=== PATIENT | male | born 1960 | race Two or more races ===

== ENCOUNTER 2023-03-13 09:06 | Outpatient (OUT) | payer BC, SELFPAY ==
[2023-03-13 13:30] VITALS: BMI 36.9
== END 2023-03-13 09:07 | disposition home or self-care (01) ==
LOC: MN 09:15
PROVIDERS: PCP Internal Medicine; Visit Provider Internal Medicine
DX: Z71.3 Dietary counseling and surveillance (principal); R73.03 Prediabetes; Z90.5 Acquired absence of kidney
CPT/HCPCS: 97802; S9470

== ENCOUNTER 2023-10-15 13:55 | Outpatient (OUT) | payer BC, SELFPAY ==
[2023-10-15] MEDS: COVID VAC 23-24(12UP)MODERNA/PF 50 MCG/0.5 ML VIAL IM (14:30)
== END 2023-10-15 16:23 | disposition home or self-care (01) ==
LOC: VACCLI 13:56
PROVIDERS: PCP Internal Medicine; Visit Provider Family Medicine
DX: Z23 Encounter for immunization (principal)
CPT/HCPCS: 90480; 91322

== ENCOUNTER 2024-02-08 10:13 | Outpatient (OUT) | payer BC, SELFPAY ==
--- OUTSIDE RECORDS SUMMARY | 2024-02-08 10:29 | XMS_ITS | CCD ---
Author Organization [facility] Care Team Providers Care Credentialing Coordinator Name Role Phone Unavailable Primary Care Provider Carline Cuadra Unavailable Unavailable Primary Care Provider Unavailnicole MORROW, DR HARRISON Consulting Unavailable BALL, DR HARRISON Attending Unavailable BALL, DR HARRISON Admitting Unavailable BALL, DR HARRISON Primary Care Unavailable MISC, DR JOHNSON Consulting Unavailable MISC, DR JOHNSON Attending Unavailable BALL, DR HARRISON Primary Care Unavailable MISC, DR JOHNSON Admitting Unavailable ZIEBVENU, DR ANGEL Garcia Consulting Unavailable BALL, DR HARRISON Consulting Unavailable BALL, DR HARRISON Admitting Unavailable BALL, DR HARRISON Attending Unavailable BALL, DR HARRISON Referring Unavailable BALL, DR HARRISON Primary Care Unavailable EMMETT, DR CANDICE Nazario Consulting Unavailable ZIEBER, DR ANGEL Garcia Consulting Unavailable BALL, DR HARRISON Consulting Unavailable BALL, DR HARRISON Attending Unavailable BALL, DR HARRISON Admitting Unavailable BALL, DR HARRISON Primary Care Unavailable ELIZA, HAWA Consulting Unavailable BALL, DR HARRISON Consulting Unavailable BALL, DR HARRISON Admitting Unavailable BALL, DR HARRISON Attending Unavailable BALL, DR HARRISON Primary Care Unavailable BALL, DR HARRISON Consulting Unavailable BALL, DR HARRISON Admitting Unavailable BALL, DR HARRISON Attending Unavailable BALL, DR HARRISON Primary Care Unavailable EMMETT, DR CANDICE Nazario Consulting Unavailable BALL, DR HARRISON Primary Care Unavailable BALL, DR HARRISON Consulting Unavailable BALL, DR HARRISON Admitting Unavailable BALL, DR HARRISON Attending Unavailable MISC, DR JOHNSON Consulting Unavailable MISC, DR JOHNSON Attending Unavailable MISC, DR JOHNSON Admitting Unavailable BALL, DR HARRISON Primary Care Unavailable ZIEBER, DR ANGEL Garcia Consulting Unavailable BALL, DR HARRISON Consulting Unavailable BALL, DR HARRISON Attending Unavailable BALL, DR HARRISON Admitting Unavailable BALL, DR HARRISON Primary Care Unavailable BALL, DR HARRISON Consulting Unavailable BALL, DR HARRISON Admitting Unavailable BALL, DR HARRISON Attending Unavailable BALL, DR HARRISON Primary Care Unavailable Kevin, Isreal Unavailable Halle, Jason Tran Attending Gilma Neri, Jason Tran Admitting Isreal Lockwood Primary Care Unavailable BANGURA, KENNEY Attending Unavailable BANGURA, KENNEY Referring Unavailable BANGURA, KENNEY Referring Unavailable BANGURA, KENNEY Referring Unavailable BANGURA, KENNEY Referring Unavailable JEFF DUNCAN Attending Unavailable BANGURA, KENNEY Referring Unavailable PETE GUPTA Attending Unavailable BANGURA, KENNEY Attending Unavailable BANGURA, KENNEY Referring Unavailable BANGURA, KENNEY Referring Unavailable LYDIA GODINEZ Attending Unavailab le BANGURA, KENNEY Referring Unavailable PETE GUPTA Attending Unavailable Allergies Allergy Classification Reported Allergen(s) Allergy Type Date of Onset Reaction(s) Facility (1 source) patient allergy list reviewed by nurse or physicia Propensity to adverse reactions Comment:Done [facility] Other (1 source) Allergies Reconciled Propensity to adverse reactions Unknown [facility] Other Medications Current Medications Medication Drug Class(es) Dates Sig (Normalized) Sig (Original) iv contrast (will be provided with radiology test) (8 sources) Start: 08-28-2023 End: 08-29-2023 iv contrast (will be provided with radiology test) Indications: Mass of pancreas CT PANCREAS W Inject, intravenously, once for 1 dose.No IV access, insert saline lock prior to the beginning of sedation, infusion, injection of imaging exam. Discontinue saline lock post exam. If Pt. has a central line or IVAD, may access for administration according to line specific nursing protocol. Once exam is complete flush line and de-access according to line specific nursing protocol in the CT contrast administration guidelines link. 1 Each 0 08/28/2023 08/29/2023 Active Start: 12-26-2022 End: 12-27-2022 iv contrast (will be provide d with radiology test) Indications: Malignant neoplasm of right kidney (HCC) , Mass of pancreas CT ABD/PEL -Inject, intravenously, once for 1 dose.No IV access, insert saline lock prior to the beginning of sedation, infusion, injection of imaging exam. Discontinue saline lock post exam. If Pt. has a central line or IVAD, may access for administration according to line specific nursing protocol. Once exam is complete flush line and de-access according to line specific nursing protocol in the CT contrast administration guidelines link. 1 Each 0 12/26/2022 12/27/2022 Start: 12-26-2022 End: 12-27-2022 iv contrast (will be provide d with radiology test) Indications: Malignant neoplasm of right kidney (HCC) , Mass of pancreas CT ABD/PEL -Inject, intravenously, once for 1 dose.No IV access, insert saline lock prior to the beginning of sedation, infusion, injection of imaging exam. Discontinue saline lock post exam. If Pt. has a central line or IVAD, may access for administration according to line specific nursing protocol. Once exam is complete flush line and de-access according to line specific nursing protocol in the CT contrast administration guidelines link. 1 Each 0 12/26/2022 12/27/2022 Active Start: 06-26-2022 End: 06-26-2022 iv contrast (will be provide d with radiology test) Indications: Malignant neoplasm of right kidney (HCC) , Mass of pancreas CT ABD/PEL -Inject, intravenously, once for 1 dose.No IV access, insert saline lock prior to the beginning of sedation, infusion, injection of imaging exam. Discontinue saline lock post exam. If Pt. has a central line or IVAD, may access for administration according to line specific nursing protocol. Once exam is complete flush line and de-access according to line specific nursing protocol in the CT contrast administration guidelines link. 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 Discontinue saline lock post exam. If Pt. has a central line or IVAD, may access for administration according to line specific nursing protocol. Once exam is complete flush line and de-access according to line specific nursing protocol in the CT contrast administration guidelines link. 1 Each 0 06/20/2022 06/21/2022 Start: 05-02-2022 End: 05-03-2022 iv contrast (will be provide d with radiology test) Indications: Malignant neoplasm of right kidney, except renal pelvis (HCC) CT Chest W -Inject, intravenously, once for 1 dose.No IV access, insert saline lock prior to the beginning of sedation, infusion, injection of imaging exam. Discontinue saline lock post exam. If Pt. has a central line or IVAD, may access for administration according to line specific nursing protocol. Once exam is complete flush line and de-access according to line specific nursing protocol in the CT contrast administration guidelines link. 1 Each 0 05/02/2022 05/03/2022 Active Comment on above: CT Chest W -Inject, intravenously, once for 1 dose.No IV access, insert saline lock prior to the beginning of sedation, infusion, injection of imaging exam. Discontinue saline lock post exam. If Pt. has a central line or IVAD, may access for administration according to line specific nursing protocol. Once exam is complete flush line and de-access according to line specific nursing protocol in the CT contrast administration guidelines link. CT ABD/PEL -Inject, intravenously, once for 1 dose.No IV access, insert saline lock prior to the beginning of sedation, infusion, injection of imaging exam. Discontinue saline lock post exam. If Pt. has a central line or IVAD, may access for administration according to line specific nursing protocol. Once exam is complete flush line and de-access according to line specific nursing protocol in the CT contrast administration guidelines link. CT PANCREAS W Inject , intravenously, once for 1 dose.No IV access, insert saline lock prior to the beginning of sedation, infusion, injection of imaging exam. Discontinue saline lock post exam. If Pt. has a central line or IVAD, may access for administration according to line specific nursing protocol. Once exam is complete flush line and de-access according to line specific nursing protocol in the CT contrast administration guidelines link. zolpidem tartrate 10 mg oral tablet (2 sources) gamma-Aminobutyric Acid-ergic Agonist take 1 tablet by mouth every twenty-four hours Zolpidem Tartrate 10 MG 1 tablet at bedtime as needed Orally Once a day Active Completed/Discontinued Medications Medication Drug Class(es) Dates Sig (Normalized) Sig (Original) acetaminophen 500 mg oral tablet (20 sources) Start: 06-06-2022 End: 06-21-2022 take 2 tablets by mouth every six hours as needed acetaminophen (TYLENOL EXTRA STRENGTH) 500 mg tablet Take 2 tablets by mouth every 6 hours as needed for pain for up to 15 days. 40 tablet 0 06/06/2022 06/21/2022 acetaminophen (T YLENOL ORAL) Take by mouth as needed. 0 Active Comment on above: Take by mouth as nee ded. Take 2 tablets by mo [facility] every 6 hours as needed for pain for up to 15 days. allopurinol 300 mg oral tablet (20 sources) Xanthine Oxidase Inhibitor Start: 03-06-20 take 1 tablet by mouth once daily allopurinol (ZYLOPRIM) 300 mg tablet Take 300 mg by mouth once daily. 0 03/06/2022 Active Comment on above: Take 300 mg by mouth once daily. amLODIPine 5 mg / benazepril hydrochloride 40 mg oral capsule (20 sources) Dihydropyridine Calcium Channel Lj, Angiotensin Converting Enzyme Inhibitor Start: 03-19-20 take 1 capsule by mouth once daily amLODIPine-Benazep ril 5-40 mg per capsule Take 1 capsule by mouth once daily. 0 03/19/2022 Active amLODIPine Besy- Benazepril HCl 5-40 MG as directed Orally Active Comment on above: Take 1 capsule by [facility] once daily. atenolol 50 mg oral tablet (20 sources) beta-Adrenergic Lj Start: 02-18-2022 take 1 tablet by mouth once daily atenolol (TENORMIN) 50 mg tablet Take 50 mg by mouth once daily. 0 02/18/2022 Active Comment on above: Take 50 mg by mouth once daily. colchicine 0.6 mg oral tablet (20 sources) Start: 04-05-2022 colchicine 0.6 mg tablet PRN 0 04/05/2022 Active Mitigare 0.6 MG 1 capsule Orally Active Comment on above: PRN Problems Active Problems Problem Classification Problem Date Documented Date Episodic/Chronic Acquired foot deformities (11 sources) Acquired left hallux rigidus; Translations: [Hallux rigidus, left foot] Chronic Cancer of kidney and renal pelvis (20 sources) Malignant tumor of kidney; Translations: [Malignant neoplasm of right kidney, except renal pelvis] Onset: 05-02-2022 Chronic Cancer of pancreas (1 source) Malignant tumor of body of pancreas; Translations: [Malignant neoplasm of body of pancreas] Chronic Cardiac dysrhythmias (20 sources) Ventricular premature beats; Translations: [Ventricular premature depolarization] Onset: 06-04-2022 06-04-2022 Chronic Cardiac dysrhythmias (6 sources) Intermittent palpitations; Translations: [Palpitations] Episodic Chronic kidney disease (13 sources) Chronic kidney disease stage 3A ; Translations: [Chronic kidney disease, stage 3a] Onset: 12-29-2018 Chronic Chronic kidney disease (5 sources) Chronic kidney disease; Translations: [CHRONIC KIDNEY DISEASE STAGE 3A] Onset: 04-03-2022 Diabetes mellitus without complication (12 sources) Impaired fasting glycemia; Translations: [Impaired fasting glucose] Episodic Diseases of white blood cells (20 sources) Leukocytosis; Translations: [Elevated white blood cell count, unspecified] Onset: 06-04-2022 06-04-2022 Chronic Essential hypertension (20 sources) Hypertensive disorder; Translations: [Essential (primary) hypertension] Onset: 12-16-2013 Chronic Gout and other crystal arthropathies (20 sources) Gout; Translations: [Gout, unspecified] Onset: 05-20-2022 Chronic Hyperplasia of prostate (2 sources) Benign prostatic hypertrophy without outflow obstruction; Translations: [Hypertrophy (benign) of prostate without urinary obstruction and other lower urinary tract symptoms [LUTS]] Onset: 11-25-2016 Chronic Hypertension with complications and secondary hypertension (11 sources) Hypertensive renal disease; Translations: [Hypertensive chronic kidney disease with stage 1 through stage 4 chronic kidney disease, or unspecified chronic kidney disease] Onset: 12-29-2018 Chronic Immunizations and screening for infectious disease (5 sources) Encounter for immunization; Translations: [Vaccination given] Onset: 01-15-2023 Episodic Miscellaneous mental health disorders (5 sources) Primary insomnia; Translations: [Primary insomnia] Chronic Mood disorders (1 source) Mild recurrent major depression; Translations: [Major depressive disorder, recurrent episode, mild] Onset: 05-02-2019 Chronic Osteoarthritis (1 source) Localized, primary osteoarthritis of the ankle and/or foot; Translations: [Primary osteoarthritis, unspecified ankle and foot] Chronic Other acquired deformities (5 sources) Deformity of lower limb; Translations: [Other specified acquired deformities of left lower leg] Episodic Other acquired deformities (1 source) Other specified acquired deformities of left lower leg; Translations: [Other specified acquired deformities of left lower leg] Episodic Other and unspecified benign neoplasm (5 sources) Neuroendocrine tumor of pancreas; Translations: [Other benign neuroendocrine tumors] Episodic Other and unspecified benign neoplasm (2 sources) Other benign neuroendocrine tumors Episodic Other bone disease and musculoskeletal deformities (5 sources) Bone cyst of left foot; Translations: [Other cyst of bone, left ankle and foot] Episodic Other bone disease and musculoskeletal deformities (6 sources) Other cyst of bone, unspecified site; Translations: [Bone cyst] Episodic Other connective tissue disease (5 sources) Achilles tendinitis; Translations: [Achilles tendinitis, left leg] Episodic Other connective tissue disease (5 sources) Subacromial impingement; Translations: [Impingement syndrome of left shoulder] Episodic Other connective tissue disease (5 sources) H/O: gout; Translations: [Personal history of other diseases of the musculoskeletal system and connective tissue] Episodic Other connective tissue disease (5 sources) Achilles bursitis; Translations: [Achilles tendinitis, left leg] Episodic Other connective tissue disease (3 sources) Personal history of other diseases of the musculoskeletal system and connective tissue Episodic Other connective tissue disease (1 source) H/O: musculoskeletal disease; Translations: [Personal history of other diseases of the musculoskeletal system and connective tissue] Episodic Other connective tissue disease (1 source) Impingement syndrome of left shoulder region; Translations: [Impingement syndrome of left shoulder] Episodic Other connective tissue disease (1 source) Pain in right foot; Translations: [Pain in right foot] Episodic Other connective tissue disease (1 source) Pain in left foot; Translations: [Pain in left foot] Episodic Other diseases of kidney and ureters (20 sources) Renal mass; Translations: [Other specified disorders of kidney and ureter] Onset: 05-28-2022 05-28-2022 Chronic Other diseases of kidney and ureters (4 sources) Other specified disorders of kidney and ureter; Translations: [OTHER SPEC DISORDERS KIDNEY URETER] Onset: 04-16-2022 Chronic Other diseases of kidney and ureters (1 source) Disorder of kidney and/or ureter; Translations: [Other specified disorders of kidney and ureter] Onset: 04-16-2022 Chronic Other injuries and conditions due to external causes (1 source) Foreign body in right ear, initial encounter Episodic Other nervous system disorders (11 sources) Meralgia paresthetica; Translations: [Meralgia paresthetica, right lower limb] Chronic Other non-traumatic joint disorders (5 sources) Sinus tarsi syndrome; Translations: [Pain in right ankle and joints of right foot] Episodic Other non-traumatic joint disorders (3 sources) Arthralgia of the ankle and/or foot; Translations: [Pain in right ankle and joints of right foot] Onset: 02-13-2017 Episodic Other nutritional; endocrine; and metabolic disorders (20 sources) Morbid obesity; Translations: [Morbid (severe) obesity due to excess calories] Onset: 05-20-2022 Chronic Other nutritional; endocrine; and metabolic disorders (20 sources) Body mass index 40+ - severely obese; Translations: [Morbid (severe) obesity due to excess calories] Onset: 11-23-2015 05-23-2022 Chronic Other nutritional; endocrine; and metabolic disorders (11 sources) Body mass index 30+ - obesity; Translations: [Obesity, unspecified] Chronic Other nutritional; endocrine; and metabolic disorders (6 sources) Obesity; Translations: [Obesity, unspecified] Chronic Other nutritional; endocrine; and metabolic disorders (3 sources) Hypercalcemia; Translations: [Hypercalcemia] Chronic Other nutritional; endocrine; and metabolic disorders (3 sources) Severe obesity; Translations: [Morbid (severe) obesity due to excess calories] Chronic Other nutritional; endocrine; and metabolic disorders (2 sources) Hypercalcemia Chronic Other nutritional; endocrine; and metabolic disorders (3 sources) Morbid (severe) obesity due to excess calories; Translations: [Obesity, Class III, BMI 40-49.9 (morbid obesity) (HCC)] Onset: 05-23-2022 Chronic Other nutritional; endocrine; and metabolic disorders (1 source) Body mass index (BMI) 39.0-39.9, adult Chronic Other nutritional; endocrine; and metabolic disorders (1 source) Body mass index (BMI) 40.0-44.9, adult Chronic Other screening for suspected conditions (not mental disorders or infectious disease) (6 sources) Patient encounter status; Translations: [Encounter for screening for other disorder] Onset: 02-20-2022 Episodic Residual codes; unclassified (1 source) Absent kidney; Translations: [Acquired absence of kidney] Episodic Residual codes; unclassified (1 source) Acquired absence of spleen; Translations: [Acquired absence of spleen] Onset: 08-20-2023 Episodic Spondylosis; intervertebral disc disorders; other back problems (6 sources) Lumbar spondylosis; Translations: [Spondylosis without myelopathy or radiculopathy, lumbar region] Chronic Spondylosis; intervertebral disc disorders; other back problems (2 sources) Pain in thoracic spine; Translations: [Pain in thoracic spine] Onset: 12-29-2018 Episodic Sprains and strains (8 sources) Strain of gastrocnemius tendon; Translations: [Strain of other muscle(s) and tendon(s) of posterior muscle group at lower leg level, left leg, initial encounter] Onset: 02-13-2017 Resolved: 06-11-2022 Episodic Substance-related disorders (1 source) Tobacco user; Translations: [Nicotine dependence, cigarettes, in remission] Chronic Past or Other Problems Problem Classification Problem Date Documented Date Episodic/Chronic Acute and unspecified renal failure (20 sources) Acute injury of kidney; Translations: [Acute kidney failure, unspecified] Onset: 06-04-2022 06-04-2022 Episodic Cancer of other GI organs; peritoneum (2 sources) History of malignant neoplasm of pancreas; Translations: [Personal history of malignant neoplasm of pancreas] Onset: 08-21-2023 08-21-2023 Episodic Cancer; other and unspecified primary (11 sources) History of primitive neuroectodermal tumor; Translations: [Personal history of malignant neoplasm of other organs and systems] Onset: 02-25-2023 Episodic Cancer; other and unspecified primary (1 source) Personal history of malignant neoplasm of other organs and systems; Translations: [H/O primitive neuroectodermal tumor (PNET)] Onset: 02-25-2023 Episodic Deficiency and other anemia (1 source) Anemia due to chronic blood loss; Translations: [Iron deficiency anemia secondary to blood loss (chronic)] Resolved: 04-28-2020 Chronic Deficiency and other anemia (1 source) Anemia; Translations: [Anemia, unspecified] Resolved: 04-28-2020 Episodic Joint disorders and dislocations; trauma-related (1 source) Current tear of medial cartilage AND/OR meniscus of knee; Translations: [Peripheral tear of medial meniscus, current injury, left knee, initial encounter] Onset: 05-02-2019 Episodic Neoplasms of unspecified nature or uncertain behavior (1 source) Neoplastic disease of uncertain behavior; Translations: [Neoplasm of unspecified behavior of bone, soft tissue, and skin] Resolved: 06-11-2022 Episodic Nonspecific chest pain (1 source) Chest pain; Translations: [Other chest pain] Onset: 12-29-2018 Episodic Other and unspecified benign neoplasm (1 source) Carcinoid tumor; Translations: [Other benign neuroendocrine tumors] Onset: 05-27-2022 Episodic Other circulatory disease (20 sources) Low blood pressure; Translations: [Hypotension, unspecified] Onset: 06-02-2022 06-02-2022 Episodic Other non-traumatic joint disorders (1 source) Shoulder joint pain; Translations: [Pain in left shoulder] Resolved: 08-25-2020 Episodic Other non-traumatic joint disorders (1 source) Arthralgia of the lower leg; Translations: [Pain in joint, lower leg] Onset: 02-13-2017 Episodic Pancreatic disorders (not diabetes) (20 sources) Mass of pancreas; Translations: [Other specified diseases of pancreas] Onset: 04-16-2022 05-20-2022 Episodic Pleurisy; pneumothorax; pulmonary collapse (20 sources) Hemothorax; Translations: [Hemothorax] Onset: 06-02-2022 06-02-2022 Episodic Residual codes; unclassified (11 sources) History of radical nephrectomy; Translations: [Acquired absence of kidney] Onset: 02-25-2023 Episodic Residual codes; unclassified (1 source) Tobacco user; Translations: [Tobacco use] Onset: 11-23-2015 Episodic Residual codes; unclassified (2 sources) Acquired absence of kidney; Translations: [Solitary kidney, acquired] Onset: 02-25-2023 Episodic Screening and history of mental health and substance abuse codes (1 source) History of tobacco use; Translations: [Personal history of tobacco use, presenting hazards to health] Onset: 11-23-2015 Episodic Viral infection (1 source) Disease caused by 2019-nCoV; Translations: [COVID-19] Resolved: 06-11-2022 Results Test Name Value Interpretation Reference Range Facility [facility] 11-18-2023 CNOV Office Visit ([facility] ) CANDICE MITCHELL ([id number]) 1960 M Date Time Provider Department 11/18/23 11:20 AM LYDIA GODINEZ During your visit today, we recorded the following information about you: Temperature Pulse Blood pressure Weight 97.9 degrees 59/minute 120/76 120.9 kg Height 1.727 m Lydia Godinez APRN.[facility] 11/20/2023 3:02 PM Signed [facility] NEPHR[facility] AND HYPERTENSION [facility] SERVICE DATE: 11/18/2023 SERVICE TIME: 11:07 AM A portion of this note has been copied from [facility] dated 02/25/23 CHIEF COMPLAINT: follow-up CKD HPI: Mr. 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 [facility] 02/25/[address] Duncan for initial consultation for evaluation of kidney dysfunction. Creatinine prior to surgery around 1.3. Peaked. At 2.3 and matty after at around 1.4. Most recent metabolic panel from February 11 with creatinine at 1.88 and an estimated GFR of around 39 mils per minute. Slight hypercalcemia appreciated Mild leukocytosis; hemoglobin 14 Most recent urinalysis from December completely bland. BP in the office elevated. Asked to monitor home BP and bring log to next visit. Encouraged Na+ restriction, DASH, or Mediterranean diet. Recommended lab work every 6 months with annual follow-up Need to recheck uric acid particularly if we are entertaining adding thiazide down the line Presents today in the office for a follow-up visit. He feels well. Retired. Per his they are working hard to follow a low salt diet Drinks water through the day for hydration. Estimates 3-4 32 oz of water. Some intermittent monitoring of home BP. SBP high 120s with occasional low 130s. PAST MEDICAL HISTORY: PAST MEDICAL HISTORY Diagnosis Date Gout 05/20/2022 HTN (hypertension) 05/20/2022 Morbid obesity (HCC) 05/20/2022 PAST SURGICAL HISTORY: PAST SURGICAL HISTORY Procedure Laterality Date CHOLECYSTECTOMY HX PAST SURGICAL HISTORY OF Bilateral Meniscus repair PAST SURGICAL HISTORY OF rotator cuff FAMILY HISTORY: FAMILY HISTORY Problem Relation Age of Onset Hypertension Mother Hypertension Father Hypertension Brother Chronic Kidney Disease Paternal Uncle ESRD Anesthesia Problems No Family History SOCIAL HISTORY: Social History Tobacco Use Smoking status: Former Types: Cigarettes Quit date: 2004 Years since quittin.1 Smokeless tobacco: Never Substance Use Topics Alcohol use: Yes Comment: ocassionally- 12-15 per month Drug use: Never MEDICATIONS: acetaminophen (TYLENOL ORAL) Take by mouth as needed. allopurinol (ZYLOPRIM) 300 mg tablet Take 300 mg by mouth once daily. amLODIPine-Benazepril 5-40 mg per capsule Take 1 capsule by mouth once daily. atenolol (TENORMIN) 50 mg tablet Take 50 mg by mouth once daily. colchicine 0.6 mg tablet PRN (Patient not taking: Reported on 08/21/2023) ALLERGIES: ALLERGIES No Known Allergies REVIEW OF SYSTEMS: Constitutional: No fever, No chills, and No weight loss Eyes: No complaints Ear, Nose, and Throat: No complaints Cardiovascular: No chest pain or pressure, No edema, No dizziness, and No lightheadedness Respiratory: No cough and No wheezing Gastrointestinal: No N/V. No diarrhea. Genitourinary: No dysuria. No urgency/hesitation. No blood in urine. Musculoskeletal: No joint pain and No joint swelling Skin: No pruritis, No rash, and No ulcers/wounds Neurological: No numbness and No tingling Psychiatric: No depression and No anxiety Endocrine: No hypoglycemic events Hematologic:No issues with bruising easily and No issues with bleeding easily PHYSICAL EXAM: BP 120/76 (BP Site: Left Arm, BP Position: Sitting, BP Cuff Size: Large Adult) Pulse (!) 59 Temp 36.6 ?C (97.9 ?F) (Oral) Ht 172.7 cm (5' 8 ) Wt 120.9 kg (266 lb 8.6 oz) BMI 40.53 kg/m? BP - standardized method Pulse 1 BP #1: 122/77 Pulse #1: 59 beats/min 2 BP #2 : 120/76 Pulse #2 : 60 beats/min 3 BP #3 : 118/75 Pulse #3 : 59 beats/min Average Average BP: 120/76 Average Pulse: 59 beats/min Orthostatic vitals Supine Sitting Standing Standing BP : 102/69 Standing pulse : 66 BP cuff location BP cuff location: Left upper arm BP cuff size BP cuff size: large adult Comments for BP values First BP (right) First BP (left) Constitutional: Alert. No acute distress HEENT: Atraumatic. No icterus. No drainage. Moist mucus membranes. Neck: Supple. Trachea midline. No JVD Cardiac: S1S2. Normal rate and rhythm. No murmurs. No edema. Respiratory: Thorax even and symmetrical. CTA b/l posterior upper and lower lobes. Abdomen: Soft and non-tender. No distention. Neurological: AANDO x 3 (more content not included)... Normal [facility] URINALYSIS, REFLEX MICROSCOP ICon 11-18-2023 Bilirubin Ql (U) Negative Normal Negative [facility] Comment on above: Order Comment: Speci men Type: URINE SPECIMENOrdering Facility: [facility] Address: [address] [place] [address] Performed By: #### L [id number] ####[facility] LABCLIA [id number] [place] [address] [place] Clarity (Unsp spec) Clear Normal Clear [facility] Comment on above: Order Comment: Speci men Type: URINE SPECIMENOrdering Facility: [facility] Address: [address] [place] [address] Performed By: #### L [id number] ####[facility] LABCLIA [id number] [place] [address] [place] Color (U) Yellow Normal Yellow [facility] Comment on above: Order Comment: Speci men Type: URINE SPECIMENOrdering Facility: [facility] Address: [address] [place] [address] Performed By: #### L [id number] ####[facility] LABCLIA [id number] [place] [address] [place] Glucose Test strip (U) [Mass/Vol] Negative Normal Trace, Negative [facility] Comment on above: Order Comment: Speci men Type: URINE SPECIMENOrdering Facility: [facility] Address: [address] [place] [address] Performed By: #### L [id number] ####[facility] LABCLIA [id number] [place] [address] [place] Hemoglobin Ql (U) Negative Normal Negative, Trace [facility] Comment on above: Order Comment: Speci men Type: URINE SPECIMENOrdering Facility: [facility] Address: [address] [place] [address] Performed By: #### L [id number] ####[facility] LABCLIA [id number] [place] [address] [place] Ketones Ql (U) Negative Normal Negative, Trace [facility] Comment on above: Order Comment: Speci men Type: URINE SPECIMENOrdering Facility: [facility] Address: [address] [place] [address] Performed By: #### L [id number] ####[facility] LABCLIA [id number] [place] [address] [place] Leukocyte esterase Test strip Ql (U) Negative Normal Negative, 25 Pia/uL [facility] Comment on above: Order Comment: Speci men Type: URINE SPECIMENOrdering Facility: [facility] Address: [address] [place] [address] Performed By: #### L [id number] ####[facility] LABCLIA [id number] [place] [address] [place] Nitrite Ql (U) Negative Normal Negative [facility] Comment on above: Order Comment: Speci men Type: URINE SPECIMENOrdering Facility: [facility] Address: [address] [place] [address] Performed By: #### L [id number] ####[facility] LABCLIA [id number] [place] [address] [place] pH (U) 5.5 [pH] Normal 5.0-8.0 [facility] Comment on above: Order Comment: Speci men Type: URINE SPECIMENOrdering Facility: [facility] Address: [address] [place] [address] Performed By: #### L [id number] ####[facility] LABCLIA [id number] [place] [address] [place] Protein (U) [Mass/Vol] Trace Normal Trace, Negative [facility] Comment on above: Order Comment: Speci men Type: URINE SPECIMENOrdering Facility: [facility] Address: [address] [place] [address] Performed By: #### L [id number] ####[facility] LABIA [id number] [place] [address] [place] Specific gravity (U) [Rel density] 1.026 Normal 1.005-1.030 [facility] Comment on above: Order Comment: Speci men Type: URINE SPECIMENOrdering Facility: [facility] Address: [address] [place] [address] Performed By: #### L [id number] ####[facility] LABIA [id number] [place] [address] [place] Urobilinogen Ql (U) Normal Normal Normal [facility] Comment on above: Order Comment: Speci men Type: URINE SPECIMENOrdering Facility: [facility] Address: [address] [place] [address] Performed By: #### L [id number] ####[facility] LABIA [id number] [place] [address] [place] Bilirubin Ql (U) Negative Negative [facility] Clarity (Unsp spec) Clear Clear [facility] Color (U) Yellow Yellow [facility] Glucose Test strip (U) [Mass/Vol] Negative Trace, Negative [facility] Hemoglobin Ql (U) Negative Negative, Trace [facility] Ketones Ql (U) Negative Negative, Trace [facility] Leukocyte esterase Test strip Ql (U) Negative Negative, 25 Pia/uL [facility] Nitrite Ql (U) Negative Negative [facility] pH (U) 5.5 [pH] 5.0 - 8.0 [facility] Protein (U) [Mass/Vol] Trace Trace, Negative [facility] Specific gravity (U) [Rel density] 1.026 1.005 - 1.030 [facility] Urobilinogen Ql (U) Normal Normal [facility] Comprehensive metabolic 2000 panelon 09-25-2023 Albumin [Mass/Vol] 4.3 g/dL Normal 3.9-4.[address] [facility] Comment on above: Order Comment: Speci men Type: BLOOD SPECIMENOrdering Facility: [facility] Address: [address] [place] [address] Performed By: #### 2 4323-8 ####[facility] LABCLIA [id number] [place] [address] ALP [Catalytic activity/Vol] 94 U/L Normal 38-113 [facility] Comment on above: Order Comment: Speci men Type: BLOOD SPECIMENOrdering Facility: [facility] Address: [address] [place] [address] Performed By: #### 2 4323-8 ####[facility] LABCLIA [id number] [place] [address] ALT [Catalytic activity/Vol] 20 U/L Normal 10-54 [facility] Comment on above: Order Comment: Speci men Type: BLOOD SPECIMENOrdering Facility: [facility] Address: [address] [place] [address] Performed By: #### 2 4323-8 ####[facility] LABCLIA [id number] [place] [address] Anion gap [Moles/Vol] 11 mmol/L Normal 9-18 [facility] Comment on above: Order Comment: Speci men Type: BLOOD SPECIMENOrdering Facility: [facility] Address: [address] [place] [address] Performed By: #### 2 4323-8 ####[facility] LABCLIA [id number] [place] [address] AST [Catalytic activity/Vol] 19 U/L Normal 14-40 [facility] Comment on above: Order Comment: Speci men Type: BLOOD SPECIMENOrdering Facility: [facility] Address: [address] [place] [address] Performed By: #### 2 4323-8 ####[facility] LABCLIA [id number] [place] [address] Bilirubin [Mass/Vol] 0.6 mg/dL Normal 0.2-1.3 [facility] Comment on above: Order Comment: Speci men Type: BLOOD SPECIMENOrdering Facility: [facility] Address: [address] [place] [address] Performed By: #### 2 4323-8 ####[facility] LABCLIA [id number] [place] [address] Calcium [Mass/Vol] 10.6 mg/dL High 8.5-10.[address] [facility] Comment on above: Order Comment: Speci men Type: BLOOD SPECIMENOrdering Facility: [facility] Address: [address] [place] [address] Performed By: #### 2 4323-8 ####[facility] LABCLIA [id number] [place] [address] Chloride [Moles/Vol] 108 mmol/L High 97-105 [facility] Comment on above: Order Comment: Speci men Type: BLOOD SPECIMENOrdering Facility: [facility] Address: [address] [place] [address] Performed By: #### 2 4323-8 ####[facility] LABCLIA [id number] [place] [address] CO2 [Moles/Vol] 24 mmol/L Normal 22-30 [facility] Comment on above: Order Comment: Speci men Type: BLOOD SPECIMENOrdering Facility: [facility] Address: [address] [place] [address] Performed By: #### 2 4323-8 ####[facility] LABCLIA [id number] [place] [address] Creatinine [Mass/Vol] 1.85 mg/dL High 0.73-1.22 [facility] Comment on above: Order Comment: Bianka montiel Type: BLOOD SPECIMENOrdering Facility: [facility] Address: [address] [place] [address] Performed By: #### 2 4323-8 ####[facility] LABCLIA [id number] [place] [address] Creatinine and Glomerular filtration rate.predicted panel (S/P/Bld) 40 mL/min/1.73m??? Low >=60 [facility] Comment on above: Order Comment: Bianka montiel Type: BLOOD SPECIMENOrdering Facility: [facility] Address: [address] [place] [address] Result Comment: Kasie mated Glomerular Filtration Rate (eGFR) is calculated using the 2020 CKD-EPI creatinine equation. This equation utilizes serum creatinine, sex, and age as parameters. The creatinine assay has traceable calibration to isotope dilution-mass spectrometry. Refer to KDIGO guidelines for clinical interpretation. In patients with unstable renal function, e.g. those with acute kidney injury, the eGFR may not accurately reflect actual GFR. Performed By: #### 2 4323-8 ####[facility] LABCLIA [id number] [place] [address] Glucose [Mass/Vol] 127 mg/dL High 74-[address] [facility] Comment on above: Order Comment: Bianak montiel Type: BLOOD SPECIMENOrdering Facility: [facility] Address: [address] [place] [address] Result Comment: The [place] [employer] (ADA) provides guidance for cutoff values for fasting glucose and random glucose. The ADA defines fasting as no caloric intake for at least 8 hours. Fasting plasma glucose results between 100 to 125 mg/dL indicate increased risk for diabetes (prediabetes). Fasting plasma glucose results greater than or equal to 126 mg/dL meet the criteria for diagnosis of diabetes. In the absence of unequivocal hyperglycemia, results should be confirmed by repeat testing. In a patient with classic symptoms of hyperglycemia or hyperglycemic crisis, random plasma glucose results greater than or equal to 200 mg/dL meet the criteria for diagnosis of diabetes. Reference: Standards of Medical Care in Diabetes 2016, [employer] [place] [employer]. Diabetes Care. 2016.39(Suppl 1). Performed By: #### 2 4323-8 ####[facility] LABCLIA [id number] [place] [address] Potassium [Moles/Vol] 4.9 mmol/L Normal 3.7-5.1 [facility] Comment on above: Order Comment: Speci men Type: BLOOD SPECIMENOrdering Facility: [facility] Address: [address] [place] [address] Performed By: #### 2 4323-8 ####[facility] LABCLIA [id number] [place] [address] Protein [Mass/Vol] 7.4 g/dL Normal 6.3-8.[address] [facility] Comment on above: Order Comment: Speci men Type: BLOOD SPECIMENOrdering Facility: [facility] Address: [address] [place] [address] Performed By: #### 2 4323-8 ####[facility] LABCLIA [id number] [place] [address] Sodium [Moles/Vol] 143 mmol/L Normal 136-[address] [facility] Comment on above: Order Comment: Speci men Type: BLOOD SPECIMENOrdering Facility: [facility] Address: [address] [place] [address] Performed By: #### 2 4323-8 ####[facility] LABCLIA [id number] [place] [address] Urea nitrogen [Mass/Vol] 32 mg/dL High 9-24 [facility] Comment on above: Order Comment: Speci men Type: BLOOD SPECIMENOrdering Facility: [facility] Address: [address] [place] [address] Performed By: #### 2 4323-8 ####[facility] LABCLIA [id number] [place] [address] PSA [facility] 09-25-2023 Prostate specific Ag [Mass/Vol] 1.44 ng/mL Normal <2.60 [facility] Comment on above: Order Comment: Speci men Type: BLOOD SPECIMENOrdering Facility: [facility] Address: [address] [place] [address] Result Comment: Clarence l PSA test methodology used is the Electrochemiluminescence Immunoassay by [employer]. Total PSA values by differing methodologies cannot be interchanged. Performed By: #### 2 857-1 ####[facility] LABCLIA [id number] [facility]ENTER[facility] AVEN[facility]K [id number] [facility] CNOVon 08-21-2023 CNOV Office Visit (UROLMN ) MITCHELL,DAVID ([id number]) 1960 Date Time Provider Department 08/21/23 2:00 PM KENNEY BANGURA URON During your visit today, we recorded the following information about you: Pulse Blood pressure Weight Height 66/minute 152/85 121.1 kg 1.727 m Kenney Bangura MD 08/28/2023 10:51 AM Signed PATIENT: Candice Mitchell [id number] 08/21/2023 Chief Complaint: Follow up This clinic note was copied and updated from previous note from 12/26/2022 History of Present Illness: Candice Mitchell is a very pleasant 63 year old male who presents with a history of gout, hypertension, morbid obesity (BMI 41) who was found to have an 8.5cm right upper pole mass and a 1.9cm pancreatic tail mass suspicious for metastatic RCC and is now s/p robotic right radical nephrectomy and adrenalectomy (05/27/22), robotic assisted distal pancreatectomy with splenectomy (05/27/22), incisional hernia repair (06/03/22), and right VATS with evacuation of retained hemothorax (06/03/22). 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 Denies Hematuria No difficulties with urination. Interval Hx: The patient is visiting today to review results of CT abd/pel and CXR Past Histories PAST MEDICAL HISTORY Diagnosis Date Gout 05/20/2022 HTN (hypertension) 05/20/2022 Morbid obesity (HCC) 05/20/2022 PAST SURGICAL HISTORY Procedure Laterality Date CHOLECYSTECTOMY HX PAST SURGICAL HISTORY OF Bilateral Meniscus repair PAST SURGICAL HISTORY OF rotator cuff Medications Current Outpatient Medications Medication Instructions acetaminophen (TYLENOL ORAL) ORAL, NEEDED allopurinol (ZYLOPRIM) 300 mg, ORAL, DAILY amLODIPine-Benazepril 5-40 mg per capsule 1 capsule, ORAL, DAILY atenolol (TENORMIN) 50 mg, ORAL, DAILY colchicine 0.6 mg tablet PRN Family History FAMILY HISTORY FAMILY HISTORY Problem Relation Age of Onset Anesthesia Problems No Family History Social History Social History Tobacco Use Smoking status: Former Types: Cigarettes Quit date: 2004 Years since quittin.9 Smokeless tobacco: Never Substance Use Topics Alcohol use: Yes Comment: ocassionally- 12-15 per month Drug use: Never Allergies Allergies: Not on File Physical Exam: BP 152/85 Pulse 66 Ht 172.7 cm (5' 8 ) Wt 121.1 kg (266 lb 15.6 oz) BMI 40.59 kg/m? General: Alert, no acute distress, oriented Lungs: No respiratory distress or pursed lip breathing Psych: Affect and mood normal Abdomen: Estimated body mass index is 40.59 kg/m? as calculated from the following: Height as of this encounter: 172.7 cm (5' 8 ). Weight as of this encounter: 121.1 kg (266 lb 15.6 oz). Labs and Pathology: PSA Screening (ng/mL) Date Value 02/11/2023 1.50 Creatinine Date Value Ref Range Status 02/11/2023 1.88 (H) 0.73 - 1.22 mg/dL Final 06/06/2022 1.46 (H) 0.73 - 1.22 mg/dL Final Creatinine (POCT) Date Value Ref Range Status 08/21/2023 1.80 (A) 0.7 - 1.4 mg/dL Final 12/26/2022 2.10 (A) 0.7 - 1.4 mg/dL Final Imaging: CXR 08/21/23: RESULT: Lines, tubes, and devices: N/A Lungs and pleura: Scattered linear opacities probably atelectasis. No focal consolidations or effusions. No pneumothorax. Cardiomediastinal silhouette: Cardiac silhouette within normal limits. Other: Degenerative changes of the thoracic spine. 12/26/22 CT Abd/pel W IV Con IMPRESSION: POST-SURGICAL CHANGES OF DISTAL PANCREATECTOMY/SPLENECTOMY AND RIGHT NEPHRECTOMY WITHOUT LOCAL RECURRENCE OR DEFINITE METASTATIC DISEASE. 3.7 CM LOCULATED FLUID ADJACENT TO THE DISTAL PANCREATECTOMY RESECTION MARGIN WITHOUT INTERNAL GAS, PROBABLY POST-SURGICAL. NO EVIDENCE FOR RECURRENT OR NEW LESION ON THIS SINGLE PHASE EXAM. 9.0 CM LEFT UPPER QUADRANT HETEROGENOUS LESION WITH FOCI OF BULK FAT IN THE REGION OF PRIOR FAT STRANDING/FLUID MAY REPRESENT CONTAINED AREA OF FAT NECROSIS. ATTENTION ON FOLLOW-UP. 1.1 CM HYPERENHANCING NODULE ADJACENT THE GREATER CURVATURE, PROBABLY AN ADDITIONAL HYPERTROPHIED ACCESSORY SPLEEN DESCRIBED IN DETAIL THE BODY OF THE REPORT. Diagnosis: (Z85.07) History of pancreatic cancer (C64.1) Malignant neoplasm of right kidney (HCC) (primary encounter diagnosis) Assessment: Candice Mitchell is a very pleasant 63 year old male who presents with a history of gout, hypertension, morbid obesity (BMI 41) who was found to have an 8.5cm right upper pole mass and a 1.9cm pancreatic tail mass suspicious for metastatic RCC and is now s/p robotic right radical nephrectomy and adrenalectomy (05/27/22), robotic assisted distal pancreatectomy with splenectomy (05/27/22), incisional hernia repair ( (more content not included)... Normal [facility] CREATININE, BLOOD (POC)on Creatinine [Mass/Vol] 1.80 mg/dL Abnormal 0.7 - 1.4 mg/dL [facility] eGFR (POCT) 42 mL/min/1.73 m2 [facility] CT ABD/PEL W IVCONon 023 CT ABD/PEL W IVCON * * *Final Report* * * * * * SEE BOTTOM OF REPORT FOR ADDENDED TEXT * * * DATE OF EXAM: Aug 21 2023 12:59PM [facility] [place]BD/PEL W IVCON / PROCEDURE REASON: multiple diagnoses * * * * Physician Interpretation * * * * * * * * * * * * ORIGINAL REPORT * * * * * * * * EXAMINATION: CT ABDOMEN AND PELVIS WITH IV CONTRAST CLINICAL HISTORY: Right renal mass and distal pancreatic mass status post robotic right radical nephrectomy and adrenalectomy, robotic assisted distal pancreatectomy with splenectomy 05/27/2022. 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 TECHNIQUE: CT of the abdomen and pelvis was performed using standard technique, scanning from just above the dome of the diaphragm to the symphysis pubis. MQ: CTAP_3 Contrast: IV: 100 ml of Omnipaque 350 CT Radiation dose: Integrated Dose-length product (DLP) for this visit = 756 mGy*cm. CT Dose Reduction Employed: Automated exposure control(AEC) and iterative recon COMPARISON: 12/26/2022 CT abdomen pelvis, 04/16/[address] abdomen. RESULT: Liver: No mass. Biliary: No bile duct dilation. Cholecystectomy. Spleen: Splenectomy. Residual small splenules are unchanged. Pancreas: Distal pancreatectomy, with interval resolution of loculated fluid along the distal margin. No mass or duct dilation. Adrenals: No left adrenal mass. Right adrenalectomy. Kidneys: Right nephrectomy no mass in the surgical bed. 2.0 cm left upper pole lesion is stable from at least 04/16/2022, favoring proteinaceous cyst. GI tract: No dilation or wall thickening. Normal appendix. Lymph nodes: No abdominal or pelvic lymphadenopathy. Mesentery/Peritoneum: Stable to slightly decreased size of presumed fat necrosis in the left upper quadrant/splenectomy bed, currently measuring up to 8.3 cm, previously up to 9 cm. No ascites. Retroperitoneum: No mass. Vasculature: - Abdominal aorta and iliac arteries: Atherosclerotic calcifications without aneurysm. - Celiac and SMA: Patent without stenosis. - Portal venous system (SMV, splenic vein, portal vein and branches): Patent with no portosystemic venous collaterals. - Hepatic veins: Patent. Pelvis: No mass, ascites or fluid collection. Bones/Soft Tissues: Degenerative changes. Right femoral head bone island (4:137). Left inguinal canal lipoma. Lower thorax: Stable areas of atelectasis/scarring in the lung bases. President Practicing Urologist (topogram) images: No additional findings. IMPRESSION: Stable to mildly decreased size of presumed area of fat necrosis in the left upper quadrant/splenectomy bed. Otherwise, no definitive evidence for metastatic disease in the abdomen and pelvis. Interval resolution of small fluid collection near the distal pancreatectomy bed. * * * * * * * * ADDENDUM #1 * * * * * * * * The case was reviewed with Dr. Pete Gupta on 08/28/2023 at 9:10 AM. Two enhancing nodules are again noted in the splenectomy bed. These were probably present on the CT 06/02/2022 and have enlarged interval, currently measuring 1.3 cm adjacent to the gastric fundus (4; 28), and 2.1 cm more inferiorly in the LEFT upper quadrant (4; 37). This nodules are favored to represent hypertrophied splenules, as mentioned on the CT 12/26/2022, rather than metastatic disease. Recommend continued attention follow-up imaging to ensure stability. Acuity: Actionable Findings: Other Routing Code: Misc_1 Recommendation: Unlisted Recommendation (see report) TimeFrame: at the discretion of the clinical team. --END OF FINDING-- Audience Development Manager: CARLEEN Transcribe Date/Time: Aug 28 2023 9:14A Dictated by : CODY ZENDEJAS MD This examination was interpreted and the report reviewed and electronically signed by: CODY ZENDEJAS MD on Aug 21 2023 2:54PM EST This document has been addended by: CODY ZENDEJAS MD on Aug 28 2023 9:19AM EST [id number] Normal [facility] URINALYSIS, REFLEX MICROSCOP ICon 08-21-2023 Bilirubin Ql (U) Negative Normal Negative [facility] Comment on above: Order Comment: Speci men Type: URINE SPECIMENOrdering Facility: [facility] Address: [address] [place] [address] Performed By: #### L [id number] ####[facility] LABCLIA [id number] [place] [address] [place] Clarity (Unsp spec) Clear Normal Clear [facility] Comment on above: Order Comment: Speci men Type: URINE SPECIMENOrdering Facility: [facility] Address: [address] [place] [address] Performed By: #### L [id number] ####[facility] LABCLIA [id number] [place] [address] [place] Color (U) Light Yellow Normal Yellow [facility] Comment on above: Order Comment: Speci men Type: URINE SPECIMENOrdering Facility: [facility] Address: [address] [place] [address] Performed By: #### L [id number] ####[facility] LABCLIA [id number] [place] [address] [place] Glucose Test strip (U) [Mass/Vol] Negative Normal Trace, Negative [facility] Comment on above: Order Comment: Speci men Type: URINE SPECIMENOrdering Facility: [facility] Address: [address] [place] [address] Performed By: #### L [id number] ####[facility] LABCLIA [id number] [place] [address] [place] Hemoglobin Ql (U) Negative Normal Negative, Trace [facility] Comment on above: Order Comment: Speci men Type: URINE SPECIMENOrdering Facility: [facility] Address: [address] [place] [address] Performed By: #### L [id number] ####[facility] LABCLIA [id number] [place] [address] [place] Ketones Ql (U) Negative Normal Negative, Trace [facility] Comment on above: Order Comment: Speci men Type: URINE SPECIMENOrdering Facility: [facility] Address: [address] [place] [address] Performed By: #### L [id number] ####[facility] LABCLIA [id number] [place] [address] [place] Leukocyte esterase Test strip Ql (U) Negative Normal Negative, 25 Pia/uL [facility] Comment on above: Order Comment: Speci men Type: URINE SPECIMENOrdering Facility: [facility] Address: [address] [place] [address] Performed By: #### L [id number] ####[facility] LABCLIA [id number] [place] [address] [place] Nitrite Ql (U) Negative Normal Negative [facility] Comment on above: Order Comment: Speci men Type: URINE SPECIMENOrdering Facility: [facility] Address: [address] [place] [address] Performed By: #### L [id number] ####[facility] LABIA [id number] [place] [address] [place] pH (U) 5.5 [pH] Normal 5.0-8.0 [facility] Comment on above: Order Comment: Speci men Type: URINE SPECIMENOrdering Facility: [facility] Address: [address] [place] [address] Performed By: #### L [id number] ####[facility] LABIA [id number] [place] [address] [place] Protein (U) [Mass/Vol] Negative Normal Trace, Negative [facility] Comment on above: Order Comment: Speci men Type: URINE SPECIMENOrdering Facility: [facility] Address: [address] [place] [address] Performed By: #### L [id number] ####[facility] LABIA [id number] [place] [address] [place] Specific gravity (U) [Rel density] 1.035 High 1.005-1.030 [facility] Comment on above: Order Comment: Speci men Type: URINE SPECIMENOrdering Facility: [facility] Address: [address] [place] [address] Performed By: #### L [id number] ####[facility] LABIA [id number] [place] [address] [place] Urobilinogen Ql (U) Negative Normal Negative [facility] Comment on above: Order Comment: Speci men Type: URINE SPECIMENOrdering Facility: [facility] Address: [address] [place] [address] Performed By: #### L [id number] ####[facility] LABCLIA [id number] [place]LBIE CAREYDESK [id number] [place] Bilirubin Ql (U) Negative Negative [facility] Clarity (Unsp spec) Clear Clear [facility] Color (U) Light Yellow Yellow [facility] Glucose Test strip (U) [Mass/Vol] Negative Trace, Negative [facility] Hemoglobin Ql (U) Negative Negative, Trace [facility] Ketones Ql (U) Negative Negative, Trace [facility] Leukocyte esterase Test strip Ql (U) Negative Negative, 25 Pia/uL [facility] Nitrite Ql (U) Negative Negative [facility] pH (U) 5.5 [pH] 5.0 - 8.0 [facility] Protein (U) [Mass/Vol] Negative Trace, Negative [facility] Specific gravity (U) [Rel density] 1.035 High 1.005 - 1.030 [facility] Urobilinogen Ql (U) Negative Negative [facility] XR CHEST 2V FRONTAL/LATon XR CHEST 2V FRONTAL/LAT * * *Final Report* * * DATE OF EXAM: Aug 21 2023 12:02PM [id number] - XR CHEST 2V FRONTAL/LAT / PROCEDURE REASON: multiple diagnoses * * * * Physician Interpretation * * * * EXAMINATION: CHEST RADIOGRAPH (2 VIEW FRONTAL and LATERAL) Clinical History: Malignant neoplasm of right kidney (HCC) Mass of pancreas M: [id number]_6 Comparison: prior chest radiograph dated 06/26/2022 RESULT: Lines, tubes, and devices: N/A Lungs and pleura: Scattered linear opacities probably atelectasis. No focal consolidations or effusions. No pneumothorax. Cardiomediastinal silhouette: Cardiac silhouette within normal limits. Other: Degenerative changes of the thoracic spine. IMPRESSION: See Result. Audience Development Manager: PSCFei Transcribe Date/Time: Aug 21 2023 12:48P Dictated by : CHRISTIANNE BRITO MD This examination was interpreted and the report reviewed and electronically signed by: CHRISTIANNE BRITO MD on Aug 21 2023 12:49PM EST [id number] Normal [facility] Complete Blood Count Auto Di ffon 08-20-2023 Basophils (Bld) [#/Vol] 0.1 10*3/uL Normal 0.0-0.2 [facility] Comment on above: Result Comment: PERF ORMED BY: [place] [address] PATHOLOGIST TOOL ADJUSTER YENI BARRAGAN M.D. Performed By: #### C BC #### [address] Basophils/100 WBC (Bld) 0.8 % Normal . [facility] Comment on above: Performed By: #### C BC #### [address] Eosinophils (Bld) [#/Vol] 0.3 10*3/uL Normal 0.0-0.45 [facility] Comment on above: Performed By: #### C BC #### [address] Eosinophils/100 WBC (Bld) 2.6 % Normal . [facility] Comment on above: Performed By: #### C BC #### [address] Erythrocyte distribution width (RBC) [Ratio] 15.2 % High 12.0-14.8 [facility] Comment on above: Performed By: #### C BC #### [address] Hematocrit (Bld) [Volume fraction] 44.0 % Normal 38.8-50.0 [facility] Comment on above: Performed By: #### C BC #### [address] Hemoglobin (Bld) [Mass/Vol] 14.4 g/dL Normal 13.0-17.0 [facility] Comment on above: Performed By: #### C BC #### [address] Lymphocytes (Bld) [#/Vol] 3.7 10*3/uL Normal 1.00-4.8 [facility] Comment on above: Performed By: #### C BC #### [address] Lymphocytes/100 WBC (Bld) 33.7 % Normal . [facility] Comment on above: Performed By: #### C BC #### [address] MCH (RBC) [Entitic mass] 30.8 pg Normal 27.5-35.2 [facility] Comment on above: Performed By: #### C BC #### [address] MCV (RBC) [Entitic vol] 94.0 fL Normal 83.5-101 [facility] Comment on above: Performed By: #### C BC #### [address] Mean Corpuscular HGB Conc 32.8 g/dL Normal 32.5-35.6 [facility] Comment on above: Performed By: #### C BC #### [address] Monocytes (Bld) [#/Vol] 0.8 10*3/uL Normal 0.0-0.8 [facility] Comment on above: Performed By: #### C BC #### [address] Monocytes/100 WBC (Bld) 7.3 % Normal . [facility] Comment on above: Performed By: #### C BC #### [address] Neutrophils (Bld) [#/Vol] 6.1 10*3/uL Normal 1.8-7.7 [facility] Comment on above: Performed By: #### C BC #### [address] Neutrophils/100 WBC (Bld) 55.6 % Normal . [facility] Comment on above: Performed By: #### C BC #### [facility] [address] NRBC% 0.2 /100{WBC} Normal 0-0.5 [facility] Comment on above: Performed By: #### C BC #### [facility] [address] Platelet mean volume (Bld) [Entitic vol] 8.1 fL Normal 6.6-10.1 [facility] Comment on above: Performed By: #### C BC #### [facility] [address] Platelets (Bld) [#/Vol] 338 10*3/uL Normal 150-450 [facility] Comment on above: Performed By: #### C BC #### [facility] [address] RBC (Bld) [#/Vol] 4.68 10*6/uL Normal 3.90-5.60 [facility] Comment on above: Performed By: #### C BC #### [address] WBC (Bld) [#/Vol] 11.0 10*3/uL High 4.1-10.5 [facility] Comment on above: Performed By: #### C BC #### [address] PROTEIN CREATININE RATIOon 0 02-26-2023 Protein/Creatinine (U) [Mass ratio] 0.11 mg/mg <0.15 mg/mg [facility] Protein/Creatinine (U) [Mass ratio]on 02-26-2023 Creatinine (U) [Mass/Vol] 211.1 mg/dL 20.0 - 300.0 mg/dL [facility] Protein (U) [Mass/Vol] 23 mg/dL High 0 - 20 mg/dL [facility] CNOVon 02-25-2023 CNOV Office Visit ([facility] ) CANDICE IMTCHELL ([id number]) 1960 M Date Time Provider Department 02/25/23 11:00 AM JEFF DUNCAN During your visit today, we recorded the following information about you: Pulse Blood pressure Weight Height 58/minute 141/82 115.7 kg 1.727 m Jeff Duncan MD 02/26/2023 8:47 AM Signed [facility] NEPHROLOGY AND HYPERTENSION [facility] SERVICE DATE: 02/25/2023 SERVICE TIME: 9:07 AM REASON FOR CONSULT: I am asked to see this patient in consultation for my opinion regarding kidney dysfunction. My recommendations will be communicated by way of shared medical record, fax, or mail. REQUESTING PHYSICIAN: No ref. provider found PRIMARY CARE PHYSICIAN: No primary care provider on file. CHIEF COMPLAINT: Kidney dysfunction HPI: Mr. 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 He is here to establish care. Creatinine prior to surgery around 1.3. Peaked. At 2.3 and matty after at around 1.4. Most recent metabolic panel from February 11 with creatinine at 1.88 and an estimated GFR of around 39 mils per minute. Slight hypercalcemia appreciated Mild leukocytosis; hemoglobin 14 Most recent urinalysis from December bland Doesn't check BP at home. BP elevated /, but was nervous regarding f/u CT scan for recurrence. Has prediabetes, but A1c only 5.7%. Medications include amlodipine 5 mg, benazepril 40 mg, atenolol 50 mg, allopurinol 300 mg, and as needed colchicine Gout without any recent flares. Is avoiding NSAIDs. No Hx of nephrolithiasis. 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 PAST MEDICAL HISTORY: PAST MEDICAL HISTORY Diagnosis Date Gout 05/20/2022 HTN (hypertension) 05/20/2022 Morbid obesity (HCC) 05/20/2022 PAST SURGICAL HISTORY: PAST SURGICAL HISTORY Procedure Laterality Date CHOLECYSTECTOMY HX PAST SURGICAL HISTORY OF Bilateral Meniscus repair PAST SURGICAL HISTORY OF rotator cuff FAMILY HISTORY: FAMILY HISTORY Problem Relation Age of Onset Anesthesia Problems No Family History SOCIAL HISTORY: Social History Tobacco Use Smoking status: Former Types: Cigarettes Quit date: 2004 Years since quittin.4 Smokeless tobacco: Never Substance Use Topics Alcohol use: Yes Comment: ocassionally- 5 per month Drug use: Never MEDICATIONS: acetaminophen (TYLENOL ORAL) Take by mouth as needed. allopurinol (ZYLOPRIM) 300 mg tablet Take 300 mg by mouth once daily. amLODIPine-Benazepril 5-40 mg per capsule Take 1 capsule by mouth once daily. atenolol (TENORMIN) 50 mg tablet Take 50 mg by mouth once daily. colchicine 0.6 mg tablet PRN ALLERGIES: ALLERGIES Not on File REVIEW OF SYSTEMS: Constitutional: No fevers, chills, weight loss Eyes: No loss in vision, photophobia Ear, Nose, and Throat: No epistaxis, nasal congestion Cardiovascular: No chest pain, SOTO, SOB, palpitations Respiratory: No cough, hemoptysis Gastrointestinal: No diarrhea, constipation Genitourinary: No dysuria, polyuria Musculoskeletal: No joint pain, morning stiffness Skin: No rash, no ulcers Neurological: No headaches, seizures, paresthesias Psychiatric: No depression, anxiety Endocrine: No hair loss, no heat intolerance Hematologic:No easy bruising, easy bleeding PHYSICAL EXAM: BP 141/82 Pulse (!) 58 Ht 172.7 cm (5' 8 ) Wt 115.7 kg (255 lb) BMI 38.77 kg/m? BP - standardized method Pulse 1 BP #1: 143/82 Pulse #1: 57 beats/min 2 BP #2 : 138/82 Pulse #2 : 53 beats/min 3 BP #3 : 143/83 Pulse #3 : 64 beats/min Average Average BP: 141/82 Average Pulse: 58 beats/min Orthostatic vitals Supine Sitting Standing Standing BP : 136/78 Standing pulse : 56 BP cuff location BP cuff location: Left upper arm BP cuff size BP cuff size: large adult Comments for BP values First BP (right) First BP (left) Constitutional: No acute distress, well nourished Eyes: Conjunctiva clear, nl EOM Ear, Nose, and Throat: Lips normal, dentition normal Neck: trachea midline, no palpable mass Cardiovascular: RRR, nl S1/S2, no rubs or gallops Respiratory: normal inspiratory effort, CTA b/l Abdomen: soft, non tender, non distended, normal bowel sounds Musculoskeletal: normocephalic, no muscle weakness, no joint effusions Extremities: no clubbing, no peripheral edema Neurologic: normal sensation, normal gait Psychiatric: AAO x 3, normal affect Vascular access: None DATA: Diagnostic tests reviewed for today's visit: Blood work, imaging studies, and office notes were reviewed in [facility] ASSESSMENT: 63 year old male who presents with hypertension, gout, obesity, pNET tumor status post di (more content not included)... Normal [facility] Prot/Creat Uron 02-25-2023 Protein/Creatinine (U) [Mass ratio] 0.11 mg/mg Normal <0.15 [facility] Comment on above: Order Comment: Speci men Type: URINE SPECIMENOrdering Facility: [facility] Address: [address] [place] [address] Result Comment: Adul t Proteinuria Categories: <0.15 mg/mg is considered normal to mildly increased 0.15 - 0.50 mg/mg is considered moderately increased >0.50 mg/mg is considered severely increased KDIGO. (2013). KDIGO 2012 Clinical Practice Guideline for the Evaluation and Management of Chronic Kidney Disease. Official Journal of the International Society of Nephrology, 3(1), 1-150. Performed By: #### 2 890-2, [id number] ####[facility] LABCLIA [id number] [facility] [id number] [address] [place] Protein/Creatinine (U) [Mass ratio]on 02-25-2023 Creatinine (U) [Mass/Vol] 211.1 mg/dL Normal 20.0-300.0 [facility] Comment on above: Order Comment: Kimanii tiana Type: URINE SPECIMENOrdering Facility: [facility] Address: [address] [place], [place] [address] Performed By: #### 2 890-2, [id number] ####[facility] LABCLIA [id number] [place] [address] [place] Protein (U) [Mass/Vol] 23 mg/dL High 0-20 [facility] Comment on above: Order Comment: Speci men Type: URINE SPECIMENOrdering Facility: [facility] Address: [address] [place] [address] Performed By: #### 2 890-2, [id number] ####[facility] LABCLIA [id number] [place] [address] [place] URINALYSIS, REFLEX MICROSCOP ICon 02-25-2023 Bilirubin Ql (U) Negative Normal Negative [facility] Comment on above: Order Comment: Speci men Type: URINE SPECIMENOrdering Facility: [facility] Address: [address] [place] [address] Performed By: #### 2 890-2, [id number] ####[facility] LABCLIA [id number] [place] [address] [place] Clarity (Unsp spec) Clear Normal Clear [facility] Comment on above: Order Comment: Speci men Type: URINE SPECIMENOrdering Facility: [facility] Address: [address] [place] [address] Performed By: #### 2 890-2, [id number] ####[facility] LABCLIA [id number] [place] [address] [place] Color (U) Yellow Normal Yellow [facility] Comment on above: Order Comment: Speci men Type: URINE SPECIMENOrdering Facility: [facility] Address: [address] [place] [address] Performed By: #### 2 890-2, [id number] ####[facility] LABCLIA [id number] [place] [address] [place] Glucose Test strip (U) [Mass/Vol] Negative Normal Trace, Negative [facility] Comment on above: Order Comment: Speci men Type: URINE SPECIMENOrdering Facility: [facility] Address: [address] Performed By: #### 2 890-2, [id number] ####[facility] LABCLIA [id number] [place] [address] [place] Hemoglobin Ql (U) Negative Normal Negative, Trace [facility] Comment on above: Order Comment: Speci men Type: URINE SPECIMENOrdering Facility: [facility] Address: [address] Performed By: #### 2 890-2, [id number] ####[facility] LABCLIA [id number] [place] [address] [place] Ketones Ql (U) Negative Normal Negative, Trace [facility] Comment on above: Order Comment: Speci men Type: URINE SPECIMENOrdering Facility: [facility] Address: [address] Performed By: #### 2 890-2, [id number] ####[facility] LABCLIA [id number] [place] [address] [place] Leukocyte esterase Test strip Ql (U) Negative Normal Negative, 25 Pia/uL [facility] Comment on above: Order Comment: Speci men Type: URINE SPECIMENOrdering Facility: [facility] Address: [address] Performed By: #### 2 890-2, [id number] ####[facility] LABCLIA [id number] [place] [address] [place] Nitrite Ql (U) Negative Normal Negative [facility] Comment on above: Order Comment: Speci men Type: URINE SPECIMENOrdering Facility: [facility] Address: [address] Performed By: #### 2 890-2, [id number] ####[facility] LABCLIA [id number] [place] [address] [place] pH (U) 5.5 [pH] Normal 5.0-8.0 [facility] Comment on above: Order Comment: Speci men Type: URINE SPECIMENOrdering Facility: [facility] Address: [address] [place] [address] Performed By: #### 2 890-2, [id number] ####[facility] LABIA [id number] [place] [address] [place] Protein (U) [Mass/Vol] Trace Normal Trace, Negative [facility] Comment on above: Order Comment: Speci men Type: URINE SPECIMENOrdering Facility: [facility] Address: [address] [place] [address] Performed By: #### 2 890-2, [id number] ####[facility] LABIA [id number] [address] Specific gravity (U) [Rel density] 1.027 Normal 1.005-1.030 [facility] Comment on above: Order Comment: Speci men Type: URINE SPECIMENOrdering Facility: [facility] Address: [address] [place] [address] Performed By: #### 2 890-2, [id number] ####[facility] LABIA [id number] [place] [address] [place] Urobilinogen Ql (U) Negative Normal Negative [facility] Comment on above: Order Comment: Speci men Type: URINE SPECIMENOrdering Facility: [facility] Address: [address] [place] [address] Performed By: #### 2 890-2, [id number] ####[facility] LABIA [id number] [place] [address] [place] CBC W Auto Differential pane l (Bld)on 02-11-2023 Basophils (Bld) [#/Vol] 0.07 10*3/uL Normal <0.11 [facility] Comment on above: Order Comment: Speci men Type: BLOOD SPECIMENOrdering Facility: [facility] Address: [address] [place] [place] [address] Performed By: #### 5 7021-8 ####[facility] LABCLIA [id number] [place] [address] Basophils/100 WBC (Bld) 0.6 % Normal [facility] Comment on above: Order Comment: Speci men Type: BLOOD SPECIMENOrdering Facility: [facility] Address: [address] [address] Performed By: #### 5 7021-8 ####[facility] LABCLIA [id number] [place] [address] Differential cell count method Nom (Bld) Auto Normal [facility] Comment on above: Order Comment: Speci men Type: BLOOD SPECIMENOrdering Facility: [facility] Address: [address] [place] [address] Performed By: #### 5 7021-8 ####[facility] LABCLIA [id number] [place] [address] Eosinophils (Bld) [#/Vol] 0.23 10*3/uL Normal <0.46 [facility] Comment on above: Order Comment: Speci men Type: BLOOD SPECIMENOrdering Facility: [facility] Address: [address] [address] Performed By: #### 5 7021-8 ####[facility] LABCLIA [id number] [place] [address] Eosinophils/100 WBC (Bld) 2.0 % Normal [facility] Comment on above: Order Comment: Speci men Type: BLOOD SPECIMENOrdering Facility: [facility] Address: [address] [address] Performed By: #### 5 7021-8 ####[facility] LABCLIA [id number] [place] [address] Erythrocyte distribution width (RBC) [Ratio] 15.1 % High 11.5-15.0 [facility] Comment on above: Order Comment: Speci men Type: BLOOD SPECIMENOrdering Facility: [facility] Address: [address] [place] [address] Performed By: #### 5 7021-8 ####[facility] LABIA [id number] [place] [address] Hematocrit (Bld) [Volume fraction] 42.8 % Normal 39.0-51.0 [facility] Comment on above: Order Comment: Speci men Type: BLOOD SPECIMENOrdering Facility: [facility] Address: [address] [place] [address] Performed By: #### 5 7021-8 ####[facility] LABIA [id number] [place] [address] Hemoglobin (Bld) [Mass/Vol] 14.0 g/dL Normal 13.0-17.0 [facility] Comment on above: Order Comment: Speci men Type: BLOOD SPECIMENOrdering Facility: [facility] Address: [address] [place] [address] Performed By: #### 5 7021-8 ####[facility] LABIA [id number] [place] [address] Immature granulocytes (Bld) [#/Vol] 0.04 10*3/uL Normal <0.10 [facility] Comment on above: Order Comment: Speci men Type: BLOOD SPECIMENOrdering Facility: [facility] Address: [address] [place] [address] Performed By: #### 5 7021-8 ####[facility]IA [id number] [place] [address] Immature granulocytes/100 WBC (Bld) 0.3 % Normal [facility] Comment on above: Order Comment: Speci men Type: BLOOD SPECIMENOrdering Facility: [facility] Address: [address] [place] [address] Performed By: #### 5 7021-8 ####[facility] [id number] [place] [address] Lymphocytes (Bld) [#/Vol] 4.39 10*3/uL High 1.00-4.00 [facility] Comment on above: Order Comment: Speci men Type: BLOOD SPECIMENOrdering Facility: [facility] Address: [address] [place] [address] Performed By: #### 5 7021-8 ####[facility] [id number] [place] [address] Lymphocytes/100 WBC (Bld) 38.2 % Normal [facility] Comment on above: Order Comment: Speci men Type: BLOOD SPECIMENOrdering Facility: [facility] Address: [address] [place] [address] Performed By: #### 5 7021-8 ####[facility] [id number] [place] [address] MCH (RBC) [Entitic mass] 30.1 pg Normal 26.0-34.0 [facility] Comment on above: Order Comment: Speci men Type: BLOOD SPECIMENOrdering Facility: [facility] Address: [address] [place] [address] Performed By: #### 5 7021-8 ####[facility] LABCLIA [id number] [place] [address] MCHC (RBC) [Mass/Vol] 32.7 g/dL Normal 30.5-36.0 [facility] Comment on above: Order Comment: Speci men Type: BLOOD SPECIMENOrdering Facility: [facility] Address: [address] [place] [address] Performed By: #### 5 7021-8 ####[facility] LABCLIA [id number] [place] [address] MCV (RBC) [Entitic vol] 92.0 fL Normal 80.0-100.0 [facility] Comment on above: Order Comment: Speci men Type: BLOOD SPECIMENOrdering Facility: [facility] Address: [address] [place] [address] Performed By: #### 5 7021-8 ####[facility] LABCLIA [id number] [place] [address] Monocytes (Bld) [#/Vol] 0.70 10*3/uL Normal <0.87 [facility] Comment on above: Order Comment: Speci men Type: BLOOD SPECIMENOrdering Facility: [facility] Address: [address] [place] [address] Performed By: #### 5 7021-8 ####[facility] LABCLIA [id number] [place] [address] Monocytes/100 WBC (Bld) 6.1 % Normal [facility] Comment on above: Order Comment: Speci men Type: BLOOD SPECIMENOrdering Facility: [facility] Address: [address] [place] [address] Performed By: #### 5 7021-8 ####[facility] LABCLIA [id number] [place] [address] Neutrophils (Bld) [#/Vol] 6.06 10*3/uL Normal 1.45-7.50 [facility] Comment on above: Order Comment: Speci men Type: BLOOD SPECIMENOrdering Facility: [facility] Address: [address] [place] [address] Performed By: #### 5 7021-8 ####[facility] LABCLIA [id number] [place] [address] Neutrophils/100 WBC (Bld) 52.8 % Normal [facility] Comment on above: Order Comment: Speci men Type: BLOOD SPECIMENOrdering Facility: [facility] Address: [address] [place] [address] Performed By: #### 5 7021-8 ####[facility] LABCLIA [id number] [place] [address] Nucleated RBC (Bld) [#/Vol] 10*3/uL Normal <0.01 [facility] Comment on above: Order Comment: Speci men Type: BLOOD SPECIMENOrdering Facility: [facility] Address: [address] [place] [address] Performed By: #### 5 7021-8 ####[facility] LABCLIA [id number] [place] [address] Nucleated RBC/100 WBC (Bld) [Ratio] 0.0 /100 WBC Normal [facility] Comment on above: Order Comment: Speci men Type: BLOOD SPECIMENOrdering Facility: [facility] Address: [address] [place] [address] Performed By: #### 5 7021-8 ####[facility]CLIA [id number] [place] [address] Platelet mean volume (Bld) [Entitic vol] 9.5 fL Normal 9.0-12.7 [facility] Comment on above: Order Comment: Speci men Type: BLOOD SPECIMENOrdering Facility: [facility] Address: [address] [place] [address] Performed By: #### 5 7021-8 ####[facility]CLIA [id number] [place] [address] Platelets (Bld) [#/Vol] 330 10*3/uL Normal 150-400 [facility] Comment on above: Order Comment: Speci men Type: BLOOD SPECIMENOrdering Facility: [facility] Address: [address] [place] [address] Performed By: #### 5 7021-8 ####[facility] LABCLIA [id number] [place] [address] RBC (Bld) [#/Vol] 4.65 10*6/uL Normal 4.20-6.00 [facility] Comment on above: Order Comment: Speci men Type: BLOOD SPECIMENOrdering Facility: [facility] Address: [address] [place] [address] Performed By: #### 5 7021-8 ####[facility]CLIA [id number] [place] [address] WBC (Bld) [#/Vol] 11.49 10*3/uL High 3.70-11.00 [facility] Comment on above: Order Comment: Speci men Type: BLOOD SPECIMENOrdering Facility: [facility] Address: [address] [place] [address] Performed By: #### 5 7021-8 ####[facility]CLIA [id number] [place] [address] Comprehensive metabolic 2000 panelon 02-11-2023 Albumin [Mass/Vol] 4.0 g/dL Normal 3.9-4.[address] [facility] Comment on above: Order Comment: Speci men Type: BLOOD SPECIMENOrdering Facility: [facility] Address: [address] [place] [address] Performed By: #### 2 4323-8 ####[facility]CLIA [id number] [place] [address] ALP [Catalytic activity/Vol] 123 U/L High 38-113 [facility] Comment on above: Order Comment: Speci men Type: BLOOD SPECIMENOrdering Facility: [facility] Address: [address] [place] [address] Performed By: #### 2 4323-8 ####[facility]CL[facility] [id number] [place] [address] ALT [Catalytic activity/Vol] 21 U/L Normal 10-54 [facility] Comment on above: Order Comment: Speci men Type: BLOOD SPECIMENOrdering Facility: [facility] Address: [address] [place], [place] [address] Performed By: #### 2 4323-8 ####[facility]CLIA [id number] [place] [address] Anion gap [Moles/Vol] 8 mmol/L Low 9-18 [facility] Comment on above: Order Comment: Speci men Type: BLOOD SPECIMENOrdering Facility: [facility] Address: [address] [place] [address] Performed By: #### 2 4323-8 ####[facility] LABCLIA [id number] [place] [address] AST [Catalytic activity/Vol] 21 U/L Normal 14-40 [facility] Comment on above: Order Comment: Speci men Type: BLOOD SPECIMENOrdering Facility: [facility] Address: [address] [place] [address] Performed By: #### 2 4323-8 ####[facility] LABCLIA [id number] [place] [address] Bilirubin [Mass/Vol] 0.5 mg/dL Normal 0.2-1.3 [facility] Comment on above: Order Comment: Speci men Type: BLOOD SPECIMENOrdering Facility: [facility] Address: [address] [place] [address] Performed By: #### 2 4323-8 ####[facility]CLIA [id number] [place] [address] Calcium [Mass/Vol] 10.4 mg/dL High 8.5-10.[address] [facility] Comment on above: Order Comment: Speci men Type: BLOOD SPECIMENOrdering Facility: [facility] Address: [address] [place] [address] Performed By: #### 2 4323-8 ####[facility]CLIA [id number] [place] [address] Chloride [Moles/Vol] 106 mmol/L High 97-105 [facility] Comment on above: Order Comment: Speci men Type: BLOOD SPECIMENOrdering Facility: [facility] Address: [address] [address] Performed By: #### 2 4323-8 ####[facility]CLIA [id number] [place] [address] CO2 [Moles/Vol] 24 mmol/L Normal 22-30 [facility] Comment on above: Order Comment: Speci men Type: BLOOD SPECIMENOrdering Facility: [facility] Address: [address] [place] [address] Performed By: #### 2 4323-8 ####[facility]CLIA [id number] [place] [address] Creatinine [Mass/Vol] 1.88 mg/dL High 0.73-1.22 [facility] Comment on above: Order Comment: Speci men Type: BLOOD SPECIMENOrdering Facility: [facility] Address: [address] [place] [address] Performed By: #### 2 4323-8 ####[facility]CLIA [id number] [place] [address] ESTIMATED GLOMERULAR FILTRATION RATE 39 mL/min/1.73m??? Low >=60 [facility] Comment on above: Order Comment: Speci men Type: BLOOD SPECIMENOrdering Facility: [facility] Address: [address] [place] [address] Result Comment: Kasie mated Glomerular Filtration Rate (eGFR) is calculated using the 2020 CKD-EPI creatinine equation. This equation utilizes serum creatinine, sex, and age as parameters. The creatinine assay has traceable calibration to isotope dilution-mass spectrometry. Refer to KDIGO guidelines for clinical interpretation. In patients with unstable renal function, e.g. those with acute kidney injury, the eGFR may not accurately reflect actual GFR. Performed By: #### 2 4323-8 ####[facility]CLIA [id number] [place] [address] Glucose [Mass/Vol] 120 mg/dL High 74-[address] [facility] Comment on above: Order Comment: Speci men Type: BLOOD SPECIMENOrdering Facility: [facility] Address: [address] [place] [address] Result Comment: The [place] Diabetes Association (ADA) provides guidance for cutoff values for fasting glucose and random glucose. The ADA defines fasting as no caloric intake for at least 8 hours. Fasting plasma glucose results between 100 to 125 mg/dL indicate increased risk for diabetes (prediabetes). Fasting plasma glucose results greater than or equal to 126 mg/dL meet the criteria for diagnosis of diabetes. In the absence of unequivocal hyperglycemia, results should be confirmed by repeat testing. In a patient with classic symptoms of hyperglycemia or hyperglycemic crisis, random plasma glucose results greater than or equal to 200 mg/dL meet the criteria for diagnosis of diabetes. Reference: Standards of Medical Care in Diabetes 2016, [place] Diabetes [employer]. Diabetes Care. 2016.39(Suppl 1). Performed By: #### 2 4323-8 ####[facility] LABCLIA [id number] [place] [address] Potassium [Moles/Vol] 4.5 mmol/L Normal 3.7-5.1 [facility] Comment on above: Order Comment: Kimanii men Type: BLOOD SPECIMENOrdering Facility: [facility] Address: [address] [place] [address] Performed By: #### 2 4323-8 ####[facility]CLIA [id number] [place] [address] Protein [Mass/Vol] 7.0 g/dL Normal 6.3-8.[address] [facility] Comment on above: Order Comment: Speci men Type: BLOOD SPECIMENOrdering Facility: [facility] Address: [address] [place] [address] Performed By: #### 2 4323-8 ####[facility]CLIA [id number] [place] [address] Sodium [Moles/Vol] 138 mmol/L Normal 136-[address] [facility] Comment on above: Order Comment: Speci men Type: BLOOD SPECIMENOrdering Facility: [facility] Address: [address] [address] Performed By: #### 2 4323-8 ####[facility]CLIA [id number] [place] [address] Urea nitrogen [Mass/Vol] 29 mg/dL High - [facility] Comment on above: Order Comment: Speci men Type: BLOOD SPECIMENOrdering Facility: [facility] Address: [address] [address] Performed By: #### 2 4323-8 ####[facility]CLIA [id number] [place] [address] HbA1c (Bld)on 02-11-2023 Average glucose Estimated from glycated hemoglobin (Bld) [Mass/Vol] 117 mg/dL Normal [facility] Comment on above: Order Comment: Speci men Type: BLOOD SPECIMENOrdering Facility: [facility] Address: [address] [place] [address] Result Comment: eAG: (Estimated average glucose) is a calculated value from HgbA1c and is field representatives director of the average blood glucose level in the last 2-3 month period. Performed By: #### 5 5454-3 ####[facility] LABCLIA [id number] [facility] [place] [address] [place] HbA1c (Bld) [Mass fraction] 5.7 % High 4.3-5.6 [facility] Comment on above: Order Comment: Bianka men Type: BLOOD SPECIMENOrdering Facility: [facility] Address: [address] [place] [address] Result Comment: Amer [place] Diabetes Association guidelines indicate that patients with HgbA1c in the range 5.7-6.4% are at increased risk for development of diabetes, and intervention by lifestyle modification may be beneficial. HgbA1c greater or equal to 6.5% is considered diagnostic of diabetes. Performed By: #### 5 5454-3 ####[facility] LABCLIA [id number] [address] OF [facility] LIPID PANEL, NONFASTINGon Cholesterol [Mass/Vol] 142 mg/dL Normal <200 [facility] Comment on above: Order Comment: Speci men Type: BLOOD SPECIMENOrdering Facility: [facility] Address: [address] [place] [address] Result Comment: <200 mg/dL, Desirable 200-239 mg/dL, Borderline high >239 mg/dL, High Performed By: #### L IPNF ####[facility] LABCLIA [id number] [address] STATES OF [facility] HDL CHOLESTEROL, NF 35 mg/dL Low >39 [facility] Comment on above: Order Comment: Speci men Type: BLOOD SPECIMENOrdering Facility: [facility] Address: [address] [place] [address] Result Comment: 40-5 9 mg/dL, Acceptable >59 mg/dL, High: Negative risk factor for coronary heart disease <40 mg/dL, Low: Positive risk factor for coronary heart disease Performed By: #### L IPNF ####[facility] LABCLIA [id number] [address] LDL CHOLESTEROL, NF 85 mg/dL Normal <100 [facility] Comment on above: Order Comment: Speci men Type: BLOOD SPECIMENOrdering Facility: [facility] Address: [address] [place] [address] Result Comment: <100 mg/dL, Optimal 100-129 mg/dL, Near optimal/above optimal 130-159 mg/dL, Borderline high 160-189 mg/dL, High >189 mg/dL, Very high Secondary prevention optimal LDL Cholesterol levels are recommended to be < 70 mg/dL Performed By: #### L IPNF ####[facility] LABCLIA [id number] [address] OF [facility] LDL/HDL RATIO, NF 2.43 mg/dL Normal <2.54 [facility] Comment on above: Order Comment: Speci men Type: BLOOD SPECIMENOrdering Facility: [facility] Address: [address] [address] Result Comment: Joanna welch: 1. National Cholesterol Education Program ATP III Guideline At-A-Glance Quick Desk Reference: National Heart, Lung, and Blood [place]. National Institutes of Health. 2001: NIH Publication No. 01-3305. 2. An International Atherosclerosis Society position paper: global recommendations for the management of dyslipidemia: executive summary, Atherosclerosis. 2014: 232(2):410-413. Performed By: #### L IPNF ####[facility] LABCLIA [id number] [address] OF [facility] NON HDL CHOL, NF 107 mg/dL Normal <130 [facility] Comment on above: Order Comment: Kimanii men Type: BLOOD SPECIMENOrdering Facility: [facility] Address: [address] [address] Result Comment: <130 mg/dL, Optimal 130-159 mg/dL, Near optimal/above optimal 160-189 mg/dL, Borderline high 190-219 mg/dL, High >219 mg/dL, Very high Secondary prevention optimal non HDL Cholesterol levels are recommended to be <100 mg/dL Performed By: #### L IPNF ####[facility] LABCLIA [id number] [address] T CHOL/HDL RATIO NF 4.06 mg/dL Normal <5.10 [facility] Comment on above: Order Comment: Speci men Type: BLOOD SPECIMENOrdering Facility: [facility] Address: [address] [address] Performed By: #### L IPNF ####[facility] LABCLIA [id number] [address] [place] TRIGLYCERIDES, NF 111 mg/dL Normal <150 [facility] Comment on above: Order Comment: Speci men Type: BLOOD SPECIMENOrdering Facility: [facility] Address: [address] [address] Result Comment: <150 mg/dL, Normal 150-199 mg/dL, Borderline high 200-499 mg/dL, High >499 mg/dL, Very high Performed By: #### L IPNF ####[facility] LABCLIA [id number] [address] [place] VLDL CHOLESTEROL, NF 22 mg/dL Normal <30 [facility] Comment on above: Order Comment: Speci men Type: BLOOD SPECIMENOrdering Facility: [facility] Address: [address] [place] [address] Performed By: #### L IPNF ####[facility] LABIA [id number] [place] [address] [place] PSA/PROSTSPECAG SCRNon 02-11 Prostate specific Ag [Mass/Vol] 1.50 ng/mL Normal <2.60 [facility] Comment on above: Order Comment: Speci men Type: BLOOD SPECIMENOrdering Facility: [facility] Address: [address] [place] [address] Result Comment: Tota l PSA test methodology used is the Electrochemiluminescence Immunoassay by [employer]. Total PSA values by differing methodologies cannot be interchanged. Performed By: #### P SAS1 ####[facility] LABIA [id number] [address] [place] CNOVon 12-26-2022 CNOV Office Visit (ADELINA ) CANDICE MITCHELL ([id number]) 1960 M Date Time Provider Department 12/26/22 3:15 PM PETE GPUTA During your visit today, we recorded the following information about you: Temperature Pulse Respiration Blood pressure 97.2 degrees 59/minute 18/minute 155/81 Weight 116.7 kg Milind Bustillo 12/26/2022 4:42 PM Signed [facility] Postoperative Follow-Up Subjective Candice Mitchell is a 62 year old man here for postoperative follow-up s/p robotic right radical nephrectomy and adrenalectomy for 8.5 cm right upper pole renal mass (05/27/22), robotic assisted distal pancreatectomy with splenectomy for 1.9 cm pancreatic tail mass (05/27/22), incisional hernia repair (06/03/22), and right VATS with evacuation of retained hemothorax (06/03/22). Eating and drinking well. Denies nausea, vomiting, diarrhea, or constipation. Urinating normally. Objective BP 155/81 (BP Site: Left Arm, BP Position: Sitting, BP Cuff Size: Large Adult) Pulse (!) 59 Temp 36.2 ?C (97.2 ?F) (Oral) Resp 18 Wt 116.7 kg (257 lb 4.8 oz) SpO2 99% BMI 39.12 kg/m? General appearance: Well appearing, alert, in no acute distress, well-hydrated, well nourished. Lungs: Lungs clear to auscultation. No wheezing, rhonchi, rales. Heart: RRR without murmur, gallop, or rubs. No ectopy Abdomen: Normal abdominal exam Imaging CT C/A/P - 3.7 CM LOCULATED FLUID ADJACENT TO THE DISTAL PANCREATECTOMY RESECTION MARGIN WITHOUT INTERNAL GAS, PROBABLY POST-SURGICAL. NO EVIDENCE FOR RECURRENT OR NEW LESION ON THIS SINGLE PHASE EXAM. - 9.0 CM LEFT UPPER QUADRANT HETEROGENOUS LESION WITH FOCI OF BULK FAT IN THE REGION OF PRIOR FAT STRANDING/FLUID MAY REPRESENT CONTAINED AREA OF FAT NECROSIS. ATTENTION ON FOLLOW-UP. - 1.1 CM HYPERENHANCING NODULE ADJACENT THE GREATER CURVATURE, PROBABLY AN ADDITIONAL HYPERTROPHIED ACCESSORY SPLEEN DESCRIBED IN DETAIL THE BODY OF THE REPORT. 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 Urology plans to follow-up with him in six months with scans. Plan - Follow-up in 6 months with scans in coordination with urology then annually after that Milind Bustillo MS4 December 26, 2022 Pete Gupta MD 12/26/2022 4:42 PM Signed [facility] PROGRESS NOTE: Patient Name: Candice Mitchell ASSESSMENT AND PLAN: 62 year old male with pNET s/p distal pancreatectomy - Follow up in 6 months with repeat imaging. As long as that scan looks good, will follow up annually after that. CC: pNET INTERVAL HPI: Candice Mitchell is a 62 year old man here for postoperative follow-up s/p robotic right radical nephrectomy and adrenalectomy for 8.5 cm right upper pole renal mass (05/27/22), robotic assisted distal pancreatectomy with splenectomy for 1.9 cm pancreatic tail mass (05/27/22), incisional hernia repair (06/03/22), and right VATS with evacuation of retained hemothorax (06/03/22). Eating and drinking well. Denies nausea, vomiting, diarrhea, or constipation. No steatorrhea. No abdominal pain. No DM. PHYSICAL EXAM: BP 155/81 (BP Site: Left Arm, BP Position: Sitting, BP Cuff Size: Large Adult) Pulse (!) 59 Temp 36.2 ?C (97.2 ?F) (Oral) Resp 18 Wt 116.7 kg (257 lb 4.8 oz) SpO2 99% BMI 39.12 kg/m? Gen: NAD Pulm: Non-labored breathing Abd: S, NT, ND, inc c/d/I, no signs of infection, no hernias Ext: MUÑIZ spont Neuro: Answering questions appropriately I spent a total of 20 minutes on the date of the service which included preparing to see the patient, [id number] patient care, completing clinical documentation, obtaining and/or reviewing separately obtained history, performing a medically appropriate examination, counseling and educating the patient/family/caregiver, ordering medications, tests, or procedures, and communicating results to the patient/family/caregiver. Nelson Gupta MD [facility] surgery Pager: [phone] Referring Provider: SELF [200] Allergies As of Date: 12/26/2022 (Not on File) Date Reviewed: 12/26/2022 Reviewed by: Pete Gupta MD - Fully Assessed Reason for Visit: Cancer [19] Established Patient [175] Primary Visit Diagnosis:Mass of pancreas [K86.89] Prescriptions as of 12/26/2022 - iv contrast (will be (more content not included)... Normal [facility] CNOV Office Visit (UROLMN ) MITCHELL,DAVID ([id number]) 1960 M Date Time Provider Department 12/26/22 2:15 PM KENNEY BANGURA URODIMITRYN During your visit today, we recorded the following information about you: Kenney Bangura MD 12/26/2022 6:13 PM Signed PATIENT: Candice Mitchell [id number] REFERRING MD: Fernando 12/26/2022 Chief Complaint Follow up RCC History of Present Illness Candice Mitchell is a very pleasant 62 year old male who presents with a history of gout, hypertension, morbid obesity (BMI 41) who was found to have an 8.5cm right upper pole mass and a 1.9cm pancreatic tail mass suspicious for metastatic RCC and is now s/p robotic right radical nephrectomy and adrenalectomy (05/27/22), robotic assisted distal pancreatectomy with splenectomy (05/27/22), incisional hernia repair (06/03/22), and right VATS with evacuation of retained hemothorax (06/03/22). 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 Denies Hematuria No difficulties with urination. Past Histories PAST MEDICAL HISTORY Diagnosis Date - Gout 05/20/2022 - HTN (hypertension) 05/20/2022 - Morbid obesity (HCC) 05/20/2022 PAST SURGICAL HISTORY Procedure Laterality Date - CHOLECYSTECTOMY HX - PAST SURGICAL HISTORY OF Bilateral Meniscus repair - PAST SURGICAL HISTORY OF rotator cuff Medications Current Outpatient Medications Medication Instructions - acetaminophen (TYLENOL ORAL) ORAL, NEEDED - allopurinol (ZYLOPRIM) 300 mg, ORAL, DAILY - amLODIPine-Benazepril 5-40 mg per capsule 1 capsule, ORAL, DAILY - atenolol (TENORMIN) 50 mg, ORAL, DAILY - colchicine 0.6 mg tablet PRN Family History FAMILY HISTORY Problem Relation Age of Onset - Anesthesia Problems No Family History Social History Social History Tobacco Use - Smoking status: Former Types: Cigarettes Quit date: 2004 Years since quittin.2 - Smokeless tobacco: Never Substance Use Topics - Alcohol use: Yes Comment: ocassionally- 5 per month - Drug use: Never Allergies Allergies: Not on File Review of Systems REVIEW OF SYSTEMS: GENERAL: NO FEVER, WEIGHT LOSS, DIZZINESS OR PAIN SKIN: NO VARICOSE VEINS, RASH, ABNORMAL LESIONS OR ITCHING HEAD AND NECK: NO BLURRED VISION, CATARACTS, TIAs OR HEARING LOSS CARDIOVASCULAR: NO CHEST PAIN, PALPITATIONS, ANKLE EDEMA RESPIRATORY: NO CHRONIC COUGH, WHEEZING, or SHORTNESS OF BREATH w/ EXERTION. ABDOMEN: NO NAUSEA, VOMITTING, OR DIARRHEA. NO CRAMPS OR RUQ PAIN AFTER MEALS GENITOURINARY: As above MUSCULOSKELETAL: NO CHRONIC BACK PAIN, ARTHRITIS, CHRONIC NECK PAIN. JOINTS FULL ROM BLOOD/LYMPHATIC: NO EASY BLEEDING, EASY BRUISING, TRANSFUSION HX OR [place]EN [place]S NEUROLOGICAL: NO HEADACHES, BLURRY VISION, NO NUMBNESS, SEIZURES, STROKE. NO CHANGE IN GAIT. Physical Exam There were no vitals taken for this visit. General: Alert, no acute distress, oriented Lungs: No respiratory distress or pursed lip breathing Psych: Affect and mood normal Abdomen: Estimated body mass index is 36.95 kg/m? as calculated from the following: Height as of 06/26/22: 172.7 cm (5' 8 ). Weight as of 06/26/22: 110.2 kg (243 lb). Labs and Pathology Creatinine Date Value Ref Range Status 06/06/2022 1.46 (H) 0.73 - 1.22 mg/dL Final 06/05/2022 1.78 (H) 0.73 - 1.22 mg/dL Final 06/04/2022 2.06 (H) 0.73 - 1.22 mg/dL Final Creatinine (POCT) Date Value Ref Range Status 12/26/2022 2.10 (A) 0.7 - 1.4 mg/dL Final Imagin12/26/22 CT Abd/pel W IV Con IMPRESSION: POST-SURGICAL CHANGES OF DISTAL PANCREATECTOMY/SPLENECTOMY AND RIGHT NEPHRECTOMY WITHOUT LOCAL RECURRENCE OR DEFINITE METASTATIC DISEASE. 3.7 CM LOCULATED FLUID ADJACENT TO THE DISTAL PANCREATECTOMY RESECTION MARGIN WITHOUT INTERNAL GAS, PROBABLY POST-SURGICAL. NO EVIDENCE FOR RECURRENT OR NEW LESION ON THIS SINGLE PHASE EXAM. 9.0 CM LEFT UPPER QUADRANT HETEROGENOUS LESION WITH FOCI OF BULK FAT IN THE REGION OF PRIOR FAT STRANDING/FLUID MAY REPRESENT CONTAINED AREA OF FAT NECROSIS. ATTENTION ON FOLLOW-UP. 1.1 CM HYPERENHANCING NODULE ADJACENT THE GREATER CURVATURE, PROBABLY AN ADDITIONAL HYPERTROPHIED ACCESSORY SPLEEN DESCRIBED IN DETAIL THE BODY OF THE REPORT. Diagnosis (C64.1) Malignant neoplasm of right kidney (HCC) (primary encounter diagnosis) (K86.89) Mass of pancreas Assessment: Overall feeling very well. Attending to the Gym 4 times per week. No hematuria, no complains. CT abd/pel W/WO IV con no evidence of recurrence. Crea: 2.1 Plan: I recommend a consultation with Nephrology. Control in August with CT abd/pel and CXR Kenney Bangura MD Urologic Staff [facility] Urological [facility] Kid[facility] Medical Decision Making: Problems: Low: Stabl (more content not included)... Normal [facility] CREATININE, BLOOD (POC)on Creatinine [Mass/Vol] 2.10 mg/dL Abnormal 0.7 - 1.4 mg/dL [facility] eGFR (POCT) 35 mL/min/1.73 m2 [facility] CT ABD/PEL W IVCONon 023 CT ABD/PEL W IVCON * * *Final Report* * * DATE OF EXAM: Dec 26 2022 12:41PM [facility] [place] ABD/PEL W IVCON / PROCEDURE REASON: multiple diagnoses * * * * Physician Interpretation * * * * EXAMINATION: CT ABDOMEN AND PELVIS WITH IV CONTRAST CLINICAL HISTORY: Had a right radical nephrectomy, right adrenalectomy, distal pancreatectomy, and splenectomy on 05/27/2022. 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 TECHNIQUE: CT of the abdomen and pelvis was performed using standard technique, scanning from just above the dome of the diaphragm to the symphysis pubis. MQ: CTAP_3 Contrast: IV: 100 ml of Omnipaque 350 Oral: None CT Radiation dose: Integrated Dose-length product (DLP) for this visit = 1181 mGy*cm. CT Dose Reduction Employed: mAs-kVp adjusted based on patient size-age COMPARISON: CT 06/02/2022 and 04/16/2022, MRI 06/02/2022. RESULT: Liver: No mass. Biliary: No bile duct dilation. Cholecystectomy Spleen: Splenomegaly. Hypertrophy of splenule in the surgical resection bed laterally (3:42). An additional hyperenhancing nodule is noted along the gastric greater curvature (3:32) may represent an additional hypertrophied accessory spleen. Of note-pathology specimen notes removal of 1 accessory spleen visualized on pre-operative scan at the splenic hilum. A tiny possible additional accessory spleen noted on series 3, image 27 of 04/16/22 scan and this may be represent the lesion that is adjacent the gastric fundus but now hypertrophied. Pancreas: Distal pancreectomy. 3.7 x 2.0 cm loculated fluid along the distal pancreatectomy resection margin (3:37). Adrenals: Right adrenalectomy. No left adrenal mass. Kidneys: Right nephrectomy. No mass in the surgical resection bed. Unchanged left upper pole cyst. No enhancing mass, calculus, or hydronephrosis. GI tract: No dilation or wall thickening. Normal appendix Lymph nodes: No abdominal or pelvic lymphadenopathy. Mesentery/Peritoneum: New 9.0 x 6.7 cm heterogeneous lesion in the left upper quadrant/splenectomy bed containing locules macroscopic fat (3:28) and is at the site of prior fat stranding and ill-defined fluid. Retroperitoneum: No mass. Vasculature: - Abdominal aorta and iliac arteries: Atherosclerotic calcifications without aneurysm. - Celiac and SMA: Patent without stenosis. - Portal venous system (SMV, splenic vein, portal vein and branches): Patent. - Hepatic veins: Patent. Pelvis: No mass, ascites or fluid collection. Bones/Soft Tissues: Degenerative changes. Unchanged mild T12 vertebral wedging with kyphosis. Lower thorax: Unremarkable. President Practicing Urologist (topogram) images: No additional findings. IMPRESSION: POST-SURGICAL CHANGES OF DISTAL PANCREATECTOMY/SPLENECTOMY AND RIGHT NEPHRECTOMY WITHOUT LOCAL RECURRENCE OR DEFINITE METASTATIC DISEASE. 3.7 CM LOCULATED FLUID ADJACENT TO THE DISTAL PANCREATECTOMY RESECTION MARGIN WITHOUT INTERNAL GAS, PROBABLY POST-SURGICAL. NO EVIDENCE FOR RECURRENT OR NEW LESION ON THIS SINGLE PHASE EXAM. 9.0 CM LEFT UPPER QUADRANT HETEROGENOUS LESION WITH FOCI OF BULK FAT IN THE REGION OF PRIOR FAT STRANDING/FLUID MAY REPRESENT CONTAINED AREA OF FAT NECROSIS. ATTENTION ON FOLLOW-UP. 1.1 CM HYPERENHANCING NODULE ADJACENT THE GREATER CURVATURE, PROBABLY AN ADDITIONAL HYPERTROPHIED ACCESSORY SPLEEN DESCRIBED IN DETAIL THE BODY OF THE REPORT. Audience Development Manager: [email or web address] Transcribe Date/Time: Dec 26 2022 1:16P Dictated by : CARMEL OJEDA MD This examination was interpreted and the report reviewed and electronically signed by: NICKY BOYKIN MD on Dec 26 2022 3:08PM EST [id number] Normal [facility] URINALYSIS, REFLEX MICROSCOP ICon 12-26-2022 Bilirubin Ql (U) Negative Normal Negative [facility] Comment on above: Order Comment: Speci men Type: URINE SPECIMENOrdering Facility: [facility] Address: [address] [place] [address] Performed By: #### L [id number] ####[facility] LABCLIA [id number] [place] [address] [place] Clarity (Unsp spec) Clear Normal Clear [facility] Comment on above: Order Comment: Speci men Type: URINE SPECIMENOrdering Facility: [facility] Address: [address] [place] [address] Performed By: #### L [id number] ####[facility] LABCLIA [id number] [place] [address] [place] Color (U) Light Yellow Normal Yellow [facility] Comment on above: Order Comment: Speci men Type: URINE SPECIMENOrdering Facility: [facility] Address: [address] [address] Performed By: #### L [id number] ####[facility] LABCLIA [id number] [place] [address] [place] Glucose Test strip (U) [Mass/Vol] Negative Normal Trace, Negative [facility] Comment on above: Order Comment: Speci men Type: URINE SPECIMENOrdering Facility: [facility] Address: [address] Performed By: #### L [id number] ####[facility] LABCLIA [id number] [place] [address] [place] Hemoglobin Ql (U) Negative Normal Negative, Trace [facility] Comment on above: Order Comment: Speci men Type: URINE SPECIMENOrdering Facility: [facility] Address: [address] Performed By: #### L [id number] ####[facility] LABCLIA [id number] [place] [address] [place] Ketones Ql (U) Negative Normal Negative, Trace [facility] Comment on above: Order Comment: Speci men Type: URINE SPECIMENOrdering Facility: [facility] Address: [address] Performed By: #### L [id number] ####[facility] LABCLIA [id number] [place] [address] [place] Leukocyte esterase Test strip Ql (U) Negative Normal Negative, 25 Pia/uL [facility] Comment on above: Order Comment: Speci men Type: URINE SPECIMENOrdering Facility: [facility] Address: [address] Performed By: #### L [id number] ####[facility] LABCLIA [id number] [place] [address] [place] Nitrite Ql (U) Negative Normal Negative [facility] Comment on above: Order Comment: Speci men Type: URINE SPECIMENOrdering Facility: [facility] Address: [address] [place] [address] Performed By: #### L [id number] ####[facility] LABCLIA [id number] [place] [address] [place] pH (U) 5.5 [pH] Normal 5.0-8.0 [facility] Comment on above: Order Comment: Speci men Type: URINE SPECIMENOrdering Facility: [facility] Address: [address] [place] [address] Performed By: #### L [id number] ####[facility] LABIA [id number] [address] STATES OF [facility] Protein (U) [Mass/Vol] Negative Normal Trace, Negative [facility] Comment on above: Order Comment: Speci men Type: URINE SPECIMENOrdering Facility: [facility] Address: [address] [place] [address] Performed By: #### L [id number] ####[facility] LABIA [id number] [place] [address] [place] Specific gravity (U) [Rel density] 1.010 Normal 1.005-1.030 [facility] Comment on above: Order Comment: Speci men Type: URINE SPECIMENOrdering Facility: [facility] Address: [address] [place] [address] Result Comment: Resu lt rechecked. Performed By: #### L [id number] ####[facility] LABCLIA [id number] [place] [address] [place] Urobilinogen Ql (U) Negative Normal Negative [facility] Comment on above: Order Comment: Speci men Type: URINE SPECIMENOrdering Facility: [facility] Address: [address] [place] [address] Performed By: #### L [id number] ####[facility] LABCLIA [id number] [facility]ENTERBennie M[place]IN [id number] [address] [place] Bilirubin Ql (U) Negative [facility] Clarity (Unsp spec) Clear Clear [facility] Color (U) Light Yellow Yellow [facility] Glucose Test strip (U) [Mass/Vol] Negative Trace, Negative [facility] Hemoglobin Ql (U) Negative Negative, Trace [facility] Ketones Ql (U) Negative Negative, Trace [facility] Leukocyte esterase Test strip Ql (U) Negative Negative, 25 Pia/uL [facility] Nitrite Ql (U) Negative Negative [facility] pH (U) 5.5 [pH] 5.0 - 8.0 [facility] Protein (U) [Mass/Vol] Negative Trace, Negative [facility] Specific gravity (U) [Rel density] 1.010 1.005 - 1.030 [facility] Urobilinogen Ql (U) Negative Negative [facility] XR CHEST 2 Von 08-01-2022 XR CHEST 2 V EXAMINATION: XR CHES T 2 V HISTORY: Hemothorax COMPARISON: XR chest 12/30/2018 FINDINGS: LUNGS: Blunting of right lateral costophrenic angle: Posterior costophrenic angle is maintained. Lungs are otherwise clear. VASCULATURE: No increased pulmonary vasculature. PLEURA: No pneumothorax, effusion, or pleural thickening. CARDIAC: No cardiomegaly or cardiac silhouette abnormality. MEDIASTINUM: No visible mass or adenopathy. BONES: No fracture or visible bone lesion. OTHER: Negative. IMPRESSION: 1. Blunting of right lateral costophrenic angle which is new since the 2019 study. Review of an 05/07/2022 CT chest shows similar blunting of the cardiac phrenic angle, but no infiltrates, effusion, or mass. This appears to represent an incidental change. Electronically authenticated by: ANGEL XIE Date: 2022-08-01 06:20 Normal [facility] URINALYSIS, REFLEX MICROSCOP ICon 06-26-2022 Bilirubin Ql (U) Negative Negative [facility] Calcium Oxalate Crystals Many Abnormal None Seen /HPF [facility] Clarity (Unsp spec) Cloudy Abnormal Clear [facility] Color (U) Yellow Yellow [facility] Glucose Test strip (U) [Mass/Vol] Negative Negative [facility] Hemoglobin Ql (U) Negative Negative [facility] Hyaline casts (Urine sed) [#/Area] 4-10 /LPF Abnormal 0 /LPF [facility] Ketones Ql (U) Negative Negative [facility] Leukocyte esterase Test strip Ql (U) Negative Negative [facility] Nitrite Ql (U) Negative Negative [facility] pH (U) 5.5 [pH] 5.0 - 8.0 [facility] Protein (U) [Mass/Vol] 1+ Abnormal Negative [facility] RBC LM.HPF (Urine sed) [#/Area] 0-3 /HPF 0-3 /HPF [facility] Specific gravity (U) [Rel density] 1.026 1.005 - 1.030 [facility] Urobilinogen Ql (U) Negative Negative [facility] WBC LM.HPF (Urine sed) [#/Area] 0-5 /HPF 0-5 /HPF [facility] No Panel Informationon 05-16 [facility] CREATININEon 05-07-2022 Creatinine [Mass/Vol] 1.25 mg/dL Normal 0.70-1.30 [facility] Comment on above: Performed By: #### C CLAUDE #### [facility] [address] [place] [address] Dr. Oksana Betancourt EGFR-AF BRUNEIAN >60 Normal >=60 [facility] Comment on above: Performed By: #### C CLAUDE #### [facility] [address] [address] [address] Oksana Betancourt EGFR-NON AF BRUNEIAN 58 mL/min/1.73m2 Critically low >=60 [facility] Comment on above: Performed By: #### C CLAUDE #### [facility] [address] [place] [address] CHEST W CONon 05-07-2022 CT CHEST W CON EXAMINATION: CT CHES T W CON HISTORY: Primary malignant neoplasm of right kidney COMPARISON: No relevant comparison available. TECHNIQUE: Multi-planar CT images were created with IV contrast. Axial, Coronal, and Sagittal images. Dose reduction techniques were achieved by using automated exposure control and/or adjustment of mA and/or kV according to patient size and/or use of iterative reconstruction technique. FINDINGS: LUNGS: No visible pulmonary disease. PLEURA: No mass, effusion, or pneumothorax. VASCULATURE: No abnormality. CIARAN: No mass or adenopathy. MEDIASTINUM: No mass or adenopathy. CARDIAC: No enlargement, pericardial thickening, or significant calcification. AORTA: No aneurysm or dissection. CHEST WALL: 1.9 cm heterogeneous nodule within the right thyroid lobe. BONES: No bone lesion or fracture. LIMITED ABDOMEN: Known mass extending into posterior superior pole of right kidney. Limited images of the upper abdomen. OTHER: Negative. IMPRESSION: 1. No evidence of metastatic disease into the chest. 2. Heterogeneous right thyroid nodule; consider ultrasound follow-up 3. Known right renal neoplasm. Electronically authenticated by: ANGEL XIE Date: 2022-05-07 17:27 Normal [facility] URINALYSIS, REFLEX MICROSCOP ICon 05-02-2022 Bilirubin Ql (U) Negative Negative [facility] Clarity (Unsp spec) Clear Clear [facility] Color (U) Light Yellow Yellow [facility] Glucose Test strip (U) [Mass/Vol] Negative Negative [facility] Hemoglobin Ql (U) Negative Negative [facility] Ketones Ql (U) Negative Negative [facility] Leukocyte esterase Test strip Ql (U) Negative Negative [facility] Nitrite Ql (U) Negative Negative [facility] pH (U) 5.0 [pH] 5.0 - 8.0 [facility] Protein (U) [Mass/Vol] Negative Negative [facility] Specific gravity (U) [Rel density] 1.019 1.005 - 1.030 [facility] Urobilinogen Ql (U) Negative Negative [facility] MRI ABDOMEN WO CONon 022 MRI ABDOMEN WO CON EXAMINATION: MRI ABD OMEN WO CON HISTORY: Disorder of pancreas COMPARISON: 04/16/2022 TECHNIQUE: MRCP was performed without contrast for evaluation of the common bile duct and pancreatic duct. FINDINGS: GALLBLADDER: The gallbladder is not visualized consistent with prior cholecystectomy. BILE DUCTS: No stricture, abnormal dilation, or filling defect. PANCREAS: No stricture, abnormal dilation, fluid collection or accessory duct. Identified along the pancreatic tail is a focal area of signal abnormality measuring 1.7 x 1.3 cm with decreased T1 increased T2 signal OTHER: 7.8 x 5.3 cm heterogeneous soft tissue signal mass posterior right kidney. Additional bilateral renal lesions having hypointense T1 and hyperintense T2 signal, cysts are favored. No hydronephrosis. IMPRESSION: 7.8 cm heterogeneous right renal mass. Malignancy is favored 1.7 cm indeterminate lesion of the pancreatic tail. Lack of contrast limits evaluation of enhancement characteristics. The differential diagnosis would include a complex or hemorrhagic cyst versus metastatic disease versus primary malignancy. Electronically authenticated by: CANDICE CHRISTINE Date: 2022-04-28 08:41 Normal [facility] XR FOREIGN BODY EYEon 2021 XR FOREIGN BODY EYE EXAMINATION: XR FOREIGN BODY EYE HISTORY: Foreign body in eye COMPARISON: No relevant comparison available. FINDINGS: ORBITS: Negative for a metallic foreign body. OTHER: Negative. IMPRESSION: 1. No metallic foreign body within orbits. Electronically authenticated by: ANGEL XIE Date: 2022-04-25 09:57 Normal [facility] CT ABDOMEN WO/W CONon 2021 CT ABDOMEN WO/W CON EXAMINATION: CT ABDOMEN WO/W CON HISTORY: Disorder of kidney and/or ureter COMPARISON: Renal ultrasound 04/02/2022 TECHNIQUE: Contiguous axial images were obtained through the abdomen and pelvis before and after the uneventful administration of intravenous contrast. Oral contrast was administered prior to the examination. Sagittal and coronal reformats were created and saved to PACS. Dose reduction techniques were achieved by using automated exposure control and/or adjustment of mA and/or kV according to patient size and/or use of iterative reconstruction technique. FINDINGS: Lung Bases: Normal. Liver: Normal. Biliary tree: Normal. Gallbladder: Cholecystectomy Spleen: Normal. Pancreas: There is a 1.9 x 1.6 cm heterogeneous attenuating lesion within the pancreatic tail (image 36 series 8). No abnormal pancreatic ductal dilatation. Adrenal glands: Normal. Kidneys and ureters: Large lobulated heterogeneous enhancing measuring approximately 8.0 x 8.4 x 8.5 cm mass involving the superior pole of the right kidney highly concerning for renal neoplasm such as clear cell renal cell carcinoma. There are additional bilateral renal cysts and subcentimeter low-density lesions which are technically too small to characterize but likely represent cysts. Negative for hydronephrosis or nephrolithiasis. Visualized gastrointestinal: Nondilated. The appendix is normal. Peritoneum/retroperitoneum: No free fluid or gas. Lymph nodes: No suspicious abdominal adenopathy. Vasculature: Atherosclerosis without aneurysm. The renal vasculature appears patent without definite renal vascular invasion. Abdominal wall: Normal. Musculoskeletal: Degenerative change of the spine. IMPRESSION: 1. Large heterogeneous right superior pole renal mass measuring up to 8.5 cm is highly concerning for neoplasm such as clear cell renal cell carcinoma. Negative for renal vascular invasion. 2. Heterogeneous attenuating lesion within the pancreatic tail raises concern for pancreatic metastasis; differential considerations would include a primary pancreatic neuroendocrine tumor. Electronically authenticated by: HAWA KAY Date: 2022-04-16 13:50 Normal [facility] US KIDNEYS BLADDERon 022 US KIDNEYS BLADDER Begin Addendum # 1 The original report stated under the right kidney: Area of anechoic echogenicity. This should read: Area of isoechoic echogenicity in the superior pole measuring 8.6 x 3.3 x 7.7 cm The impression should read: 8.6 cm isoechoic cyst/mass of the right kidney. Follow-up CT or MRI without and with contrast is recommended for further evaluation These findings were discussed with Dr. Morrow by telephone 04/03/2022 8:15 AM Original Report EXAMINATION: US KIDNEYS BLADDER HISTORY: Chronic kidney disease due to hypertension COMPARISON: No relevant comparison available. TECHNIQUE: Ultrasound examination was performed of the bladder. FINDINGS: Right Kidney: Normal in size, contour and echotexture. No solid mass or hydronephrosis. The cortex measures 1.7 cm. Area of anechoic echogenicity in the superior pole measuring 8.6 x 3.3 x 7.7 cm Height: 6.8 cm Length: 13.6 cm Width: 5.6 cm Left Kidney: Normal in size, contour and echotexture. No solid mass or hydronephrosis. The cortex measures 1.5 cm. Anechoic area superior pole measuring 2.0 x 1.9 x 1.6 cm Height: 6.8 cm Length: 10.5 cm Width: 6.3 cm Urinary bladder is normal in appearance. Prevoid volume: 309 mL Post void volume: 5 mL Ureteral jets: Visualized bilaterally IMPRESSION: Bilateral cortical cysts measuring 8.6 cm on the right and 2.0 cm on the left Normal [facility] PROF CHEM 8 (BAS METB)on Anion gap [Moles/Vol] 7.9 mmol/L Normal [facility] Comment on above: Performed By: #### B MP #### [facility] [address] [address] [address] Oksana Betancourt Calcium [Mass/Vol] 9.6 mg/dL Normal 8.5-10.1 [facility] Comment on above: Performed By: #### B MP #### [facility] [address] [address] [address] Oksana Betancourt Chloride [Moles/Vol] 106 mmol/L Normal 98-107 [facility] Comment on above: Performed By: #### B MP #### [facility] [address] [address] [address] Oksana Betancourt CO2 [Moles/Vol] 28.1 mmol/L Normal 21.0-32.[address] [facility] Comment on above: Performed By: #### B MP #### [facility] [address] [address] [address] Oksana Betancourt Creatinine [Mass/Vol] 1.37 mg/dL Critically high 0.70-1.30 [facility] Comment on above: Performed By: #### B MP #### [facility] [address] [address] [address] Oksana Betancourt EGFR-AF BRUNEIAN >60 Normal >=[address] [facility] Comment on above: Performed By: #### B MP #### [facility] [address] [address] [address] Oksana Betancourt EGFR-NON AF BRUNEIAN 52 mL/min/1.73m2 Critically low >=60 [facility] Comment on above: Performed By: #### B MP #### [facility] [address] [address] [address] Oksana Betancourt Glucose [Mass/Vol] 114 mg/dL Critically high 74-106 [facility] Comment on above: Performed By: #### B MP #### [facility] [address] [address] [address] Oksana Betancourt Potassium [Moles/Vol] 4.0 mmol/L Normal 3.5-5.1 [facility] Comment on above: Performed By: #### B MP #### [facility] [address] [address] [address] Oksana Betancourt Sodium [Moles/Vol] 138 mmol/L Normal 136-145 [facility] Comment on above: Performed By: #### B MP #### [facility] [address] [address] [address] Oksana Betancourt Urea nitrogen [Mass/Vol] 14.0 mg/dL Normal 7.0-18.0 [facility] Comment on above: Performed By: #### B MP #### [facility] [address] [address] [address] Oksana Betancourt Urea nitrogen/Creatinin e [Mass ratio] 10.2 mg/mg Normal [facility] Comment on above: Performed By: #### B MP #### [facility] [address] [address] [address] Oksana Betancourt UA RANDOM W/MICROSCOPICon BACTERIA NONE SEEN Normal NONE SEEN [facility] Comment on above: Performed By: #### U AMIC ####[facility] [address] [address]DrBridger Betancourt Bilirubin Ql (U) Negative Normal NEGATIVE [facility] Comment on above: Performed By: #### U AMIC ####[facility] [address] [address]DrBridger Betancourt CAST NONE SEEN Normal NONE SEEN [facility] Comment on above: Performed By: #### U AMIC ####[facility] [address] [address]DrBridger Betancourt Clarity (U) CLEAR Normal CLEAR [facility] Comment on above: Performed By: #### U AMIC ####[facility] [address] [address]DrBridger Betancourt Color (U) YELLOW Normal YELLOW [facility] Comment on above: Performed By: #### U AMIC ####[facility] [address] [address]Dr. Oksana Betancourt Crystals LM Nom (Urine sed) NONE SEEN Normal NONE SEEN [facility] Comment on above: Performed By: #### U AMIC ####[facility] [address] [place], [place] [address]Dr. Oksana Betancourt Epithelial cells LM Ql (Urine sed) RARE Normal NONE SEEN /RARE [facility] Comment on above: Performed By: #### U AMIC ####[facility] [address] [place], [place] [address]Dr. Oksana Betancourt Glucose Ql (U) Negative Normal NEGATIVE [facility] Comment on above: Performed By: #### U AMIC ####[facility] [address] [place], [place] [address]Dr. Oksana Betancourt Hemoglobin Ql (U) TRACE-INTACT Abnormal NEGATIVE [facility] Comment on above: Performed By: #### U AMIC ####[facility] [address] [place], [place] [address]Dr. Oksana Betancourt Ketones Ql (U) Negative Normal NEGATIVE [facility] Comment on above: Performed By: #### U AMIC ####[facility] [address] [place], [place] [address]Dr. Oksana Betancourt LEUKOCYTES Negative Normal NEGATIVE [facility] Comment on above: Performed By: #### U AMIC ####[facility] [address] [place], [place] [address]Dr. Oksana Betancourt MUCOUS MODERATE Abnormal NONE SEEN [facility] Comment on above: Performed By: #### U AMIC ####[facility] [address] [place], [place] [address]Dr. Oksana Betancourt Nitrite Ql (U) Negative Normal NEGATIVE [facility] Comment on above: Performed By: #### U AMIC ####[facility] [address] [place], [place] [address]Dr. Oksana Betancourt pH (U) 6.0 [pH] Normal 5-9 [facility] Comment on above: Performed By: #### U AMIC ####[facility] [address] [place], [place] [address]Dr. Oksana Betancourt RBC 0-2 Normal 0-2 [facility] Comment on above: Performed By: #### U AMIC ####[facility] [address] [address]Dr. Oksana Betancourt SPEC GRAVITY 1.020 Normal 1.005-<=1.02 5 [facility] Comment on above: Performed By: #### U AMIC ####[facility] [address] [address]Dr. Oksana Betancourt UA PROTEIN Negative Normal NEGATIVE/ TRACE [facility] Comment on above: Performed By: #### U AMIC ####[facility] [address] [address]Dr. Oksana Betancourt Urobilinogen Qn (U) 0.2 {Paul'U}/dL Normal 0.2 - 1.0 [facility] Comment on above: Performed By: #### U AMIC ####[facility] [address] [address]Dr. Oksana Betancourt WBC NONE SEEN Normal NONE SEEN [facility] Comment on above: Performed By: #### U AMIC ####[facility] [address] [address]DrBridger Betancourt CBC AUTO DIFFon 02-13-2022 BASO # 0.1 103/ul Normal 0.0-0.1 [facility] Comment on above: Performed By: #### C BC #### [facility] [address] [address] [address] Oksana Betancourt Basophils/100 WBC (Bld) 0.6 % Normal 0.2-2.0 [facility] Comment on above: Performed By: #### C BC #### [facility] [address] [address] [address] Oksana Betancourt EO # 0.2 103/ul Normal 0.0-0.7 [facility] Comment on above: Performed By: #### C BC #### [facility] [address] [address] [address] Oksana Betancourt Eosinophils/100 WBC (Bld) 2.7 % Normal 0.9-7.0 [facility] Comment on above: Performed By: #### C BC #### [facility] [address] [place] [address] Dr. Oksana Betancourt Erythrocyte distribution width (RBC) [Ratio] 13.8 % Normal 11.0-15.0 [facility] Comment on above: Performed By: #### C BC #### [facility] [address] [place] [address] Dr. Oksana Betancourt Hematocrit (Bld) [Volume fraction] 42.3 % Normal 42.0-54.0 [facility] Comment on above: Performed By: #### C BC #### [facility] [address] [place] [address] Dr. Oksana Betancourt Hemoglobin (Bld) [Mass/Vol] 14.3 g/dL Normal 14.0-18.0 [facility] Comment on above: Performed By: #### C BC #### [facility] [address] [place] [address] Dr. Oksana Betancourt IG # 0.06 10e3/ul Critically high 0.00-0.03 [facility] Comment on above: Performed By: #### C BC #### [facility] [address] [place] [address] Dr. Oksana Betancourt IG % 0.7 % Critically high 0.0-0.5 [facility] Comment on above: Performed By: #### C BC #### [facility] [address] [place] [address] Dr. Oksana Betancourt LYMPH # 2.9 103/ul Normal 1.2-3.8 [facility] Comment on above: Performed By: #### C BC #### [facility] [address] [place] [address] Dr. Oksana Betancourt Lymphocytes/100 WBC (Bld) 32.3 % Normal 20.5-60.0 [facility] Comment on above: Performed By: #### C BC #### [facility] [address] [place] [address] Dr. Oksana Betancourt MANUAL DIFF REQ NO Normal [facility] Comment on above: Performed By: #### C BC #### [facility] [address] [address] [address] Oksana Betancourt MCH (RBC) [Entitic mass] 29.3 pg Normal 25.9-34.0 [facility] Comment on above: Performed By: #### C BC #### [facility] [address] [place] [address] Dr. Oksana Betancourt MCHC (RBC) [Mass/Vol] 33.8 g/dL Normal 29.9-35.2 [facility] Comment on above: Performed By: #### C BC #### [facility] [address] [place] [address] Dr. Oksana Betancourt MCV (RBC) [Entitic vol] 86.7 fL Normal 80.0-94.0 [facility] Comment on above: Performed By: #### C BC #### [facility] [address] [place] [address] Dr. Oksana Betancourt MONO # 0.5 103/ul Normal 0.3-0.8 [facility] Comment on above: Performed By: #### C BC #### [facility] [address] [place] [address] Dr. Oksana Betancourt Monocytes/100 WBC (Bld) 6.1 % Normal 1.7-12.0 [facility] Comment on above: Performed By: #### C BC #### [facility] [address] [place] [address] Dr. Oksana Betancourt NEUT # 5.1 103/ul Normal 1.4-6.5 [facility] Comment on above: Performed By: #### C BC #### [facility] [address] [place] [address] Dr. Oksana Betancourt Neutrophils/100 WBC (Bld) 57.6 % Normal 43.0-75.0 [facility] Comment on above: Performed By: #### C BC #### [facility] [address] [place] [address] Dr. Oksana Betancourt Platelet mean volume (Bld) [Entitic vol] 9.1 fL Critically low 9.5-13.5 [facility] Comment on above: Performed By: #### C BC #### [facility] [address] [address] [address] Oksana Betancourt PLT 201 103/ul Normal 150-450 [facility] Comment on above: Performed By: #### C BC #### [facility] [address] [address] [address] Oksana Betancourt RBC 4.88 106/ul Normal 4.70-6.10 [facility] Comment on above: Performed By: #### C BC #### [facility] [address] [address] [address] Oksana Betancourt WBC 8.9 103/ul Normal 4.0-11.0 [facility] Comment on above: Performed By: #### C BC #### [facility] [address] [address] [address] Oksana Betancourt GLYCOHEMOGLOBIN A1Con 2021 ADA RECOMMENDATION SEE BELOW Normal [facility] Comment on above: Result Comment: ADA RECOMMENDED LIMIT 4.0 - 6.0 ADA THERAPEUTIC TARGET < 7.0 ACTION SUGGESTED > 7.0 Performed By: #### A 1C #### [facility] [address] [address] [address] Oksana Betancourt Glucose [Mass/Vol] 131 mg/dL Normal [facility] Comment on above: Performed By: #### A 1C #### [facility] [address] [address] [address] Oksana Betancourt HbA1c (Bld) [Mass fraction] 6.2 % Normal 4.5-6.2 [facility] Comment on above: Performed By: #### A 1C #### [facility] [address] [address] [address] Oksana Betancourt LIPID PROFILEon 02-13-2022 CHOL-HDL RATIO NORM SEE BELOW Normal [facility] Comment on above: Result Comment: 3.3 - 4.4 LOW RISK 4.4 - 7.1 AVERAGE RISK 7.1 - 11.0 MODERATE RISK >11.0 HIGH RISK Performed By: #### L IPID, CMP ####[facility] [address] [id number]. Oksana Betancourt Cholesterol [Mass/Vol] 131 mg/dL Normal <=200 [facility] Comment on above: Performed By: #### L IPID, CMP ####[facility] [address] [id number]. Oksana Betancourt Cholesterol in HDL [Mass/Vol] 40 mg/dL Normal 40-60 [facility] Comment on above: Performed By: #### L IPID, CMP ####[facility] [address] [id number]. Oksana Betancourt Cholesterol in LDL [Mass/Vol] 69.2 mg/dL Normal [facility] Comment on above: Performed By: #### L IPID, CMP ####[facility] [address] [address]Dr. Oksana Betancourt Cholesterol.total/ Cholesterol in HDL [Mass ratio] 3.3 {ratio} Normal [facility] Comment on above: Performed By: #### L IPID, CMP ####[facility] [address] [id number]. Oksana Betancourt HDL NORMAL > or = 60 mg/dl - LO W CARDIOVASCULAR RISK <40 mg/dl - HIGH CARDIOVASCULAR RISK Normal [facility] Comment on above: Performed By: #### L IPID, CMP ####[facility] [address] [id number]. Oksana Betancourt LDL CALC NORMAL SEE BELOW Normal [facility] Comment on above: Result Comment: <100 mg/dl OPTIMAL 100 - 129 mg/dl NEAR OR ABOVE OPTIMAL 130 - 159 mg/dl BORDERLINE HIGH 160 - 189 mg/dl HIGH >190 mg/dl VERY HIGH Performed By: #### L IPID, CMP ####[facility] [address] [address]Dr. Oksana Betancourt Triglyceride [Mass/Vol] 109 mg/dL Normal <=150 [facility] Comment on above: Performed By: #### L IPID, CMP ####[facility] [address] [id number]. Oksana Betancourt VLDL CALC 21.8 mg/dL Normal [facility] Comment on above: Performed By: #### L IPID, CMP ####[facility] [address] [address]Dr. Oksana Betancourt PROF 14(COMP METB)on 022 Albumin [Mass/Vol] 3.5 g/dL Normal 3.4-5.0 [facility] Comment on above: Performed By: #### L IPID, CMP ####[facility] [address] [address]Dr. Oksana Betancourt Albumin/Globulin [Mass ratio] 0.9 {ratio} Normal [facility] Comment on above: Performed By: #### L IPID, CMP ####[facility] [address] [place], [place] [address]Dr. Oksana Betancourt ALP [Catalytic activity/Vol] 74 U/L Normal 46-116 [facility] Comment on above: Performed By: #### L IPID, CMP ####[facility] [address] [place], [place] [address]Dr. Oksana Betancourt ALT [Catalytic activity/Vol] 27 U/L Normal 16-63 [facility] Comment on above: Performed By: #### L IPID, CMP ####[facility] [address] [place], [place] [address]Dr. Oksana Betancourt Anion gap [Moles/Vol] 10.0 mmol/L Normal [facility] Comment on above: Performed By: #### L IPID, CMP ####[facility] [address] [place], [place] [address]Dr. Oksana Betancourt AST [Catalytic activity/Vol] 16 U/L Normal 15-37 [facility] Comment on above: Performed By: #### L IPID, CMP ####[facility] [address] [place], [place] [address]Dr. Oksana Betancourt Bilirubin [Mass/Vol] 0.7 mg/dL Normal 0.2-1.0 [facility] Comment on above: Performed By: #### L IPID, CMP ####[facility] [address] [place], [place] [address]Dr. Oksana Betancourt Calcium [Mass/Vol] 9.9 mg/dL Normal 8.5-10.1 [facility] Comment on above: Performed By: #### L IPID, CMP ####[facility] [address] [address]Dr. Oksana Betancourt Chloride [Moles/Vol] 102 mmol/L Normal 98-107 [facility] Comment on above: Performed By: #### L IPID, CMP ####[facility] [address] [address]Dr. Oksana Betancourt CO2 [Moles/Vol] 29.5 mmol/L Normal 21.0-32.[address] [facility] Comment on above: Performed By: #### L IPID, CMP ####[facility] [address] [place], [place] [address]Dr. Oksana Betancourt Creatinine [Mass/Vol] 1.63 mg/dL Critically high 0.70-1.30 [facility] Comment on above: Performed By: #### L IPID, CMP ####[facility] [address] [place], [place] [address]Dr. Oksana Betancourt EGFR-AF BRUNEIAN 52 mL/min/1.73m2 Critically low >=60 [facility] Comment on above: Performed By: #### L IPID, CMP ####[facility] [address] [place], [place] [address]Dr. Oksana Betancourt EGFR-NON AF BRUNEIAN 43 mL/min/1.73m2 Critically low >=60 [facility] Comment on above: Performed By: #### L IPID, CMP ####[facility] [address] [address]Dr. Oksana Betancourt Globulin (S) [Mass/Vol] 4.0 g/dL Normal [facility] Comment on above: Performed By: #### L IPID, CMP ####[facility] [address] [place], [place] [address]Dr. Oksana Betancourt Glucose [Mass/Vol] 113 mg/dL Critically high 74-106 [facility] Comment on above: Performed By: #### L IPID, CMP ####[facility] [address] [address]Dr. Oksana Betancourt Potassium [Moles/Vol] 3.5 mmol/L Normal 3.5-5.1 [facility] Comment on above: Performed By: #### L IPID, CMP ####[facility] [address] [address]Dr. Oksana Betancourt Protein [Mass/Vol] 7.5 g/dL Normal 6.4-8.2 [facility] Comment on above: Performed By: #### L IPID, CMP ####[facility] [address] [address]Dr. Oksana Betancourt Sodium [Moles/Vol] 138 mmol/L Normal 136-145 [facility] Comment on above: Performed By: #### L IPID, CMP ####[facility] [address] [place], [place] [address]Dr. Oksana Betancourt Urea nitrogen [Mass/Vol] 25.0 mg/dL Critically high 7.0-18.0 [facility] Comment on above: Performed By: #### L IPID, CMP ####[facility] [address] [address]Dr. Oksana Betancourt Urea nitrogen/Creatinin e [Mass ratio] 15.3 mg/mg Normal [facility] Comment on above: Performed By: #### L IPID, CMP ####[facility] [address] [place], [place] [address]Dr. Oksana Serafin Vital Signs Date Time Vital Sign Value Performing Clinician Facility 11-18-2023 10:54-0500 Body height 172.7 cm Lydia Godinez ELEMENTARY READING SPECIALIST.[employer] Work Phone: [facility] 11-18-2023 10:54-0500 Body temperature 97.9 [degF] Lydia Godinez ELEMENTARY READING SPECIALIST.[employer] Work Phone: [facility] 11-18-2023 10:54-0500 Body weight 120.9 kg Lydia Godinez APRN.[employer] Work Phone: [facility] 11-18-2023 10:54-0500 Diastolic blood pressure 76 mm[Hg] Lydia Godinez ELEMENTARY READING SPECIALIST.[employer] Work Phone: [facility] 11-18-2023 10:54-0500 Heart rate 59 /min Lydia Godinez ELEMENTARY READING SPECIALIST.[employer] Work Phone: [facility] 11-18-2023 10:54-0500 Systolic blood pressure 120 mm[Hg] Lydia Godinez ELEMENTARY READING SPECIALIST.[employer] Work Phone: [facility] 10-28-2023 11:30-0500 Body height 170.18 cm Isreal Ball Other [facility] Other 10-28-2023 11:30-0500 Body mass index (BMI) [Ratio] 42.1 kg/m2 Isreal Ball Other [facility] Other 10-28-2023 11:30-0500 Body weight 121.93 kg Isreal Ball Other [facility] Other 10-28-2023 11:30-0500 Diastolic blood pressure 88 mm[Hg] Isreal Ball Other [facility] Other 10-28-2023 11:30-0500 Respiratory rate 12 /min Isreal Ball Other [facility] Other 10-28-2023 11:30-0500 Systolic blood pressure 139 mm[Hg] Isreal Ball Other [facility] Other 08-21-2023 13:16-0500 Body height 172.7 cm Kenney Bangura MD Work Phone: [facility] 08-21-2023 13:16-0500 Body weight 121.1 kg Kenney Bangura MD Work Phone: [facility] 08-21-2023 13:16-0500 Diastolic blood pressure 85 mm[Hg] Kenney Bangura MD Work Phone: [facility] 08-21-2023 13:16-0500 Heart rate 66 /min Kenney Bangura MD Work Phone: [facility] 08-21-2023 13:16-0500 Systolic blood pressure 152 mm[Hg] Kenney Bangura MD Work Phone: [facility] 06-26-2023 11:30-0400 Body height 170.18 cm Isreal Ball Other [facility] Other 06-26-2023 11:30-0400 Body mass index (BMI) [Ratio] 40 kg/m2 Isreal Ball Other [facility] Other 06-26-2023 11:30-0400 Body weight 115.85 kg Isreal Ball Other [facility] Other 06-26-2023 11:30-0400 Diastolic blood pressure 77 mm[Hg] Isreal Ball Other [facility] Other 06-26-2023 11:30-0400 Respiratory rate 12 /min Isreal Ball Other [facility] Other 06-26-2023 11:30-0400 Systolic blood pressure 117 mm[Hg] Isreal Ball Other [facility] Other 02-25-2023 10:44-0400 Body height 172.7 cm Jeff Duncan MD Work Phone: [facility] 02-25-2023 10:44-0400 Body weight 115.67 kg Jeff Duncan MD Work Phone: [facility] 02-25-2023 10:44-0400 Diastolic blood pressure 82 mm[Hg] Jeff Duncan MD Work Phone: [facility] 02-25-2023 10:44-0400 Heart rate 58 /min Jeff Duncan MD Work Phone: [facility] 02-25-2023 10:44-0400 Systolic blood pressure 141 mm[Hg] Jeff Duncan MD Work Phone: [facility] 12-26-2022 15:49-0400 Body temperature 97.2 [degF] Pete Gupta MD Work Phone: [facility] 12-26-2022 15:49-0400 Body weight 116.71 kg Pete Gupta MD Work Phone: [facility] 12-26-2022 15:49-0400 Diastolic blood pressure 81 mm[Hg] Pete Gupta MD Work Phone: [facility] 12-26-2022 15:49-0400 Heart rate 59 /min Pete Gupta MD Work Phone: [facility] 12-26-2022 15:49-0400 Respiratory rate 18 /min Pete Gupta MD Work Phone: [facility] 12-26-2022 15:49-0400 SaO2% (BldA) [Mass fraction] 99 % Pete Gupta MD Work Phone: [facility] 12-26-2022 15:49-0400 Systolic blood pressure 155 mm[Hg] Pete Gupta MD Work Phone: [facility] 10-24-2022 11:15-0500 Body height 170.18 cm Carline Chun Other [facility] Other 10-24-2022 11:15-0500 Body mass index (BMI) [Ratio] 39.78 kg/m2 Carline Chun Other [facility] Other 10-24-2022 11:15-0500 Body weight 115.21 kg Carline Chun Other [facility] Other 10-24-2022 11:15-0500 Diastolic blood pressure 82 mm[Hg] Carline Chun Other [facility] Other 10-24-2022 11:15-0500 SaO2% (BldA) [Mass fraction] 97 % Carlinemaria r Chun Other [facility] Other 10-24-2022 11:15-0500 Systolic blood pressure 110 mm[Hg] Carline Chun Other [facility] Other 06-26-2022 10:54-0400 Body height 172.7 cm Audrey Wegas ELEMENTARY READING SPECIALIST.[employer] Work Phone: [facility] 06-26-2022 10:54-0400 Body temperature 97.11 [degF] Audrey Wegas ELEMENTARY READING SPECIALIST.[employer] Work Phone: [facility] 06-26-2022 10:54-0400 Body weight 110.22 kg Audrey Wegas ELEMENTARY READING SPECIALIST.[employer] Work Phone: [facility] 06-26-2022 10:54-0400 Diastolic blood pressure 64 mm[Hg] Audrey Wegas ELEMENTARY READING SPECIALIST.[employer] Work Phone: [facility] 06-26-2022 10:54-0400 Heart rate 64 /min Audrey Wegas ELEMENTARY READING SPECIALIST.[employer] Work Phone: [facility] 06-26-2022 10:54-0400 Respiratory rate 18 /min Audrey Wegas ELEMENTARY READING SPECIALIST.[employer] Work Phone: [facility] 06-26-2022 10:54-0400 SaO2% (BldA) [Mass fraction] 98 % Audrey Wegas ELEMENTARY READING SPECIALIST.[employer] Work Phone: [facility] 06-26-2022 10:54-0400 Systolic blood pressure 108 mm[Hg] Audrey Wegas ELEMENTARY READING SPECIALIST.[employer] Work Phone: [facility] 06-20-2022 09:07-0400 Body height 172.7 cm Pete Gupta MD Work Phone: [facility] 06-20-2022 09:07-0400 Body temperature 96.6 [degF] Pete Gupta MD Work Phone: [facility] 06-20-2022 09:07-0400 Body weight 111.13 kg Pete Gupta MD Work Phone: [facility] 06-20-2022 09:07-0400 Diastolic blood pressure 72 mm[Hg] Pete Gupta MD Work Phone: [facility] 06-20-2022 09:07-0400 Heart rate 70 /min Pete Gupta MD Work Phone: [facility] 06-20-2022 09:07-0400 Respiratory rate 14 /min Pete Gupta MD Work Phone: [facility] 06-20-2022 09:07-0400 Systolic blood pressure 144 mm[Hg] Pete Gupta MD Work Phone: [facility] 05-23-2022 09:50-0400 Body height 172.7 cm Pete Gupta MD Work Phone: [facility] 05-23-2022 09:50-0400 Body temperature 97.7 [degF] Pete Gupta MD Work Phone: [facility] 05-23-2022 09:50-0400 Body weight 120.2 kg Pete Gupta MD Work Phone: [facility] 05-23-2022 09:50-0400 Diastolic blood pressure 74 mm[Hg] Pete Gupta MD Work Phone: [facility] 05-23-2022 09:50-0400 Heart rate 64 /min Pete Gupta MD Work Phone: [facility] 05-23-2022 09:50-0400 Respiratory rate 12 /min Pete Gupta MD Work Phone: [facility] 05-23-2022 09:50-0400 Systolic blood pressure 135 mm[Hg] Pete Gupta MD Work Phone: [facility] 05-20-2022 08:27-0400 Body height 172.7 cm [facility] 3 Work Phone: [facility] 05-20-2022 08:27-0400 Body temperature 97.11 [degF] Pacc 3 Work Phone: [facility] 05-20-2022 08:27-0400 Body weight 121.38 kg Pacc 3 Work Phone: [facility] 05-20-2022 08:27-0400 Diastolic blood pressure 82 mm[Hg] Pacc 3 Work Phone: [facility] 05-20-2022 08:27-0400 Heart rate 63 /min Pacc 3 Work Phone: [facility] 05-20-2022 08:27-0400 SaO2% (BldA) [Mass fraction] 98 % Pacc 3 Work Phone: [facility] 05-20-2022 08:27-0400 Systolic blood pressure 143 mm[Hg] Pacc 3 Work Phone: [facility] 05-02-2022 14:52-0400 Diastolic blood pressure 83 mm[Hg] Kenney Bangura MD Work Phone: [facility] 05-02-2022 14:52-0400 Heart rate 62 /min Kenney Bangura MD Work Phone: [facility] 05-02-2022 14:52-0400 Systolic blood pressure 148 mm[Hg] Kenney Bangura MD Work Phone: [facility] Encounters Encounter Date Encounter Type Care Provider Facility Start: 11-18-2023 End: 11-19-2023 ambulatory LYDIA GODINEZ Facility:[facility] Start: 11-18-2023 End: 11-18-2023 Patient encounter procedure Lydia Godinez ELEMENTARY READING SPECIALIST.[employer] Work Phone: [facility] Comment on above: 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) Start: 10-28-2023 End: 10-28-2023 ambulatory Isreal Morrow Other [employer] Other Start: 10-28-2023 Office outpatient vi sit 25 minutes Isreal Morrow [facility] Start: 09-25-2023 End: 09-25-2023 ambulatory KENNEY BANGURA Facility:[facility] Start: 08-28-2023 End: 08-28-2023 ambulatory PETE GUPTA Facility:[facility] Start: 08-28-2023 End: 08-28-2023 ambulatory Pete Gupta MD Work Phone: General Surgery Comment on above: Mass of pancreas (Pr imary Dx) Start: 08-28-2023 End: 08-28-2023 Telemedicine consultation with patient Pete Gupta MD Work Phone: [facility] Start: 08-25-2023 ambulatory Kenney Bangura MD Work Phone: Urology Comment on above: Your results fro CT abd/pel Start: 08-25-2023 E-mail encounter fro m caregiver Kenney Bangura MD Work Phone: [facility] Start: 08-21-2023 End: 08-22-2023 ambulatory Kenney Bangura MD Work Phone: Urology Start: 08-21-2023 End: 08-21-2023 Patient encounter procedure Kenney Bangura MD Work Phone: Urology Comment on above: Malignant neoplasm o f right kidney (HCC) (Primary Dx); History of pancreatic cancer Start: 08-21-2023 End: 08-21-2023 Subsequent hospital visit by physician Ct Prep Qb Radiology Comment on above: Malignant neoplasm o f right kidney (HCC) [C64.1] Start: 08-20-2023 End: 08-20-2023 ambulatory Jason Neri Facility:[facility] Start: 06-26-2023 End: 06-26-2023 ambulatory Isreal Kevin Other [employer] Other Start: 06-26-2023 Patient encounter procedure Isreal Kevin [facility] Start: 05-19-2023 End: 05-19-2023 ambulatory Isreal Morrow Other [employer] Other Start: 05-19-2023 Telephone encounter Isreal STEIN [facility] Start: 02-25-2023 End: 02-26-2023 ambulatory JEFF DUNCAN Facility:[facility] Start: 02-25-2023 End: 02-25-2023 Patient encounter procedure Jeff Duncan MD Work Phone: [facility] Comment on above: 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); Malignant neoplasm of right kidney (HCC); Primary hypertension; 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; Obesity, Class III, BMI >= 40; Solitary kidney, acquired; Renal cell carcinoma, unspecified laterality (HCC); H/O primitive neuroectodermal tumor (PNET); H/O radical nephrectomy Start: 02-11-2023 End: 02-11-2023 ambulatory KENNEY BANGURA Facility:[facility] Start: 01-20-2023 End: 01-20-2023 ambulatory Isreal Morrow Other [employer] Other Start: 01-20-2023 Telephone encounter Isreal Krause [facility] Start: 01-15-2023 End: 01-16-[address] ISREAL MORROW Facility:[facility] Start: 12-26-2022 End: 12-26-2022 Patient encounter procedure Pete Gupta MD Work Phone: General Surgery Comment on above: Mass of pancreas (Pr imary Dx) Malignant neoplasm o f right kidney (HCC) (Primary Dx); Mass of pancreas Start: 12-26-2022 End: 12-27-2022 ambulatory Kenney Bangura MD Work Phone: Urology Start: 12-26-2022 End: 12-26-2022 Subsequent hospital visit by physician Ct 2 Main Qb (I-Stat) Radiology Comment on above: Malignant neoplasm o f right kidney (HCC) [C64.1] Start: 12-11-2022 End: 12-12-[address] ISREAL MORROW Facility:[facility] Start: 11-13-2022 End: 11-13-[address] ISREAL MORROW Facility:[facility] Start: 10-24-2022 End: 10-24-2022 ambulatory Carline Chun Other [facility] [employer] Other Start: 10-24-2022 Office outpatient vi sit 10 minutes Carline Chun [facility] Start: 09-23-2022 Telephone encounter Kanu NEWSOME Work Phone: [facility] Comment on above: Results Start: 09-05-2022 Telephone encounter Kanu NEWSOME Work Phone: [facility] Comment on above: Patient Update Start: 09-03-2022 End: 09-03-2022 ambulatory Kanu NEWSOME Work Phone: [facility] Comment on above: Malignant neoplasm o f right kidney (HCC); Mass of pancreas Start: 09-03-2022 End: 09-03-2022 Patient encounter procedure Kanu NEWSOME Work Phone: [facility] Start: 08-08-2022 End: 08-08-2022 ambulatory Audrey Waller [employer] Work Phone: [facility] Comment on above: Hemothorax (Primary Dx) Start: 08-08-2022 End: 08-08-2022 Telemedicine consultation with patient Audrey Waller JOAQUIN.[employer] Work Phone: [facility] Start: 07-31-2022 End: 08-01-[address] DOCTOR HERRERA Facility: Start: 07-25-2022 End: 07-25-2022 Nursing evaluation of patient and report Lupe Aguilar RN Work Phone: General Surgery Comment on above: Mass of pancreas (Pr imary Dx) Start: 07-11-2022 Telephone encounter Pete rowe MD Work Phone: General Surgery Comment on above: Appointment Start: 06-26-2022 ambulatory Kenney Bangura MD Work Phone: Urology Start: 06-26-2022 End: 06-26-2022 Patient encounter procedure Kenney Bangura MD Work Phone: Urology Comment on above: Malignant neoplasm o f right kidney (HCC) (Primary Dx); Mass of pancreas; Hemothorax on right Hemothorax (Primary Dx) Start: 06-20-2022 End: 06-20-2022 Patient encounter procedure Pete Gupta MD Work Phone: General Surgery Comment on above: Mass of pancreas (Pr imary Dx); Malignant neoplasm of right kidney (HCC); Malignant neoplasm of right kidney, except renal pelvis (HCC); Malignant neoplasm of body of pancreas (HCC) Start: 05-23-2022 ambulatory Kenisha dent MD Work Phone: General Surgery Start: 05-23-2022 End: 05-23-2022 Patient encounter procedure Pete Gupta MD Work Phone: General Surgery Comment on above: Malignant neoplasm o f right kidney, except renal pelvis (HCC) (Primary Dx) Start: 05-22-2022 Telephone encounter Pete rowe MD Work Phone: General Surgery Comment on above: Appointment Start: 05-20-2022 End: 05-20-2022 Patient encounter procedure Rachel Peterson APRN.[employer] Work Phone: Urology Comment on above: Malignant neoplasm o f right kidney, except renal pelvis (HCC) (Primary Dx) Malignant neoplasm o f right kidney, except renal pelvis (HCC) (Primary Dx); Mass of pancreas Start: 05-20-2022 End: 05-20-2022 Admission to [facility] Pacc Main 3 Work Phone: [facility] Start: 05-20-2022 End: 05-20-2022 ambulatory Pacc Main 3 Work Phone: Pre Anesthesia Comment on above: Pre-op evaluation (P rimary Dx); Malignant neoplasm of right kidney, except renal pelvis (HCC); Morbid obesity (HCC); Hypertension, unspecified type; Gout, unspecified cause, unspecified chronicity, unspecified site Start: 05-20-2022 End: 05-20-2022 Preprocedural examination done Pacc Main 3 Work Phone: Pre Anesthesia Start: 05-16-2022 End: 05-16-2022 Subsequent hospital visit by physician [facility] Comment on above: Malignant neoplasm o f right kidney, except renal pelvis (HCC) [C64.1] Start: 05-16-2022 ambulatory Kenney Bangura MD Work Phone: Urology Start: 05-16-2022 End: 05-16-2022 Subsequent hospital visit by physician [facility] Comment on above: Malignant neoplasm o f right kidney, except renal pelvis (HCC) [C64.1] Start: 05-12-2022 Telephone encounter Lainey baker RN Work Phone: General Surgery Comment on above: 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 Start: 05-07-2022 End: 05-08-[address] DOCTOR HERRERA Facility:[facility] Start: 05-05-2022 ambulatory La Nena Hobbs RN [facility] Start: 05-02-2022 End: 05-02-2022 Patient encounter procedure Kenney Bangura MD Work Phone: Urology Comment on above: Malignant neoplasm o f right kidney, except renal pelvis (HCC) Start: 05-02-2022 ambulatory Kenney Bangura MD Work Phone: Urology Start: 04-25-2022 End: 04-26-[address] ISREAL MORROW Facility:[facility] Start: 04-17-2022 Adult health examination Wilfredo Morrow Other [employer] Other Start: 04-16-2022 End: 04-17-[address] ISREAL MORROW Facility:[facility] Start: 04-02-2022 End: 04-03-[address] ISREAL MORROW Facility:[facility] Start: 03-18-2022 End: 03-19-[address] ISREAL MORROW Facility:[facility] Start: 02-20-2022 Encounter for genera l adult medical examination without abnormal findings DR ISREAL MORROW [facility] Start: 02-13-2022 End: 02-14-[address] ISREAL MORROW Facility:[facility] Start: 02-13-2022 End: 02-14-2022 Encounter for general adult medical examination without abnormal findings DR ISREAL MORROW Facility:[facility] Procedures Date Procedure Procedure Detail Performing Clinician Start: 11-18-2023 Urnls dip stick/tabl et rgnt auto w/o microscopy Bulk Order Provider Start: 08-21-2023 Urnls dip stick/tabl et rgnt auto w/o microscopy Bulk Order Provider Start: 08-21-2023 Ct abdomen & pelvis w/contrast material Kenney Bangura MD Work Phone: Start: 08-21-2023 Creatinine [Mass/vol ume] in Serum or Plasma [facility] Provider Start: 08-21-2023 Radiologic exam ches t 2 views Kenney Bangura MD Work Phone: Start: 02-11-2023 Lipid 1996 panel - S vish or Plasma Ct (I-Stat) Start: 12-26-2022 Urnls dip stick/tabl et rgnt auto w/o microscopy Bulk Order Provider Start: 12-26-2022 Ct abdomen & pelvis w/contrast material Kenney Bangura MD Work Phone: Start: 12-26-2022 Creatinine [Mass/vol ume] in Serum or Plasma [facility] Provider Start: 07-25-2022 Menacwy-tt conj vacc serogroups acwy for im use Lupe Aguilar RN Work Phone: Start: 06-26-2022 Urnls dip stick/tabl et reagent auto microscopy Bulk Order Provider Start: 05-16-2022 Bone &/joint imaging whole body Kenney Bangura MD Work Phone: Start: 05-02-2022 Urnls dip stick/tabl et rgnt auto w/o microscopy Bulk Order Provider Start: 02-13-[address] JOSÉ MORROW Comment on above: Performed By: #### [facility] #### [facility] [address] [place] [address] Dr. Oksana Betancourt Start: 11-25-2016 Screening for malign ant neoplasm of colon Isreal Morrow Other Start: 11-23-2015 General examination of patient Isreal Morrow Other Depression screening Bita thompson Kevin Other Plan of Treatment Date Care Activity Detail Author Start: 09-25-2028 Prostate specific antigen measurement Prostate Cancer Screening Discussion [facility] Start: 02-12-2028 Lipid 1996 panel - S vish or Plasma Lipid Screening [facility] Start: 02-12-2028 Lipid panel Lipid Screening [facility] Start: 02-12-2028 LIPID SCREEN LIPID SCREEN [facility] Start: 02-12-2028 PROSTATE CANCER SCREENING DISCUSSION PROSTATE CANCER SCREENING DISCUSSION [facility] Start: 02-13-2027 PROSTATE CANCER SCREENING DISCUSSION PROSTATE CANCER SCREENING DISCUSSION [facility] Start: 09-25-2026 Diabetes Screening Diabetes Screenin g [facility] Start: 02-11-2026 DIABETES SCREEN DIABETES SCREEN [facility] Start: 02-11-2026 Diabetes Screening Diabetes Screenin g [facility] Start: 06-06-2025 DIABETES SCREEN DIABETES SCREEN [facility] Start: 06-05-2025 DIABETES SCREEN DIABETES SCREEN [facility] Start: 05-20-2025 DIABETES SCREEN DIABETES SCREEN [facility] Start: 11-18-2024 BP Controlled (<130/80) BP Controlle d (<130/80) [facility] Start: 09-25-2024 Creatinine measurement Serum Creatin ine [facility] Start: 02-12-2024 Complete blood count Hemoglobin/Yosvany tocrit [facility] Start: 01-25-2024 End: 04-25-2024 Renal function 2000 panel - Serum or Plasma RENAL FUNCTION PANEL Lab Routine Stage 3b chronic kidney disease (HCC) Expected: 01/25/2024 (Approximate), Expires: 04/25/2024 [facility] Work Phone: Comment on above: Expected: 01/25/2024 (Approximate), Expires: 04/25/2024 Start: 09-21-2023 Depression Assessment Depression Ass essment [facility] Start: 08-28-2023 End: 11-27-2023 CREATININE BLD CREATININE BLD Lab Routine Mass of pancreas Expected: 08/28/2023, Expires: 11/27/2023 [facility] Work Phone: Comment on above: Expected: 08/28/2023 , Expires: 11/27/2023 Start: 08-21-2023 End: 11-20-2023 Comprehensive metabolic 2000 panel - Serum or Plasma COMP METABOLIC PANEL Lab Routine Malignant neoplasm of right kidney (HCC) Expected: 08/21/2023, Expires: 11/20/2023 [facility] Work Phone: Comment on above: Expected: 08/21/2023 , Expires: 11/20/2023 Start: 08-21-2023 End: 11-20-2023 Prostate specific Ag [Mass/volume] in Serum or Plasma PSA/PROSTSPECAG DIAG Lab Routine Malignant neoplasm of right kidney (HCC) Expected: 08/21/2023, Expires: 11/20/2023 [facility] Work Phone: Comment on above: Expected: 08/21/2023 , Expires: 11/20/2023 Start: 07-27-2023 End: 01-25-2024 Ct abdomen & pelvis w/contrast material CT ABD/PEL W IVCON Radiology Routine Malignant neoplasm of right kidney (HCC) Mass of pancreas Expected: 07/27/2023, Expires: 01/25/2024 [facility] Work Phone: Comment on above: Expected: 07/27/2023 , Expires: 01/25/2024 Start: 07-27-2023 End: 01-25-2024 Radiologic exam chest 2 views XR CHEST 2V FRONTAL/LAT Radiology Routine Malignant neoplasm of right kidney (HCC) Mass of pancreas Expected: 07/27/2023, Expires: 01/25/2024 [facility] Work Phone: Comment on above: Expected: 07/27/2023 , Expires: 01/25/2024 Start: 06-26-2023 BP CONTROLLED (<130/80) BP CONTROLLE D (<130/80) [facility] Start: 05-22-2023 Covid-19 Vaccine ( season) Covid-19 Vaccine ( season) [facility] Start: 05-22-2023 Influenza vaccination INFLUENZ A (Season Ended) [facility] Start: 12-26-2022 End: 02-25-2023 CREATININE BLD CREATININE BLD Lab Routine Malignant neoplasm of right kidney (HCC) Mass of pancreas Expected: 12/26/2022, Expires: 02/25/2023 [facility] Work Phone: Comment on above: Expected: 12/26/2022 , Expires: 02/25/2023 Start: 12-25-2022 End: 07-26-2023 Ct abdomen & pelvis w/contrast material CT ABD/PEL W IVCON Radiology Routine Malignant neoplasm of right kidney (HCC) Mass of pancreas Expected: 12/25/2022, Expires: 07/26/2023 [facility] Work Phone: Comment on above: Expected: 12/25/2022 , Expires: 07/26/2023 Start: 09-21-2022 DEPRESSION ASSESSMENT DEPRESSION ASS ESSMENT [facility] Start: 09-05-2022 End: 11-05-2022 MISC SEND OUT TST 1 MISC SEND OUT TST 1 Lab Routine Malignant neoplasm of right kidney (HCC) Expected: 09/05/2022, Expires: 11/05/2022 [facility] Work Phone: Comment on above: Expected: 09/05/2022 , Expires: 11/05/2022 Start: 08-01-2022 MENINGOCOCCAL GROUP B VACCINE 2 DOSE MENINGOCOCCAL GROUP B VACCINE 2 DOSE Immunization/Injection Routine Mass of pancreas Expected: 08/01/2022 (Approximate) [facility] Work Phone: Comment on above: Expected: 08/01/2022 (Approximate) Start: 05-22-2022 Influenza vaccination INFLUENZA (#1) [facility] Start: 05-11-2022 COVID-19 VACCINE (4 - Booster for Yu series) COVID-19 VACCINE (4 - Booster for Yu series) [facility] Start: 05-06-2022 End: 07-06-2022 aPTT in Platelet poor plasma by Coagulation assay ACTIVATED PTT Lab Routine Malignant neoplasm of right kidney, except renal pelvis (HCC) Expected: 05/06/2022, Expires: 07/06/2022 [facility] Work Phone: Comment on above: Expected: 05/06/2022 , Expires: 07/06/2022 Start: 05-06-2022 End: 07-06-2022 CBC panel - Blood by Automated count CBC Lab Routine Malignant neoplasm of right kidney, except renal pelvis (HCC) Expected: 05/06/2022, Expires: 07/06/2022 [facility] Work Phone: Comment on above: Expected: 05/06/2022 , Expires: 07/06/2022 Start: 05-06-2022 End: 07-06-2022 Comprehensive metabolic 2000 panel - Serum or Plasma COMP METABOLIC PANEL Lab Routine Malignant neoplasm of right kidney, except renal pelvis (HCC) Expected: 05/06/2022, Expires: 07/06/2022 [facility] Work Phone: Comment on above: Expected: 05/06/2022 , Expires: 07/06/2022 Start: 05-06-2022 End: 07-06-2022 CONFIRM BLOOD TYPE CONFIRM BLOOD TYPE Blood Bank Routine Malignant neoplasm of right kidney, except renal pelvis (HCC) Expected: 05/06/2022, Expires: 07/06/2022 [facility] Work Phone: Comment on above: Expected: 05/06/2022 , Expires: 07/06/2022 Start: 05-06-2022 End: 07-06-2022 PT panel - Platelet poor plasma by Coagulation assay PROTHROMBIN TIME/PT Lab Routine Malignant neoplasm of right kidney, except renal pelvis (HCC) Expected: 05/06/2022, Expires: 07/06/2022 [facility] Work Phone: Comment on above: Expected: 05/06/2022 , Expires: 07/06/2022 Start: 05-06-2022 End: 05-05-2023 SARS-CoV-2 (COVID-19) RNA [Presence] in Respiratory specimen by SAMMI with probe detection PRE-PROCEDURE & PRE-OPERATIVE COVID Microbiology Routine Malignant neoplasm of right kidney, except renal pelvis (HCC) Expected: 05/06/2022, Expires: 05/05/2023 [facility] Work Phone: Comment on above: Expected: 05/06/2022 , Expires: 05/05/2023 Start: 05-06-2022 End: 07-06-2022 TYPE AND SCREEN,30 DAY TYPE AND SCREEN,30 DAY Blood Bank Routine Malignant neoplasm of right kidney, except renal pelvis (HCC) Expected: 05/06/2022, Expires: 07/06/2022 [facility] Work Phone: Comment on above: Expected: 05/06/2022 , Expires: 07/06/2022 Start: 05-02-2022 End: 07-02-2022 CREATININE BLD CREATININE BLD Lab Routine Malignant neoplasm of right kidney, except renal pelvis (HCC) Expected: 05/02/2022, Expires: 07/02/2022 [facility] Work Phone: Comment on above: Expected: 05/02/2022 , Expires: 07/02/2022 Start: 09-21-2021 DEPRESSION ASSESSMENT DEPRESSION ASS ESSMENT [facility] Start: 2019 RSV Vaccine (1 - 1-d ose 60+ series) RSV Vaccine (1 - 1-dose 60+ series) [facility] Start: 2014 PROSTATE CANCER SCREENING DISCUSSION PROSTATE CANCER SCREENING DISCUSSION [facility] Start: 2009 SHINGRIX VACCINE (1 of 2) SHINGRIX VACCINE (1 of 2) [facility] Start: 02-07-2004 COLOGUARD (FIT-DNA) COLOGUARD (FIT-D NA) [facility] Start: 02-07-2004 Colonoscopy COLONOSCOPY [facility] Start: 02-07-2004 COLORECTAL CANCER SCREENING COLORECTAL CANCER SCREENING [facility] Start: 02-07-[address] COLONOGRAPHY [facility] Start: 02-07-2004 DIABETES SCREEN DIABETES SCREEN [facility] Start: 02-07-2004 FECAL OCCULT BLOOD FECAL OCCULT BLOO D [facility] Start: 02-07-2004 Screening for malign ant neoplasm of colon [facility] Start: 02-07-2004 SIGMOIDOSCOPY SIGMOIDOSCOPY [facility] Start: 1994 LIPID SCREEN LIPID SCREEN [facility] Start: 1978 Urine microalbumin profile [facility] Start: 1977 ANNUAL PCP TEAM CHIEF ULTRASOUND TECHNOLOGIST NATALIE DISEASE VISIT ANNUAL PCP TEAM CHRONIC DISEASE VISIT [facility] Start: 1977 BP CONTROLLED (<130/80) BP CONTROLLE D (<130/80) [facility] Start: 1977 HEPATITIS C SCREENING HEPATITIS C [facility] Start: 1977 Hepatitis C screening Hepatitis C [facility] Start: 1977 HIV SCREENING HIV SCREENING [facility] Start: 1977 HIV screening HIV Screening [facility] Start: 1971 Adult depression screening assessment DEPRESSION SCREENING [facility] End: 06-01-2023 Bone &/joint imaging whole body NM BONE WHOLE BODY Radiology Routine Malignant neoplasm of right kidney, except renal pelvis (HCC) 1 Occurrences starting 05/02/2022 until 06/01/2023 [facility] Work Phone: Comment on above: 1 Occurrences starti ng 05/02/2022 until 06/01/2023 End: 07-20-2023 Ct abdomen w/contrast material CT PANCREAS W IVCON Radiology Routine Malignant neoplasm of right kidney (HCC) Malignant neoplasm of right kidney, except renal pelvis (HCC) Mass of pancreas Malignant neoplasm of body of pancreas (HCC) 1 Occurrences starting 06/20/2022 until 07/20/2023 [facility] Work Phone: Comment on above: 1 Occurrences starti ng 06/20/2022 until 07/20/2023 End: 09-26-2024 Ct abdomen w/contrast material CT PANCREAS W IVCON Radiology Routine Mass of pancreas 1 Occurrences starting 08/28/2023 until 09/26/2024 [facility] Work Phone: Comment on above: 1 Occurrences starti ng 08/28/2023 until 09/26/2024 End: 06-01-2023 CT CHEST W IVCON CT CHEST W IVCON Radiology Routine Malignant neoplasm of right kidney, except renal pelvis (HCC) 1 Occurrences starting 05/02/2022 until 06/01/2023 [facility] Work Phone: Comment on above: 1 Occurrences starti ng 05/02/2022 until 06/01/2023 End: 05-05-2023 ECG COMPLETE ECG COMPLETE ECG Routine Malignant neoplasm of right kidney, except renal pelvis (HCC) 1 Occurrences starting 05/06/2022 until 05/05/2023 [facility] Work Phone: Comment on above: 1 Occurrences starti ng 05/06/2022 until 05/05/2023 End: 07-26-2023 Radiologic exam chest 2 views XR CHEST 2V FRONTAL/LAT Radiology Routine Hemothorax 1 Occurrences starting 06/26/2022 until 07/26/2023 [facility] Work Phone: Comment on above: 1 Occurrences starti ng 06/26/2022 until 07/26/2023 End: 09-19-2024 Radiologic exam chest 2 views XR CHEST 2V FRONTAL/LAT Radiology Routine Malignant neoplasm of right kidney (HCC) 1 Occurrences starting 08/21/2023 until 09/19/2024 [facility] Work Phone: Comment on above: 1 Occurrences starti ng 08/21/2023 until 09/19/2024 End: 09-19-2024 US KIDNEY/BLADDER US KIDNEY/BLADDER Radiology Routine Malignant neoplasm of right kidney (HCC) 1 Occurrences starting 08/21/2023 until 09/19/2024 [facility] Work Phone: Comment on above: 1 Occurrences starti ng 08/21/2023 until 09/19/2024 [facility] Immunizations Immunization Date Immunization Notes Care Provider [facility] 06-26-2023 influenza, injectabl e, quadrivalent, preservative free Isreal Morrow Other [employer] [facility] [employer] Other 01-15-2023 varicella virus vaccine Isreal Morrow Other [employer] [facility] [employer] Other 10-17-2022 COVID-19 Moderna (BIvalent) Isreal Morrow Other [employer] [facility] [employer] Other 07-25-2022 meningococcal (MenACWY-TT) vaccine, quadrivalent (MENQUADFI) Lupe Aguilar RN Work Phone: [facility] Work Phone: 09-02-2022 haemophilus influenz ae type b vaccine, PRP-T conjugate Kenisha Hahn MD Work Phone: [facility] Work Phone: 05-23-2022 meningococcal (MenACWY-TT) vaccine, quadrivalent (MENQUADFI) Kenisha Hahn MD Work Phone: [facility] Work Phone: 05-23-2022 meningococcal B vaccine, recombinant, OMV, adjuvanted Kenisha Hahn MD Work Phone: [facility] Work Phone: 05-23-2022 pneumococcal (PCV20) vaccine, 20 valent (PREVNAR 20) Kenisha Hahn MD Work Phone: [facility] Work Phone: 03-16-2022 COVID-19 Pfizer Isreal medina Other [employer] [facility] [employer] Other 03-16-2022 COVID-19 Vaccine Pfizer - Documentation Purposes Only Isreal Morrow Other [employer] Other 07-17-2021 COVID-19 Vaccine Moderna - Documentation Purposes Only Isreal Morrow Other [employer] Other 11-26-2020 COVID-19 Vaccine Yu - Documentation Purposes Only Isreal Morrow Other [employer] Other 07-04-2020 influenza virus vaccine, split virus (incl. purified surface antigen) Isreal Morrow Other [employer] Other 07-13-2019 influenza virus vaccine, split virus (incl. purified surface antigen) Isreal Morrow Other [employer] Other Payers Date Payer Category Payer Self-pay 2023 Unknown [id number] [id number] 2021 Unknown [id number] 2019 Unknown [id number] 1959 Unknown [id number] 1959 Unknown [id number] 2.16.84 [id number] 1959 Unknown [id number] 2.16.84 [id number] 1959 Unknown [id number] 2.16.84 [id number] 1959 Unknown [id number] 2.16.84 [id number] 1959 Unknown [id number] 2.16.84 [id number] 1959 Unknown [id number] 2.16.84 [id number] 1959 Unknown [id number] 2.16.84 [id number] 1959 Unknown [id number] 2.16.84 [id number] 1959 Unknown [id number] 2.16.84 [id number] 1959 Unknown [id number] 2.16.84 [id number] Unknown [id number] 2.16.8 [id number] Social History Date Type Detail Facility Start: 05-02-2022 Tobacco smoking status KSIS Never smoked tobacco [facility] Start: 05-02-2022 End: 05-20-2022 Tobacco use and exposure Smokeless tobacco non-user [facility] Start: 1960 Sex Assigned At Not on file C [facility] Start: 04-22-2022 End: 07-25-2022 Exposure to SARS-CoV-2 (event) Not sure [facility] Start: 05-20-2022 Tobacco smoking status NHIS Ex-smoker [facility] Work Phone: End: 09-21-2004 History of tobacco use Current smoker [facility] Work Phone: End: 09-21-2004 History of tobacco use Cigarette Smoker [facility] Work Phone: Start: 05-20-2022 End: 11-18-2023 Alcohol intake Current drinker of alcohol (finding) [facility] Start: 05-20-2022 History SDOH Alcohol Comment ocassionally- 5 per month [facility] Start: 02-25-2023 End: 08-21-2023 Sex Assigned At [facility] [employer] Other Start: 02-25-2023 Alcohol Comment ocassionally- 12-15 per month [facility] Start: 02-25-2023 End: 08-21-2023 History of Social function [facility] National Score (1-100), lower number is lower risk 91 [facility] Clinical Notes 05-02-2022 to 11-18-2023 Patient InstructionsLydia Godinez APRN.[facility] - 11/18/2023 11:06 AM EST Note Date & Type Note Facility 11-18-2023 Note Patient Outreach (ISABEL DMMN) CANDICE MITCHELL ([id number]) 1960 M Date Time Provider Department 11/18/23 LYDIA GODINEZ During your visit today, we recorded the following information about you: Allergies As of Date: 11/18/2023 (No Known Allergies) Date Reviewed: 11/18/2023 Reviewed by: Lydia Godinez APRN.[employer] [employer] [facility] - Fully Assessed Visit Diagnosis:Screening for genitourinary condition [Z13.89] Order(s):URINALYSIS, REFLEX MICROSCOPIC [[id number]] Order #: [id number]. #:[id number] Prescriptions as of 11/23/2023 - acetaminophen (TYLENOL ORAL) Take by mouth as needed. - allopurinol (ZYLOPRIM) 300 mg tablet Take 300 mg by mouth once daily. - amLODIPine-Benazepril 5-40 mg per capsule Take 1 capsule by mouth once daily. - atenolol (TENORMIN) 50 mg tablet Take 50 mg by mouth once daily. - colchicine 0.6 mg tablet PRN Problem List As Of Date 11/18/2023 Noted Resolved Malignant neoplasm of right kidney, except santi*05/02/2022 Morbid obesity (HCC) [E66.01] 05/20/2022 HTN (hypertension) [I10] 05/20/2022 Gout [M10.9] 05/20/2022 Mass of pancreas [K86.89] 05/20/2022 Obesity, Class III, BMI >= 40 [E66.01] 05/23/2022 Renal cell carcinoma (HCC) [C64.9] 05/27/2022 Renal mass [N28.89] 05/28/2022 Hemothorax on right [J94.2] 06/02/2022 Hypotension [I95.9] 06/02/2022 SVEN (acute kidney injury) (HCC) [N17.9] 06/04/2022 Leukocytosis [D72.829] 06/04/2022 PVC (premature ventricular contraction) [I49.3] 06/04/2022 H/O radical nephrectomy [Z90.5] 02/25/2023 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 Author Type: Nurse Practitioner Type: Progress Notes Filed: 11/20/2023 15:02 Note Text: [facility] NEPHROLOGY [facility] HYPERTENSION [facility] SERVICE DATE: 11/18/2023 SERVICE TIME: 11:07 AM A portion of this note has been copied from [facility] dated 02/25/23 CHIEF COMPLAINT: follow-up CKD HPI: Mr. 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 [facility] 02/25/[address] Duncan for initial consultation for evaluation of kidney dysfunction. Creatinine prior to surgery around 1.3. Peaked. At 2.3 and matty after at around 1.4. Most recent metabolic panel from February 11 with creatinine at 1.88 and an estimated GFR of around 39 mils per minute. Slight hypercalcemia appreciated Mild leukocytosis; hemoglobin 14 Most recent urinalysis from December completely bland. BP in the office elevated. Asked to monitor home BP and bring log to next visit. Encouraged Na+ restriction, DASH, or Mediterranean diet. Recommended lab work every 6 months with annual follow-up Need to recheck uric acid particularly if we are entertaining adding thiazide down the line Presents today in the office for a follow-up visit. He feels well. Retired. Per his they are working hard to follow a low salt diet Drinks water through the day for hydration. Estimates 3-4 32 oz of water. Some intermittent monitoring of home BP. SBP high 120s with occasional low 130s. PAST MEDICAL HISTORY: PAST MEDICAL HISTORY Diagnosis Date Gout 05/20/2022 HTN (hypertension) 05/20/2022 Morbid obesity (HCC) 05/20/2022 PAST SURGICAL HISTORY: PAST SURGICAL HISTORY Procedure Laterality Date CHOLECYSTECTOMY HX PAST SURGICAL HISTORY OF Bilateral Meniscus repair PAST SURGICAL HISTORY OF rotator cuff FAMILY HISTORY: FAMILY HISTORY Problem Relation Age of Onset Hypertension Mother Hypertension Father Hypertension Brother Chronic Kidney Disease Paternal Uncle ESRD Anesthesia Problems No Family History SOCIAL HISTORY: Social History Tobacco Use Smoking status: Former Types: Cigarettes Quit date: 2004 Years since quittin.1 Smokeless tobacco: Never Substance Use Topics Alcohol use: Yes Comment: ocassionally- 12-15 per month Drug use: Never MEDICATIONS: acetaminophen (TYLENOL ORAL) Take by mouth as needed. allopurinol (ZYLOPRIM) 300 mg tablet Take 300 mg by mouth once daily. amLODIPine-Benazepril 5-40 mg per capsule Take 1 capsule by mouth once daily. atenolol (TENORMIN) 50 mg tablet Take 50 mg by mouth once daily. colchicine 0.6 mg tablet PRN (Patient not taking: Reported on 08/21/2023) ALLERGIES: ALLERGIES No Known Allergies REVIEW OF SYSTEMS: Constitutional: No fever, No chills, and No weight loss Eyes: No complaints Ear, Nose, and Throat: No complaints Cardiovascular: No chest pain or pressure, No edema, No dizziness, and No lightheadedness Respiratory: No cough and No wheezing Gastrointestinal: No N/V. No diarrhea. Genitourinary: No dysuria. No urgency/hesitation. No blood in urine. Musculoskeletal: No joint pain and No joint swelling Skin: No pruritis, No rash, and No ulcers/wounds Neurological: No numbness and No tingling Psychiatric: No depression and No anxiety Endocrine: No hypoglycemic events Hematologic:No issues with bruising easily and No issues with bleeding easily PHYSICAL EXAM: BP 120/76 (BP Site: Left Arm, BP Position: Sitting, BP Cuff Size: Large Adult) Pulse (!) 59 Temp 36.6 ?C (97.9 ?F) (Oral) Ht 172.7 cm (5' 8 ) Wt 120.9 kg (266 lb 8.6 oz) BMI 40.53 kg/m? BP - standardized method Pulse 1 BP #1: 122/77 Pulse #1: 59 beats/min 2 BP #2 : 120/76 Pulse #2 : 60 beats/min 3 BP #3 : 118/75 Pulse #3 : 59 beats/min Average Average BP: 120/76 Average Pulse: 59 beats/min Orthostatic vitals Supine Sitting Standing Standing BP : 102/69 Standing pulse : 66 BP cuff location BP cuff location: Left upper arm BP cuff size BP cuff size: large adult Comments for BP values First BP (right) First BP (left) Constitutional: Alert. No acute distress HEENT: Atraumatic. No icterus. No drainage. Moist mucus membranes. Neck: Supple. Trachea midline. No JVD Cardiac: S1S2. Normal rate and rhythm. No murmurs. No edema. Respiratory: Thorax even and symmetrical. CTA b/l posterior upper and lower lobes. Abdomen: Soft and non-tender. No distention. Neurological: AANDO x 3. Psychiatric: Mood appropriate. Normal affect. DATA: Diagnostic tests reviewed for today's visit: Component Latest Ref Rng AND Units 06/05/2022 06/06/2022 02/11/2023 09/25/2023 Protein, Total 6.3 - 8.0 g/dL 7.0 7.4 Albumin 3.9 - 4.9 g/dL 4.0 4.3 Calcium 8.5 - 10.2 mg/dL 8.9 8.9 10.4 (H) (more content not included)... [facility] 11-18-2023 Instructions Lydia Godinez APRN.RASHAAD - 11/18/2023 11:49 AM EST Lab work sometime in May Avoid all non-steroidal anti-inflammatory (NSAID) pain medications. - ibuprofen (motrin, advil), naproxen (alleve), indomethacin (indocin), meloxicam (mobic), celecoxib (celebrex), and diclofenac (volatren) are common ones. Acetaminophen (tylenol) is safe for kidneys if taken as directed. Ask your pharmacist if you have questions. Low salt diet Stay well hydrated Continue to monitor home blood pressures daily and record. Target < 130/80. Return to kidney medicine in `~ 6 months. documented in this encounter [facility] 11-18-2023 History of Presen t illness Narrative [facility] NEPHROLOGY & HYPERTENSION [facility] SERVICE DATE: 11/18/2023 SERVICE TIME: 11:07 AM A portion of this note has been copied from [facility] dated 02/25/23 CHIEF COMPLAINT: follow-up CKD HPI: Mr. 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 [facility] 02/25/[address] Duncan for initial consultation for evaluation of kidney dysfunction. Creatinine prior to surgery around 1.3. Peaked. At 2.3 and matty after at around 1.4. Most recent metabolic panel from February 11 with creatinine at 1.88 and an estimated GFR of around 39 mils per minute. Slight hypercalcemia appreciated Mild leukocytosis; hemoglobin 14 Most recent urinalysis from December completely bland. BP in the office elevated. Asked to monitor home BP and bring log to next visit. Encouraged Na+ restriction, DASH, or Mediterranean diet. Recommended lab work every 6 months with annual follow-up Need to recheck uric acid particularly if we are entertaining adding thiazide down the line Presents today in the office for a follow-up visit. He feels well. Retired. Per his they are working hard to follow a low salt diet Drinks water through the day for hydration. Estimates 3-4 32 oz of water. Some intermittent monitoring of home BP. SBP high 120s with occasional low 130s. PAST MEDICAL HISTORY: PAST MEDICAL HISTORY Diagnosis Date Gout 05/20/2022 HTN (hypertension) 05/20/2022 Morbid obesity (HCC) 05/20/2022 PAST SURGICAL HISTORY: PAST SURGICAL HISTORY Procedure Laterality Date CHOLECYSTECTOMY HX PAST SURGICAL HISTORY OF Bilateral Meniscus repair PAST SURGICAL HISTORY OF rotator cuff FAMILY HISTORY: FAMILY HISTORY Problem Relation Age of Onset Hypertension Mother Hypertension Father Hypertension Brother Chronic Kidney Disease Paternal Uncle ESRD Anesthesia Problems No Family History SOCIAL HISTORY: Social History Tobacco Use Smoking status: Former Types: Cigarettes Quit date: 2004 Years since quittin.1 Smokeless tobacco: Never Substance Use Topics Alcohol use: Yes Comment: ocassionally- 12-15 per month Drug use: Never MEDICATIONS: acetaminophen (TYLENOL ORAL) Take by mouth as needed. allopurinol (ZYLOPRIM) 300 mg tablet Take 300 mg by mouth once daily. amLODIPine-Benazepril 5-40 mg per capsule Take 1 capsule by mouth once daily. atenolol (TENORMIN) 50 mg tablet Take 50 mg by mouth once daily. colchicine 0.6 mg tablet PRN (Patient not taking: Reported on 08/21/2023) ALLERGIES: ALLERGIES No Known Allergies REVIEW OF SYSTEMS: Constitutional: No fever, No chills, and No weight loss Eyes: No complaints Ear, Nose, and Throat: No complaints Cardiovascular: No chest pain or pressure, No edema, No dizziness, and No lightheadedness Respiratory: No cough and No wheezing Gastrointestinal: No N/V. No diarrhea. Genitourinary: No dysuria. No urgency/hesitation. No blood in urine. Musculoskeletal: No joint pain and No joint swelling Skin: No pruritis, No rash, and No ulcers/wounds Neurological: No numbness and No tingling Psychiatric: No depression and No anxiety Endocrine: No hypoglycemic events Hematologic:No issues with bruising easily and No issues with bleeding easily PHYSICAL EXAM: BP 120/76 (BP Site: Left Arm, BP Position: Sitting, BP Cuff Size: Large Adult) Pulse (!) 59 Temp 36.6 C (97.9 F) (Oral) Ht 172.7 cm (5' 8 ) Wt 120.9 kg (266 lb 8.6 oz) BMI 40.53 kg/m BP - standardized method Pulse 1 BP #1: 122/77 Pulse #1: 59 beats/min 2 BP #2 : 120/76 Pulse #2 : 60 beats/min 3 BP #3 : 118/75 Pulse #3 : 59 beats/min Average Average BP: 120/76 Average Pulse: 59 beats/min Orthostatic vitals Supine Sitting Standing Standing BP : 102/69 Standing pulse : 66 BP cuff location BP cuff location: Left upper arm BP cuff size BP cuff size: large adult Comments for BP values First BP (right) First BP (left) Constitutional: Alert. No acute distress HEENT: Atraumatic. No icterus. No drainage. Moist mucus membranes. Neck: Supple. Trachea midline. No JVD Cardiac: S1S2. Normal rate and rhythm. No murmurs. No edema. Respiratory: Thorax even and symmetrical. CTA b/l posterior upper and lower lobes. Abdomen: Soft and non-tender. No distention. Neurological: A&O x 3. Psychiatric: Mood appropriate. Normal affect. DATA: Diagnostic tests reviewed for today's visit: Component Latest Ref Rng & Units 06/05/2022 06/06/2022 02/11/2023 09/25/2023 Protein, Total 6.3 - 8.0 g/dL 7.0 7.4 Albumin 3.9 - 4.9 g/dL 4.0 4.3 Calcium 8.5 - 10.2 mg/dL 8.9 8.9 10.4 (H) 10.6 (H) Bilirubin, Total 0.2 - 1.3 mg/dL 0.5 0.6 Alkaline Phosphatase 38 - 113 U/L 123 (H) 94 AST 14 - 40 U/L 21 19 ALT 10 - 54 U/L 21 20 Glucose 74 - 99 mg/dL 86 72 (L) 120 (H) 127 (H) BUN 9 - 24 mg/dL 26 (H) 19 29 (H) 32 (H) Creatinine 0.73 - 1.22 mg/dL 1.78 (H) 1.46 (H) 1.88 (H) 1.85 (H) Sodium 136 - 144 mmol/L 140 138 138 143 Potassium 3.7 - 5.1 mmol/L 4.2 4.7 4.5 4.9 Chloride 97 - 105 mmol/L 107 (H) 106 (H) 106 (H) 108 (H) CO2 22 - 30 mmol/L 21 (L) 19 (L) 24 24 Anion Gap 9 - 18 mmol/L 12 13 8 (L) 11 eGFR >=60 mL/min/1.73m 42 (L) 54 (L) 39 (L) 40 (L) ASSESSMENT: 63 year old male who presents with hypertension, gout, obesity, 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 Here for follow-up CKD IIIb, without proteinuria, in the setting of R nephrectomy 2/2 renal cell CA. Other risk factors include HTN and obesity. Last sCr 1.85, eGFR 40 Stable Taking Benazapril Electrolytes: Stable. Volume status-appears euvolemic on exam. Kidney sizes/Imaging: no imaging available. HTN of renal disease: controlled in the office. Taking Amlodipine/Benazapril 5-40 mg daily and Atenolol 50 mg tab daily. Anemia of CKD: None. Hg 14.0. History of anemia. Metabolic acidosis: bicarb at target. Metabolic bone: No Vitamin D level available. Taking supplements. Hypercalcemia: Calcium 10.6 No PTH level available. Phosphorous level 3.1 CV/Lipids: LDL 85 Pre-DM: Most recent A1c 5.7. 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 No recent gout flares. PLAN: Lab work sometime in January Avoid all non-steroidal anti-inflammatory (NSAID) pain medications. Low salt diet Stay well hydrated Continue to monitor home blood pressures daily and record. Target < 130/80. Return to kidney medicine in `~ 6 months. SIGNATURE: Lydia Godinez APRN.RASHAAD, Nephrology Staff PATIENT NAME: Candice Mitchell DATE: November 18, 2023 TIME: 11:07 AM OFFICE NUMBER: [phone] CC: REFERRING PROVIDER: No ref. provider found PRIMARY CARE PHYSICIAN: No primary care provider on file. documented in this encounter [facility] 10-28-2023 Evaluation note Encounter Date Diagnosis Assessment Notes Oct, Stage 3a chronic kidney disease (ICD-10 - N18.31) The patient is instructed on adequate control of hypertension and diabetes, if appropriate. They are also educated on the associated risks of NSAIDs and PPI use with kidney disease. They were instructed on adequate fluid balance and to avoid dehydration. Oct, Primary hypertension (ICD-10 - I10) This patient is instructed to consume a healthy, low-fat, low-salt diet. They are also encouraged to continue exercise to achieve/maintai n a normal BMI. Patient is instructed on home BP measurements: - rest for 5 minutes w/o talking.- positioned w/ feet on floor and arm supported.- average best 2/3 readings w/ goal < 135/85.- update office w/ home readings in 2 weeks. Oct, IFG (impaired fasting glucose) (ICD-10 - R73.01) Healthy diet and exercise Stressed importance of weight loss w/ insulin resistance. [facility] labs due, checking A1C Oct, Morbid (severe) obesity due to excess calories (ICD-10 - E66.01) This patient has been instructed on a low-fat, high-fiber diet. They are instructed to reduce calories, portion sizes and snacks. It is recommended that they exercise for 30 minutes, 3-5 times weekly. Oct, Neuroendocrine tumor of pancreas (ICD-10 - D3A.8) No s/s recurrence f/u Surgery at [facility] Oct, Renal cell carcinoma of right kidney (ICD-10 - C64.1) No s/s recurrence. Denies flank pain or hematuria f/u Surgery at [facility] Oct, History of gout (ICD-10 - Z87.39) No acute gout flares. Continue Allopurinol. Oct, Body mass index [BMI] 40.0-44.9, adult (ICD-10 - Z68.41) Oct, Hypercalcemia (ICD-10 - E83.52) [employer] Other [id number] NoteHNO ID: [id number] Author: Pete Gupta MD Service: ? Author Type: Physician Type: Progress Notes Filed: 08/28/2023 7:58 AM Note Text: [facility] PROGRESS NOTE: Patient Name: Candice Mitchell ASSESSMENT AND PLAN: 63 year old male s/p distal pancreatectomy and splenectomy for pNET (05/27/2022) and s/p incisional hernia repair (06/03/2022) - Repeat imaging in 6 months CC: pNET INTERVAL HPI: Patient is doing well. Has some occasional back pain that is chronic, but no abdominal pain. No nausea or vomiting. No steatorrhea. PHYSICAL EXAM: There were no vitals taken for this visit. Gen: NAD Pulm: Non-labored breathing Neuro: Answering questions appropriately This visit was conducted as a virtual visit. I have communicated my name and active licensure. The patient's identity and physical location were verified at the time of this visit. Either the patient or their legal field representatives director has been informed of the risks and benefits of -- and alternatives to -- treatment through a remote evaluation and consents to proceed with the evaluation remotely. Medical Decision Making: Problems: Low: Stable chronic illness Data: Unique source(s) for external note(s) reviewed: 3+ Unique test result(s) reviewed: 3+ Unique test(s) ordered: 1 Medical Decision Making Level: 3 - Low Nelson Gupta MD [facility] surgery Pager: [phone] [facility]12-08-2023 History of Present illness Narrative* Pete Gupta MD - 08/28/2023 7:52 AM EST B PROGRESS NOTE: Patient Name: Candice Mitchell ASSESSMENT AND PLAN: 63 year old male s/p distal pancreatectomy and splenectomy for pNET (05/27/2022)and s/p incisional hernia repair (06/03/2022) - Repeat imaging in 6 months CC: pNET INTERVAL HPI: Patient is doing well. Has some occasional back pain that is chronic, but no abdominal pain. No nausea or vomiting. No steatorrhea. PHYSICAL EXAM: There were no vitals taken for this visit. Gen: NAD Pulm: Non-labored breathing Neuro: Answering questions appropriately This visit was conducted as a virtual visit. I have communicated my name and active licensure. The patient's identity and physical location wereverified at the time of this visit. Either the patient or their legal field representatives director has been informed of the risks and benefits of -- and alternatives to -- treatment through a remote evaluation andconsents to proceed with the evaluation remotely. Medical Decision Making: Problems: Low: Stable chronic illness Data: Unique source(s) for external note(s) reviewed: 3+ Unique test result(s) reviewed: 3+ Unique test(s) ordered: 1 Medical Decision Making Level: 3 - Low Nelson Gupta MD [facility] surgery Pager: [phone] [facility] NoteHNO ID: [id number] Author: Kenney Bangura MD Service: ? Author Type: Physician Type: Progress Notes Filed: 08/28/2023 10:51 AM Note Text: PATIENT: Candice Mitchell [id number] 08/21/2023 Chief Complaint: Follow up This clinic note was copied and updated from previous note from 12/26/2022 History of Present Illness: Candice Mitchell is a very pleasant 63 year old male who presents with a history of gout, hypertension, morbid obesity (BMI 41) who was found to have an 8.5cm right upper pole mass and a 1.9cm pancreatic tail mass suspicious for metastatic RCC and is now s/p robotic right radical nephrectomy and adrenalectomy (05/27/22), robotic assisted distal pancreatectomy with splenectomy (05/27/22), incisional hernia repair (06/03/22), and right VATS with evacuation of retained hemothorax (06/03/22). 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 Denies Hematuria No difficulties with urination. Interval Hx: The patient is visiting today to review results of CT abd/pel and CXR Past Histories PAST MEDICAL HISTORY Diagnosis Date Gout 05/20/2022 HTN (hypertension) 05/20/2022 Morbid obesity (HCC) 05/20/2022 PAST SURGICAL HISTORY Procedure Laterality Date CHOLECYSTECTOMY HX PAST SURGICAL HISTORY OF Bilateral Meniscus repair PAST SURGICAL HISTORY OF rotator cuff Medications Current Outpatient Medications Medication Instructions acetaminophen (TYLENOL ORAL) ORAL, NEEDED allopurinol (ZYLOPRIM) 300 mg, ORAL, DAILY amLODIPine-Benazepril 5-40 mg per capsule 1 capsule, ORAL, DAILY atenolol (TENORMIN) 50 mg, ORAL, DAILY colchicine 0.6 mg tablet PRN Family History FAMILY HISTORY FAMILY HISTORY Problem Relation Age of Onset Anesthesia Problems No Family History Social History Social History Tobacco Use Smoking status: Former Types: Cigarettes Quit date: 2004 Years since quittin.9 Smokeless tobacco: Never Substance Use Topics Alcohol use: Yes Comment: ocassionally- 12-15 per month Drug use: Never Allergies Allergies: Not on File Physical Exam: BP 152/85 Pulse 66 Ht 172.7 cm (5' 8 ) Wt 121.1 kg (266 lb 15.6 oz) BMI 40.59 kg/m? General: Alert, no acute distress, oriented Lungs: No respiratory distress or pursed lip breathing Psych: Affect and mood normal Abdomen: Estimated body mass index is 40.59 kg/m? as calculated from the following: Height as of this encounter: 172.7 cm (5' 8 ). Weight as of this encounter: 121.1 kg (266 lb 15.6 oz). Labs and Pathology: PSA Screening (ng/mL) Date Value 02/11/2023 1.50 Creatinine Date Value Ref Range Status 02/11/2023 1.88 (H) 0.73 - 1.22 mg/dL Final 06/06/2022 1.46 (H) 0.73 - 1.22 mg/dL Final Creatinine (POCT) Date Value Ref Range Status 08/21/2023 1.80 (A) 0.7 - 1.4 mg/dL Final 12/26/2022 2.10 (A) 0.7 - 1.4 mg/dL Final Imaging: CXR 08/21/23: RESULT: Lines, tubes, and devices: N/A Lungs and pleura: Scattered linear opacities probably atelectasis. No focal consolidations or effusions. No pneumothorax. Cardiomediastinal silhouette: Cardiac silhouette within normal limits. Other: Degenerative changes of the thoracic spine. 12/26/22 CT Abd/pel W IV Con IMPRESSION: POST-SURGICAL CHANGES OF DISTAL PANCREATECTOMY/SPLENECTOMY AND RIGHT NEPHRECTOMY WITHOUT LOCAL RECURRENCE OR DEFINITE METASTATIC DISEASE. 3.7 CM LOCULATED FLUID ADJACENT TO THE DISTAL PANCREATECTOMY RESECTION MARGIN WITHOUT INTERNAL GAS, PROBABLY POST-SURGICAL. NO EVIDENCE FOR RECURRENT OR NEW LESION ON THIS SINGLE PHASE EXAM. 9.0 CM LEFT UPPER QUADRANT HETEROGENOUS LESION WITH FOCI OF BULK FAT IN THE REGION OF PRIOR FAT STRANDING/FLUID MAY REPRESENT CONTAINED AREA OF FAT NECROSIS. ATTENTION ON FOLLOW-UP. 1.1 CM HYPERENHANCING NODULE ADJACENT THE GREATER CURVATURE, PROBABLY AN ADDITIONAL HYPERTROPHIED ACCESSORY SPLEEN DESCRIBED IN DETAIL THE BODY OF THE REPORT. Diagnosis: (Z85.07) History of pancreatic cancer (C64.1) Malignant neoplasm of right kidney (HCC) (primary encounter diagnosis) Assessment: Candice Mitchell is a very pleasant 63 year old male who presents with a history of gout, hypertension, morbid obesity (BMI 41) who was found to have an 8.5cm right upper pole mass and a 1.9cm pancreatic tail mass suspicious for metastatic RCC and is now s/p robotic right radical nephrectomy and adrenalectomy (05/27/22), robotic assisted distal pancreatectomy with splenectomy (05/27/22), incisional hernia repair (06/03/22), and right VATS with evacuation of retained hemothorax (06/03/22). He presents today for follow up prior history of pancreatic cancer, kidney cancer s/p right nephrectomy. Overall he is feeling great. He denies significant issues today. Creati (more content not included)...[facility]12-01-2023 NoteHNO ID: [id number] Author: Tony Rojas RT(R) Service: Radiology Author Type: Technologist Type: Progress Notes Filed: 08/21/2023 1:00 PM Note Text: Radiology Service Progress Note PATIENT NAME: Candice Mitchell DATE OF SERVICE: August 21, 2023 TIME: 12:56 PM PATIENT IDENTITY VERIFICATION COMPLETED USING TWO (2) IDENTIFIERS: Name and Date of confirmed by patient verbally and Name and Date of confirmed by identification band. FALL SCREENING: Has the patient had 2 falls in the last year or 1 fall with injury or currently using an Ambulatory Assistive Device (Walker, Cane, Wheelchair, Crutches, etc.)? No PATIENT GENDER DATA: Male PATIENT RELEVANT IMPLANT DATA REVIEWED: Yes RADIOLOGY DEPARTMENT: CT; Exam(s) Completed: Abdomen/Pelvis PERIPHERAL IV DATA: Site assessment: Clean,Dry and Intact, Site disposition Discontinued SIGNED BY: RT Clare(R) August 21, 2023 12:56 [facility]12-01-2023 NoteHNO ID: [id number] Author: Imelda Soriano RN Service: Radiology Author Type: Registered Nurse Type: Progress Notes Filed: 08/21/2023 12:28 PM Note Text: Radiology Service Progress Note DATE OF SERVICE: August 21, 2023 TIME: 12:18 PM PATIENT WEIGHT: 260 LBS PATIENT IDENTITY VERIFICATION COMPLETED USING TWO (2) STANDARD IDENTIFIERS: Name and Date of confirmed by patient verbally and Name and Date of confirmed by identification band. FALL SCREENING: Has the patient had 2 falls in the last year or 1 fall with injury or currently using an Ambulatory Assistive Device (Walker, Cane, Wheelchair, Crutches, etc.)? No PATIENT GENDER DATA: Male ALLERGIES: Reviewed and unchanged CONTRAST ALLERGY: No EXAM: CT -CONTRAST INDUCED NEPHROPATHY RISK FACTORS: Patient age > 60 years CREATININE: Creatinine Date Value Ref Range Status 02/11/2023 1.88 (H) 0.73 - 1.22 mg/dL Final Creatinine (POCT) Date Value Ref Range Status 08/21/2023 1.80 (A) 0.7 - 1.4 mg/dL Final 12/26/2022 2.10 (A) 0.7 - 1.4 mg/dL Final eGFR (POCT) Date Value Ref Range Status 08/21/2023 42 mL/min/1.73 m2 Final P.O.C.T. RESULTS: POC done: Yes, See Lab Tab August 21, 2023 TREATMENT: No Hydration needed. IV SITE: Ambulatory: A peripheral IV was started in the Right antecubital site with a Angio cath: 22 gauge. and A Saline lock was inserted per protocol IV SITE APPEARANCE: Clean,Dry and Intact SIGNATURE: Imelda Soriano RN PATIENT NAME: Candice Mitchell DATE: August 21, 2023 TIME: 12:18 [facility]12-01-2023 History of Present illness Narrative* Kenney Bangura MD - 08/21/2023 2:00 PM EST PATIENT: Candice Mitchell [id number] 08/21/2023 Chief Complaint: Follow up This clinic note was copied and updated from previous note from 12/26/2022 History of Present Illness: Candice Mitchell is a very pleasant 63 year old male who presents with a history of gout, hypertension, morbid obesity (BMI 41) who was found to have an 8.5cm right upper pole mass and a 1.9cm pancreatic tail mass suspicious for metastatic RCC and is now s/p robotic right radical nephrectomy and adrenalectomy (05/27/22), robotic assisted distal pancreatectomy with splenectomy (05/27/22), incisional hernia repair (06/03/22), and right VATS with evacuation of retained hemothorax (06/03/22). 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 Denies Hematuria No difficulties with urination. Interval Hx: The patient is visiting today to review results of CT abd/pel and CXR Past Histories PAST MEDICAL HISTORY Diagnosis Date Gout 05/20/2022 HTN (hypertension) 05/20/2022 Morbid obesity (HCC) 05/20/2022 PAST SURGICAL HISTORY Procedure Laterality Date CHOLECYSTECTOMY HX PAST SURGICAL HISTORY OF Bilateral Meniscus repair PAST SURGICAL HISTORY OF rotator cuff Medications Current Outpatient Medications Medication Instructions acetaminophen (TYLENOL ORAL) ORAL, NEEDED allopurinol (ZYLOPRIM) 300 mg, ORAL, DAILY amLODIPine-Benazepril 5-40 mg per capsule 1 capsule, ORAL, DAILY atenolol (TENORMIN) 50 mg, ORAL, DAILY colchicine 0.6 mg tablet PRN Family History FAMILY HISTORY FAMILY HISTORY Problem Relation Age of Onset Anesthesia Problems No Family History Social History Social History Tobacco Use Smoking status: Former Types: Cigarettes Quit date: 2004 Years since quittin.9 Smokeless tobacco: Never Substance Use Topics Alcohol use: Yes Comment: ocassionally- 12-15 per month Drug use: Never Allergies Allergies: Not on File Physical Exam: BP 152/85 Pulse 66 Ht 172.7 cm (5' 8 ) Wt 121.1 kg (266 lb 15.6 oz) BMI 40.59 kg/m General: Alert, no acute distress, oriented Lungs: No respiratory distress or pursed lip breathing Psych: Affect and mood normal Abdomen: Estimated body mass index is 40.59 kg/m as calculated from the following: Height as of this encounter: 172.7 cm (5' 8 ). Weight as of this encounter: 121.1 kg (266 lb 15.6 oz). Labs and Pathology: PSA Screening (ng/mL) Date Value 02/11/2023 1.50 Creatinine Date Value Ref Range Status 02/11/2023 1.88 (H) 0.73 - 1.22 mg/dL Final 06/06/2022 1.46 (H) 0.73 - 1.22 mg/dL Final Creatinine (POCT) Date Value Ref Range Status 08/21/2023 1.80 (A) 0.7 - 1.4 mg/dL Final 12/26/2022 2.10 (A) 0.7 - 1.4 mg/dL Final Imaging: CXR 08/21/23: RESULT: Lines, tubes, and devices: N/A Lungs and pleura: Scattered linear opacities probably atelectasis. No focal consolidations or effusions. No pneumothorax. Cardiomediastinal silhouette: Cardiac silhouette within normal limits. Other: Degenerative changes of the thoracic spine. 12/26/22 CT Abd/pel W IV Con IMPRESSION: POST-SURGICAL CHANGES OF DISTAL PANCREATECTOMY/SPLENECTOMY AND RIGHT NEPHRECTOMY WITHOUT LOCAL RECURRENCE OR DEFINITE METASTATIC DISEASE. 3.7 CM LOCULATED FLUID ADJACENT TO THE DISTAL PANCREATECTOMY RESECTION MARGIN WITHOUT INTERNAL GAS, PROBABLY POST-SURGICAL. NO EVIDENCE FOR RECURRENT OR NEW LESION ON THIS SINGLE PHASE EXAM. 9.0 CM LEFT UPPER QUADRANT HETEROGENOUS LESION WITH FOCI OF BULK FAT IN THE REGION OF PRIOR FAT STRANDING/FLUID MAY REPRESENT CONTAINED AREA OF FAT NECROSIS. ATTENTION ON FOLLOW-UP. 1.1 CM HYPERENHANCING NODULE ADJACENT THE GREATER CURVATURE, PROBABLY AN ADDITIONAL HYPERTROPHIED ACCESSORY SPLEEN DESCRIBED IN DETAIL THE BODY OF THE REPORT. Diagnosis: (Z85.07) History of pancreatic cancer (C64.1) Malignant neoplasm of right kidney (HCC) (primary encounter diagnosis) Assessment: Candice Mitchell is a very pleasant 63 year old male who presents with a history of gout, hypertension, morbid obesity (BMI 41) who was found to have an 8.5cm right upper pole mass and a 1.9cm pancreatic tail mass suspicious for metastatic RCC and is now s/p robotic right radical nephrectomy and adrenalectomy (05/27/22), robotic assisted distal pancreatectomy with splenectomy (05/27/22), incisional hernia repair (06/03/22), and right VATS with evacuation of retained hemothorax (06/03/22). He presents today for follow up prior history of pancreatic cancer, kidney cancer s/p right nephrectomy. Overall he is feeling great. He denies significant issues today. Creatinine level is better than it was [address] abd/pel is pending we will call him with results. CXR ruled out metastatic disease. We discussed keeping a healthy lifestyle in order to protect his left kidney. In terms ofKidney cancer no signs of recurrence or metastatic spread. I recommend US Kidney/bladder and virtual visit in 6 months. In terms of pancreatic cancer he has a upcoming appointment with Dr. Gupta. Plan: US kidney/bladder Virtual visit follow up in 6 months 3. PSA Scribed for Kenney Bangura MD, by Patrick Lagos, medical physicist, August 21, 2023 I agree with the Chief Complaint, ROS, and Past Histories independently gathered by the clinical linux support engineer and the remaining scribed note accurately describes my personal service to the patient. Kenney Bangura MD [facility] Medical Decision Making: Problems: Moderate: 2+ stable chronic illnesses Data: Unique test(s) ordered: 3+ Risk: Low: Low risk from testing/treatment Medical Decision Making Level: 4 - Moderate documented in this encounterL[facility]12-[facility]23 NotePatient Outreach (UROLMN) CANDICE MITCHELL ([id number]) 1960 M Date Time Provider Department 08/21/23 KENNEY BANGURA During your visit today, we recorded the following information about you: Allergies As of Date: 08/21/2023 (No Known Allergies) Date Reviewed: 08/21/2023 Reviewed by: Zoila Greco MA - Fully Assessed Visit Diagnosis:Screening for genitourinary condition [Z13.89] Order(s):URINALYSIS, REFLEX MICROSCOPIC [[id number]] Order #: [id number]. #:[id number] Prescriptions as of 08/24/2023 - acetaminophen (TYLENOL ORAL) Take by mouth as needed. - allopurinol (ZYLOPRIM) 300 mg tablet Take 300 mg by mouth once daily. - amLODIPine-Benazepril 5-40 mg per capsule Take 1 capsule by mouth once daily. - atenolol (TENORMIN) 50 mg tablet Take 50 mg by mouth once daily. - colchicine 0.6 mg tablet PRN Problem List As Of Date 08/21/2023 Noted Resolved Malignant neoplasm of right kidney, except santi*05/02/2022 Morbid obesity (HCC) [E66.01] 05/20/2022 HTN (hypertension) [I10] 05/20/2022 Gout [M10.9] 05/20/2022 Mass of pancreas [K86.89] 05/20/2022 Obesity, Class III, BMI >= 40 [E66.01] 05/23/2022 Renal cell carcinoma (HCC) [C64.9] 05/27/2022 Renal mass [N28.89] 05/28/2022 Hemothorax on right [J94.2] 06/02/2022 Hypotension [I95.9] 06/02/2022 SVEN (acute kidney injury) (HCC) [N17.9] 06/04/2022 Leukocytosis [D72.829] 06/04/2022 PVC (premature ventricular contraction) [I49.3] 06/04/2022 H/O radical nephrectomy [Z90.5] 02/25/2023 H/O primitive neuroectodermal tumor (PNET) [Z85*02/25/2023 Encounter Status:Closed by NumberPicture, PRODUSER on 08/24/23[facility] 08-21-2023 NoteHNO ID: [id number] Author: Lainey De La Fuente, RT(R) Service: Radiology Author Type: Technologist Type: Progress Notes Filed: 08/21/2023 11:45 AM Note Text: Radiology Service Progress Note PATIENT NAME: Candice Mitchell DATE OF SERVICE: August 21, 2023 TIME: 11:45 AM PATIENT IDENTITY VERIFICATION COMPLETED USING TWO (2) IDENTIFIERS: Name and Date of confirmed by patient verbally. FALL SCREENING: Has the patient had 2 falls in the last year or 1 fall with injury or currently using an Ambulatory Assistive Device (Walker, Cane, Wheelchair, Crutches, etc.)? No PATIENT GENDER DATA: Male PATIENT RELEVANT IMPLANT DATA REVIEWED: Not Applicable RADIOLOGY DEPARTMENT: General X-ray: Exam(s) Completed: Chest X-Ray PERIPHERAL IV DATA: Not applicable SIGNED BY: RT Rhonda(R) August 21, 2023 11:45 [facility]12-01-2023 History of Present illness Narrative* Tony Rojas RT(R) - 08/21/2023 1:00 PM EST Radiology Service Progress Note PATIENT NAME: Candice Mitchell DATE OF SERVICE: August 21, 2023 TIME: 12:56 PM PATIENT IDENTITY VERIFICATION COMPLETED USING TWO (2) IDENTIFIERS: Name and Date of confirmedby patient verbally and Name and Date of confirmed by identification band. FALL SCREENING: Has the patient had 2 falls in the last year or 1 fall with injury or currently using an Ambulatory Assistive Device (Walker, Cane, Wheelchair, Crutches, etc.)? No PATIENT GENDER DATA: Male PATIENT RELEVANT IMPLANT DATA REVIEWED: Yes RADIOLOGY DEPARTMENT: CT; Exam(s) Completed: Abdomen/Pelvis PERIPHERAL IV DATA: Site assessment: Clean,Dry and Intact, Site disposition Discontinued SIGNED BY: RT Clare(R) August 21, 2023 12:56 PM * Imelda Soriano RN - 08/21/2023 12:18 PM EST Radiology Service Progress Note DATE OF SERVICE: August 21, 2023 TIME: 12:18 PM PATIENT WEIGHT: 260 LBS PATIENT IDENTITY VERIFICATION COMPLETED USING TWO (2) STANDARD IDENTIFIERS: Name and Date of confirmed by patient verbally and Name and Date of confirmed by identification band. FALL SCREENING: Has the patient had 2 falls in the last year or 1 fall with injury or currently using an Ambulatory Assistive Device (Walker, Cane, Wheelchair, Crutches, etc.)? No PATIENT GENDER DATA: Male ALLERGIES: Reviewed and unchanged CONTRAST ALLERGY: No EXAM: CT -CONTRAST INDUCED NEPHROPATHY RISK FACTORS: Patient age > 60 years CREATININE: Creatinine Date Value Ref Range Status 02/11/2023 1.88 (H) 0.73 - 1.22 mg/dL Final Creatinine (POCT) Date Value Ref Range Status 08/21/2023 1.80 (A) 0.7 - 1.4 mg/dL Final 12/26/2022 2.10 (A) 0.7 - 1.4 mg/dL Final eGFR (POCT) Date Value Ref Range Status 08/21/2023 42 mL/min/1.73 m2 Final P.O.C.T. RESULTS: POC done: Yes, See Lab Tab August 21, 2023 TREATMENT: No Hydration needed. IV SITE: Ambulatory: A peripheral IV was started in the Right antecubital site with a Angio cath: 22 gauge. and A Saline lock was inserted per protocol IV SITE APPEARANCE: Clean,Dry and Intact SIGNATURE: Imelda Soriano RN PATIENT NAME: Candice Mitchell DATE: August 21, 2023 TIME: 12:18 PM documented in this encounterLima [facility]12-01-2023 History of Present illness Narrative* Lainey De La Fuente RT(R) - 08/21/2023 11:55 AM EST Radiology Service Progress Note PATIENT NAME: Candice Mitchell DATE OF SERVICE: August 21, 2023 TIME: 11:45 AM PATIENT IDENTITY VERIFICATION COMPLETED USING TWO (2) IDENTIFIERS: Name and Date of confirmedby patient verbally. FALL SCREENING: Has the patient had 2 falls in the last year or 1 fall with injury or currently using an Ambulatory Assistive Device (Walker, Cane, Wheelchair, Crutches, etc.)? No PATIENT GENDER DATA: Male PATIENT RELEVANT IMPLANT DATA REVIEWED: Not Applicable RADIOLOGY DEPARTMENT: General X-ray: Exam(s) Completed: Chest X-Ray PERIPHERAL IV DATA: Not applicable SIGNED BY: RT Rhonda(R) August 21, 2023 11:45 AM documented in this encounterLima [facility] Hospital10-06-2023 Evaluation note* Encounter Date Diagnosis Assessment Notes Treatment Notes Treatment Clinical Notes Jun, Stage 3a chronic kidney disease (ICD-10 - N18.31) The patient is instructed on adequate control of hypertension and diabetes, if appropriate. They are also educated on the associated risks of NSAIDs and PPI use with kidney disease. They were instructed on adequate fluid balance and to avoid dehydration. Jun, Primary hypertension (ICD-10 - I10) This patient is instructed to consume a healthy, low-fat, low-salt diet. They are also encouraged to continue exercise to achieve/maintain a normal BMI. Jun, IFG (impaired fasting glucose) (ICD-10 - R73.01) This patient is following a comprehensive diabetic treatment plan. They are checking their feet daily for calluses and nonhealing ulcers. They are being seen for yearly dilated eye examinations. Goals: SBP less than 130, LDL less than 100, FBS less than 140, A1C less than 7%. They are checking their BS daily, will which are reviewed at the office visit. Continue regular routine monitoring of A1C,] Microalbumin, Dilated eye exam and Foot exam Last A1C < 6.5% Jun, Morbid (severe) obesity due to excess calories (ICD-10 - E66.01) This patient has been instructed on a low-fat, high-fiber diet. They are instructed to reduce calories, portion sizes and snacks. It is recommended that they exercise for 30 minutes, 3-5 times weekly. Jun, Body mass index [BMI] 39.0-39.9, adult (ICD-10 - Z68.39) Jun, Neuroendocrine tumor of pancreas (ICD-10 - D3A.8) No s/s recurrence f/u [facility] Surgery Jun, Renal cell carcinoma of right kidney (ICD-10 - C64.1) No s/s recurrence, f/u [facility] Nephrology Jun, History of gout (ICD-10 - Z87.39) No acute attacks Instructed on diet, continue Allopurinol [facility] Other 08-29-2023 Evaluation note* Encounter Date Diagnosis Assessment Notes Treatment Notes Treatment Clinical Notes Apr, Stage 3a chronic kidney disease (ICD-10 - N18.31) Apr, Hypercalcemia (ICD-1 0 - E83.52) [facility] Other 06-07-2023 NotePatient Outreach (PAULETTE) CANDICE MITCHELL ([id number]) 1960 M Date Time Provider Department 02/25/23 JEFF DUNCAN During your visit today, we recorded the following information about you: Allergies As of Date: 02/25/2023 (No Known Allergies) Date Reviewed: 02/25/2023 Reviewed by: Cyril Miguel MA - Fully Assessed Visit Diagnoses:Screening for genitourinary condition [Z13.89] Stage 3b chronic kidney disease (HCC) [N18.32] Order(s):URINALYSIS, REFLEX MICROSCOPIC [[id number]] Order #: [id number]. #:[id number] PROTEIN CREATININE RATIO [SQPRATIO] Order #: [id number]. #:[id number] Prescriptions as of 03/02/2023 - acetaminophen (TYLENOL ORAL) Take by mouth as needed. - allopurinol (ZYLOPRIM) 300 mg tablet Take 300 mg by mouth once daily. - amLODIPine-Benazepril 5-40 mg per capsule Take 1 capsule by mouth once daily. - atenolol (TENORMIN) 50 mg tablet Take 50 mg by mouth once daily. - colchicine 0.6 mg tablet PRN Problem List As Of Date 02/25/2023 Noted Resolved Malignant neoplasm of right kidney, except santi*05/02/2022 Morbid obesity (HCC) [E66.01] 05/20/2022 HTN (hypertension) [I10] 05/20/2022 Gout [M10.9] 05/20/2022 Mass of pancreas [K86.89] 05/20/2022 Obesity, Class III, BMI >= 40 [E66.01] 05/23/2022 Renal cell carcinoma (HCC) [C64.9] 05/27/2022 Renal mass [N28.89] 05/28/2022 Hemothorax on right [J94.2] 06/02/2022 Hypotension [I95.9] 06/02/2022 SVEN (acute kidney injury) (HCC) [N17.9] 06/04/2022 Leukocytosis [D72.829] 06/04/2022 PVC (premature ventricular contraction) [I49.3] 06/04/2022 H/O radical nephrectomy [Z90.5] 02/25/2023 H/O primitive neuroectodermal tumor (PNET) [Z85*02/25/2023 Encounter Status:Closed by NumberPicture, PRODUSER on 03/02/23[facility] 02-25-2023 NoteHNO ID: [id number] Author: Jeff Duncan MD Service: ? Author Type: Physician Type: Progress Notes Filed: 02/26/2023 8:47 AM Note Text: [facility] NEPHROLOGY AND HYPERTENSION [facility] SERVICE DATE: 02/25/2023 SERVICE TIME: 9:07 AM REASON FOR CONSULT: I am asked to see this patient in consultation for my opinion regarding kidney dysfunction. My recommendations will be communicated by way of shared medical record, fax, or mail. REQUESTING PHYSICIAN: No ref. provider found PRIMARY CARE PHYSICIAN: No primary care provider on file. CHIEF COMPLAINT: Kidney dysfunction HPI: Mr. 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 He is here to establish care. Creatinine prior to surgery around 1.3. Peaked. At 2.3 and matty after at around 1.4. Most recent metabolic panel from February 11 with creatinine at 1.88 and an estimated GFR of around 39 mils per minute. Slight hypercalcemia appreciated Mild leukocytosis; hemoglobin 14 Most recent urinalysis from December bland Doesn't check BP at home. BP elevated 12/26, but was nervous regarding f/u CT scan for recurrence. Has prediabetes, but A1c only 5.7%. Medications include amlodipine 5 mg, benazepril 40 mg, atenolol 50 mg, allopurinol 300 mg, and as needed colchicine Gout without any recent flares. Is avoiding NSAIDs. No Hx of nephrolithiasis. 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 PAST MEDICAL HISTORY: PAST MEDICAL HISTORY Diagnosis Date Gout 05/20/2022 HTN (hypertension) 05/20/2022 Morbid obesity (HCC) 05/20/2022 PAST SURGICAL HISTORY: PAST SURGICAL HISTORY Procedure Laterality Date CHOLECYSTECTOMY HX PAST SURGICAL HISTORY OF Bilateral Meniscus repair PAST SURGICAL HISTORY OF rotator cuff FAMILY HISTORY: FAMILY HISTORY Problem Relation Age of Onset Anesthesia Problems No Family History SOCIAL HISTORY: Social History Tobacco Use Smoking status: Former Types: Cigarettes Quit date: 2004 Years since quittin.4 Smokeless tobacco: Never Substance Use Topics Alcohol use: Yes Comment: ocassionally- 5 per month Drug use: Never MEDICATIONS: acetaminophen (TYLENOL ORAL) Take by mouth as needed. allopurinol (ZYLOPRIM) 300 mg tablet Take 300 mg by mouth once daily. amLODIPine-Benazepril 5-40 mg per capsule Take 1 capsule by mouth once daily. atenolol (TENORMIN) 50 mg tablet Take 50 mg by mouth once daily. colchicine 0.6 mg tablet PRN ALLERGIES: ALLERGIES Not on File REVIEW OF SYSTEMS: Constitutional: No fevers, chills, weight loss Eyes: No loss in vision, photophobia Ear, Nose, and Throat: No epistaxis, nasal congestion Cardiovascular: No chest pain, SOTO, SOB, palpitations Respiratory: No cough, hemoptysis Gastrointestinal: No diarrhea, constipation Genitourinary: No dysuria, polyuria Musculoskeletal: No joint pain, morning stiffness Skin: No rash, no ulcers Neurological: No headaches, seizures, paresthesias Psychiatric: No depression, anxiety Endocrine: No hair loss, no heat intolerance Hematologic:No easy bruising, easy bleeding PHYSICAL EXAM: BP 141/82 Pulse (!) 58 Ht 172.7 cm (5' 8 ) Wt 115.7 kg (255 lb) BMI 38.77 kg/m? BP - standardized method Pulse 1 BP #1: 143/82 Pulse #1: 57 beats/min 2 BP #2 : 138/82 Pulse #2 : 53 beats/min 3 BP #3 : 143/83 Pulse #3 : 64 beats/min Average Average BP: 141/82 Average Pulse: 58 beats/min Orthostatic vitals Supine Sitting Standing Standing BP : 136/78 Standing pulse : 56 BP cuff location BP cuff location: Left upper arm BP cuff size BP cuff size: large adult Comments for BP values First BP (right) First BP (left) Constitutional: No acute distress, well nourished Eyes: Conjunctiva clear, nl EOM Ear, Nose, and Throat: Lips normal, dentition normal Neck: trachea midline, no palpable mass Cardiovascular: RRR, nl S1/S2, no rubs or gallops Respiratory: normal inspiratory effort, CTA b/l Abdomen: soft, non tender, non distended, normal bowel sounds Musculoskeletal: normocephalic, no muscle weakness, no joint effusions Extremities: no clubbing, no peripheral edema Neurologic: normal sensation, normal gait Psychiatric: AAO x 3, normal affect Vascular access: None DATA: Diagnostic tests reviewed for today's visit: Blood work, imaging studies, and office notes were reviewed in 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 1. Stage 3b chronic kidney disease (HCC) - ICD9: 585.3, ICD10: N18.32 (primary diagnosis) Stable funct (more content not included)...[facility]06-07-2023 Instructions* Patient Instructions* Jeff Duncan MD - 02/25/2023 11:33 AM EDT General tips for management of chronic kidney disease: -Blood pressure control is very important with target less than 130/80 -Meeting your blood glucose goal if you have diabetes with HbA1c less than 7% Dietary and lifestyle counseling -Regular aerobic activity is very important. Aiming for a healthy weight is also important for yourkidney health. Your kidneys have to work harder with overweight which can potentially cause long-term damage and fasting the progression of renal disease -Get enough sleep aiming for 7 to 8 hours of sleep each night. This helps with your overall physical and mental health and can help you meet your blood pressure and blood glucose goals -Cigarette smoking can also make kidney damage worse including many other adverse issues. It is highly recommended that you consider stopping smoking (https://smokefree.gov) - Recommend < 2 g sodium (e.g., 5 g sodium chloride) restriction - Consider DASH diet if potassium is not high -Recommend protein restriction around 0.6 to 0.8 g/kg preferably from plant sources. (https://kidney hi.org/dietitian-blog/evj-hpue-tuodoib-ly-c-himp-cy-v-hbq-diet) https://www.kidney.org/atoz/content/sodiumckd https://www.kidney.org/atoz/content/plant-based Https://www.kidney.org/atoz/content/Dash_Diet Medications: Would recommend avoiding long-term NSAID use (ibuprofen (motrin, advil), naproxen (alleve), indomethacin (indocin), meloxicam (mobic), celecoxib (celebrex), and diclofenac (volatren) are common ones). Taking these medications once in a while is probably okay I would avoid long-term chronic use as these have been associated with worsening kidney function, worsening blood pressure, worsening fluid retention. Acetaminophen (tylenol) is generally safe for kidneys but prolonged daily exposure can also cause kidney damage. Avoid phosphate containing bowel preparations: example: sodium phosphate (fleet's enemas) Avoid prolonged proton-pump inhibitor use (unless needed) - omeprazole (prilosec), esomeprazole (nexium), pantoprazole (protonix), and lansoprazole (prevacid) are common ones Use caution with herbal medications For more information on CKD please visit the following page: https://www.[employer]/contents/jrusqgk-saawaq-ehcbfog-zolfgl-pwy-uuhqdd documented in this encounterLima [facility]06[facility] History of Present illness Narrative* Jeff Duncan MD - 02/25/2023 11:00 AM EDT [facility] SERVICE DATE: 02/25/2023 SERVICE TIME: 9:07 AM REASON FOR CONSULT: I am asked to see this patient in consultation for my opinion regarding kidney dysfunction. My recommendations will be communicated by way of shared medical record, fax, or mail. REQUESTING PHYSICIAN: No ref. provider found PRIMARY CARE PHYSICIAN: No primary care provider on file. CHIEF COMPLAINT: Kidney dysfunction HPI: Mr. 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 He is here to establish care. Creatinine prior to surgery around 1.3. Peaked. At 2.3 and matty after at around 1.4. Most recent metabolic panel from February 11 with creatinine at 1.88 and an estimated GFR of around 39 mils per minute. Slight hypercalcemia appreciated Mild leukocytosis; hemoglobin 14 Most recent urinalysis from December completely bland Doesn't check BP at home. BP elevated 12/26, but was nervous regarding f/u CT scan for recurrence. Has prediabetes, but A1c only 5.7%. Medications include amlodipine 5 mg, benazepril 40 mg, atenolol 50 mg, allopurinol 300 mg, and as needed colchicine Gout without any recent flares. Is avoiding NSAIDs. No Hx of nephrolithiasis. 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 PAST MEDICAL HISTORY: PAST MEDICAL HISTORY Diagnosis Date Gout 05/20/2022 HTN (hypertension) 05/20/2022 Morbid obesity (HCC) 05/20/2022 PAST SURGICAL HISTORY: PAST SURGICAL HISTORY Procedure Laterality Date CHOLECYSTECTOMY HX PAST SURGICAL HISTORY OF Bilateral Meniscus repair PAST SURGICAL HISTORY OF rotator cuff FAMILY HISTORY: FAMILY HISTORY Problem Relation Age of Onset Anesthesia Problems No Family History SOCIAL HISTORY: Social History Tobacco Use Smoking status: Former Types: Cigarettes Quit date: 2004 Years since quittin.4 Smokeless tobacco: Never Substance Use Topics Alcohol use: Yes Comment: ocassionally- 5 per month Drug use: Never MEDICATIONS: acetaminophen (TYLENOL ORAL) Take by mouth as needed. allopurinol (ZYLOPRIM) 300 mg tablet Take 300 mg by mouth once daily. amLODIPine-Benazepril 5-40 mg per capsule Take 1 capsule by mouth once daily. atenolol (TENORMIN) 50 mg tablet Take 50 mg by mouth once daily. colchicine 0.6 mg tablet PRN ALLERGIES: ALLERGIES Not on File REVIEW OF SYSTEMS: Constitutional: No fevers, chills, weight loss Eyes: No loss in vision, photophobia Ear, Nose, and Throat: No epistaxis, nasal congestion Cardiovascular: No chest pain, SOTO, SOB, palpitations Respiratory: No cough, hemoptysis Gastrointestinal: No diarrhea, constipation Genitourinary: No dysuria, polyuria Musculoskeletal: No joint pain, morning stiffness Skin: No rash, no ulcers Neurological: No headaches, seizures, paresthesias Psychiatric: No depression, anxiety Endocrine: No hair loss, no heat intolerance Hematologic:No easy bruising, easy bleeding PHYSICAL EXAM: BP 141/82 Pulse (!) 58 Ht 172.7 cm (5' 8 ) Wt 115.7 kg (255 lb) BMI 38.77 kg/m BP - standardized method Pulse 1 BP #1: 143/82 Pulse #1: 57 beats/min 2 BP #2 : 138/82 Pulse #2 : 53 beats/min 3 BP #3 : 143/83 Pulse #3 : 64 beats/min Average Average BP: 141/82 Average Pulse: 58 beats/min Orthostatic vitals Supine Sitting Standing Standing BP : 136/78 Standing pulse : 56 BP cuff location BP cuff location: Left upper arm BP cuff size BP cuff size: large adult Comments for BP values First BP (right) First BP (left) Constitutional: No acute distress, well nourished Eyes: Conjunctiva clear, nl EOM Ear, Nose, and Throat: Lips normal, dentition normal Neck: trachea midline, no palpable mass Cardiovascular: RRR, nl S1/S2, no rubs or gallops Respiratory: normal inspiratory effort, CTA b/l Abdomen: soft, non tender, non distended, normal bowel sounds Musculoskeletal: normocephalic, no muscle weakness, no joint effusions Extremities: no clubbing, no peripheral edema Neurologic: normal sensation, normal gait Psychiatric: AAO x 3, normal affect Vascular access: None DATA: Diagnostic tests reviewed for today's visit: Blood work, imaging studies, and office notes were reviewed in 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 1. Stage 3b chronic kidney disease (HCC) - ICD9: 585.3, ICD10: N18.32 (primary diagnosis) Stable function since surgery. CKD3b 2/2 loss of nephron mass 2/2 nephrectomy. Limited risk factorsfor progression/risk factors are well controlled. -Control BP; goal 120/80 -Weight loss and blood glucose/prediabetes control -Gout management w/ uric acid goal <6.0 -Avoid NSAIDs -Stay hydrated -Avoid salt 2. Malignant neoplasm of right kidney (HCC) - ICD9: 189.0, ICD10: C64.1 -S/p R nephrectomy -Had 2 primary cancers; had f/u w/ Genetics which was neg for VHL 3. Primary hypertension - ICD9: 401.9, ICD10: I10 BP elevated today. Does not check BP at home. Already on Amlodipine, Benazepril, and Atenolol from PCP. Will have him check BP at home and bring BP log to future appointments. - Continue current medications - Recommend home blood pressure monitoring, to bring results to next visit - Encouraged sodium restriction, DASH or Mediterranean diet - Recommend regular aerobic exercise 4. 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 Obesity, Class III, BMI >= 40 - ICD9: 278.01, ICD10: E66.01 Stable - Behavioral interventions; agree that Adoption Specialist would likely be helpful 6. Solitary kidney, acquired - ICD9: V45.73, ICD10: Z90.5 7. Renal cell carcinoma, unspecified laterality (HCC) - ICD9: 189.0, ICD10: C64.9 8. H/O primitive neuroectodermal tumor (PNET) - ICD9: V10.89, ICD10: Z85.89 9. H/O radical nephrectomy - ICD9: V45.73, ICD10: Z90.5 -Had 2 primary cancers; had f/u w/ Genetics which was neg for VHL PLAN: 1. Avoid salt Kelechi Hobbs MD Internal Medicine, PGY-3 02/25/2023, 11:54 AM Attending note: I have interviewed and examined this patient and agree with the resident's/fellow's/MEIR's findings,impressions, and plan. My edits in blue. Very pleasant 63-year-old gentleman accompanied by his ; coming from [facility]. History of RCC status post radical nephrectomy in May 2022. Other medical issues include obesity and hypertension along with gout. CKD stage IIIbA1 in all likelihood secondary to decreased nephron mass. Emphasized the importance of dietary modifications including sodium restriction along with animal protein restriction, Moving forward blood work every 6 months. Annual follow-up. Need to recheck uric acid particularly if we are entertaining adding thiazide down the line Encounter Diagnosis ICD-10-CM 1. Stage 3b chronic kidney disease (HCC) N18.32 PROTEIN CREATININE RATIO 2. Malignant neoplasm of right kidney (HCC) C64.1 3. Primary hypertension I10 4. 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 Obesity, Class III, BMI >= 40 E66.01 6. Solitary kidney, acquired Z90.5 7. Renal cell carcinoma, unspecified laterality (HCC) C64.9 8. H/O primitive neuroectodermal tumor (PNET) Z85.89 9. H/O radical nephrectomy Z90.5 Total time, including reviewing extensive medical records prior to patient visit, related to ongoing management of this patient, history, physical, counseling in detail with family as outlined above,and coordination of care = 65 min Voice recognition software was used in the creation of this document. There may be unintended errors in spelling, grammar, syntax or punctuation present. Jeff Duncan MD, MEd, FACP, FASN Staff; Department of Kidney Medicine Tel #: [phone] Fax #: [phone] February 25, 2023 12:33 PM documented in this encounterLima [facility]05-[facility] Evaluation note* Encounter Date Diagnosis Assessment Notes Treatment Notes Treatment Clinical Notes January, Primary hypertension (ICD-10 - I10) January, History of gout (ICD-10 - Z87.39) [employer] Other 04-07-2023 NoteHNO ID: [id number] Author: Pete Gupta MD Service: ? Author Type: Physician Type: Progress Notes Filed: 12/26/2022 4:42 PM Note Text: HPB PROGRESS NOTE: Patient Name: Candice Mitchell ASSESSMENT AND PLAN: 62 year old male with pNET s/p distal pancreatectomy - Follow up in 6 months with repeat imaging. As long as that scan looks good, will follow up annually after that. CC: pNET INTERVAL HPI: Candice Mitchell is a 62 year old man here for postoperative follow-up s/p robotic right radical nephrectomy and adrenalectomy for 8.5 cm right upper pole renal mass (05/27/22), robotic assisted distal pancreatectomy with splenectomy for 1.9 cm pancreatic tail mass (05/27/22), incisional hernia repair (06/03/22), and right VATS with evacuation of retained hemothorax (06/03/22). Eating and drinking well. Denies nausea, vomiting, diarrhea, or constipation. No steatorrhea. No abdominal pain. No DM. PHYSICAL EXAM: BP 155/81 (BP Site: Left Arm, BP Position: Sitting, BP Cuff Size: Large Adult) Pulse (!) 59 Temp 36.2 ?C (97.2 ?F) (Oral) Resp 18 Wt 116.7 kg (257 lb 4.8 oz) SpO2 99% BMI 39.12 kg/m? Gen: NAD Pulm: Non-labored breathing Abd: S, NT, ND, inc c/d/I, no signs of infection, no hernias Ext: MUÑIZ spont Neuro: Answering questions appropriately I spent a total of 20 minutes on the date of the service which included preparing to see the patient, [id number] patient care, completing clinical documentation, obtaining and/or reviewing separately obtained history, performing a medically appropriate examination, counseling and educating the patient/family/caregiver, ordering medications, tests, or procedures, and communicating results to the patient/family/caregiver. Nelson Gupta MD HPB surgery Pager: [phone] [facility]04-07-2023 NoteHNO ID: [id number] Author: Milind Bustillo Service: ? Author Type: ? Type: Progress Notes Filed: 12/26/2022 4:42 PM Note Text: HPB Postoperative Follow-Up Subjective Candice Mitchell is a 62 year old man here for postoperative follow-up s/p robotic right radical nephrectomy and adrenalectomy for 8.5 cm right upper pole renal mass (05/27/22), robotic assisted distal pancreatectomy with splenectomy for 1.9 cm pancreatic tail mass (05/27/22), incisional hernia repair (06/03/22), and right VATS with evacuation of retained hemothorax (06/03/22). Eating and drinking well. Denies nausea, vomiting, diarrhea, or constipation. Urinating normally. Objective BP 155/81 (BP Site: Left Arm, BP Position: Sitting, BP Cuff Size: Large Adult) Pulse (!) 59 Temp 36.2 ?C (97.2 ?F) (Oral) Resp 18 Wt 116.7 kg (257 lb 4.8 oz) SpO2 99% BMI 39.12 kg/m? General appearance: Well appearing, alert, in no acute distress, well-hydrated, well nourished. Lungs: Lungs clear to auscultation. No wheezing, rhonchi, rales. Heart: RRR without murmur, gallop, or rubs. No ectopy Abdomen: Normal abdominal exam Imaging CT C/A/P - 3.7 CM LOCULATED FLUID ADJACENT TO THE DISTAL PANCREATECTOMY RESECTION MARGIN WITHOUT INTERNAL GAS, PROBABLY POST-SURGICAL. NO EVIDENCE FOR RECURRENT OR NEW LESION ON THIS SINGLE PHASE EXAM. - 9.0 CM LEFT UPPER QUADRANT HETEROGENOUS LESION WITH FOCI OF BULK FAT IN THE REGION OF PRIOR FAT STRANDING/FLUID MAY REPRESENT CONTAINED AREA OF FAT NECROSIS. ATTENTION ON FOLLOW-UP. - 1.1 CM HYPERENHANCING NODULE ADJACENT THE GREATER CURVATURE, PROBABLY AN ADDITIONAL HYPERTROPHIED ACCESSORY SPLEEN DESCRIBED IN DETAIL THE BODY OF THE REPORT. 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 Urology plans to follow-up with him in six months with scans. Plan - Follow-up in 6 months with scans in coordination with urology then annually after that Milind Bustillo MS4 [facility] 26[facility] History of Present illness Narrative* Pete Gupta MD - 12/26/2022 4:40 PM EDT HPB PROGRESS NOTE: Patient Name: Candice Mitchell ASSESSMENT AND PLAN: 62 year old male with pNET s/p distal pancreatectomy - Follow up in 6 months with repeat imaging. As long as that scan looks good, will follow up annually after that. CC: pNET INTERVAL HPI: Candice Mitchell is a 62 year old man here for postoperative follow-up s/p robotic right radical nephrectomy and adrenalectomy for 8.5 cm right upper pole renal mass (05/27/22), robotic assisted distal pancreatectomy with splenectomy for 1.9 cm pancreatic tail mass (05/27/22), incisional hernia repair (06/03/22), and right VATS with evacuation of retained hemothorax (06/03/22). Eating and drinking well. Denies nausea, vomiting, diarrhea, or constipation. No steatorrhea. No abdominal pain. No DM. PHYSICAL EXAM: BP 155/81 (BP Site: Left Arm, BP Position: Sitting, BP Cuff Size: Large Adult) Pulse (!) 59 Temp 36.2 C (97.2 F) (Oral) Resp 18 Wt 116.7 kg (257 lb 4.8 oz) SpO2 99% BMI 39.12 kg/m Gen: NAD Pulm: Non-labored breathing Abd: S, NT, ND, inc c/d/I, no signs of infection, no hernias Ext: MUÑIZ spont Neuro: Answering questions appropriately I spent a total of 20 minutes on the date of the service which included preparing to see the patient, [id number] patient care, completing clinical documentation, obtaining and/or reviewing separately obtained history, performing a medically appropriate examination, counseling and educating the pat ient/family/caregiver, ordering medications, tests, or procedures, and communicating results to thepatient/family/caregiver. Nelson Gupta MD [facility] surgery Pager: [phone] * Milind Bustillo - 12/26/2022 3:15 PM EDT B Postoperative Follow-Up Subjective Candice Mitchell is a 62 year old man here for postoperative follow-up s/p robotic right radical nephrectomy and adrenalectomy for 8.5 cm right upper pole renal mass (05/27/22), robotic assisted distal pancreatectomy with splenectomy for 1.9 cm pancreatic tail mass (05/27/22), incisional hernia repair (06/03/22), and right VATS with evacuation of retained hemothorax (06/03/22). Eating and drinking well. Denies nausea, vomiting, diarrhea, or constipation. Urinating normally. Objective BP 155/81 (BP Site: Left Arm, BP Position: Sitting, BP Cuff Size: Large Adult) Pulse (!) 59 Temp 36.2 C (97.2 F) (Oral) Resp 18 Wt 116.7 kg (257 lb 4.8 oz) SpO2 99% BMI 39.12 kg/m General appearance: Well appearing, alert, in no acute distress, well-hydrated, well nourished. Lungs: Lungs clear to auscultation. No wheezing, rhonchi, rales. Heart: RRR without murmur, gallop, or rubs. No ectopy Abdomen: Normal abdominal exam Imaging CT C/A/P - 3.7 CM LOCULATED FLUID ADJACENT TO THE DISTAL PANCREATECTOMY RESECTION MARGIN WITHOUT INTERNAL GAS, PROBABLY POST-SURGICAL. NO EVIDENCE FOR RECURRENT OR NEW LESION ON THIS SINGLE PHASE EXAM. - 9.0 CM LEFT UPPER QUADRANT HETEROGENOUS LESION WITH FOCI OF BULK FAT IN THE REGION OF PRIOR FAT STRANDING/FLUID MAY REPRESENT CONTAINED AREA OF FAT NECROSIS. ATTENTION ON FOLLOW-UP. - 1.1 CM HYPERENHANCING NODULE ADJACENT THE GREATER CURVATURE, PROBABLY AN ADDITIONAL HYPERTROPHIEDACCESSORY SPLEEN DESCRIBED IN DETAIL THE BODY OF THE REPORT. 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 Urology plans to follow-up with him in six months with scans. Plan - Follow-up in 6 months with scans in coordination with urology then annually after that Milind Bustillo MS4 December 26, 2022 documented in this encounterL[facility]04-07-[facility]23 NoteHNO ID: [id number] Author: Kenney Bangura MD Service: ? Author Type: Physician Type: Progress Notes Filed: 12/26/2022 6:13 PM Note Text: PATIENT: Candice Mitchell [id number] REFERRING MD: Fernando 12/26/2022 Chief Complaint Follow up RCC History of Present Illness Candice Mitchell is a very pleasant 62 year old male who presents with a history of gout, hypertension, morbid obesity (BMI 41) who was found to have an 8.5cm right upper pole mass and a 1.9cm pancreatic tail mass suspicious for metastatic RCC and is now s/p robotic right radical nephrectomy and adrenalectomy (05/27/22), robotic assisted distal pancreatectomy with splenectomy (05/27/22), incisional hernia repair (06/03/22), and right VATS with evacuation of retained hemothorax (06/03/22). 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 Denies Hematuria No difficulties with urination. Past Histories PAST MEDICAL HISTORY Diagnosis Date - Gout 05/20/2022 - HTN (hypertension) 05/20/2022 - Morbid obesity (HCC) 05/20/2022 PAST SURGICAL HISTORY Procedure Laterality Date - CHOLECYSTECTOMY HX - PAST SURGICAL HISTORY OF Bilateral Meniscus repair - PAST SURGICAL HISTORY OF rotator cuff Medications Current Outpatient Medications Medication Instructions - acetaminophen (TYLENOL ORAL) ORAL, NEEDED - allopurinol (ZYLOPRIM) 300 mg, ORAL, DAILY - amLODIPine-Benazepril 5-40 mg per capsule 1 capsule, ORAL, DAILY - atenolol (TENORMIN) 50 mg, ORAL, DAILY - colchicine 0.6 mg tablet PRN Family History FAMILY HISTORY Problem Relation Age of Onset - Anesthesia Problems No Family History Social History Social History Tobacco Use - Smoking status: Former Types: Cigarettes Quit date: 2004 Years since quittin.2 - Smokeless tobacco: Never Substance Use Topics - Alcohol use: Yes Comment: ocassionally- 5 per month - Drug use: Never Allergies Allergies: Not on File Review of Systems REVIEW OF SYSTEMS: GENERAL: NO FEVER, WEIGHT LOSS, DIZZINESS OR PAIN SKIN: NO VARICOSE VEINS, RASH, ABNORMAL LESIONS OR ITCHING HEAD AND NECK: NO BLURRED VISION, CATARACTS, TIAs OR HEARING LOSS CARDIOVASCULAR: NO CHEST PAIN, PALPITATIONS, ANKLE EDEMA RESPIRATORY: NO CHRONIC COUGH, WHEEZING, or SHORTNESS OF BREATH w/ EXERTION. ABDOMEN: NO NAUSEA, VOMITTING, OR DIARRHEA. NO CRAMPS OR RUQ PAIN AFTER MEALS GENITOURINARY: As above MUSCULOSKELETAL: NO CHRONIC BACK PAIN, ARTHRITIS, CHRONIC NECK PAIN. JOINTS FULL ROM BLOOD/LYMPHATIC: NO EASY BLEEDING, EASY BRUISING, TRANSFUSION HX OR SWOLLEN GLANDS NEUROLOGICAL: NO HEADACHES, BLURRY VISION, NO NUMBNESS, SEIZURES, STROKE. NO CHANGE IN GAIT. Physical Exam There were no vitals taken for this visit. General: Alert, no acute distress, oriented Lungs: No respiratory distress or pursed lip breathing Psych: Affect and mood normal Abdomen: Estimated body mass index is 36.95 kg/m? as calculated from the following: Height as of 06/26/22: 172.7 cm (5' 8 ). Weight as of 06/26/22: 110.2 kg (243 lb). Labs and Pathology Creatinine Date Value Ref Range Status 06/06/2022 1.46 (H) 0.73 - 1.22 mg/dL Final 06/05/2022 1.78 (H) 0.73 - 1.22 mg/dL Final 06/04/2022 2.06 (H) 0.73 - 1.22 mg/dL Final Creatinine (POCT) Date Value Ref Range Status 12/26/2022 2.10 (A) 0.7 - 1.4 mg/dL Final Imagin12/26/22 CT Abd/pel W IV Con IMPRESSION: POST-SURGICAL CHANGES OF DISTAL PANCREATECTOMY/SPLENECTOMY AND RIGHT NEPHRECTOMY WITHOUT LOCAL RECURRENCE OR DEFINITE METASTATIC DISEASE. 3.7 CM LOCULATED FLUID ADJACENT TO THE DISTAL PANCREATECTOMY RESECTION MARGIN WITHOUT INTERNAL GAS, PROBABLY POST-SURGICAL. NO EVIDENCE FOR RECURRENT OR NEW LESION ON THIS SINGLE PHASE EXAM. 9.0 CM LEFT UPPER QUADRANT HETEROGENOUS LESION WITH FOCI OF BULK FAT IN THE REGION OF PRIOR FAT STRANDING/FLUID MAY REPRESENT CONTAINED AREA OF FAT NECROSIS. ATTENTION ON FOLLOW-UP. 1.1 CM HYPERENHANCING NODULE ADJACENT THE GREATER CURVATURE, PROBABLY AN ADDITIONAL HYPERTROPHIED ACCESSORY SPLEEN DESCRIBED IN DETAIL THE BODY OF THE REPORT. Diagnosis (C64.1) Malignant neoplasm of right kidney (HCC) (primary encounter diagnosis) (K86.89) Mass of pancreas Assessment: Overall feeling very well. Attending to the Gym 4 times per week. No hematuria, no complains. CT abd/pel W/WO IV con no evidence of recurrence. Crea: 2.1 Plan: I recommend a consultation with Nephrology. Control in August with CT abd/pel and CXR Kenney Bangura MD Urologic Staff [facility] [place] [facility] Medical Decision Making: Problems: Low: Stable chronic illness Data: Unique test result(s) reviewed: 1 Unique test(s) ordered: 1 Risk: Low: Low risk from testing/treatment Medical Decision Making Level: [facility] HNO ID: [id number] Author: Jeremy Batres RN Service: Nursing Author Type: Registered Nurse Type: Progress Notes Filed: 12/26/2022 12:11 PM Note Text: Radiology Service Progress Note DATE OF SERVICE: December 26, 2022 TIME: 12:03 PM PATIENT WEIGHT: 250 LBS PATIENT IDENTITY VERIFICATION COMPLETED USING TWO (2) STANDARD IDENTIFIERS: Name and Date of confirmed by patient verbally. FALL SCREENING: Has the patient had 2 falls in the last year or 1 fall with injury or currently using an Ambulatory Assistive Device (Walker, Cane, Wheelchair, Crutches, etc.)? No PATIENT GENDER DATA: Male ALLERGIES: Reviewed and unchanged CONTRAST ALLERGY: No EXAM: CT -CONTRAST INDUCED NEPHROPATHY RISK FACTORS: Patient age > 60 years and History of Kidney surgery, Kidney neoplasm, Liver disease, and/or any recent Nephrotoxic Chemotherapy or other Nephrotoxic medications CREATININE: Creatinine Date Value Ref Range Status 06/06/2022 1.46 (H) 0.73 - 1.22 mg/dL Final 06/05/2022 1.78 (H) 0.73 - 1.22 mg/dL Final Creatinine (POCT) Date Value Ref Range Status 12/26/2022 2.10 (A) 0.7 - 1.4 mg/dL Final eGFR (POCT) Date Value Ref Range Status 12/26/2022 35 mL/min/1.73 m2 Final P.O.C.T. RESULTS: POC done: Yes, See Lab Tab December 26, 2022 TREATMENT: No Hydration needed. IV SITE: Ambulatory: A peripheral IV was started in the Right antecubital site with a Angio cath: 22 gauge. IV SITE APPEARANCE: Clean,Dry and Intact SIGNATURE: Jeremy Batres RN PATIENT NAME: Candice Mitchell DATE: December 26, 2022 TIME: 12:03 [facility]04-07-2023 NoteHNO ID: [id number] Author: RT Anjali(R) Service: Radiology Author Type: Technologist Type: Progress Notes Filed: 12/26/2022 12:37 PM Note Text: Radiology Service Progress Note PATIENT NAME: Candice Mitchell DATE OF SERVICE: December 26, 2022 TIME: 12:33 PM PATIENT IDENTITY VERIFICATION COMPLETED USING TWO (2) IDENTIFIERS: Name and Date of confirmed by patient verbally and Name and Date of confirmed by identification band. FALL SCREENING: Has the patient had 2 falls in the last year or 1 fall with injury or currently using an Ambulatory Assistive Device (Walker, Cane, Wheelchair, Crutches, etc.)? No PATIENT GENDER DATA: Male PATIENT RELEVANT IMPLANT DATA REVIEWED: Yes RADIOLOGY DEPARTMENT: CT; Exam(s) Completed: Abdomen/Pelvis PERIPHERAL IV DATA: Site assessment: Clean,Dry and Intact, Site disposition Discontinued SIGNED BY: RT Anjali(R) December 26, 2022 12:33 [facility]04-07-2023 History of Present illness Narrative* Kenney Bangura MD - 12/26/2022 2:15 PM EDT PATIENT: Candice Mitchell [id number] REFERRING MD: Fernando 12/26/2022 Chief Complaint Follow up RCC History of Present Illness Candice Mitchell is a very pleasant 62 year old male who presents with a history of gout, hypertension, morbid obesity (BMI 41) who was found to have an 8.5cm right upper pole mass and a 1.9cm pancreatic tail mass suspicious for metastatic RCC and is now s/p robotic right radical nephrectomy and adrenalectomy (05/27/22), robotic assisted distal pancreatectomy with splenectomy (05/27/22), incisional hernia repair (06/03/22), and right VATS with evacuation of retained hemothorax (06/03/22). 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 Denies Hematuria No difficulties with urination. Past Histories PAST MEDICAL HISTORY Diagnosis Date Gout 05/20/2022 HTN (hypertension) 05/20/2022 Morbid obesity (HCC) 05/20/2022 PAST SURGICAL HISTORY Procedure Laterality Date CHOLECYSTECTOMY HX PAST SURGICAL HISTORY OF Bilateral Meniscus repair PAST SURGICAL HISTORY OF rotator cuff Medications Current Outpatient Medications Medication Instructions acetaminophen (TYLENOL ORAL) ORAL, NEEDED allopurinol (ZYLOPRIM) 300 mg, ORAL, DAILY amLODIPine-Benazepril 5-40 mg per capsule 1 capsule, ORAL, DAILY atenolol (TENORMIN) 50 mg, ORAL, DAILY colchicine 0.6 mg tablet PRN Family History FAMILY HISTORY Problem Relation Age of Onset Anesthesia Problems No Family History Social History Social History Tobacco Use Smoking status: Former Types: Cigarettes Quit date: 2004 Years since quittin.2 Smokeless tobacco: Never Substance Use Topics Alcohol use: Yes Comment: ocassionally- 5 per month Drug use: Never Allergies Allergies: Not on File Review of Systems REVIEW OF SYSTEMS: GENERAL: NO FEVER, WEIGHT LOSS, DIZZINESS OR PAIN SKIN: NO VARICOSE VEINS, RASH, ABNORMAL LESIONS OR ITCHING HEAD & NECK: NO BLURRED VISION, CATARACTS, TIAs OR HEARING LOSS CARDIOVASCULAR: NO CHEST PAIN, PALPITATIONS, ANKLE EDEMA RESPIRATORY: NO CHRONIC COUGH, WHEEZING, or SHORTNESS OF BREATH w/ EXERTION. ABDOMEN: NO NAUSEA, VOMITTING, OR DIARRHEA. NO CRAMPS OR RUQ PAIN AFTER MEALS GENITOURINARY: As above MUSCULOSKELETAL: NO CHRONIC BACK PAIN, ARTHRITIS, CHRONIC NECK PAIN. JOINTS FULL ROM BLOOD/LYMPHATIC: NO EASY BLEEDING, EASY BRUISING, TRANSFUSION HX OR SWOLLEN GLANDS NEUROLOGICAL: NO HEADACHES, BLURRY VISION, NO NUMBNESS, SEIZURES, STROKE. NO CHANGE IN GAIT. Physical Exam There were no vitals taken for this visit. General: Alert, no acute distress, oriented Lungs: No respiratory distress or pursed lip breathing Psych: Affect and mood normal Abdomen: Estimated body mass index is 36.95 kg/m as calculated from the following: Height as of 06/26/22: 172.7 cm (5' 8 ). Weight as of 06/26/22: 110.2 kg (243 lb). Labs and Pathology Creatinine Date Value Ref Range Status 06/06/2022 1.46 (H) 0.73 - 1.22 mg/dL Final 06/05/2022 1.78 (H) 0.73 - 1.22 mg/dL Final 06/04/2022 2.06 (H) 0.73 - 1.22 mg/dL Final Creatinine (POCT) Date Value Ref Range Status 12/26/2022 2.10 (A) 0.7 - 1.4 mg/dL Final Imagin12/26/22 CT Abd/pel W IV Con IMPRESSION: POST-SURGICAL CHANGES OF DISTAL PANCREATECTOMY/SPLENECTOMY AND RIGHT NEPHRECTOMY WITHOUT LOCAL RECURRENCE OR DEFINITE METASTATIC DISEASE. 3.7 CM LOCULATED FLUID ADJACENT TO THE DISTAL PANCREATECTOMY RESECTION MARGIN WITHOUT INTERNAL GAS, PROBABLY POST-SURGICAL. NO EVIDENCE FOR RECURRENT OR NEW LESION ON THIS SINGLE PHASE EXAM. 9.0 CM LEFT UPPER QUADRANT HETEROGENOUS LESION WITH FOCI OF BULK FAT IN THE REGION OF PRIOR FAT STRANDING/FLUID MAY REPRESENT CONTAINED AREA OF FAT NECROSIS. ATTENTION ON FOLLOW-UP. 1.1 CM HYPERENHANCING NODULE ADJACENT THE GREATER CURVATURE, PROBABLY AN ADDITIONAL HYPERTROPHIED ACCESSORY SPLEEN DESCRIBED IN DETAIL THE BODY OF THE REPORT. Diagnosis (C64.1) Malignant neoplasm of right kidney (HCC) (primary encounter diagnosis) (K86.89) Mass of pancreas Assessment: Overall feeling very well. Attending to the Gym 4 times per week. No hematuria, no complains. CT abd/pel W/WO IV con no evidence of recurrence. Crea: 2.1 Plan: I recommend a consultation with Nephrology. Control in August with CT abd/pel and CXR Kenney Bangura MD Urologic Staff [facility] [place] [facility] Medical Decision Making: Problems: Low: Stable chronic illness Data: Unique test result(s) reviewed: 1 Unique test(s) ordered: 1 Risk: Low: Low risk from testing/treatment Medical Decision Making Level: 3 - Low documented in this encounterLima [facility] Hospital04-07-2023 NotePatient Outreach (UROLMN) CANDICE MITCHELL ([id number]) 1960 M Date Time Provider Department 12/26/22 KENNEY BANGURA During your visit today, we recorded the following information about you: Allergies As of Date: 12/26/2022 (Not on File) Date Reviewed: 12/26/2022 Reviewed by: Pete Gupta MD - Fully Assessed Visit Diagnosis:Screening for genitourinary condition [Z13.89] Order(s):URINALYSIS, REFLEX MICROSCOPIC [[id number]] Order #: [id number]. #:[id number] Prescriptions as of 12/29/2022 - acetaminophen (TYLENOL ORAL) Take by mouth as needed. - allopurinol (ZYLOPRIM) 300 mg tablet Take 300 mg by mouth once daily. - amLODIPine-Benazepril 5-40 mg per capsule Take 1 capsule by mouth once daily. - atenolol (TENORMIN) 50 mg tablet Take 50 mg by mouth once daily. - colchicine 0.6 mg tablet PRN Problem List As Of Date 12/26/2022 Noted Resolved Malignant neoplasm of right kidney, except santi*05/02/2022 Morbid obesity (HCC) [E66.01] 05/20/2022 HTN (hypertension) [I10] 05/20/2022 Gout [M10.9] 05/20/2022 Mass of pancreas [K86.89] 05/20/2022 Obesity, Class III, BMI >= 40 [E66.01] 05/23/2022 Malignant neoplasm of right kidney (HCC) [C64.1]05/27/2022 Renal mass [N28.89] 05/28/2022 Hemothorax on right [J94.2] 06/02/2022 Hypotension [I95.9] 06/02/2022 SVEN (acute kidney injury) (HCC) [N17.9] 06/04/2022 Leukocytosis [D72.829] 06/04/2022 PVC (premature ventricular contraction) [I49.3] 06/04/2022 Encounter Status:Closed by NumberPicture, PRODUSER on 12/29/22[facility] History of Present illness Narrative* Jeremy Batres RN - 12/26/2022 1:30 PM EDT Radiology Service Progress Note DATE OF SERVICE: December 26, 2022 TIME: 12:03 PM PATIENT WEIGHT: 250 LBS PATIENT IDENTITY VERIFICATION COMPLETED USING TWO (2) STANDARD IDENTIFIERS: Name and Date of confirmed by patient verbally. FALL SCREENING: Has the patient had 2 falls in the last year or 1 fall with injury or currently using an Ambulatory Assistive Device (Walker, Cane, Wheelchair, Crutches, etc.)? No PATIENT GENDER DATA: Male ALLERGIES: Reviewed and unchanged CONTRAST ALLERGY: No EXAM: CT -CONTRAST INDUCED NEPHROPATHY RISK FACTORS: Patient age > 60 years and History of Kidney surgery, Kidney neoplasm, Liver disease, and/or any recent Nephrotoxic Chemotherapy or other Nephrotoxic medications CREATININE: Creatinine Date Value Ref Range Status 06/06/2022 1.46 (H) 0.73 - 1.22 mg/dL Final 06/05/2022 1.78 (H) 0.73 - 1.22 mg/dL Final Creatinine (POCT) Date Value Ref Range Status 12/26/2022 2.10 (A) 0.7 - 1.4 mg/dL Final eGFR (POCT) Date Value Ref Range Status 12/26/2022 35 mL/min/1.73 m2 Final P.O.C.T. RESULTS: POC done: Yes, See Lab Tab December 26, 2022 TREATMENT: No Hydration needed. IV SITE: Ambulatory: A peripheral IV was started in the Right antecubital site with a Angio cath: 22 gauge. IV SITE APPEARANCE: Clean,Dry and Intact SIGNATURE: Jeremy Batres RN PATIENT NAME: Candice Mitchell DATE: December 26, 2022 TIME: 12:03 PM * RT Anjali(R) - 12/26/2022 1:30 PM EDT Radiology Service Progress Note PATIENT NAME: Candice Mitchell DATE OF SERVICE: December 26, 2022 TIME: 12:33 PM PATIENT IDENTITY VERIFICATION COMPLETED USING TWO (2) IDENTIFIERS: Name and Date of confirmedby patient verbally and Name and Date of confirmed by identification band. FALL SCREENING: Has the patient had 2 falls in the last year or 1 fall with injury or currently using an Ambulatory Assistive Device (Walker, Cane, Wheelchair, Crutches, etc.)? No PATIENT GENDER DATA: Male PATIENT RELEVANT IMPLANT DATA REVIEWED: Yes RADIOLOGY DEPARTMENT: CT; Exam(s) Completed: Abdomen/Pelvis PERIPHERAL IV DATA: Site assessment: Clean,Dry and Intact, Site disposition Discontinued SIGNED BY: RT Anjali(R) December 26, 2022 12:33 PM documented in this encounterLima Memorial Hospital02-03-2023 Evaluation note* Encounter Date Diagnosis Assessment Notes Treatment Notes Treatment Clinical Notes Oct, Foreign body of right ear, initial encounter (ICD-10 - T16.1XXA) Manually removed a small black plastic piece from his right ear canal. Patient tolerated procedure well. No obvious infection. Patient states it had been in there for less than a day. [employer] Other 01-03-2023 Miscellaneous Notes* Telephone Encounter - MERCEDEZ Stein - 09/23/2022 2:12 PM EST Patient name and was confirmed at initiation of discussion. Candice Mitchell's Multi-Cancer panel through [email or web address] was negative for a pathogenic variant. 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 Please see [employer] message for further discussion. Kanu Noss, MS, CGC Licensed, Certified Genetic Counselor documented in this encounterLima Memorial Hospital12-16-2022 Miscellaneous Notes* Telephone Encounter - MERCEDEZ Stein - 09/05/2022 3:21 PM EST Spoke with family regarding insurance coverage for testing and testing facilities' billing policiesand potential out of pocket costs. Family was agreeable to testing and provided consent for [employer]'s Multi Cancer Panel. Results will be communicated back to the family. Kanu Busch MS, CGC Licensed, Certified Genetic Counselor documented in this encounterLima Memorial Hospital12-14-2022 History of Present illness Narrative* MERCEDEZ Stein - 09/03/2022 12:29 PM EST [facility] Consultation Note Genetic Counselor: Kanu Busch MS, CGC Patient: Candice Mitchell Patient Name and confirmed at initiation of visit. 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 Insurance coverage for genetic testing will be explored and I will contact patient with options. IDENTIFICATION AND CHIEF COMPLAINT: Dr. Pete Gupta requested a consultation for genetic counseling and risk assessment for Candice Mitchell, a 62 year old male, for discussion of his personal history of kidney cancer and pNET. He presents to clinic today to discuss the possibility of a genetic predisposition to cancer, and to further clarify his risks, as well as his family members' risks for cancer. HISTORY OF PRESENT ILLNESS: In May of 2022, at the age of 62, Candice Mitchell was diagnosed with concurrent right kidney cancer and a pancreatic neuroendocrine tumor. He underwent right nephrectomy and resection of the pancreatic tumor. He will be followed by close surveillance. PAST MEDICAL HISTORY Diagnosis Date Gout 05/20/2022 HTN (hypertension) 05/20/2022 Morbid obesity (HCC) 05/20/2022 PAST SURGICAL HISTORY Procedure Laterality Date CHOLECYSTECTOMY HX PAST SURGICAL HISTORY OF Bilateral Meniscus repair PAST SURGICAL HISTORY OF rotator cuff SOCIAL HISTORY: Social History Tobacco Use Smoking status: Former Types: Cigarettes Quit date: 2005 Years since quittin.9 Smokeless tobacco: Never Substance Use Topics Alcohol use: Yes Comment: ocassionally- 5 per month Drug use: Never FAMILY HISTORY: We obtained a detailed, 4-generation family history. Significant diagnoses are listed below: Father: prostate cancer Maternal uncle: prostate cancer Maternal aunt: breast cancer Maternal uncle: esophageal cancer Maternal grandfather: lung cancer A copy of the patient's pedigree will be available under the scanned documents tab following today's visit. GENETIC COUNSELING RISK ASSESSMENT, DISCUSSION, AND SUGGESTED FOLLOW UP: We reviewed the natural history and genetic etiology of sporadic, familial and hereditary cancer syndromes. 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 We discussed that identification of a hereditary cancer syndrome may help his care providers tailorhis medical management. If a mutation is detected, the patient will be referred back to the referring provider and to any additional appropriate care providers to discuss the relevant options. Inheritance of hereditary cancer syndromes was discussed with the patient. If a mutation is not found in the patient, this will decrease the likelihood of a hereditary cancersyndrome as the explanation for the patient's personal history of cancer. However, it cannot completely rule out this possibility. Cancer surveillance options would be discussed for the patient according to the appropriate standard National Comprehensive Cancer Network and [place] [employer] guidelines, with consideration of their personal and family history risk factors. In this case, the patient will be referred back to their care providers for discussions of management. Based on this assessment of the patient's family and personal history, genetic testing is recommended. The patient and his had questions regarding insurance coverage of testing. I will explore reimbursement options and will contact the patient with further information. A follow-up plan will be finalized at that time. Per the patient's request, I will contact him by telephone to discuss these results. A follow up genetic counseling visit will be scheduled if requested. The patient was seen for a total of 20 minutes, greater than 50% of which was spent [id number] counseling. This plan is being carried out under the oversight of Dr. Marley Fiore. This note will also be sent to the referring provider via the electronic medical record. Kanu Busch MS, [facility] [place], Licensed, Certified Genetic Counselor EPIC CC: Dr. Pete Fiore documented in this encounterLima Memorial Hospital11-18-2022 History of Present illness Narrative* Audrey Waller APRN.CNP - 08/08/2022 11:13 AM EST Images from the original note were not included. [facility] [place] Department of Thoracic Surgery TELEPHONE VISIT (audio only) PROGRESS NOTE This is a telephone encounter initiated for an established patient. The patient, parent or guardianis not originating from a related Evaluation & Management service provided within the previous 7 days nor leading to an Evaluation & Management service or procedure within the next 24 hours or soonest available appointment. Candice Mitchell has consented to this telephone encounter. Persons Present: patient Total Time Spent: 11-20 minutes Audrey Waller APRN.RASHAAD [facility] - OUTPATIENT THORACIC SURGERY CLINIC NOTE PT NAME: Candice Mitchell [facility] NO: [id number] THORACIC SURGEON: Dr Carlos Taylor DATE OF SERVICE: 08/08/2022 PRINCIPAL DX: Hemothorax SURGICAL HX: 06/03/2022: Diagnostic Right VATS with evacuation of retained hemothorax REASON FOR VISIT:Post-operative visit HPI: Candice Mitchell is a 62 year old male with h/o RCC s/p robotic right radical nephrectomy, distal pancreatectomy and splenectomy on 05/27. Incidental R pneumothorax found on 05/30 on acute abdominal series, R IR pigtail 05/31. On 06/02 the pigtail was removed and patient developed a hemothorax. On 06/03/22he underwent a Diagnostic Right VATS with evacuation of retained hemothorax by Dr Carlos Taylor. PHYSICAL EXAM: VITAL SIGNS: There were no vitals taken for this visit. Room air Incision location: Right Thoracoport sites and Right Old chest tube sites Incision Assessment: Per patient- Well approximated and no drainage, swelling, erythema or warmth Drain/Tubes: N/A REVIEW OF SYSTEMS PAIN ASSESSMENT: Negative for pain, history of chronic pain, or current treatment for a chronic pain condition. GENERAL: No weight loss, malaise or fevers RESPIRATORY: Negative for cough, hemoptysis, wheezing, COPD, dyspnea or shortness of breath CARDIOVASCULAR: Negative for chest pain, leg swelling, hypertension, CHF or palpitations GI: No nausea, vomiting, or diarrhea : No history of dysuria, frequency or incontinence MUSCULOSKELETAL: Negative for joint pain or swelling, back pain or muscle pain IMAGING/TESTS: CXR 07/31/22: ([facility]) 1.Blunting of tight lateral costophrenic angle which is new since 2019 study. Review of an 05/07/22 CT chest shows similar blunting of the cardiac phrenic angle, but no infiltrates, effusion or mass. This appears to represent an incidental change INTERVAL HISTORY: Candice Mitchell returns for post op phone visit. He has been doing well. He states that his incisions are healing well and he has had no pain at the sites. No cough, wheeze or SOB or hemoptysis. CXR shows well expanded lungs with no recurrent effusion noted. He may return as needed. IMPRESSION: 62 year old male s/p Diagnostic Right VATS with evacuation of retained hemothorax 06/03/[address] Carlos Taylor for hemothorax PLAN: - return as needed Audrey Waller APRN.[employer] documented in this encounterLima Memorial Hospital10-21-2022 Miscellaneous Notes* Telephone Encounter - Lupe Aguilar RN - 07/11/2022 2:25 PM EDT Patient going to come jul 25 at 10 am for post spleen vaccines * Telephone Encounter - Lupe Aguilar RN - 07/11/2022 2:19 PM EDT Left VM for patient that we would need patient to come in week of jul 20. We can help coordinate time that would work best for patient * Telephone Encounter - Jailene Berman Pss - 07/11/2022 2:04 PM EDT Patient called wants to know how long should it before gets injections also wants to be scheduled. documented in this encounterLima Memorial Hospital10-06-2022 History of Present illness Narrative* Audrey Waller, ELEMENTARY READING SPECIALIST.[employer] - 06/26/2022 10:51 AM EDT Images from the original note were not included. [facility] - OUTPATIENT THORACIC SURGERY CLINIC NOTE PT NAME: Candice Mitchell [facility] NO: [id number] THORACIC SURGEON: Dr Carlos Taylor DATE OF SERVICE: June 26, 2022 PRINCIPAL DX: Hemothorax SURGICAL HX: 06/03/2022: Diagnostic Right VATS with evacuation of retained hemothorax REASON FOR VISIT: First post-operative visit HPI: Candice Mitchell is a 62 year old male with h/o RCC s/p robotic right radical nephrectomy, distal pancreatectomy and splenectomy on 05/27. Incidental R pneumothorax found on 05/30 on acute abdominal series, R IR pigtail 05/31. On 06/02 the pigtail was removed and patient developed a hemothorax. On 06/03/22he underwent a Diagnostic Right VATS with evacuation of retained hemothorax by Dr Carlos Taylor. PHYSICAL EXAM: VITAL SIGNS: Pulse 64 Temp 36.2 C (97.1 F) Resp 18 Ht 172.7 cm (5' 8 ) Wt 110.2 kg (243 lb) SpO2 98% BMI 36.95 kg/m Room air Incision location: Right Thoracoport sites and Right Old chest tube sites Incision Assessment: Well approximated and no drainage, swelling, erythema or warmth Drain/Tubes: N/A GENERAL: well appearing, alert, no acute distress, well-hydrated, well nourished HEENT: normocephalic, midline, anicteric sclera. LUNGS: clear to auscultation, no wheezing or rhonchi HEART: RRR without murmur ABDOMEN: Soft, non-tender, non distended. No masses EXTREMITIES: No clubbing, cyanosis or edema. MUSCULOSKELETAL: Muscular strength intact. SKIN: turgor normal, no suspicious rashes or lesions NEURO: Gait normal. Sensation grossly intact. IMAGING/TESTS: CXR 06/26/22: PENDING INTERVAL HISTORY: Candice Mitchell returns for first post op visit. He has been doing well. He has had adequate pain management with the use of ES Tylenol. he denies any SOB, fevers, chills. No c/o nausea or vomiting. He has been tolerating diet and has been moving his bowels regularly. Incisions are healing well andsutures are removed. We have discussed increasing aerobic activity daily, as well as maintaining weight restriction of 5-10 lbs for the first month after surgery. We have also discussed no driving while on narcotics. CXR shows well expanded lungs. He will return in 6 weeks with a phone visit after getting CXR locally. IMPRESSION: 62 year old male s/p Diagnostic Right VATS with evacuation of retained hemothorax 06/03/[address] Carlos Taylor for hemothorax PLAN: - return in 6 weeks with a phone visit after getting CXR locally Audrey Waller APRN.RASHAAD documented in this encounterLima Memorial [facility] History of Present illness Narrative* Kenney Bangura MD - 06/26/2022 9:15 AM EDT PATIENT: Candice Mitchell [id number] 06/26/2022 Chief Complaint: Radial nephrectomy for RCC History of Present Illness: Candice Mitchell is a very pleasant 62 year old male who presents with a history of gout, hypertension, morbid obesity (BMI 41) who was found to have an 8.5cm right upper pole mass and a 1.9cm pancreatic tail mass suspicious for metastatic RCC and is now s/p robotic right radical nephrectomy and adrenalectomy (05/27), robotic assisted distal pancreatectomy with splenectomy (05/27), incisional hernia repair (06/03), and right VATS with evacuation of retained hemothorax (06/03). Path: Kidney (RCC T3a) Pancreas (well-differentiated pNET, T1N0 (0/19 lymph nodes) Physical Exam: There were no vitals taken for this visit. General: Alert, no acute distress, oriented Lungs: No respiratory distress or pursed lip breathing Psych: Affect and mood normal Abdomen: Estimated body mass index is 37.25 kg/m as calculated from the following: Height as of 06/20/22: 172.7 cm (5' 8 ). Weight as of 06/20/22: 111.1 kg (245 lb). Abdomen: non tenderness, no rebound, passing gases, bowel movements Ok Diagnosis (C64.1) Malignant neoplasm of right kidney (HCC) (primary encounter diagnosis) (K86.89) Mass of pancreas (J94.2) Hemothorax on right Assessment: Candice Mitchell is a very pleasant 62 year old male who presents with a history of gout, hypertension, morbid obesity (BMI 41) who was found to have an 8.5cm right upper pole mass and a 1.9cm pancreatic tail mass suspicious for metastatic RCC and is now s/p robotic right radical nephrectomy and adrenalectomy (05/27), robotic assisted distal pancreatectomy with splenectomy (05/27), incisional hernia repair (06/03), and right VATS with evacuation of retained hemothorax (06/03). Path: Kidney (RCC T3a) Pancreas (well-differentiated pNET, T1N0 (0/19 lymph nodes) He is feeling very well, no complains. He is doing his daily activities with no major restrictions. He is eating healthy and smaller portions. Plan: (C64.1) Malignant neoplasm of right kidney (HCC) (primary encounter diagnosis) Ct abdomen and pelvis in 6 months (K86.89) Mass of pancreas F/u with Dr Gupta, genetic testing ordered (J94.2) Hemothorax on right He has a follow up appointment with Thoracic surgeon today. Kenney Bangura MD Urologic Staff [facility] [place] [facility] documented in this encounterLima Memorial Hospital09-30-2022 History of Present illness Narrative* Pete Gupta MD - 06/20/2022 10:12 AM EDT Addendum: I have reviewed the history and physical examination obtained and documented by the resident/fellow/PA and I personally participated in the abbasi components. I have discussed the case and management ofthe patient's care. The following comments revise or confirm relevant abbasi components of the note. CC: Post op HPI: No nausea or vomiting. Ambulating well. No pain. Having bowel movements. No steatorrhea. Path: Kidney (RCC T3a) Pancreas (well-differentiated pNET, T1N0 (0/19 lymph nodes)) Plan: - ADAT - Repeat CT panc in 6 months for pNET monitoring. Will coordinate with Urology for RCC monitoring. - Genetic counseling due to concomitant RCC and pNET - Follow up after repeat imaging SIGNATURE: Nelson Gupta MD [facility] surgery Pager: [phone] * Angie Arias MD - 06/20/2022 9:32 AM EDT Images from the original note were not included. [facility] SURGERY PROGRESS NOTE NAME: Candice Mitchell 06/20/2022 9:52 AM SUBJECTIVE: Candice Mitchell is a 62 year old man with a history of gout, hypertension, morbid obesity (BMI 41) who was found to have an 8.5cm right upper pole mass and a 1.9cm pancreatic tail mass suspicious formetastatic RCC and is now s/p robotic right radical nephrectomy and adrenalectomy (05/27), robotic assisted distal pancreatectomy with splenectomy (05/27), incisional hernia repair (06/03), and right VATSwith evacuation of retained hemothorax (06/03). Patient has been recovering well since his surgeries. He is able to eat several small meals spread out throughout the day, but unable to eat too much in one setting. Still having bilateral upper chest pain with deep inhalation. Ambulating and urinating without issues. Denies nausea, vomiting, dysuria, oliguria, constipation, diarrhea, fevers, or chills. Surgical pathology: Pancreas and spleen: - pancreatic well-differentiated neuroendocrine tumor, WHO grade 2 - Ki-67 with proliferative index of 5.4% Right kidney: - renal cell carcinoma, clear-cell type (7.5 cm), ISUP grade 3 with tumor cell necrosis - tumor invasion into segmental branches of renal vein - negative margins - negative adrenal gland OBJECTIVE: Physical Exam BP 144/72 Pulse 70 Temp (Src) 96.6 (Temporal Artery) Resp 14 Ht 5' 8 (1.73m) Wt 245 lb (111.1kg) BMI 37.26 kg/(m^2). General: comfortable, no acute distress HEENT: EOM's intact Cardiac: regular rate & rhythm, no murmurs, gallops, or rubs Pulm: normal respiratory effort on room air, clear to auscultation bilaterally, sutures in place onright chest Abd: soft, non-tender, non-distended, incisions healing nicely Ext: no edema, rash, or new lesions Neuro/Psych: alert & oriented x3, no sensory or motor deficit ASSESSMENT & PLAN: Candice Mitchell is a 62 year old man with renal cell carcinoma and neuroendocrine tumor s/p resection 05/27 presents for routine postoperative check. Recovering well. 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 Recommend genetic testing. - Repeat CT pancreas in 6 months - Follow up with urology scheduled for 06/26 - Follow up with thoracic surgery scheduled for 06/[address] Gupta. Angie Arias MD 06/20/2022 9:34 AM documented in this encounterLima Memorial Hospital09-30-2022 Nurse Note* Mario Abdul - 06/20/2022 9:07 AM EDT What is the reason for your visit today? Post op Who is your referring physician? Dr. Gupta Are you having poor oral intake? NO Have you had unintentional weight loss of 15 lbs/7 Kg in the last 3-6 months? NO Bowels: regular Wound: clean & dry Temperature: No Drains: No documented in this encounterLima Memorial Hospital09-15-2022 History of Present illness Narrative* Pete Gupta MD - 06/05/2022 10:16 AM EDT Addendum: I have reviewed the history and physical examination obtained and documented by the resident/fellow/PA and I personally participated in the abbasi components. I have discussed the case and management ofthe patient's care. The following comments revise or confirm relevant abbasi components of the note. CC: Metastatic RCC Plan: - After discussion with Urology team, determined to perform concomitant right radical nephrectomy and distal pancreatectomy/splenectomy. The risks of the operation were discussed in detail with the patient, including, but not limited to, infection, bleeding, and damage to surrounding structures. The risk of delayed gastric emptying was discussed with the patient. All of his questions were answered and informed consent was obtained. SIGNATURE: Nelson Gupta MD [facility] surgery Pager: [phone] * Andre Aleida Rios MD - 05/23/2022 10:36 AM EDT Images from the original note were not included. HEPATOBILIARY SURGERY CONSULT NOTE DATE: May 23, 2022 TIME: 10:37 AM NAME: Candice Mitchell AGE: [id number] year old SEX: male : 1960 CHIEF COMPLAINT / REASON FOR CONSULT: Preop visit combo case urology and [facility] surgery for right radical nephrectomy and distal pancreatectomy, splenectomy HISTORY OF PRESENT ILLNESS: Mr. Mitchell is a 62 year old male with PMHx Gout, HTN, and obesity who had an incidental finding of right renal mass and distal pancreatic mass on CT scan during work upof elevated creatinine found to be renal cell carcinoma. Urology will perform right radical nephrectomy. Here for discussion surgical management of pancreatic lesion. PMH: PAST MEDICAL HISTORY Diagnosis Date Gout 05/20/2022 HTN (hypertension) 05/20/2022 Morbid obesity (HCC) 05/20/2022 PSH: PAST SURGICAL HISTORY Procedure Laterality Date CHOLECYSTECTOMY HX PAST SURGICAL HISTORY OF Bilateral Meniscus repair PAST SURGICAL HISTORY OF rotator cuff FHx: FAMILY HISTORY Problem Relation Age of Onset Anesthesia Problems No Family History SocHx: Social History Tobacco Use Smoking status: Former Types: Cigarettes Quit date: 2004 Years since quittin.6 Smokeless tobacco: Never Substance Use Topics Alcohol use: Yes Comment: ocassionally- 5 per month Drug use: Never Home Meds: (Not in a hospital admission) Allopurinol Amlodipine Atenolol Inpatient Meds: No current facility-administered medications for this visit. Allergy: ALLERGIES No Known Allergies REVIEW OF SYSTEMS: Constitutional: Negative for chills and fever. HENT: Negative for congestion, rhinorrhea and sore throat. Respiratory: Negative for cough and shortness of breath. Cardiovascular: Negative for chest pain. Gastrointestinal: Negative for abdominal pain constipation, diarrhea, nausea and vomiting. Genitourinary: Negative for decreased urine volume, difficulty urinating, dysuria and urgency. Musculoskeletal: Negative for arthralgias and myalgias. Skin: Negative for rash and wound. Neurological: Negative for dizziness and weakness. Psychiatric/Behavioral: Negative for behavioral problems. All other reviewed and negative other than HPI. OBJECTIVE: BP 135/74 Pulse 64 Temp (Src) 97.7 (Temporal Artery) Resp 12 Ht 5' 8 (1.73m) Wt 265 lb (120.2kg) BMI 40.30 kg/(m^2). PHYSICAL EXAM: Constitutional: Normal appearance, resting comfortably and not in acute distress. HEENT: Head: Normocephalic and atraumatic. Eyes: Conjunctivae normal, extraocular muscles intact, and no scleral icterus. Nose: Nose normal. Mouth/Throat: Moist mucous membranes. Pharynx: Oropharynx is clear. Cardiovascular: Rate and Rhythm: Normal rate and regular rhythm. Pulmonary: Effort: Pulmonary effort is normal. Breath sounds: No wheezing. Abdominal: Palpations: Abdomen is soft. Tenderness: There is no abdominal tenderness. There is no guarding. Musculoskeletal: Cervical back: Normal range of motion and neck supple. Skin: General: Skin is warm. No rashes or lesions. Capillary Refill: Capillary refill takes less than 2 seconds. Neurological: General: No focal deficit present. Mental Status: She is alert. Mental status is at baseline. Psychiatric: Mood and Affect: Cooperative, appropriate mood and affect. LABS: Recent Labs 05/20/22 1120 WBC 7.12 HB 14.4 HCT 43.9 PLT 205 INR 1.1 APTT 29.7 NA 138 K 4.8 CHLOR 105 CO2 25 BUN 20 CREAT 1.37* GLUC 95 CA 10.6* Recent Labs 05/20/22 1120 TPROT 7.0 ALB 3.9 ALT 14 AST 19 ALKPHOS 93 TBILI 0.8 IMAGING: DATA: Diagnostic tests reviewed for today's visit: Most recent labs and imaging results. Results for orders placed or performed in visit on 05/20/22 CBC Result Value Ref Range WBC 7.12 3.70 - 11.00 k/uL RBC 4.97 4.20 - 6.00 m/uL Hemoglobin 14.4 13.0 - 17.0 g/dL Hematocrit 43.9 39.0 - 51.0 % MCV 88.3 80.0 - 100.0 fL MCH 29.0 26.0 - 34.0 pg MCHC 32.8 30.5 - 36.0 g/dL RDW-CV 13.5 11.5 - 15.0 % Platelet Count 205 150 - 400 k/uL MPV 9.7 9.0 - 12.7 fL Absolute nRBC <0.01 <0.01 k/uL COMP METABOLIC PANEL Result Value Ref Range Protein, Total 7.0 6.3 - 8.0 g/dL Albumin 3.9 3.9 - 4.9 g/dL Calcium, Total 10.6 (H) 8.5 - 10.2 mg/dL Bilirubin, Total 0.8 0.2 - 1.3 mg/dL Alkaline Phosphatase 93 38 - 113 U/L AST 19 14 - 40 U/L ALT 14 10 - 54 U/L Glucose 95 74 - 99 mg/dL BUN 20 9 - 24 mg/dL Creatinine 1.37 (H) 0.73 - 1.22 mg/dL Sodium 138 136 - 144 mmol/L Potassium 4.8 3.7 - 5.1 mmol/L Chloride 105 97 - 105 mmol/L CO2 25 22 - 30 mmol/L Anion Gap 8 (L) 9 - 18 mmol/L Estimated Glomerular Filtration Rate 58 (L) >=60 mL/min/1.73m ACTIVATED PTT Result Value Ref Range APTT 29.7 23.0 - 32.4 sec PROTHROMBIN TIME/PT Result Value Ref Range PT Sec 11.4 9.7 - 13.0 sec INR 1.1 0.9 - 1.3 TYPE AND SCREEN,30 DAY Result Value Ref Range Antibody Screen Negative HIstorical Ab Scr Status NEGATIVE CONFIRM BLOOD TYPE Result Value Ref Range ABO A Rh(D) Positive Assessment/Plan ASSESSMENT AND PLAN Mr. Mitchell is a 62 year old male with PMHx Gout, HTN, and obesity who had an incidental finding of right renal mass and distal pancreatic mass on CT scan during work up of elevated creatinine found to be renal cell carcinoma. Urology will perform right radical nephrectomy. - Plan for distal pancreatectomy and splenectomy on Thursday05/27/22 Patient seen and discussed with Dr. Alec Peterson MD General Surgery, PGY-1 Personal Pager: [phone] For after hours issues, please call the on-call pager documented in this encounterLima Memorial Hospital09-02-2022 History of Present illness Narrative* Kenisha Hahn MD - 05/23/2022 2:15 PM EDT Images from the original note were not included. [facility] Multidisciplinary [facility] & Upper GI Case Conference -- Consensus Note -- Conference Date: 05/20/2022 Case reviewed with physicians from GI, Surgery, & Radiology services: -- Surgeons - Alec Chawla Joyce, Naffouje, Augustin -- Gastroenterologists - None -- Radiologist - Nirav Issue(s) Question(s): 62 year old male with R RCC requiring radical nephrectomy (scheduled for 05/27) also found to have a lesion in the pancreatic tial. Imaging Review: - Distal pancreatic lesion most consistent with metastatic RCC Final Consensus Recommendation(s): - Resection, but not at the same time as planned nephrectomy Lindsey Hahn MD [facility] Surgery Fellow [phone] documented in this encounterLima Memorial Hospital09-02-2022 Nurse Note* Mario Abdul - 05/23/2022 9:45 AM EDT What is the reason for your visit today? Follow up Who is your referring physician? Dr. Gupta Are you having poor oral intake? NO Have you had unintentional weight loss of 15 lbs/7 Kg in the last 3-6 months? NO Bowels: regular Wound: clean & dry Temperature: No Drains: No documented in this encounterLima Memorial Hospital09-01-2022 Miscellaneous Notes* Telephone Encounter - Pete Gupta MD - 05/22/2022 8:26 AM EDT [facility] PROGRESS NOTE: Patient Name: Candice Mitchell After further discussions with the Urology team, we believe it is best to avoid multiple separate surgeries/anesthetics and to perform a distal pancreatectomy/splenectomy at the time of his radical right nephrectomy. Therefore, will bring the patient in tomorrow to discuss the pancreatic surgery inmore detail and obtain informed consent as well as administer splenic vaccinations. I called the patient and informed him of the plan. He is on board. Nelson Gupta MD B surgery Pager: [phone] documented in this encounterLima Memorial Hospital08-30-2022 History and physical note * Pete Gupta MD - 05/20/2022 12:42 PM EDT Addendum: I have reviewed the history and physical examination obtained and documented by the resident/fellow/PA and I personally participated in the abbasi components. I have discussed the case and management ofthe patient's care. The following comments revise or confirm relevant abbasi components of the note. CC: Renal and pancreatic mass HPI: The patient was incidentally found to have a right renal mass. Upon staging workup he was alsofound to have a pancreatic tail mass. It has a similar radiographic appearance to the renal mass, therefore is likely a met. The patient is asymptomatic. He is not diabetic. He has never had pancreatitis before. He is a non-smoker (quit ~17 years ago). He has HTN, but no other medical issues. Plan: - Recommend proceeding with right radical nephrectomy to remove the primary tumor. Will then see the patient about 2 months afterwards to discuss interval distal pancreatectomy/splenectomy. Will planto do it robotically. Will obtain informed consent at that time. I spent a total of 45 minutes on the date of the service which included preparing to see the patient, [id number] patient care, completing clinical documentation, obtaining and/or reviewing separately obtained history, performing a medically appropriate examination, counseling and educating the pat ient/family/caregiver, ordering medications, tests, or procedures, and communicating results to thepatient/family/caregiver. SIGNATURE: Nelson Gupta MD B surgery Pager: [phone] * Kenisha Hahn MD - 05/20/2022 11:46 AM EDT [facility] SURGERY H&P SERVICE DATE: 05/20/2022 SERVICE TIME: 11:46 AM PRIMARY CARE PHYSICIAN: No primary care provider on file. Subjective CHIEF COMPLAINT: distal pancreatic mass HISTORY OF PRESENT ILLNESS: Mr. Mitchell is a 62 year old male who presents for evaluation of distal pancreatic mass incidentally found on work-up for renal cell carcinoma. Asymptomatic. No abdominal pain, nausea, vomiting, change in bowel function, or unintentional weight loss. FUNCTIONAL STATUS: Participate in moderate recreational activities, such as golf, bowling, dancing,doubles tennis, or throwing a baseball or football (6.00 METs) PAST MEDICAL HISTORY Diagnosis Date Gout 05/20/2022 HTN (hypertension) 05/20/2022 Morbid obesity (HCC) 05/20/2022 PAST SURGICAL HISTORY Procedure Laterality Date CHOLECYSTECTOMY HX PAST SURGICAL HISTORY OF Bilateral Meniscus repair PAST SURGICAL HISTORY OF rotator cuff FAMILY HISTORY Problem Relation Age of Onset Anesthesia Problems No Family History Social History Tobacco Use Smoking status: Former Types: Cigarettes Quit date: 2004 Years since quittin.6 Smokeless tobacco: Never Substance Use Topics Alcohol use: Yes Comment: ocassionally- 5 per month Drug use: Never (Not in a hospital admission) No current facility-administered medications for this visit. ALLERGIES No Known Allergies COMPLETE REVIEW OF SYSTEMS: PAIN ASSESSMENT: Negative for pain, history of chronic pain, or current treatment for a chronic pain condition. GENERAL: No weight loss, malaise or fevers HEENT: Negative for frequent or significant headaches, No changes in hearing or vision, no nose bleeds or other nasal problems NECK: Negative for lumps, goiter, pain and significant neck swelling RESPIRATORY: Negative for cough, hemoptysis, wheezing, COPD, dyspnea or shortness of breath CARDIOVASCULAR: Negative for chest pain, leg swelling, hypertension, CHF or palpitations GI: No nausea, vomiting, or diarrhea : No history of dysuria, frequency or incontinence MUSCULOSKELETAL: Negative for joint pain or swelling, back pain or muscle pain SKIN: Negative for lesions, rash, and itching PSYCH: Negative for sleep disturbance, mood disorder and recent psychosocial stressors HEMATOLOGY/LYMPHOLOGY: Negative for prolonged bleeding, bruising easily or swollen nodes ENDOCRINE: Negative for cold or heat intolerance, polyuria, polydipsia and goiter NEURO: No history of headaches, syncope, paralysis, seizures or tremors Objective PHYSICAL EXAM: There were no vitals taken for this visit. Physical Exam Performed GENERAL: Alert, no distress, cooperative LUNGS: Lungs clear to auscultation, Good diaphragmatic excursion CARDIAC: Normal S1 and S2; no rubs, murmurs, or gallops ABDOMEN: Abdomen soft, non-tender, BS normal, No masses or organomegaly The remainder of the physical exam is noncontributory. DATA: Diagnostic tests reviewed for today's visit: Most recent labs and imaging results. Assessment/Plan 62 year old otherwise healthy male with history of open cholecystectomy and right renal cell carcinoma with likely metastatic disease to the distal pancreas. --Plan for lap distal pancreatectomy 3 months after recovering from planned nephrectomy on 05/27. Lindsey Hahn MD [facility] Surgery Fellow [phone] documented in this encounterLima Memorial Hospital08-30-2022 History of Present illness Narrative* Rachel Peterson APRN.[facility] - 05/20/2022 10:09 AM EDT [facility] PRE-OP NOTE Candice Mitchell is a 62 year old male. Pre-op Date: May 20, 2022 Date of Procedure: 05/27/2022 Procedure/Surgery: robotic lap R radial nephrectomy Diagnosis: malignant neoplasm of R kidney Primary Surgeon: Dr. Kenney Bangura Healthquest Score: n/a There were no vitals taken for this visit. Pain Assessment: Are you currently having pain? No 0 on a scale of 0 to 10 Surgical Guide Book Status: Patient given book today. Dialysis Guide Book Status: N/A Allergies Reviewed: Yes Medications Reviewed: Yes Is patient currently on oral steroids?: No Has the patient had a UTI in the past month?: No. Does the patient have any artificial joints (last 2 years), metal parts, pacemakers or cardiac/ureteral stents in place?: No Does the patient have diabetes?: No Is the patient routinely taking anticoagulants?: No. Can the patient have an IV put in either arm?: Yes Urine Dip Complete?: Yes URINE CULTURE COMPLETE?: Not Applicable Ostomy/Stoma Nurse appointment made/completed: N/A IMPACT/Medical Clearance: Cleared per IMPACT - Yes [facility] Clinic: Cleared per PACE - Yes All testing on cureform has been scheduled: Yes Consent Signed: Consent not in Epic. Surgeon notified via epic. DOS Orders Placed and Signed: Yes. Pre-op H&P Done by Impact: Yes. PATIENT INSTRUCTIONS FOR SURGERY 1.) DO NOT HAVE ANYTHING TO EAT OR DRINK AFTER MIDNIGHT THE DAY BEFORE SURGERY except for certain morning medications as instructed by the doctor. Candy, mints, gum, and smoking are NOT permitted. Ifthe surgery is scheduled for the afternoon, you may have water during the morning of surgery if permitted by your surgeon. 2.) Medications to be taken on the morning of surgery with a few sips of water: per IMPACT 3.) Please bring all your prescribed inhalers (if you have any you normally take) to the hospital. 4.) Arrival time: Call for arrival. 5.) Prep given: No 6.) Lovenox instructions given: N/A 7.) Patient reminded that surgery time provided day before surgery is tentative based on potential changes with transplants. Recommendations: This patient is optimally prepared for surgery pending LABS and CONSULTATION WITH MELISSA Powell. Rachel Peterson APRN.[facility] documented in this encounterLima Memorial Hospital08-30-2022 Instructions* Patient Instructions* Divina Lopez PA-C - 05/20/2022 9:26 AM EDT PATIENT PREOPERATIVE INSTRUCTIONS Kenney Bangura MD has scheduled you for your procedure at this surgery center: [facility] Scheduling Office: [phone] --[address] [place] [address]. Please read below carefully for your personalized instructions. Dietary Restrictions: - No solid food after midnight. - You may have 12 ounces of clear liquids (water, clear juices such as apple juice or gatorade, carbonated beverages, clear tea, black coffee, jello) until 2 hours before scheduled arrival at facility. Medications: Unless instructed differently below, stay on all of your medications until your surgery. Approved medications to take the morning of surgery with a sip of water: Atenolol. DO NOT TAKE YOUR Amlodipine-benazepril THE NIGHT BEFORE OR MORNING OF SURGERY If you start any new medications after today's visit, please contact the surgeon's office. Blood Thinning Medications: - Stop NSAIDS (Ibuprofen, Advil, Aleve, Motrin, Celebrex, Mobic, etc.) 7 days before surgery, as directed by your surgeon. - Stop Aspirin 7 days before surgery, as directed by your surgeon. - Stop Vitamin E, ALL multi-vitamins, herbals and dietary supplements 7 days before surgery. - You may take Tylenol (Acetaminophen) or any of your pain medications that do not contain aspirin or NSAIDS as needed. Important Reminders: - Candy, mints, and tobacco products are NOT permitted the morning of surgery. - Hearing aids, dentures and glasses may be worn the morning of surgery. - NO jewelry, body piercings, makeup, hairpins or contacts are to be worn the day of surgery. If you develop symptoms such as a fever, cold, or flu, or have other changes to your health within TWO DAYS of scheduled surgery or the morning of surgery, please contact the surgery center above. Personal Belongings: -Please have photo ID and insurance cards. -If you do not have a copy of advance directives on file with us, please bring a copy with you on the day of surgery. - Leave ALL valuables and money at home or with family members. For Outpatient Procedures: - YOU MUST HAVE A RESPONSIBLE PLUMBING WAREHOUSE HELPER TAKE YOU HOME. A HAZARDOUS WASTE MANAGEMENT SPECIALIST OR FINISHING WIRE SAWYER CANNOT BE MADE A RESPONSIBLE PLUMBING WAREHOUSE HELPER. - We recommend that a responsible person stays with you overnight to take care of you. - You cannot stay in a hotel alone after outpatient surgery. You will not be permitted to have yoursurgery, if you do not have someone to take care of you. Arrival Time for Surgery: - To obtain your arrival time for surgery, call your physician's office the day before your surgery. - If your surgery is scheduled for Thursday, call the Thursday before. Your surgeon s plasterer stucco will tell you what time to call the office. - If you have not reached the departmental plasterer stucco by 5 P.M., call [phone] after 5 P.M. the day before your surgery. Please be aware that emergency situations arise, which may delay or change your surgical time. If this happens, we will notify you as soon as possible and regret any inconvenience. If you already have an Advance Directive, please fax a copy to [phone] or email to for it to be added to your chart. If you do not have an Advance Directive, you can find the appropriate form and more information at [email or web address]. We recommend that youcomplete the Advance Directive form found on the website and bring it with you the day of your surgery. It can be witnessed and scanned into your chart that day. Divina Lopez PA-C [facility] History and physical note * Divina Lopez PA-C - 05/20/2022 8:50 AM EDT HISTORY AND PHYSICAL EXAMINATION SERVICE DATE: 05/20/2022 SERVICE TIME: 9:17 AM PRIMARY CARE PHYSICIAN: No primary care provider on file. REASON FOR VISIT: Candice Mitchell is a 62 year old male who is scheduled for ROBOTIC LAPAROSCOPIC NEPHRECTOMY RADICALat the request of Dr. Kenney Bangura for consultation. My final recommendation will be communicatedback to the requesting physician by way of shared medical record or letter. The patient has the following: ACTIVE PROBLEM LIST Malignant Neoplasm of Right Kidney, Except Renal Pelvis (Hcc) Morbid Obesity (Hcc) Htn (Hypertension) Gout Subjective CHIEF COMPLAINT: Malignant neoplasm of kidney HPI: Patient is a 62 year old year old male who is scheduled for ROBOTIC LAPAROSCOPIC NEPHRECTOMY RADICAL on 05/27/2022. Patient has a renal mass found on CT scan in October. Denies hematuria, dysuriaor flank pain. Denies any fevers, chills, nausea, vomiting, SOB or chest pain. PAST MEDICAL HISTORY Diagnosis Date Gout 05/20/2022 HTN (hypertension) 05/20/2022 Morbid obesity (HCC) 05/20/2022 PAST SURGICAL HISTORY Procedure Laterality Date CHOLECYSTECTOMY HX PAST SURGICAL HISTORY OF Bilateral Meniscus repair PAST SURGICAL HISTORY OF rotator cuff FAMILY HISTORY Problem Relation Age of Onset Anesthesia Problems No Family History SOCIAL HISTORY: Social History Tobacco Use Smoking status: Former Types: Cigarettes Quit date: 2004 Years since quittin.6 Smokeless tobacco: Never Substance Use Topics Alcohol use: Yes Comment: ocassionally- 5 per month Drug use: Never MEDICATIONS: Prior to Admission medications as of 05/20/22 0921 Medication Sig Last Dose Taking allopurinol (ZYLOPRIM) 300 mg tablet Take 300 mg by mouth once daily. Taking Yes amLODIPine-Benazepril 5-40 mg per capsule Take 1 capsule by mouth once daily. Taking Yes atenolol (TENORMIN) 50 mg tablet Take 50 mg by mouth once daily. Taking Yes colchicine 0.6 mg tablet PRN Taking Yes No medication comments found. CURRENT ALLERGIES: ALLERGIES No Known Allergies COVID VACCINATION STATUS: Fully vaccinated REVIEW OF SYSTEMS: PAIN ASSESSMENT: General: No weight loss, malaise or fevers. Neuro: Negative for TIA's Seizures Stroke-residual deficit Stroke-No residual deficit Delirium Dementia Respiratory: Negative for Asthma, COPD, Current cough, Dyspnea, Pneumonia within 6 weeks (date) Cardiovascular: Negative for Recent RI, Angina, Arrhythmia, CAD, Chest Pain, CHF, PVD, Valvular Heart Disease, DVT/PE +HTN +Morbid obesity GI: Negative for GERD, Heartburn, Nausea, Vomiting, Abdominal pain, Hepatitis, Liver disease : No current dysuria or hematuria. +See HPI Endocrine: No history of diabetes. Has not taken steroids within the past 30 days. No history of endocrinological symptoms or problems. Hematology: No history of bleeding or clotting disorder. Pt is not taking anti- coagulation or platelet medications. No history of hematological symptoms or problems. Oncology: No history of CA metastasis, chemo within 30 days, or radiotherapy within 90 days. Has not lost 10% of body wt in 6 months. No history of oncological symptoms or problems. Psych: No history of psychiatric symptoms or problems. Musculoskeletal: Negative for joint pain or swelling, back pain or muscle pain. +Gout Skin: Negative for lesions, rash and itching. Objective PHYSICAL EXAM: VITALS: BP 143/82 Pulse 63 Temp (Src) 97.1 (Temporal) Ht 5' 8 (1.73m) Wt 267 lb 9.6 oz (121.4kg) SpO2 98% BMI 40.70 kg/(m^2). General: Alert and oriented, No acute distress, Morbidly obese Skin: Normal color, no rash, no lesions. HEENT: EOM, pupils equal, round and reactive., No carotid bruits Cardiovascular: Normal S1 & S2, no rubs, murmurs or gallops. No JVD. Pulse regular. Lungs: Normal breath sounds, no wheezes or crackles. Extremities: No deformity, no edema or tenderness, no joint swelling or clubbing. Neurological: Normal cognition and motor skills. Pulses: Radial pulses normal +2. Diagnostic tests reviewed for today's visit: Lab Value Units Date High Low HB No results within date range. HCT No results within date range. WBC No results within date range. PLT No results within date range. NA No results within date range. K No results within date range. GLUC No results within date range. BUN No results within date range. CREAT No results within date range. PTSEC No results within date range. INR No results within date range. APTT No results within date range. ALT No results within date range. AST No results within date range. TBILI No results within date range. TSH No results within date range. Lab Value Units Date High Low HCGQT No results within date range. UHCG No results within date range. HCG, BODY* No results within date range. Lab Value Units Date High Low ABORHD No results within date range. ABSCREEN No results within date range. No results found for: HBA1C PENDING labs, EKG Assessment/Plan Morbid obesity (HCC) Body mass index is 40.69 kg/m . HTN (hypertension) Stable, on rx. BP 143/82 in office today. Gout On allopurinol, colchicine PRN. METS: Climb a flight of stairs or walk up a hill (5.50 METs) Patient denies any chest pain or undue shortness of breath with the above physical activity. ASA Class: 3 ANESTHESIA FINDINGS: Intubation History: No history of difficult intubation Significant Anesthesia Considerations: None Airway Exam: General: Morbid obesity Mallampati Score is CLASS III ULBT: Class I - Lower incisors can bite the upper lip above the antonina line Neck: Normal appearance and function, Distance from hyoid to mentum during neck extension is at least 3 finger breaths Mouth: Normal tongue size Dentition: Intact Airway History: No abnormal airway history Sleep Apnea Probability Snores loudly: Yes Tired, fatigued or sleepy in daytime: No Stops breathing or choking/gasping during sleep: No High blood pressure: Yes Sleep Apnea Probability Score 05/18/2022 Sleep Apnea Screen V2 20 (Sleep study not recommended) PLAN This patient is optimally prepared for surgery pending LABS and EKG. CONSULTS: Patient does not require consults for optimization at this time. The Following Tests/Procedures Have Been Initiated: Labs and EKG per surgical service. Planned Anesthetic: General Instructions Given to Patient: Instructions located in the after visit summary. Patient given verbal and written preop instructions and voices comprehension and compliance. SIGNATURE: Divina Lopez PA-C PATIENT NAME: Candice Mitchell DATE: May 20, 2022 TIME: 9:22 AM documented in this encounterL[facility]08[facility]26-[facility] History of Present illness Narrative* Kenney Bangura MD - 05/16/2022 6:03 PM EDT I called the patient regarding his Bone scan: 05/16/22 Bone scan IMPRESSION: NO SCINTIGRAPHIC EVIDENCE FOR OSSEOUS METASTATIC DISEASE. DEGENERATIVE CHANGES, NOTED. 07/05/22 CT chest No evidence of metastasis to chest. Still pending the evaluation of the pancreatic finding. Right radical nephrectomy scheduled for 05/27/22 Kenney Bangura MD Urologic Staff [facility] [place] [facility] documented in this encounterL[facility]08-26-[facility]22 History of Present illness Narrative* RT Lino(R) - 05/16/2022 1:00 PM EDT RADIOLOGY SERVICE PROGRESS NOTE SERVICE DATE: 05/16/2022 SERVICE TIME: 12:28 PM PATIENT IDENTITY VERIFICATION COMPLETED USING TWO (2) STANDARD IDENTIFIERS: Name and Date of confirmed by patient verbally FALL SCREENING: Has the patient had 2 falls in the last year or 1 fall with injury or currently using an Ambulatory Assistive Device (Walker, Cane, Wheelchair, Crutches, etc.)? No PATIENT GENDER DATA: .male ALLERGIES: Reviewed and unchanged MEDICATIONS REVIEWED: No IV SITE: Ambulatory: NM only - direct IV injection in the Right hand POST EXAM PIV STATUS: Not applicable PROCEDURE TYPE: NM INJECT: Whole Body Bone Scan. 22.0 mCi Tc99m MDP. No other medications given.. ADMINISTRATION TIME: 1225 PATIENT DISCHARGED TO: Ambulatory patient, left NM department area. A Diagnostic radioactive procedure has taken place, with no further precautions necessary other than routine body substance precautions. More information regarding radiation safety can be found usingthis link: [email or web address] SIGNATURE: RT Lino(R) PATIENT NAME: Candice Mitchell DATE: May 16, 2022 TIME: 12:28 PM PAGER/CONTACT #: documented in this encounterL[facility]08-22-2022 Miscellaneous Notes* Telephone Encounter - Lainey Gilliam RN - 05/12/2022 12:48 PM EDT Patient ID by Name and date: via Suki Called to inform Suki that Lissette in Dr. Corrales's [place] office was given the correct surgery teams information HPB . Someone from that department will be reaching out to patient. Suki verbalized an understanding and agrees with plan Lainey Gilliam RN MSN documented in this encounterL[facility]08-12-2022 History of Present illness Narrative* Kenney Bangura MD - 05/02/2022 7:30 PM EDT Images from the original note were not included. PATIENT: Candice Mitchell [id number] REFERRING MD: Isreal Morrow 05/02/2022 Chief Complaint Right renal mass Referral Consultation requested by Dr. Morrow for an opinion regarding right renal mass. My final recommendations will be communicated back to the requesting physician by way of shared Medical record or letter to requesting physician via US mail. History of Present Illness Candice Mitchell is a very pleasant 62 year old male who presents with a history of HTN and right renal mass 16/04/22 CT abdomen and pelvis W con 04/25/22 MRI WO con 04/02/22 Kidney US Social History Social History Tobacco Use Smoking status: Never Smokeless tobacco: Never Allergies Allergies: Not on File Review of Systems As in HPI Physical Exam BP 148/83 (BP Site: Left Arm, BP Position: Sitting) Pulse 62 General: Alert, no acute distress, oriented Lungs: No respiratory distress or pursed lip breathing Psych: Affect and mood normal Abdomen: There is no height or weight on file to calculate BMI. Scar from open cholecystectomy, no hernias Diagnosis (C64.1) Malignant neoplasm of right kidney, except renal pelvis (HCC) (primary encounter diagnosis) Assessment: Patient with obesity, HTN and newly diagnosed right renal mass. PMHx relevant for open cholecystectomy. Also a finding of non specific pancreatic lesion. Candice Mitchell is a very pleasant 62 year old male who presents with a history of a renal lesion/mass. The lesion was initially detected on CT Scan performed on 11/17/21 The films were not reviewed in clinic. The lesion is solid and enhancing. The mass is on the upper pole The mass is in the right kidney, measuring 8x8.4x8.5cm in g There is no evidence of regional adenopathy, vascular invasion ormetastatic disease. Concerning his renal function, his last SCr is 1.37 (03/18/22) he has the following risk factors fordevelopment of chronic kidney disease Hypertension. he has a history of previous abdominal or retroperitoneal surgery. There is not a family history ofrenal cell cancer. The patient does not have a history of smoking and currently is not smoking. ECOG Performance Score: 0- Fully active, able to carry on all pre-disease performance w/o restriction. Plan: Right radical nephrectomy Evaluation for pancreatic team for his pancreatic lesion. Bone scan Chest CT Kenney Bangura MD Urologic Staff [facility] [place] [facility] Medical Decision Making: Problems: Moderate: 1+ chronic illnesses with change Data: Unique source(s) for external note(s) reviewed: 1 Unique test result(s) reviewed: 3+ Unique test(s) ordered: 3+ Assessment requiring an independent historian(s) Risk: Moderate: Moderate risk from testing/treatment Medical Decision Making Level: 4 - Moderate documented in this encounterL[facility] HospitalEvaluation note* Diagnosis Malignant neoplasm of right kidney, except renal pelvis (HCC) Malignant neoplasm of kidney, except pelvis [facility] Diagnosis Screening for genitourinary condition Screening for other and unspecified genitourinary condition [facility] Diagnosis Malignant neoplasm of right kidney, except renal pelvis (HCC)- Primary Malignant neoplasm of kidney, except pelvis Malignant neoplasm of right kidney, except renal pelvis (HCC) Malignant neoplasm of kidney, except pelvis [facility] Diagnosis Malignant neoplasm of right kidney, except renal pelvis (HCC) Malignant neoplasm of kidney, except pelvis Malignant neoplasm of right kidney, except renal pelvis (HCC) Malignant neoplasm of kidney, except pelvis [facility] Diagnosis Pre-op evaluation- Primary Preoperative examination, unspecified Malignant neoplasm of right kidney, except renal pelvis (HCC) Malignant neoplasm of kidney, except pelvis Morbid obesity (HCC) Morbid obesity Hypertension, unspecified type Gout, unspecified cause, unspecified chronicity, unspecified site Malignant neoplasm of right kidney, except renal pelvis (HCC) Malignant neoplasm of kidney, except pelvis [facility] Diagnosis Malignant neoplasm of right kidney, except renal pelvis (HCC)- Primary Malignant neoplasm of kidney, except pelvis Malignant neoplasm of right kidney, except renal pelvis (HCC) Malignant neoplasm of kidney, except pelvis [facility] Diagnosis Malignant neoplasm of right kidney, except renal pelvis (HCC)- Primary Malignant neoplasm of kidney, except pelvis Mass of pancreas Unspecified disease of pancreas Malignant neoplasm of right kidney, except renal pelvis (HCC) Malignant neoplasm of kidney, except pelvis [facility] Diagnosis Malignant neoplasm of right kidney, except renal pelvis (HCC)- Primary Malignant neoplasm of kidney, except pelvis [facility] Diagnosis Malignant neoplasm of right kidney (HCC)- Primary Mass of pancreas Unspecified disease of pancreas Hemothorax on right Other specified forms of effusion, except tuberculous [facility] Diagnosis Hemothorax- Primary Other specified forms of effusion, except tuberculous [facility]* Diagnosis Screening for genitourinary condition Screening for other and unspecified genitourinary condition [facility] Diagnosis Mass of pancreas- Primary Unspecified disease of pancreas Malignant neoplasm of right kidney (HCC) Malignant neoplasm of right kidney, except renal pelvis (HCC) Malignant neoplasm of kidney, except pelvis Malignant neoplasm of body of pancreas (HCC) Malignant neoplasm of body of pancreas [facility] Diagnosis Mass of pancreas- Primary Unspecified disease of pancreas [facility] Diagnosis Hemothorax- Primary Other specified forms of effusion, except tuberculous [facility]* Diagnosis Malignant neoplasm of right kidney (HCC) Mass of pancreas Unspecified disease of pancreas [facility] Diagnosis Malignant neoplasm of right kidney (HCC)- Primary [facility] Diagnosis Mass of pancreas- Primary Unspecified disease of pancreas [facility] Diagnosis Malignant neoplasm of right kidney (HCC)- Primary Mass of pancreas Unspecified disease of pancreas [facility] Diagnosis Malignant neoplasm of right kidney (HCC) Mass of pancreas Unspecified disease of pancreas [facility]* Diagnosis Stage 3b chronic kidney disease (HCC)- Primary Malignant neoplasm of right kidney (HCC) Primary hypertension Unspecified essential hypertension 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 Obesity, Class III, BMI >= 40 Morbid obesity Solitary kidney, acquired Acquired absence of kidney Renal cell carcinoma, unspecified laterality (HCC) H/O primitive neuroectodermal tumor (PNET) Personal history of malignant neoplasm of other site H/O radical nephrectomy [facility]* Diagnosis Malignant neoplasm of right kidney (HCC) Mass of pancreas Unspecified disease of pancreas [facility] Diagnosis Malignant neoplasm of right kidney (HCC) Mass of pancreas Unspecified disease of pancreas [facility]* Diagnosis Screening for genitourinary condition Screening for other and unspecified genitourinary condition [facility]* Diagnosis Malignant neoplasm of right kidney (HCC)- Primary [facility] Diagnosis Mass of pancreas- Primary Unspecified disease of pancreas [facility]* Diagnosis Malignant neoplasm of right kidney (HCC)- Primary History of pancreatic cancer Personal history of malignant neoplasm of other site in gastrointestinal tract [facility]* Diagnosis Stage 3b chronic kidney disease (HCC)- Primary documented in this encounter [facility] note* Diagnosis Screening for genitourinary condition Screening for other and unspecified genitourinary condition documented in this encounter [facility] general Narrative - Reported* Type Description Date Medical History Obesity Medical History Neuroendocrine tumor of pancreas Medical History Renal cell carcinoma of right ki dney Medical History Impaired fasting glucose Medical History Hypertensive chronic kidney disease with stage 1 through stage 4 chronic kidney disease, or unspecified chronic kidney disease Medical History Renal mass, right Medical History Pancreatic mass Medical History Primary insomnia Medical History Lumbar spondylosis Medical History Intermittent palpitations Medical History 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, right Medical History Subacromial impingement of left shoulder Medical History Gout Medical History Gastrocnemius strain, left Medical History Achilles tendinitis, left leg Medical History Bone cyst Medical History Hallux rigidus of left foot Medical History Acute gouty arthritis Surgical History pneumothorax Surgical History diagnostic laparoscopy Surgical History pancreatectomy, distal, laparas copic, with splenectomy Surgical History robot-assisted right radical ne phrectomy Surgical History knee arthroscopy Surgical History shoulder arthroscopy Surgical History cholecystectomy Hospitalization History see surgical history [facility] Other History general Narrative - Reported* Type Description Date Medical History Obesity Medical History Neuroendocrine tumor of pancreas Medical History Renal cell carcinoma of right ki dney Medical History Impaired fasting glucose Medical History Hypertensive chronic kidney disease with stage 1 through stage 4 chronic kidney disease, or unspecified chronic kidney disease Medical History Renal mass, right Medical History Pancreatic mass Medical History Primary insomnia Medical History Lumbar spondylosis Medical History Intermittent palpitations Medical History 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, right Medical History Subacromial impingement of left shoulder Medical History Gout Medical History Gastrocnemius strain, left Medical History Achilles tendinitis, left leg Medical History Bone cyst Medical History Hallux rigidus of left foot Medical History Acute gouty arthritis Surgical History pneumothorax Surgical History diagnostic laparoscopy Surgical History pancreatectomy, distal, laparas copic, with splenectomy Surgical History robot-assisted right radical ne phrectomy Surgical History knee arthroscopy Surgical History shoulder arthroscopy Surgical History cholecystectomy Surgical History Colonoscopy 2017 Hospitalization History see surgical history [employer] Other Reason for referral (narrative)* Diagnostic Procedure Only (Routine) - Closed Specialty Diagnoses / Procedures Referred By Serafin naqvi Referred To Contact MOLECULAR & FUNCTIONAL IMAGING Diagnoses Malignant neoplasm of right kidney, except renal pelvis (HCC) Procedures NM BONE WHOLE BODY BONE &/JOINT IMAGING WHOLE BODY Kenney Bangura MD [address], [place] [phone] Molecular & Functional Imaging [address] [place] [address] Referral ID Status Reason Start Date Expiration Date V isits Requested Visits Authorized [id number] Closed Auto-Generate d Referral 05/07/2022 06/21/2022 2 2 [facility] for referral (narrative)* Diagnostic Procedure Only (Routine) - Authorized Specialty Diagnoses / Procedures Referred By Contac t Referred To Contact US IMAGING Diagnoses Malignant neoplasm of right kidney (HCC) Procedures US KIDNEY/BLADDER US RETROPERITONEAL REAL TIME W/IMAGE COMPLETE Kenney Bangura MD [address] [place] [address] [facility] [place] [address] Referral ID Status Reason Start Date Expiration Date Visits Requested Visits Authorized [id number] Authorized Auto-Generat ed Referral 08/21/2023 09/19/2024 1 1 [facility] for visit Narrative* Diagnostic Procedure Only (Routine) - Closed Specialty Diagnoses / Procedures Referred By Contac t Referred To Contact MOLECULAR & FUNCTIONAL IMAGING Diagnoses Malignant neoplasm of right kidney, except renal pelvis (HCC) Procedures NM BONE WHOLE BODY BONE &/JOINT IMAGING WHOLE BODY Kenney Bangura MD [address], [place] [phone] Molecular & Functional Imaging [address] [place] [address] Referral ID Status Reason Start Date Expiration Date V isits Requested Visits Authorized [id number] Closed Auto-Generate d Referral 05/07/2022 06/21/2022 2 2 [facility] Reason for Referral Specialty Diagnoses / Procedures Referred By Contac t Referred To Contact CT IMAGING Diagnoses Malignant neoplasm of right kidney, except renal pelvis (HCC) Procedures CT CHEST W IVCON DIAGNOSTIC COMPUTED TOMOGRAPHY THORAX W/CONTRAST Kenney Bangura MD [address], [address] [address] [address] Imaging Referral ID Status Reason Start Date Expiration Date Visits Requested Visits Authorized [id number] Pending Review Auto-Generat ed Referral 05/02/2022 06/01/2023 1 1 Specialty Diagnoses / Procedures Referred By Contac t Referred To Contact MOLECULAR & FUNCTIONAL IMAGING Diagnoses Malignant neoplasm of right kidney, except renal pelvis (HCC) Procedures NM BONE WHOLE BODY BONE &/JOINT IMAGING WHOLE BODY Kenney Bangura MD [address], [address] [address] Molecular & Functional Imaging [address] [place] [address] Referral ID Status Reason Start Date Expiration Date Visits Requested Visits Authorized [id number] Pending Review Auto-Generat ed Referral 05/02/2022 06/01/2023 1 1 Specialty Diagnoses / Procedures Referred By Contac t Referred To Contact Diagnoses Malignant neoplasm of right kidney, except renal pelvis (HCC) Procedures REFER TO PACC - PRE ANESTHESIA CONSULTATION CLINIC OFFICE/OUTPATIENT [facility] HIGH MDM 60-74 MINUTES Kenney Bangura MD [address], [address] [address] Referral ID Status Reason Start Date Expiration Date Visits Requested Visits Authorized [id number] Authorized PCP Requested Referral 05/06/2022 05/05/2023 1 1 Specialty Diagnoses / Procedures Referred By Contac t Referred To Contact [facility] Diagnoses Malignant neoplasm of right kidney, except renal pelvis (HCC) Procedures ECG COMPLETE ECG ROUTINE ECG W/LEAST 12 LDS W/I&R Kenney Bangura MD [address], [address] [address] [facility] [place] [facility] [place] [address] Referral ID Status Reason Start Date Expiration Date Visits Requested Visits Authorized [id number] Pending Review Auto-Generat ed Referral 05/06/2022 05/05/2023 1 1 Specialty Diagnoses / Procedures Referred By Contac t Referred To Contact CT IMAGING Diagnoses Malignant neoplasm of right kidney (HCC) Mass of pancreas Procedures CT ABD/PEL W IVCON CT ABD & PELVIS W/CONTRAST Kenney Bangura MD [address], [address] [address] [address] Imaging Referral ID Status Reason Start Date Expiration Date Visits Requested Visits Authorized [id number] Pending Review Auto-Generat ed Referral 12/25/2022 07/26/2023 1 1 Specialty Diagnoses / Procedures Referred By Contac t Referred To Contact CT IMAGING Diagnoses Malignant neoplasm of right kidney (HCC) Malignant neoplasm of right kidney, except renal pelvis (HCC) Mass of pancreas Malignant neoplasm of body of pancreas (HCC) Procedures CT PANCREAS W IVCON CT ABDOMEN W/CONTRAST Pete Gupta MD [address] [place] [address] Ct Imaging Referral ID Status Reason Start Date Expiration Date Visits Requested Visits Authorized [id number] Pending Review Auto-Generat ed Referral 06/20/2022 07/20/2023 1 1 Specialty Diagnoses / Procedures Referred By Contac t Referred To Contact Diagnoses Malignant neoplasm of right kidney (HCC) Malignant neoplasm of right kidney, except renal pelvis (HCC) Mass of pancreas Malignant neoplasm of body of pancreas (HCC) Procedures CONSULT TO MEDICAL GENETICS - CANCER MEDICAL GENETICS COUNSELING EACH 30 MINUTES Pete Gupta MD [address] [place] [address] [place] [address] [place] [address] Referral ID Status Reason Start Date Expiration Date Visits Requested Visits Authorized [id number] Authorized PCP Requested Referral Auto-Generate d Referral 06/20/2022 06/20/2023 1 1 Specialty Diagnoses / Procedures Referred By Contac t Referred To Contact Nephrology Diagnoses Malignant neoplasm of right kidney (HCC) Procedures CONSULT TO NEPHROLOGY OFFICE/OUTPATIENT [facility] 60-74 MINUTES Kenney Bangura MD [address] [address] Referral ID Status Reason Start Date Expiration Date Visits Requested Visits Authorized [id number] Authorized PCP Requested Referral 12/26/2022 12/26/2023 1 1 Specialty Diagnoses / [facility] Ref[facility] To Contact CT IMAGING Diagnoses Malignant neoplasm of right kidney (HCC) Mass of pancreas Procedures CT ABD/PEL W IVCON CT ABD & PELVIS W/CONTRAST Kenney Bangura MD [address] [email or web address] [address] [place] [address] [address] [address] Referral ID Status Reason Start Date Expiration Date Visits Requested Visits Authorized [id number] Pending Review Auto-Generat ed Referral 07/27/2023 01/25/2024 1 1 Referral ID Status Reason Start Date Expiration Date V isits Requested Visits Authorized [id number] Closed Auto-Generate d Referral 12/15/2022 09/20/2023 1 1 Specialty Diagnoses / Procedures [facility] Referred To Contact CT IMAGING Diagnoses Malignant neoplasm of right kidney (HCC) Mass of pancreas Procedures CT ABD/PEL W IVCON CT ABD & PELVIS W/CONTRAST Kenney Bangura MD [address] [email or web address] [address] [place], [place] [id number] [place] [address] Referral ID Status Reason Start Date Expiration Date V isits Requested Visits Authorized [id number] Closed Auto-Generate d Referral 07/27/2023 01/25/2024 1 1 Specialty Diagnoses / Procedures [facility] Referred To Contact CT IMAGING Diagnoses Mass of pancreas Procedures CT PANCREAS W IVCON CT ABDOMEN W/CONTRAST Pete Gupta MD [address] [email or web address] [place] [phone] [place] [address] Referral ID Status Reason Start Date Expiration Date Visits Requested Visits Authorized [id number] Pending Review Auto-Generat ed Referral 08/28/2023 09/26/2024 1 1 Summary Purpose Family History No Family History Records FoundNo Family History Records FoundNo Family History Records Found Advance Directives No Advanced Directives Records FoundNo Advanced Directives Records FoundNo Advanced Directives Records Found Additional Source Comments Source Comments (unrecognize d section and content) In the event this informatio n is protected by the Federal Confidentiality of Alcohol and Drug Abuse Patient Records regulations: The Federal rules restrict any use of the information to criminally investigate or prosecute any alcohol or drug abuse patient.[facility] the event this information is protected by the Federal Confidentiality of Alcohol and Drug Abuse Patient Records regulations: The Federal rules restrict any use of the information to criminally investigate or prosecute any alcohol or drug abuse patient.[facility] HospitalIn the event this information is protected by the Federal Confidentiality of Alcohol and Drug Abuse Patient Records regulations: The Federal rules restrict any use of the information to criminally investigate or prosecute any alcohol or drug abuse patient.[facility] HospitalIn the event this information is protected by the Federal Confidentiality of Alcohol and Drug Abuse Patient Records regulations: The Federal rules restrict any use of the information to criminally investigate or prosecute any alcohol or drug abuse patient.[facility] HospitalIn the event this information is protected by the Federal Confidentiality of Alcohol and Drug Abuse Patient Records regulations: The Federal rules restrict any use of the information to criminally investigate or prosecute any alcohol or drug abuse patient.[facility] HospitalIn the event this information is protected by the Federal Confidentiality of Alcohol and Drug Abuse Patient Records regulations: The Federal rules restrict any use of the information to criminally investigate or prosecute any alcohol or drug abuse patient.[facility] HospitalIn the event this information is protected by the Federal Confidentiality of Alcohol and Drug Abuse Patient Records regulations: The Federal rules restrict any use of the information to criminally investigate or prosecute any alcohol or drug abuse patient.[facility] HospitalIn the event this information is protected by the Federal Confidentiality of Alcohol and Drug Abuse Patient Records regulations: The Federal rules restrict any use of the information to criminally investigate or prosecute any alcohol or drug abuse patient.[facility] HospitalIn the event this information is protected by the Federal Confidentiality of Alcohol and Drug Abuse Patient Records regulations: The Federal rules restrict any use of the information to criminally investigate or prosecute any alcohol or drug abuse patient.[facility] HospitalIn the event this information is protected by the Federal Confidentiality of Alcohol and Drug Abuse Patient Records regulations: The Federal rules restrict any use of the information to criminally investigate or prosecute any alcohol or drug abuse patient.[facility] HospitalIn the event this information is protected by the Federal Confidentiality of Alcohol and Drug Abuse Patient Records regulations: The Federal rules restrict any use of the information to criminally investigate or prosecute any alcohol or drug abuse patient.[facility] HospitalIn the event this information is protected by the Federal Confidentiality of Alcohol and Drug Abuse Patient Records regulations: The Federal rules restrict any use of the information to criminally investigate or prosecute any alcohol or drug abuse patient.[facility] HospitalIn the event this information is protected by the Federal Confidentiality of Alcohol and Drug Abuse Patient Records regulations: The Federal rules restrict any use of the information to criminally investigate or prosecute any alcohol or drug abuse patient.[facility] HospitalIn the event this information is protected by the Federal Confidentiality of Alcohol and Drug Abuse Patient Records regulations: The Federal rules restrict any use of the information to criminally investigate or prosecute any alcohol or drug abuse patient.[facility] HospitalIn the event this information is protected by the Federal Confidentiality of Alcohol and Drug Abuse Patient Records regulations: The Federal rules restrict any use of the information to criminally investigate or prosecute any alcohol or drug abuse patient.[facility] HospitalIn the event this information is protected by the Federal Confidentiality of Alcohol and Drug Abuse Patient Records regulations: The Federal rules restrict any use of the information to criminally investigate or prosecute any alcohol or drug abuse patient.[facility] HospitalIn the event this information is protected by the Federal Confidentiality of Alcohol and Drug Abuse Patient Records regulations: The Federal rules restrict any use of the information to criminally investigate or prosecute any alcohol or drug abuse patient.[facility] HospitalIn the event this information is protected by the Federal Confidentiality of Alcohol and Drug Abuse Patient Records regulations: The Federal rules restrict any use of the information to criminally investigate or prosecute any alcohol or drug abuse patient.[facility] HospitalIn the event this information is protected by the Federal Confidentiality of Alcohol and Drug Abuse Patient Records regulations: The Federal rules restrict any use of the information to criminally investigate or prosecute any alcohol or drug abuse patient.[facility] HospitalIn the event this information is protected by the Federal Confidentiality of Alcohol and Drug Abuse Patient Records regulations: The Federal rules restrict any use of the information to criminally investigate or prosecute any alcohol or drug abuse patient.[facility] HospitalIn the event this information is protected by the Federal Confidentiality of Alcohol and Drug Abuse Patient Records regulations: The Federal rules restrict any use of the information to criminally investigate or prosecute any alcohol or drug abuse patient.[facility] HospitalIn the event this information is protected by the Federal Confidentiality of Alcohol and Drug Abuse Patient Records regulations: The Federal rules restrict any use of the information to criminally investigate or prosecute any alcohol or drug abuse patient.[facility] HospitalIn the event this information is protected by the Federal Confidentiality of Alcohol and Drug Abuse Patient Records regulations: The Federal rules restrict any use of the information to criminally investigate or prosecute any alcohol or drug abuse patient.[facility] HospitalIn the event this information is protected by the Federal Confidentiality of Alcohol and Drug Abuse Patient Records regulations: The Federal rules restrict any use of the information to criminally investigate or prosecute any alcohol or drug abuse patient.[facility] HospitalIn the event this information is protected by the Federal Confidentiality of Alcohol and Drug Abuse Patient Records regulations: The Federal rules restrict any use of the information to criminally investigate or prosecute any alcohol or drug abuse patient.[facility] HospitalIn the event this information is protected by the Federal Confidentiality of Alcohol and Drug Abuse Patient Records regulations: The Federal rules restrict any use of the information to criminally investigate or prosecute any alcohol or drug abuse patient.[facility] HospitalIn the event this information is protected by the Federal Confidentiality of Alcohol and Drug Abuse Patient Records regulations: The Federal rules restrict any use of the information to criminally investigate or prosecute any alcohol or drug abuse patient.[facility] HospitalIn the event this information is protected by the Federal Confidentiality of Alcohol and Drug Abuse Patient Records regulations: The Federal rules restrict any use of the information to criminally investigate or prosecute any alcohol or drug abuse patient.[facility] HospitalIn the event this information is protected by the Federal Confidentiality of Alcohol and Drug Abuse Patient Records regulations: The Federal rules restrict any use of the information to criminally investigate or prosecute any alcohol or drug abuse patient.[facility] HospitalIn the event this information is protected by the Federal Confidentiality of Alcohol and Drug Abuse Patient Records regulations: The Federal rules restrict any use of the information to criminally investigate or prosecute any alcohol or drug abuse patient.[facility] HospitalIn the event this information is protected by the Federal Confidentiality of Alcohol and Drug Abuse Patient Records regulations: The Federal rules restrict any use of the information to criminally investigate or prosecute any alcohol or drug abuse patient.[facility] HospitalIn the event this information is protected by the Federal Confidentiality of Alcohol and Drug Abuse Patient Records regulations: The Federal rules restrict any use of the information to criminally investigate or prosecute any alcohol or drug abuse patient.[facility] HospitalIn the event this information is protected by the Federal Confidentiality of Alcohol and Drug Abuse Patient Records regulations: The Federal rules restrict any use of the information to criminally investigate or prosecute any alcohol or drug abuse patient.[facility] HospitalIn the event this information is protected by the Federal Confidentiality of Alcohol and Drug Abuse Patient Records regulations: The Federal rules restrict any use of the information to criminally investigate or prosecute any alcohol or drug abuse patient.[facility] HospitalIn the event this information is protected by the Federal Confidentiality of Alcohol and Drug Abuse Patient Records regulations: The Federal rules restrict any use of the information to criminally investigate or prosecute any alcohol or drug abuse patient.[facility] HospitalIn the event this information is protected by the Federal Confidentiality of Alcohol and Drug Abuse Patient Records regulations: The Federal rules restrict any use of the information to criminally investigate or prosecute any alcohol or drug abuse patient.[facility] HospitalIn the event this information is protected by the Federal Confidentiality of Alcohol and Drug Abuse Patient Records regulations: The Federal rules restrict any use of the information to criminally investigate or prosecute any alcohol or drug abuse patient.[facility] HospitalIn the event this information is protected by the Federal Confidentiality of Alcohol and Drug Abuse Patient Records regulations: The Federal rules restrict any use of the information to criminally investigate or prosecute any alcohol or drug abuse patient.[facility] Reason for Visit (unrecogniz ed section and content) Reason Comments [employer] - Other Reason Comments Radiology NM Specialty Diagnoses / Procedures Referred By Contac t Referred To Contact MOLECULAR & FUNCTIONAL IMAGING Diagnoses Malignant neoplasm of right kidney, except renal pelvis (HCC) Procedures NM BONE WHOLE BODY BONE &/JOINT IMAGING WHOLE BODY Kenney Bangura MD [address] [id number] Molecular & Functional Imaging [address] [place] [address] Referral ID Status Reason Start Date Expiration Date V isits Requested Visits Authorized [id number] Closed Auto-Generate d Referral 05/07/2022 06/21/2022 2 2 Reason Comments Pre-Op Visit Reason Comments Pre-Op Exam Reason Comments New Patient Reason Comments Appointment Reason Comments Established Patient Reason Comments Follow Up Reason Comments Post Op Reason Comments Post Op Reason Comments Post-Op Visit Specialty Diagnoses / Procedures [facility] Referred To Contact Diagnoses Malignant neoplasm of right kidney (HCC) Malignant neoplasm of right kidney, except renal pelvis (HCC) Mass of pancreas Malignant neoplasm of body of pancreas (HCC) Procedures CONSULT TO MEDICAL GENETICS - CANCER MEDICAL GENETICS COUNSELING EACH 30 MINUTES Pete Gupta MD [facility] [place] [address] [place] [address] Referral ID Status Reason Start Date Expiration Date V isits Requested Visits Authorized [id number] Closed PCP Requested Referral Auto-Generated Referral 06/20/2022 06/20/2023 1 1 Reason Comments Patient Update Reason Comments Results Reason Comments Cancer Established Patient Reason Comments Radiology CT Specialty Diagnoses / Procedures [facility] Referred To Contact CT IMAGING Diagnoses Malignant neoplasm of right kidney (HCC) Mass of pancreas Procedures CT ABD/PEL W IVCON CT ABD & PELVIS W/CONTRAST Kenney Bangura MD [phone] Imaging Referral ID Status Reason Start Date Expiration Date V isits Requested Visits Authorized [id number] Closed Auto-Generate d Referral 12/15/2022 09/20/2023 1 1 Reason Comments Consult Specialty Diagnoses / Procedures [facility] Referred To Contact CT IMAGING Diagnoses Malignant neoplasm of right kidney (HCC) Mass of pancreas Procedures CT ABD/PEL W IVCON CT ABD & PELVIS W/CONTRAST Kenney Bangura MD [address] [place] [address] [place] [address] Referral ID Status Reason Start Date Expiration Date V isits Requested Visits Authorized [id number] Closed Auto-Generate d Referral 07/27/2023 01/25/2024 1 1 Reason Comments Radio Gen HB6 Reason Comments Pancreatic Mass Reason Comments Follow Up (unrecognized sect ion and content) No Status Records FoundNo Status Records FoundNo Status Records Found INFORMATION SOURCE (unrecogn ized section and content) DATE CREATED AUTHOR 01/19/2023 [facility] DATE CREATED AUTHOR AUTHOR'S ORGANIZ ATION 08/29/2023 [facility] DATE CREATED AUTHOR AUTHOR'S ORGANIZ ATION 11/23/2023 [facility] FOR RECORDS PERTAINING TO PATIENTS WHO ARE OR HAVE BEEN ENROLLED IN A CHEMICAL DEPENDENCY/SUBSTANCEABUSE PROGRAM, SOME INFORMATION MAY BE OMITTED. This clinical summary was aggregated from multiple sources. Caution should be exercised in using it in the provision of clinical care. This summary normalizes information from multiple sources, and as a consequence, information in this document may materially change the coding, format and clinical context of patient data. In addition, data may be omitted in some cases. CLINICAL DECISIONS SHOULD BE BASED ON THE PRIMARY CLINICAL RECORDS. [email or web address] provides no warranty or guarantee of the accuracy or completeness of information in this document.
[2024-02-08 10:39] LABS: Basophils Absolute Auto 0.1 10^3/uL (0.0-0.1); Basophils Percent Auto 0.7 % (0.2-2.0); Eosinophils Absolute Auto 0.3 10^3/uL (0.0-0.7); Eosinophils Percent Auto 2.4 % (0.9-7.0); Hematocrit 42.9 % (42.0-54.0); Hemoglobin 14.4 g/dL (14.0-18.0); Immature Granulocytes Abs Auto 0.06 10^3/uL (0.00-0.03); Immature Granulocytes Pct Auto 0.6 % (0.0-0.5); Lymphocytes Absolute Auto 3.7 10^3/uL (1.2-3.8); Lymphocytes Percent Auto 34.9 % (20.5-60.0); Mean Corpuscular HGB Conc 33.6 g/dL (29.9-35.2); Mean Corpuscular Hemoglobin 30.8 pg (25.9-34.0); Mean Corpuscular Volume 91.9 fL (80.0-94.0); Mean Platelet Volume 9.4 fL (9.5-13.5); Monocytes Absolute Auto 0.7 10^3/uL (0.3-0.8); Monocytes Percent Auto 6.6 % (1.7-12.0); Neutrophils Absolute Auto 5.9 10^3/uL (1.4-6.5); Neutrophils Percent Auto 54.8 % (43.0-75.0); Platelet Count 335 10^3/uL (150-450); Red Blood Count 4.67 10^6/uL (4.70-6.10); Red Cell Distribution Width 15.3 % (11.0-15.0); White Blood Count 10.7 10^3/uL (4.0-11.0)
[2024-02-08 11:00] LABS: Microalbumin Urine Random <1.3 mg/dL (<=30.0)
[2024-02-08 11:09] LABS: Alanine Aminotransferase 34 U/L (16-63); Albumin Globulin Ratio 0.9; Albumin Level 3.6 g/dL (3.4-5.0); Alkaline Phosphatase 98 U/L (46-116); Anion Gap 12.8; Aspartate Amino Transferase 20 U/L (15-37); BUN Creatinine Ratio 16.2; Bilirubin Total 0.6 mg/dL (0.2-1.0); Calcium 10.1 mg/dL (8.5-10.1); Carbon Dioxide 22.7 mmol/L (21.0-32.0); Chloride 105 mmol/L (98-107); Chol HDL Ratio 3.3; Cholesterol 140 mg/dL (<=200); Estimated GFR (African America 46 (>=60); Estimated GFR (Non-African Ame 38 (>=60); Glucose 116 mg/dL (74-106); HDL Cholesterol 42 mg/dL (40-60); LDL Cholesterol Calculated 73.8 mg/dL; Potassium 4.5 mmol/L (3.5-5.1); Sodium 136 mmol/L (136-145); Total Protein 7.6 g/dL (6.4-8.2); Triglycerides 121 mg/dL (<=150); VLDL CHOLESTEROL 24.2 mg/dL
[2024-02-08 11:39] LABS: Estimated Average Glucose 131 mg/dL; Glycohemoglobin A1C 6.2 % (4.5-6.2)
== END 2024-02-08 10:14 | disposition home or self-care (01) ==
LOC: LAB 10:14
PROVIDERS: PCP Internal Medicine; Visit Provider Internal Medicine
DX: Z00.00 Encounter for general adult medical examination without abnormal findings (principal)
CPT/HCPCS: 36415; 80053; 80061; 82043; 83036; 85025

== ENCOUNTER 2024-03-07 07:59 | Outpatient (OUT) | payer BC, SELFPAY ==
--- OUTSIDE RECORDS SUMMARY | 2024-03-04 09:46 | XMS_ITS | CCD ---
Author Organization [facility] Care Team Providers Care Administrative Office Manager Name Role Phone Unavailable Primary Care Provider [...] Unavailable BALL, DR HARRISON Primary Care Unavailable WEST, DR CANDICE Nazario Consulting Unavailable ZIEBER, DR [...] Unavailable BALL, DR HARRISON Primary Care Unavailable Odalys, Isreal Unavailable Jason Neri Attending Jason Arenas Admitting Isreal Lockwood Primary Care Unavailable KENNEY BANGURA Attending Unavailable BANGURA, KENNEY Referring Unavailable BANGURA, KENNEY Referring Unavailable BANGURA, KENNEY Referring Unavailable BANGURA, KENNEY Referring Unavailable JEFF DUNCAN Attending Unavailable BANGURA, KENNEY Referring Unavailable PETE GUPTA Attending Unavailable BANGURAKENNEY COATES Attending Unavailable BANGURA, KENNEY Referring Unavailable BANGURA, KENNEY Referring Unavailable LYDIA GODINEZ Attending Unavailab le BANGURA, KENNEY Referring Unavailable PETE GUPTA Attending Unavailable Allergies Allergy Classification Reported Allergen(s) Allergy Type Date of Onset Reaction(s) Facility (1 source) patient allergy list reviewed by nurse or physicia Propensity to adverse reactions Comment:Done Archetypes Other (1 source) Allergies Reconciled Propensity to adverse reactions Unknown Archetypes Other Medications Current Medications Medication Drug Class(es) Dates Sig (Normalized) Sig (Original) allopurinol 300 mg oral tablet (20 sources) Xanthine Oxidase Inhibitor Start: 01-12-2024 take 300 mg by mouth once daily Allopurinol Active 300 MG PO Daily January 12, 2024 12:00am Start: 03-06-2022 take 1 tablet by moshe th once daily allopurinol (ZYLOPRIM) 300 mg tablet Take 300 mg by mouth once daily. 0 03/06/2022 Active Comment on above: Take 300 mg by mouth once daily. amLODIPine 5 mg / benazepril hydrochloride 40 mg oral capsule (20 sources) Dihydropyridine Calcium Channel Lj, Angiotensin Converting Enzyme Inhibitor Start: 4 End: 4 take 1 capsule by mouth once daily Amlodipine-Eduardo azepril Active 1 CAP PO Daily 90 90 January 12, 2024 12:29pm Start: 03-19-2022 take 1 capsule by mo uth once daily amLODIPine-Benazepril 5-40 mg per capsule Take 1 capsule by mouth once daily. 0 03/19/2022 Active amLODIPine Besy- Benazepril HCl 5-40 MG as directed Orally Active Comment on above: Take 1 capsule by mo uth once daily. atenolol 50 mg oral tablet (20 sources) beta-Adrenergic Lj Start: 01-12-2024 take 50 mg by mouth once daily Atenolol Active 50 MG PO Daily January 12, 2024 12:00am Start: 02-18-2022 take 1 tablet by moshe th once daily atenolol (TENORMIN) 50 mg tablet Take 50 mg by mouth once daily. 0 02/18/2022 Active Comment on above: Take 50 mg by mouth once daily. iv contrast (will be provided with radiology [...] nee ded. Take 2 tablets by mo uth every 6 hours as needed for pain for up to 15 days. colchicine 0.6 mg oral tablet (20 sources) [...] palpitations; Translations: [Palpitations] Episodic Chronic kidney disease (15 sources) Chronic kidney disease stage 3A ; Translations: [Chronic kidney disease, stage 3a] Onset: 12-29-2018 Chronic Chronic kidney disease (5 sources) Chronic kidney disease; Translations: [CHRONIC KIDNEY DISEASE STAGE 3A] Onset: 04-03-2022 Diabetes mellitus without complication (14 sources) Impaired fasting glycemia; Translations: [Impaired fasting [...] leg] Episodic Other and unspecified benign neoplasm (6 sources) Neuroendocrine tumor of pancreas; Translations: [Other benign neuroendocrine tumors] 2024 Episodic Other and unspecified benign neoplasm (3 sources) Other benign neuroendocrine tumors; Translations: [Benign carcinoid tumor of other sites] Episodic Other bone disease and musculoskeletal deformities [...] Spondylosis; intervertebral disc disorders; other back problems (8 sources) Lumbar spondylosis; Translations: [Spondylosis without myelopathy or radiculopathy, lumbar region] 2024 Chronic Spondylosis; intervertebral disc disorders; other back [...] Test Name Value Interpretation Reference Range Facility [facility] 11-18-2023 CNOV Office Visit (PAULETTE ) CANDICE MITCHELL ([id number]) 1960 M Date Time Provider Department 11/18/23 11:20 AM LYDIA GODINEZ During your visit today, we recorded the following information about you: Temperature Pulse Blood pressure Weight 97.9 degrees 59/minute 120/76 120.9 kg Height 1.727 m Lydia Godinez, JOAQUIN.FIELD MERCHANDISER 11/20/2023 3:02 PM Signed [facility] NEPHROLOGY AND HYPERTENSION [facility] SERVICE DATE: 11/18/2023 SERVICE TIME: 11:07 AM A portion of this note has been copied from [facility] dated 02/25/23 CHIEF COMPLAINT: follow-up CKD HPI: Mr. 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 [facility] 02/25/[address] Duncan for initial consultation [...] x 3 (more content not included)... Normal [facility] URINALYSIS, REFLEX MICROSCOP ICon 11-18-2023 Bilirubin Ql (U) Negative Normal Negative [facility] Comment on above: Order Comment: Speci men Type: URINE SPECIMENOrdering Facility: [facility] Address: [address] [place] [address] Performed By: #### L [id number] ####[facility] LABIA [id number] [place] [address] [place] Clarity (Unsp spec) Clear Normal Clear [facility] Comment on above: Order Comment: Speci men Type: URINE SPECIMENOrdering Facility: [facility] Address: [address] [place] [address] Performed By: #### L [id number] ####[facility] LABCLIA [id number] [place] [address] [place] Color (U) Yellow Normal Yellow [facility] Comment on above: Order Comment: Speci men Type: URINE SPECIMENOrdering Facility: [facility] Address: [address] [place] [address] Performed By: #### L [id number] ####[facility] LABCLIA [id number] [place] [address] [place] Glucose Test strip (U) [Mass/Vol] Negative Normal Trace, Negative [facility] Comment on above: Order Comment: Speci men Type: URINE SPECIMENOrdering Facility: [facility] Address: [address] [place] [address] Performed By: #### L [id number] ####[facility] LABCLIA [id number] [place] [address] [place] Hemoglobin Ql (U) Negative Normal Negative, Trace [facility] Comment on above: Order Comment: Speci men Type: URINE SPECIMENOrdering Facility: [facility] Address: [address] [place] [address] Performed By: #### L [id number] ####[facility] LABCLIA [id number] [place] [address] [place] Ketones Ql (U) Negative Normal Negative, Trace [facility] Comment on above: Order Comment: Speci men Type: URINE SPECIMENOrdering Facility: [facility] Address: [address] [place] [address] Performed By: #### L [id number] ####[facility] LABCLIA [id number] [place] [address] [place] Leukocyte esterase Test strip Ql (U) Negative Normal Negative, 25 Pia/uL [facility] Comment on above: Order Comment: Speci men Type: URINE SPECIMENOrdering Facility: [facility] Address: [address] [place] [address] Performed By: #### L [id number] ####[facility] LABCLIA [id number] [place] [address] [place] Nitrite Ql (U) Negative Normal Negative [facility] Comment on above: Order Comment: Speci men Type: URINE SPECIMENOrdering Facility: [facility] Address: [address] [place] [address] Performed By: #### L [id number] ####[facility] LABCLIA [id number] [place] [address] [place] pH (U) 5.5 [pH] Normal 5.0-8.0 [facility] Comment on above: Order Comment: Speci men Type: URINE SPECIMENOrdering Facility: [facility] Address: [address] [place] [address] Performed By: #### L [id number] ####[facility] LABIA [id number] [place] [address] [place] Protein (U) [Mass/Vol] Trace Normal Trace, Negative [facility] Comment on above: Order Comment: Speci men Type: URINE SPECIMENOrdering Facility: [facility] Address: [address] [place] [address] Performed By: #### L [id number] ####[facility] LABIA [id number] [place] [address] [place] Specific gravity (U) [Rel density] 1.026 Normal 1.005-1.030 [facility] Comment on above: Order Comment: Speci men Type: URINE SPECIMENOrdering Facility: [facility] Address: [address] [place] [address] Performed By: #### L [id number] ####[facility] LABIA [id number] [place] [address] [place] Urobilinogen Ql (U) Normal Normal Normal [facility] Comment on above: Order Comment: Speci men Type: URINE SPECIMENOrdering Facility: [facility] Address: [address] [place] [address] Performed By: #### L [id number] ####[facility] LABIA [id number] [facility] [id number] [id number] [place] Bilirubin Ql (U) Negative Negative [facility] Clarity (Unsp spec) Clear Clear [facility] Color (U) Yellow Yellow [facility] Glucose Test strip (U) [Mass/Vol] Negative Trace, Negative [facility] Hemoglobin Ql (U) Negative Negative, Trace [facility] Ketones Ql (U) Negative Negative, Trace [facility] Leukocyte esterase Test strip Ql (U) Negative Negative, 25 Pia/uL [facility] Nitrite Ql (U) Negative Negative [facility] pH (U) 5.5 [pH] 5.0 - 8.0 [facility] Protein (U) [Mass/Vol] Trace Trace, Negative [facility] Specific gravity (U) [Rel density] 1.026 1.005 - 1.030 [facility] Urobilinogen Ql (U) Normal Normal [facility] Comprehensive metabolic 2000 panelon 09-25-2023 Albumin [Mass/Vol] 4.3 g/dL Normal 3.9-4.9 [facility] Comment on above: Order Comment: Speci men Type: BLOOD SPECIMENOrdering Facility: [facility] Address: [address] [place] [address] Performed By: #### 2 4323-8 ####[facility] LABIA [id number] [place] [address] ALP [Catalytic activity/Vol] 94 U/L Normal 38-113 [facility] Comment on above: Order Comment: Speci men Type: BLOOD SPECIMENOrdering Facility: [facility] Address: [address] [place] [address] Performed By: #### 2 4323-8 ####[facility] LABCLIA [id number] [place] [address] ALT [Catalytic activity/Vol] 20 U/L Normal 10-54 [facility] Comment on above: Order Comment: Speci men Type: BLOOD SPECIMENOrdering Facility: [facility] Address: [address] [place] [address] Performed By: #### 2 4323-8 ####[facility] LABCLIA [id number] [place] [address] Anion gap [Moles/Vol] 11 mmol/L Normal 9-18 [facility] Comment on above: Order Comment: Speci men Type: BLOOD SPECIMENOrdering Facility: [facility] Address: [address] [place] [address] Performed By: #### 2 4323-8 ####[facility] LABCLIA [id number] [place] [address] AST [Catalytic activity/Vol] 19 U/L Normal 14-40 [facility] Comment on above: Order Comment: Speci men Type: BLOOD SPECIMENOrdering Facility: [facility] Address: [address] [place] [address] Performed By: #### 2 4323-8 ####[facility] LABCLIA [id number] [place] [address] Bilirubin [Mass/Vol] 0.6 mg/dL Normal 0.2-1.3 [facility] Comment on above: Order Comment: Speci men Type: BLOOD SPECIMENOrdering Facility: [facility] Address: [address] [place] [address] Performed By: #### 2 4323-8 ####[facility] LABCLIA [id number] [place] [address] Calcium [Mass/Vol] 10.6 mg/dL High 8.5-10.2 [facility] Comment on above: Order Comment: Speci men Type: BLOOD SPECIMENOrdering Facility: [facility] Address: [address] [place] [address] Performed By: #### 2 4323-8 ####[facility] LABCLIA [id number] [place] [address] Chloride [Moles/Vol] 108 mmol/L High 97-105 [facility] Comment on above: Order Comment: Speci men Type: BLOOD SPECIMENOrdering Facility: [facility] Address: [address] [place] [address] Performed By: #### 2 4323-8 ####[facility] LABCLIA [id number] [place] [address] CO2 [Moles/Vol] 24 mmol/L Normal 22-30 [facility] Comment on above: Order Comment: Speci men Type: BLOOD SPECIMENOrdering Facility: [facility] Address: [address] [place] [address] Performed By: #### 2 4323-8 ####[facility] LABCLIA [id number] [place] [address] Creatinine [Mass/Vol] 1.85 mg/dL High 0.73-1.22 [facility] Comment on above: Order Comment: Speci men Type: BLOOD SPECIMENOrdering Facility: [facility] Address: [address] [place] [address] Performed By: #### 2 4323-8 ####[facility] LABCLIA [id number] [place] [address] Creatinine and Glomerular filtration rate.predicted panel (S/P/Bld) 40 mL/min/1.73m??? Low >=60 [facility] Comment on above: Order Comment: Speci men Type: BLOOD SPECIMENOrdering Facility: [facility] Address: [address] [place] [address] Result Comment: Kasie mated Glomerular Filtration Rate [...] actual GFR. Performed By: #### 2 4323-8 ####[facility] LABCLIA [id number] [place] [address] Glucose [Mass/Vol] 127 mg/dL High 74-99 [facility] Comment on above: Order Comment: Speci men Type: BLOOD SPECIMENOrdering Facility: [facility] Address: [address] [place] [id number] Result Comment: The [place] Diabetes Association (ADA) provides guidance for cutoff [...] Standards of Medical Care in Diabetes 2016, [place] [employer]. Diabetes Care. 2016.39(Suppl 1). Performed By: #### 2 4323-8 ####[facility] LABCLIA [id number] [place] [address] Potassium [Moles/Vol] 4.9 mmol/L Normal 3.7-5.1 [facility] Comment on above: Order Comment: Speci men Type: BLOOD SPECIMENOrdering Facility: [facility] Address: [address] [place] [address] Performed By: #### 2 4323-8 ####[facility] LABCLIA [id number] [place] [address] Protein [Mass/Vol] 7.4 g/dL Normal 6.3-8.0 [facility] Comment on above: Order Comment: Speci men Type: BLOOD SPECIMENOrdering Facility: [facility] Address: [address] [place] [address] Performed By: #### 2 4323-8 ####[facility] LABCLIA [id number] [place] [address] Sodium [Moles/Vol] 143 mmol/L Normal 136-144 [facility] Comment on above: Order Comment: Speci men Type: BLOOD SPECIMENOrdering Facility: [facility] Address: [address] [place] [address] Performed By: #### 2 4323-8 ####[facility] LABCLIA [id number] [place] [address] Urea nitrogen [Mass/Vol] 32 mg/dL High 9-24 [facility] Comment on above: Order Comment: Speci men Type: BLOOD SPECIMENOrdering Facility: [facility] Address: [address] [place] [address] Performed By: #### 2 4323-8 ####[facility] LABCLIA [id number] [place] [address] PSA SerPl-ncon 09-25-2023 Prostate specific Ag [Mass/Vol] 1.44 ng/mL Normal <2.60 [facility] Comment on above: Order Comment: Speci men Type: BLOOD SPECIMENOrdering Facility: [facility] Address: [address] [place] [address] Result Comment: Tota l PSA test methodology used is the Electrochemiluminescence Immunoassay by [employer]. Total PSA values by differing methodologies cannot be interchanged. Performed By: #### 2 857-1 ####[facility] LABCLIA [id number] [address] OF [facility] CNOVon 08-21-2023 CNOV Office Visit (UROLMN ) CANDICE MITCHELL ([id number]) 1960 M Date Time Provider Department 08/21/23 2:00 PM KENNEY BANGURA During your visit today, we recorded the following information about you: Pulse Blood pressure Weight Height 66/minute 152/85 121.1 kg 1.727 m Kenney Bangura MD 08/28/2023 10:51 AM Signed PATIENT: Candice Stephen [id number] 08/21/2023 Chief Complaint: Follow up This clinic [...] repair ( (more content not included)... Normal [facility] CREATININE, BLOOD (POC)on Creatinine [Mass/Vol] 1.80 mg/dL Abnormal 0.7 - 1.4 mg/dL [facility] eGFR (POCT) 42 mL/min/1.[address] [facility] [address] ABD/PEL W IVCONon 023 CT ABD/PEL W IVCON * * *Final Report* * * * * * SEE BOTTOM OF REPORT FOR ADDENDED TEXT * * * DATE OF EXAM: Aug 21 2023 12:59PM [facility] 0530 - CT ABD/PEL W IVCON / [...] areas of atelectasis/scarring in the lung bases. Blanket Washer (topogram) images: No additional findings. IMPRESSION: Stable [...] of the clinical team. --END OF FINDING-- Plant Control Aide: CARLEEN Transcribe Date/Time: Aug 28 2023 9:14A Dictated by : CODY ZENDEJAS MD This examination was interpreted and the report reviewed and electronically signed by: CODY ZENDEJAS MD on Aug 21 2023 2:54PM EST This document has been addended by: CODY ZENDEJAS MD on Aug 28 2023 9:19AM EST [id number] Normal [facility] URINALYSIS, REFLEX MICROSCOP ICon 08-21-2023 Bilirubin Ql (U) Negative Normal Negative [facility] Comment on above: Order Comment: Speci men Type: URINE SPECIMENOrdering Facility: [facility] Address: [address] [place] [address] Performed By: #### L [id number] ####[facility] LABCLIA [id number] [place] [address] [place] Clarity (Unsp spec) Clear Normal Clear [facility] Comment on above: Order Comment: Speci men Type: URINE SPECIMENOrdering Facility: [facility] Address: [address] [place] [address] Performed By: #### L [id number] ####[facility] LABCLIA [id number] [place] [address] [place] Color (U) Light Yellow Normal Yellow [facility] Comment on above: Order Comment: Speci men Type: URINE SPECIMENOrdering Facility: [facility] Address: [address] [place] [address] Performed By: #### L [id number] ####[facility] LABCLIA [id number] [place] [address] [place] Glucose Test strip (U) [Mass/Vol] Negative Normal Trace, Negative [facility] Comment on above: Order Comment: Speci men Type: URINE SPECIMENOrdering Facility: [facility] Address: [address] [place] [address] Performed By: #### L [id number] ####[facility] LABCLIA [id number] [place] [address] [place] Hemoglobin Ql (U) Negative Normal Negative, Trace [facility] Comment on above: Order Comment: Speci men Type: URINE SPECIMENOrdering Facility: [facility] Address: [address] [place] [address] Performed By: #### L [id number] ####[facility] LABCLIA [id number] [place] [address] [place] Ketones Ql (U) Negative Normal Negative, Trace [facility] Comment on above: Order Comment: Speci men Type: URINE SPECIMENOrdering Facility: [facility] Address: [address] [place] [address] Performed By: #### L [id number] ####[facility] LABCLIA [id number] [place] [address] [place] Leukocyte esterase Test strip Ql (U) Negative Normal Negative, 25 Pia/uL [facility] Comment on above: Order Comment: Speci men Type: URINE SPECIMENOrdering Facility: [facility] Address: [address] [place] [address] Performed By: #### L [id number] ####[facility] LABCLIA [id number] [place] [address] [place] Nitrite Ql (U) Negative Normal Negative [facility] Comment on above: Order Comment: Speci men Type: URINE SPECIMENOrdering Facility: [facility] Address: [address] [place] [address] Performed By: #### L [id number] ####[facility] LABCLIA [id number] [place] [address] [place] pH (U) 5.5 [pH] Normal 5.0-8.0 [facility] Comment on above: Order Comment: Speci men Type: URINE SPECIMENOrdering Facility: [facility] Address: [address] [place] [address] Performed By: #### L [id number] ####[facility] LABIA [id number] [place] [address] [place] Protein (U) [Mass/Vol] Negative Normal Trace, Negative [facility] Comment on above: Order Comment: Speci men Type: URINE SPECIMENOrdering Facility: [facility] Address: [address] [place] [address] Performed By: #### L [id number] ####[facility] LABCLIA [id number] [place] [address] [place] Specific gravity (U) [Rel density] 1.035 High 1.005-1.030 [facility] Comment on above: Order Comment: Speci men Type: URINE SPECIMENOrdering Facility: [facility] Address: [address] [place] [address] Performed By: #### L [id number] ####[facility] LABCLIA [id number] [place] [address] [place] Urobilinogen Ql (U) Negative Normal Negative [facility] Comment on above: Order Comment: Speci men Type: URINE SPECIMENOrdering Facility: [facility] Address: [address] [place] [address] Performed By: #### L [id number] ####[facility] LABCLIA [id number] [place] [address] [place] Bilirubin Ql (U) Negative Negative [facility] Clarity (Unsp spec) Clear Clear [facility] Color (U) Light Yellow Yellow [facility] Glucose Test strip (U) [Mass/Vol] Negative Trace, Negative [facility] Hemoglobin Ql (U) Negative Negative, Trace [facility] Ketones Ql (U) Negative Negative, Trace [facility] Leukocyte esterase Test strip Ql (U) Negative Negative, 25 Pia/uL [facility] Nitrite Ql (U) Negative Negative [facility] pH (U) 5.5 [pH] 5.0 - 8.0 [facility] Protein (U) [Mass/Vol] Negative Trace, Negative [facility] Specific gravity (U) [Rel density] 1.035 High 1.005 - 1.030 [facility] Urobilinogen Ql (U) Negative Negative [facility] XR CHEST 2V FRONTAL/LATon XR CHEST 2V [...] of the thoracic spine. IMPRESSION: See Result. Plant Control Aide: PSCFei Transcribe Date/Time: Aug 21 2023 12:48P Dictated by : CHRISTIANNE BRITO MD This examination was interpreted and the report reviewed and electronically signed by: CHRISTIANNE BRITO MD on Aug 21 2023 12:49PM EST [id number] Normal [facility] Complete Blood Count Auto Di ffon 08-20-2023 Basophils (Bld) [#/Vol] 0.1 10*3/uL Normal 0.0-0.2 [facility] Comment on above: Result Comment: PERF ORMED BY: [place] [address] PATHOLOGIST ASSEMBLER TESTER YNEI BARRAGAN M.D. Performed By: #### C BC #### [address] Basophils/100 WBC (Bld) 0.8 % Normal . [facility] Comment on above: Performed By: #### C BC #### [place] [address] [place] Eosinophils (Bld) [#/Vol] 0.3 10*3/uL Normal 0.0-0.45 [facility] Comment on above: Performed By: #### C BC #### [address] Eosinophils/100 WBC (Bld) 2.6 % Normal . [facility] Comment on above: Performed By: #### C BC #### [address] Erythrocyte distribution width (RBC) [Ratio] 15.2 % High 12.0-14.8 [facility] Comment on above: Performed By: #### C BC #### [address] Hematocrit (Bld) [Volume fraction] 44.0 % Normal 38.8-50.0 [facility] Comment on above: Performed By: #### C BC #### [address] Hemoglobin (Bld) [Mass/Vol] 14.4 g/dL Normal 13.0-17.0 [facility] Comment on above: Performed By: #### C BC #### [address] Lymphocytes (Bld) [#/Vol] 3.7 10*3/uL Normal 1.00-4.8 [facility] Comment on above: Performed By: #### C BC #### [address] Lymphocytes/100 WBC (Bld) 33.7 % Normal . [facility] Comment on above: Performed By: #### C BC #### [address] MCH (RBC) [Entitic mass] 30.8 pg Normal 27.5-35.2 [facility] Comment on above: Performed By: #### C BC #### [address] MCV (RBC) [Entitic vol] 94.0 fL Normal 83.5-101 [facility] Comment on above: Performed By: #### C BC #### [address] Mean Corpuscular HGB Conc 32.8 g/dL Normal 32.5-35.6 [facility] Comment on above: Performed By: #### C BC #### [address] Monocytes (Bld) [#/Vol] 0.8 10*3/uL Normal 0.0-0.8 [facility] Comment on above: Performed By: #### C BC #### [facility] [address] Monocytes/100 WBC (Bld) 7.3 % Normal . [facility] Comment on above: Performed By: #### C BC #### [facility] [address] Neutrophils (Bld) [#/Vol] 6.1 10*3/uL Normal 1.8-7.7 [facility] Comment on above: Performed By: #### C BC #### [facility] [address] Neutrophils/100 WBC (Bld) 55.6 % Normal . [facility] Comment on above: Performed By: #### C BC #### [address] NRBC% 0.2 /100{WBC} Normal 0-0.5 [facility] Comment on above: Performed By: #### C BC #### [facility] [address] Platelet mean volume (Bld) [Entitic vol] 8.1 fL Normal 6.6-10.1 [facility] Comment on above: Performed By: #### C BC #### [facility] [address] [place] [address] [place] Platelets (Bld) [#/Vol] 338 10*3/uL Normal 150-450 [facility] Comment on above: Performed By: #### C BC #### [place] [address] [place] RBC (Bld) [#/Vol] 4.68 10*6/uL Normal 3.90-5.60 [facility] Comment on above: Performed By: #### C BC #### [address] WBC (Bld) [#/Vol] 11.0 10*3/uL High 4.1-10.5 [facility] Comment on above: Performed By: #### C #### [facility] [address] PROTEIN CREATININE RATIOon 0 02-26-2023 Protein/Creatinine (U) [Mass ratio] 0.11 mg/mg <0.15 mg/mg [facility] Protein/Creatinine (U) [Mass ratio]on 02-26-2023 Creatinine (U) [Mass/Vol] 211.1 mg/dL 20.0 - 300.0 mg/dL [facility] Protein (U) [Mass/Vol] 23 mg/dL High 0 - 20 mg/dL [facility] CNOVon 02-25-2023 CNOV Office Visit (PAULETTE ) MITCHELLCANDICE CALVERT ([id number]) 1960 M Date Time Provider Department 02/25/23 11:00 AM JEFF DUNCAN During your visit today, we recorded the following information about you: Pulse Blood pressure Weight Height 58/minute 141/82 115.7 kg 1.727 m Jeff Duncan MD 02/26/2023 8:47 AM Signed [facility] NEPHROLOGY AND HYPERTENSION [facility] SERVICE DATE: 02/25/2023 [...] Hx of nephrolithiasis. 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 PAST MEDICAL HISTORY: PAST MEDICAL HISTORY Diagnosis [...] studies, and office notes were reviewed in [facility] ASSESSMENT: 63 year old male who presents with hypertension, gout, obesity, pNET tumor status post di (more content not included)... Normal [facility] Prot/Creat Uron 02-25-2023 Protein/Creatinine (U) [Mass ratio] 0.11 mg/mg Normal <0.15 [facility] Comment on above: Order Comment: Speci men Type: URINE SPECIMENOrdering Facility: [facility] Address: [address] [place] [phone] Result Comment: Adul t Proteinuria Categories: <0.15 mg/mg is considered normal to mildly increased 0.15 - 0.50 mg/mg is considered moderately increased >0.50 mg/mg is considered severely increased KDIGO. (2013). KDIGO 2012 Clinical Practice Guideline for the Evaluation and Management of Chronic Kidney Disease. Official Journal of the International Society of Nephrology, 3(1), 1-150. Performed By: #### 2 890-2, [id number] ####[facility] LABCLIA [id number] [address] [place] Protein/Creatinine (U) [Mass ratio]on 02-25-2023 Creatinine (U) [Mass/Vol] 211.1 mg/dL Normal 20.0-300.0 [facility] Comment on above: Order Comment: Speci men Type: URINE SPECIMENOrdering Facility: [facility] Address: [address] [address] Performed By: #### 2 890-2, [id number] ####[facility] LABIA [id number] [address] Protein (U) [Mass/Vol] 23 mg/dL High 0-20 [facility] Comment on above: Order Comment: Speci men Type: URINE SPECIMENOrdering Facility: [facility] Address: [address] [address] Performed By: #### 2 890-2, [id number] ####[facility] LABIA [id number] [place] [address] [place] URINALYSIS, REFLEX MICROSCOP ICon 02-25-2023 Bilirubin Ql (U) Negative Normal Negative [facility] Comment on above: Order Comment: Speci men Type: URINE SPECIMENOrdering Facility: [facility] Address: [address] Performed By: #### 2 890-2, [id number] ####[facility] LABIA [id number] [address] [place] Clarity (Unsp spec) Clear Normal Clear [facility] Comment on above: Order Comment: Speci men Type: URINE SPECIMENOrdering Facility: [facility] Address: [address] [address] Performed By: #### 2 890-2, [id number] ####[facility] LABCLIA [id number] [place] [address] [place] Color (U) Yellow Normal Yellow [facility] Comment on above: Order Comment: Speci men Type: URINE SPECIMENOrdering Facility: [facility] Address: [address] [place] [address] Performed By: #### 2 890-2, [id number] ####[facility] LABCLIA [id number] [place] [address] [place] Glucose Test strip (U) [Mass/Vol] Negative Normal Trace, Negative [facility] Comment on above: Order Comment: Speci men Type: URINE SPECIMENOrdering Facility: [facility] Address: [address] [place] [address] Performed By: #### 2 890-2, [id number] ####[facility] LABCLIA [id number] [place] [address] [place] Hemoglobin Ql (U) Negative Normal Negative, Trace [facility] Comment on above: Order Comment: Speci men Type: URINE SPECIMENOrdering Facility: [facility] Address: [address] [place] [address] Performed By: #### 2 890-2, [id number] ####[facility] LABCLIA [id number] [place] [address] [place] Ketones Ql (U) Negative Normal Negative, Trace [facility] Comment on above: Order Comment: Speci men Type: URINE SPECIMENOrdering Facility: [facility] Address: [address] [place], [place] [address] Performed By: #### 2 890-2, [id number] ####[facility] LABCLIA [id number] [place] [address] [place] Leukocyte esterase Test strip Ql (U) Negative Normal Negative, 25 Pia/uL [facility] Comment on above: Order Comment: Speci men Type: URINE SPECIMENOrdering Facility: [facility] Address: [address] Performed By: #### 2 890-2, [id number] ####[facility] LABCLIA [id number] [place] [address] [place] Nitrite Ql (U) Negative Normal Negative [facility] Comment on above: Order Comment: Speci men Type: URINE SPECIMENOrdering Facility: [facility] Address: [address] [place], [place] [address] Performed By: #### 2 890-2, [id number] ####[facility] LABCLIA [id number] [place] [address] [place] pH (U) 5.5 [pH] Normal 5.0-8.0 [facility] Comment on above: Order Comment: Speci men Type: URINE SPECIMENOrdering Facility: [facility] Address: [address] [place], [place] [address] Performed By: #### 2 890-2, [id number] ####[facility] LABCLIA [id number] [place] [address] [place] Protein (U) [Mass/Vol] Trace Normal Trace, Negative [facility] Comment on above: Order Comment: Speci men Type: URINE SPECIMENOrdering Facility: [facility] Address: [address] [place] [address] Performed By: #### 2 890-2, [id number] ####[facility] LABCLIA [id number] [place] [address] [place] Specific gravity (U) [Rel density] 1.027 Normal 1.005-1.030 [facility] Comment on above: Order Comment: Speci men Type: URINE SPECIMENOrdering Facility: [facility] Address: [address] [place], [place] [address] Performed By: #### 2 890-2, [id number] ####[facility] LABCLIA [id number] [place] [address] [place] Urobilinogen Ql (U) Negative Normal Negative [facility] Comment on above: Order Comment: Speci men Type: URINE SPECIMENOrdering Facility: [facility] Address: [address] [place] [address] Performed By: #### 2 890-2, [id number] ####[facility] LABCLIA [id number] [place] [address] [place] CBC W Auto Differential pane l (Bld)on 02-11-2023 Basophils (Bld) [#/Vol] 0.07 10*3/uL Normal <0.11 [facility] Comment on above: Order Comment: Speci men Type: BLOOD SPECIMENOrdering Facility: [facility] Address: [address] [place] [address] Performed By: #### 5 7021-8 ####[facility] LABCLIA [id number] [place] [address] Basophils/100 WBC (Bld) 0.6 % Normal [facility] Comment on above: Order Comment: Speci men Type: BLOOD SPECIMENOrdering Facility: [facility] Address: [address] [place] [address] Performed By: #### 5 7021-8 ####[facility] LABCLIA [id number] [place] [address] Differential cell count method Nom (Bld) Auto Normal [facility] Comment on above: Order Comment: Speci men Type: BLOOD SPECIMENOrdering Facility: [facility] Address: [address] [place] [address] Performed By: #### 5 7021-8 ####[facility] LABCLIA [id number] [place] [address] Eosinophils (Bld) [#/Vol] 0.23 10*3/uL Normal <0.46 [facility] Comment on above: Order Comment: Speci men Type: BLOOD SPECIMENOrdering Facility: [facility] Address: [address] [place] [address] Performed By: #### 5 7021-8 ####[facility] LABCLIA [id number] [place] [address] Eosinophils/100 WBC (Bld) 2.0 % Normal [facility] Comment on above: Order Comment: Speci men Type: BLOOD SPECIMENOrdering Facility: [facility] Address: [address] [place] [address] Performed By: #### 5 7021-8 ####[facility] LABCLIA [id number] [place] [address] Erythrocyte distribution width (RBC) [Ratio] 15.1 % High 11.5-15.0 [facility] Comment on above: Order Comment: Speci men Type: BLOOD SPECIMENOrdering Facility: [facility] Address: [address] [place] [address] Performed By: #### 5 7021-8 ####[facility] LABCLIA [id number] [place] [address] Hematocrit (Bld) [Volume fraction] 42.8 % Normal 39.0-51.0 [facility] Comment on above: Order Comment: Speci men Type: BLOOD SPECIMENOrdering Facility: [facility] Address: [address] [place] [address] Performed By: #### 5 7021-8 ####[facility] LABCLIA [id number] [place] [address] Hemoglobin (Bld) [Mass/Vol] 14.0 g/dL Normal 13.0-17.0 [facility] Comment on above: Order Comment: Speci men Type: BLOOD SPECIMENOrdering Facility: [facility] Address: [address] [place] [address] Performed By: #### 5 7021-8 ####[facility] LABCLIA [id number] [place] [address] Immature granulocytes (Bld) [#/Vol] 0.04 10*3/uL Normal <0.10 [facility] Comment on above: Order Comment: Speci men Type: BLOOD SPECIMENOrdering Facility: [facility] Address: [address] [place] [address] Performed By: #### 5 7021-8 ####[facility] LABCLIA [id number] [place] [address] Immature granulocytes/100 WBC (Bld) 0.3 % Normal [facility] Comment on above: Order Comment: Speci men Type: BLOOD SPECIMENOrdering Facility: [facility] Address: [address] [place] [address] Performed By: #### 5 7021-8 ####[facility] LABCLIA [id number] [place] [address] Lymphocytes (Bld) [#/Vol] 4.39 10*3/uL High 1.00-4.00 [facility] Comment on above: Order Comment: Speci men Type: BLOOD SPECIMENOrdering Facility: [facility] Address: [address] [place] [address] Performed By: #### 5 7021-8 ####[facility] LABCLIA [id number] [place] [address] Lymphocytes/100 WBC (Bld) 38.2 % Normal [facility] Comment on above: Order Comment: Speci men Type: BLOOD SPECIMENOrdering Facility: [facility] Address: [address] [place] [address] Performed By: #### 5 7021-8 ####[facility] LABIA [id number] [place] [address] MCH (RBC) [Entitic mass] 30.1 pg Normal 26.0-34.0 [facility] Comment on above: Order Comment: Speci men Type: BLOOD SPECIMENOrdering Facility: [facility] Address: [address] [address] Performed By: #### 5 7021-8 ####[facility] LABCLIA [id number] [place] [address] MCHC (RBC) [Mass/Vol] 32.7 g/dL Normal 30.5-36.0 [facility] Comment on above: Order Comment: Speci men Type: BLOOD SPECIMENOrdering Facility: [facility] Address: [address] [place] [address] Performed By: #### 5 7021-8 ####[facility] LABIA [id number] [place] [address] MCV (RBC) [Entitic vol] 92.0 fL Normal 80.0-100.0 [facility] Comment on above: Order Comment: Speci men Type: BLOOD SPECIMENOrdering Facility: [facility] Address: [address] [place] [address] Performed By: #### 5 7021-8 ####[facility] LABIA [id number] [place] [address] Monocytes (Bld) [#/Vol] 0.70 10*3/uL Normal <0.87 [facility] Comment on above: Order Comment: Speci men Type: BLOOD SPECIMENOrdering Facility: [facility] Address: [address] [place] [address] Performed By: #### 5 7021-8 ####[facility] LABIA [id number] [place] [address] Monocytes/100 WBC (Bld) 6.1 % Normal [facility] Comment on above: Order Comment: Speci men Type: BLOOD SPECIMENOrdering Facility: [facility] Address: [address] [place] [address] Performed By: #### 5 7021-8 ####[facility] LABIA [id number] [place] [address] Neutrophils (Bld) [#/Vol] 6.06 10*3/uL Normal 1.45-7.50 [facility] Comment on above: Order Comment: Speci men Type: BLOOD SPECIMENOrdering Facility: [facility] Address: [address] [place] [address] Performed By: #### 5 7021-8 ####[facility] LABCLIA [id number] [place] [address] Neutrophils/100 WBC (Bld) 52.8 % Normal [facility] Comment on above: Order Comment: Speci men Type: BLOOD SPECIMENOrdering Facility: [facility] Address: [address] [place] [address] Performed By: #### 5 7021-8 ####[facility] LABCLIA [id number] [place] [address] Nucleated RBC (Bld) [#/Vol] 10*3/uL Normal <0.01 [facility] Comment on above: Order Comment: Speci men Type: BLOOD SPECIMENOrdering Facility: [facility] Address: [address] [place] [address] Performed By: #### 5 7021-8 ####[facility] LABCLIA [id number] [place] [address] Nucleated RBC/100 WBC (Bld) [Ratio] 0.0 /100 WBC Normal [facility] Comment on above: Order Comment: Speci men Type: BLOOD SPECIMENOrdering Facility: [facility] Address: [address] [address] Performed By: #### 5 7021-8 ####[facility] LABCLIA [id number] [place] [address] Platelet mean volume (Bld) [Entitic vol] 9.5 fL Normal 9.0-12.7 [facility] Comment on above: Order Comment: Speci men Type: BLOOD SPECIMENOrdering Facility: [facility] Address: [address] [place] [address] Performed By: #### 5 7021-8 ####[facility] LABCLIA [id number] [place] [address] Platelets (Bld) [#/Vol] 330 10*3/uL Normal 150-400 [facility] Comment on above: Order Comment: Speci men Type: BLOOD SPECIMENOrdering Facility: [facility] Address: [address] [place] [address] Performed By: #### 5 7021-8 ####[facility] LABCLIA [id number] [place] [address] RBC (Bld) [#/Vol] 4.65 10*6/uL Normal 4.20-6.00 [facility] Comment on above: Order Comment: Speci men Type: BLOOD SPECIMENOrdering Facility: [facility] Address: [address] [place] [address] Performed By: #### 5 7021-8 ####[facility] LABIA [id number] [place] [address] WBC (Bld) [#/Vol] 11.49 10*3/uL High 3.70-11.00 [facility] Comment on above: Order Comment: Speci men Type: BLOOD SPECIMENOrdering Facility: [facility] Address: [address] [place] [address] Performed By: #### 5 7021-8 ####[facility] LABCLIA [id number] [place] [address] Comprehensive metabolic 2000 panelon 02-11-2023 Albumin [Mass/Vol] 4.0 g/dL Normal 3.9-4.9 [facility] Comment on above: Order Comment: Speci men Type: BLOOD SPECIMENOrdering Facility: [facility] Address: [address] [place] [address] Performed By: #### 2 4323-8 ####[facility] LABCLIA [id number] [place] [address] ALP [Catalytic activity/Vol] 123 U/L High 38-113 [facility] Comment on above: Order Comment: Speci men Type: BLOOD SPECIMENOrdering Facility: [facility] Address: [address] [address] Performed By: #### 2 4323-8 ####[facility] LABCLIA [id number] [place] [address] ALT [Catalytic activity/Vol] 21 U/L Normal 10-54 [facility] Comment on above: Order Comment: Speci men Type: BLOOD SPECIMENOrdering Facility: [facility] Address: [address] [place] [address] Performed By: #### 2 4323-8 ####[facility] LABCLIA [id number] [place] [address] Anion gap [Moles/Vol] 8 mmol/L Low 9-18 [facility] Comment on above: Order Comment: Speci men Type: BLOOD SPECIMENOrdering Facility: [facility] Address: [address] [address] Performed By: #### 2 4323-8 ####[place] [facility] LABCLIA [id number] [place] [address] AST [Catalytic activity/Vol] 21 U/L Normal 14-40 [facility] Comment on above: Order Comment: Speci men Type: BLOOD SPECIMENOrdering Facility: [facility] Address: [address] [place] [address] Performed By: #### 2 4323-8 ####[facility] LABCLIA [id number] [place] [address] Bilirubin [Mass/Vol] 0.5 mg/dL Normal 0.2-1.3 [facility] Comment on above: Order Comment: Speci men Type: BLOOD SPECIMENOrdering Facility: [facility] Address: [address] [place] [address] Performed By: #### 2 4323-8 ####[place] [facility] LABCLIA [id number] [place] [address] Calcium [Mass/Vol] 10.4 mg/dL High 8.5-10.2 [facility] Comment on above: Order Comment: Speci men Type: BLOOD SPECIMENOrdering Facility: [facility] Address: [address] [place] [address] Performed By: #### 2 4323-8 ####[facility] LABCLIA [id number] [place] [address] Chloride [Moles/Vol] 106 mmol/L High 97-105 [facility] Comment on above: Order Comment: Speci men Type: BLOOD SPECIMENOrdering Facility: [facility] Address: [address] [place] [address] Performed By: #### 2 4323-8 ####[facility] LABCLIA [id number] [place] [address] CO2 [Moles/Vol] 24 mmol/L Normal 22-30 [facility] Comment on above: Order Comment: Speci men Type: BLOOD SPECIMENOrdering Facility: [facility] Address: [address] [place] [address] Performed By: #### 2 4323-8 ####[facility] LABCLIA [id number] [place] [address] Creatinine [Mass/Vol] 1.88 mg/dL High 0.73-1.22 [facility] Comment on above: Order Comment: Speci men Type: BLOOD SPECIMENOrdering Facility: [facility] Address: [address] [place] [address] Performed By: #### 2 4323-8 ####[facility] LABCLIA [id number] [place] [address] ESTIMATED GLOMERULAR FILTRATION RATE 39 mL/min/1.73m??? Low >=60 [facility] Comment on above: Order Comment: Speci men Type: BLOOD SPECIMENOrdering Facility: [facility] Address: [address] [id number] Result Comment: Kasie mated Glomerular Filtration Rate [...] actual GFR. Performed By: #### 2 4323-8 ####[facility] LABCLIA [id number] [place] [address] Glucose [Mass/Vol] 120 mg/dL High 74-99 [facility] Comment on above: Order Comment: Bianka montiel Type: BLOOD SPECIMENOrdering Facility: [facility] Address: [address] [place] [address] Result Comment: The [place] Diabetes [employer] (ADA) provides guidance for cutoff [...] Standards of Medical Care in Diabetes 2016, [place] [employer]. Diabetes Care. 2016.39(Suppl 1). Performed By: #### 2 4323-8 ####[facility] LABCLIA [id number] [place] [address] Potassium [Moles/Vol] 4.5 mmol/L Normal 3.7-5.1 [facility] Comment on above: Order Comment: Bianka montiel Type: BLOOD SPECIMENOrdering Facility: [facility] Address: [address] [phone] Performed By: #### 2 4323-8 ####[facility] LABCLIA [id number] [place] [address] Protein [Mass/Vol] 7.0 g/dL Normal 6.3-8.0 [facility] Comment on above: Order Comment: Speci men Type: BLOOD SPECIMENOrdering Facility: [facility] Address: [address] [address] Performed By: #### 2 4323-8 ####[facility] LABCLIA [id number] [place] [address] Sodium [Moles/Vol] 138 mmol/L Normal 136-144 [facility] Comment on above: Order Comment: Speci men Type: BLOOD SPECIMENOrdering Facility: [facility] Address: [address] [place] [address] Performed By: #### 2 4323-8 ####[facility] LABCLIA [id number] [place] [address] Urea nitrogen [Mass/Vol] 29 mg/dL High - [facility] Comment on above: Order Comment: Speci men Type: BLOOD SPECIMENOrdering Facility: [facility] Address: [address] [place] [address] Performed By: #### 2 4323-8 ####[facility] LABCLIA [id number] [place] [address] HbA1c (Bld)on 02-11-2023 Average glucose Estimated from glycated hemoglobin (Bld) [Mass/Vol] 117 mg/dL Normal [facility] Comment on above: Order Comment: Speci men Type: BLOOD SPECIMENOrdering Facility: [facility] Address: [address] [place] [address] Result Comment: eAG: (Estimated average glucose) is a calculated value from HgbA1c and is inside outside sales representative of the average blood glucose level in the last 2-3 month period. Performed By: #### 5 5454-3 ####[facility] LABCLIA [id number] [facility] [id number] [place] HbA1c (Bld) [Mass fraction] 5.7 % High 4.3-5.6 [facility] Comment on above: Order Comment: Bianka montiel Type: BLOOD SPECIMENOrdering Facility: [facility] Address: [address] [place] [address] Result Comment: [place] ican Diabetes Association guidelines indicate that patients with HgbA1c in the range 5.7-6.4% are at increased risk for development of diabetes, and intervention by lifestyle modification may be beneficial. HgbA1c greater or equal to 6.5% is considered diagnostic of diabetes. Performed By: #### 5 5454-3 ####[facility] LABCLIA [id number] [address] OF [facility] LIPID PANEL, NONFASTINGon Cholesterol [Mass/Vol] 142 mg/dL Normal <200 [facility] Comment on above: Order Comment: Bianka montiel Type: BLOOD SPECIMENOrdering Facility: [facility] Address: [address] [place] [address] Result Comment: <200 mg/dL, Desirable 200-239 mg/dL, Borderline high >239 mg/dL, High Performed By: #### L IPNF ####[facility] LABCLIA [id number] [address] [place] HDL CHOLESTEROL, NF 35 mg/dL Low >39 [facility] Comment on above: Order Comment: Bianka montiel Type: BLOOD SPECIMENOrdering Facility: [facility] Address: [address] [place] [address] Result Comment: 40-5 9 mg/dL, Acceptable >59 mg/dL, High: Negative risk factor for coronary heart disease <40 mg/dL, Low: Positive risk factor for coronary heart disease Performed By: #### L IPNF ####[facility] LABCLIA [id number] [address] [place] LDL CHOLESTEROL, NF 85 mg/dL Normal <100 [facility] Comment on above: Order Comment: Bianka montiel Type: BLOOD SPECIMENOrdering Facility: [facility] Address: [facility] [place] [address] Result Comment: <100 mg/dL, Optimal 100-129 mg/dL, Near optimal/above optimal 130-159 mg/dL, Borderline high 160-189 mg/dL, High >189 mg/dL, Very high Secondary prevention optimal LDL Cholesterol levels are recommended to be < 70 mg/dL Performed By: #### L IPNF ####[facility] LABCLIA [id number] [address] LDL/HDL RATIO, NF 2.43 mg/dL Normal <2.[address] [facility] Comment on above: Order Comment: Bianka montiel Type: BLOOD SPECIMENOrdering Facility: [facility] Address: [address] [place] [address] Result Comment: Refe rence: 1. National Cholesterol Education Program ATP III Guideline At-A-Glance Quick Desk Reference: National Heart, Lung, and Blood [place]. National Institutes of Health. 2001: NIH Publication No. 01-3305. 2. An International Atherosclerosis Society position paper: global recommendations for the management of dyslipidemia: executive summary, Atherosclerosis. 2014: 232(2):410-413. Performed By: #### L IPNF ####[facility] LABIA [id number] [address] NON HDL CHOL, NF 107 mg/dL Normal <130 [facility] Comment on above: Order Comment: Bianka montiel Type: BLOOD SPECIMENOrdering Facility: [facility] Address: [address] [place] [address] Result Comment: <130 mg/dL, Optimal 130-159 mg/dL, Near optimal/above optimal 160-189 mg/dL, Borderline high 190-219 mg/dL, High >219 mg/dL, Very high Secondary prevention optimal non HDL Cholesterol levels are recommended to be <100 mg/dL Performed By: #### L IPNF ####[facility] LABCLIA [id number] [address] T CHOL/HDL RATIO NF 4.06 mg/dL Normal <5.10 [facility] Comment on above: Order Comment: Speci men Type: BLOOD SPECIMENOrdering Facility: [facility] Address: [address] [place] [address] Performed By: #### L IPNF ####[facility] LABCLIA [id number] [place] [address] [place] TRIGLYCERIDES, NF 111 mg/dL Normal <[address] [facility] Comment on above: Order Comment: Speci men Type: BLOOD SPECIMENOrdering Facility: [facility] Address: [address] [place] [address] Result Comment: <150 mg/dL, Normal 150-199 mg/dL, Borderline high 200-499 mg/dL, High >499 mg/dL, Very high Performed By: #### L IPNF ####[facility] LABCLIA [id number] [place] [address] [place] VLDL CHOLESTEROL, NF 22 mg/dL Normal <30 [facility] Comment on above: Order Comment: Speci men Type: BLOOD SPECIMENOrdering Facility: [facility] Address: [address] [place] [address] Performed By: #### L IPNF ####[facility] LABCLIA [id number] [place] [address] [place] PSA/PROSTSPECAG SCRNon 02-11 Prostate specific Ag [Mass/Vol] 1.50 ng/mL Normal <2.60 [facility] Comment on above: Order Comment: Speci men Type: BLOOD SPECIMENOrdering Facility: [facility] Address: [address] [place] [address] Result Comment: Tota l PSA test methodology used is the Electrochemiluminescence Immunoassay by Mann Clout. Total PSA values by differing methodologies cannot be interchanged. 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 Normal [facility] CNOV Office Visit (UROLMN ) CANDICE MITCHELL ([id number]) 1960 M Date Time Provider Department 12/26/22 2:15 PM KENNEY BANGURA During your visit today, we recorded the following information about you: Kenney Bangura MD 12/26/2022 6:13 PM Signed PATIENT: Candice Mitchell [id number] REFERRING MD: Fernando 12/26/2022 Chief Complaint Follow [...] and CXR Kenney Bangura MD Urologic Staff [facility] Medical Decision Making: Problems: Low: Stabl (more content not included)... Normal [facility] CREATININE, BLOOD (POC)on Creatinine [Mass/Vol] 2.10 mg/dL Abnormal 0.7 - 1.4 mg/dL [facility] eGFR (POCT) 35 mL/min/1.[address] [facility] [address] ABD/PEL W IVCONon 023 CT ABD/PEL W IVCON * * *Final Report* * * DATE OF EXAM: Dec 26 2022 12:41PM [facility] 0530 - CT ABD/PEL W IVCON / [...] vertebral wedging with kyphosis. Lower thorax: Unremarkable. Blanket Washer (topogram) images: No additional findings. IMPRESSION: POST-SURGICAL [...] IN DETAIL THE BODY OF THE REPORT. Plant Control Aide: PSCB Transcribe Date/Time: Dec 26 2022 1:16P Dictated by : CARMEL OJEDA MD This examination was interpreted and the report reviewed and electronically signed by: NICKY BOYKIN MD on Dec 26 2022 3:08PM EST [id number] Normal [facility] URINALYSIS, REFLEX MICROSCOP ICon 12-26-2022 Bilirubin Ql (U) Negative Normal Negative [facility] Comment on above: Order Comment: Speci men Type: URINE SPECIMENOrdering Facility: [facility] Address: [address] Performed By: #### L [id number] ####[facility] LABCLIA [id number] [place] [address] [place] Clarity (Unsp spec) Clear Normal Clear [facility] Comment on above: Order Comment: Speci men Type: URINE SPECIMENOrdering Facility: [facility] Address: [address] Performed By: #### L [id number] ####[facility] LABCLIA [id number] [place] [address] [place] Color (U) Light Yellow Normal Yellow [facility] Comment on above: Order Comment: Speci men Type: URINE SPECIMENOrdering Facility: [facility] Address: [address] [place], [place] [address] Performed By: #### L [id number] ####[facility] LABCLIA [id number] [place] [address] [place] Glucose Test strip (U) [Mass/Vol] Negative Normal Trace, Negative [facility] Comment on above: Order Comment: Speci men Type: URINE SPECIMENOrdering Facility: [facility] Address: [address] Performed By: #### L [id number] ####[facility] LABCLIA [id number] [place] [address] [place] Hemoglobin Ql (U) Negative Normal Negative, Trace [facility] Comment on above: Order Comment: Speci men Type: URINE SPECIMENOrdering Facility: [facility] Address: [address] Performed By: #### L [id number] ####[facility] LABCLIA [id number] [place] [address] [place] Ketones Ql (U) Negative Normal Negative, Trace [facility] Comment on above: Order Comment: Speci men Type: URINE SPECIMENOrdering Facility: [facility] Address: [address] [place], [place] [address] Performed By: #### L [id number] ####[facility] LABCLIA [id number] [place] [address] [place] [facility] Leukocyte esterase Test strip Ql (U) Negative Normal Negative, 25 Pia/uL [facility] Comment on above: Order Comment: Speci men Type: URINE SPECIMENOrdering Facility: [facility] Address: [address] [place], [place] [address] Performed By: #### L [id number] ####[facility] LABCLIA [id number] [place] [address] [place] Nitrite Ql (U) Negative Normal Negative [facility] Comment on above: Order Comment: Speci men Type: URINE SPECIMENOrdering Facility: [facility] Address: [address] [place], [place] [address] Performed By: #### L [id number] ####[facility] LABCLIA [id number] [place] [address] [place] pH (U) 5.5 [pH] Normal 5.0-8.0 [facility] Comment on above: Order Comment: Speci men Type: URINE SPECIMENOrdering Facility: [facility] Address: [address] [place], [place] [address] Performed By: #### L [id number] ####[facility] LABCLIA [id number] [place] [address] [place] Protein (U) [Mass/Vol] Negative Normal Trace, Negative [facility] Comment on above: Order Comment: Speci men Type: URINE SPECIMENOrdering Facility: [facility] Address: [address] [place], [place] [address] Performed By: #### L [id number] ####[facility] LABCLIA [id number] [place] [address] [place] Specific gravity (U) [Rel density] 1.010 Normal 1.005-1.030 [facility] Comment on above: Order Comment: Speci men Type: URINE SPECIMENOrdering Facility: [facility] Address: [address] [place] [address] Result Comment: Resu lt rechecked. Performed By: #### L [id number] ####[facility] LABCLIA [id number] [address] [place] Urobilinogen Ql (U) Negative Normal Negative [facility] Comment on above: Order Comment: Speci men Type: URINE SPECIMENOrdering Facility: [facility] Address: [address] [place] [address] Performed By: #### L [id number] ####[facility] LABCLIA [id number] [place] [address] [place] Bilirubin Ql (U) Negative Negative [facility] Clarity (Unsp spec) Clear Clear [facility] Color (U) Light Yellow Yellow [facility] Glucose Test strip (U) [Mass/Vol] Negative Trace, Negative [facility] Hemoglobin Ql (U) Negative Negative, Trace [facility] Ketones Ql (U) Negative Negative, Trace [facility] Leukocyte esterase Test strip Ql (U) Negative Negative, 25 Pia/uL [facility] Nitrite Ql (U) Negative Negative [facility] pH (U) 5.5 [pH] 5.0 - 8.0 [facility] Protein (U) [Mass/Vol] Negative Trace, Negative [facility] Specific gravity (U) [Rel density] 1.010 1.005 - 1.030 [facility] Urobilinogen Ql (U) Negative Negative [facility] XR CHEST 2 Von 08-01-2022 XR CHEST [...] ANGEL XIE Date: 2022-08-01 06:[address] [facility] URINALYSIS, REFLEX MICROSCOP ICon 06-26-2022 Bilirubin Ql (U) Negative Negative [facility] Calcium Oxalate Crystals Many Abnormal None Seen /HPF [facility] Clarity (Unsp spec) Cloudy Abnormal Clear [facility] Color (U) Yellow Yellow [facility] Glucose Test strip (U) [Mass/Vol] Negative Negative [facility] Hemoglobin Ql (U) Negative Negative [facility] Hyaline casts (Urine sed) [#/Area] 4-10 /LPF Abnormal 0 /LPF [facility] Ketones Ql (U) Negative Negative [facility] Leukocyte esterase Test strip Ql (U) Negative Negative [facility] Nitrite Ql (U) Negative Negative [facility] pH (U) 5.5 [pH] 5.0 - 8.0 [facility] Protein (U) [Mass/Vol] 1+ Abnormal Negative [facility] RBC LM.HPF (Urine sed) [#/Area] 0-3 /HPF 0-3 /HPF [facility] Specific gravity (U) [Rel density] 1.026 1.005 - 1.030 [facility] Urobilinogen Ql (U) Negative Negative [facility] WBC LM.HPF (Urine sed) [#/Area] 0-5 /HPF 0-5 /HPF [facility] No Panel Informationon 05-16 [facility] CREATININEon 05-07-2022 Creatinine [Mass/Vol] 1.25 mg/dL Normal 0.70-1.30 [facility] Comment on above: Performed By: #### C CLAUDE #### [facility] [address] [place] [address] [address] Oksana Betancourt EGFR-AF BRUNEIAN >60 Normal >=60 [facility] Comment on above: Performed By: #### C CLAUDE #### [facility] [address] [place], [place] [address] Dr. Oksana Betancourt EGFR-NON AF BRUNEIAN 58 mL/min/1.73m2 Critically low >=60 [facility] Comment on above: Performed By: #### C CLAUDE #### [facility] [address] [place], [place] [address] CHEST W CONon [...] by: ANGEL XIE Date: 2022-05-07 17:[address] [facility] URINALYSIS, REFLEX MICROSCOP ICon 05-02-2022 Bilirubin Ql (U) Negative Negative [facility] Clarity (Unsp spec) Clear Clear [facility] Color (U) Light Yellow Yellow [facility] Glucose Test strip (U) [Mass/Vol] Negative Negative [facility] Hemoglobin Ql (U) Negative Negative [facility] Ketones Ql (U) Negative Negative [facility] Leukocyte esterase Test strip Ql (U) Negative Negative [facility] Nitrite Ql (U) Negative Negative [facility] pH (U) 5.0 [pH] 5.0 - 8.0 [facility] Protein (U) [Mass/Vol] Negative Negative [facility] Specific gravity (U) [Rel density] 1.019 1.005 - 1.030 [facility] Urobilinogen Ql (U) Negative Negative [facility] MRI ABDOMEN WO CONon 022 MRI ABDOMEN [...] by: CANDICE CHRISTINE Date: 2022-04-28 08:41 Normal [facility] XR FOREIGN BODY EYEon 2021 XR FOREIGN BODY EYE EXAMINATION: XR FOREIGN BODY EYE HISTORY: Foreign body in eye COMPARISON: No relevant comparison available. FINDINGS: ORBITS: Negative for a metallic foreign body. OTHER: Negative. IMPRESSION: 1. No metallic foreign body within orbits. Electronically authenticated by: ANGEL XIE Date: 2022-04-25 09:[address] [facility] CT ABDOMEN WO/W CONon 2021 CT ABDOMEN [...] by: HAWA KAY Date: 2022-04-16 13:50 Normal [facility] US KIDNEYS BLADDERon 022 US KIDNEYS BLADDER [...] 2.0 cm on the left Normal [facility] PROF CHEM 8 (BAS METB)on Anion gap [Moles/Vol] 7.9 mmol/L Normal [facility] Comment on above: Performed By: #### B MP #### [facility] [address] [place] [address] [address] Oksana Betancourt Calcium [Mass/Vol] 9.6 mg/dL Normal 8.5-10.1 [facility] Comment on above: Performed By: #### B MP #### [facility] [address] [place] [address] [address] Oksana Betancourt Chloride [Moles/Vol] 106 mmol/L Normal 98-107 [facility] Comment on above: Performed By: #### B MP #### [facility] [address] [place] [address] [address] Oksana Betancourt CO2 [Moles/Vol] 28.1 mmol/L Normal 21.0-32.[address] [facility] Comment on above: Performed By: #### B MP #### [facility] [address] [place] [address] [address] Oksana Betancourt Creatinine [Mass/Vol] 1.37 mg/dL Critically high 0.70-1.30 [facility] Comment on above: Performed By: #### B MP #### [facility] [address] [place] [address] [address] Oksana Betancourt EGFR-AF BRUNEIAN >60 Normal >=[address] [facility] Comment on above: Performed By: #### B MP #### [facility] [address] [place] [address] [address] Oksana Betancourt EGFR-NON AF BRUNEIAN 52 mL/min/1.73m2 Critically low >=60 [facility] Comment on above: Performed By: #### B MP #### [facility] [address] [place] [address] [address] Oksana Betancourt Glucose [Mass/Vol] 114 mg/dL Critically high 74-106 [facility] Comment on above: Performed By: #### B MP #### [facility] [address] [place] [address] [address] Oksana Betancourt Potassium [Moles/Vol] 4.0 mmol/L Normal 3.5-5.1 [facility] Comment on above: Performed By: #### B MP #### [facility] [address] [place] [address] [address] Oksana Betancourt Sodium [Moles/Vol] 138 mmol/L Normal 136-145 [facility] Comment on above: Performed By: #### B MP #### [facility] [address] [place] [address] [address] Oksana Betancourt Urea nitrogen [Mass/Vol] 14.0 mg/dL Normal 7.0-18.0 [facility] Comment on above: Performed By: #### B MP #### [facility] [address] [place] [address] [address] Oksana Betancourt Urea nitrogen/Creatinin e [Mass ratio] 10.2 mg/mg Normal [facility] Comment on above: Performed By: #### B MP #### [facility] [address] [place] [address] [address] Oksana Betancourt UA RANDOM W/MICROSCOPICon BACTERIA NONE SEEN Normal NONE SEEN [facility] Comment on above: Performed By: #### U AMIC ####[facility] [address] [place] [address]Dr. Oksana Betancourt Bilirubin Ql (U) Negative Normal NEGATIVE [facility] Comment on above: Performed By: #### U AMIC ####[facility] [address] [place] [address]Dr. Oksana Betancourt CAST NONE SEEN Normal NONE SEEN [facility] Comment on above: Performed By: #### U AMIC ####[facility] [address] [place], [place] [address]Dr. Oksana Betancourt Clarity (U) CLEAR Normal CLEAR [facility] Comment on above: Performed By: #### U AMIC ####[facility] [address] [place], [place] [address]Dr. Oksana Betancourt Color (U) YELLOW Normal YELLOW [facility] Comment on above: Performed By: #### U AMIC ####[facility] [address] [place], [place] [address]Dr. Oksana Betancourt Crystals LM Nom (Urine sed) NONE SEEN Normal NONE SEEN [facility] Comment on above: Performed By: #### U AMIC ####[facility] [address] [place], [place] [address]Dr. Oksana Betancourt Epithelial cells LM Ql (Urine sed) RARE Normal NONE SEEN /RARE [facility] Comment on above: Performed By: #### U AMIC ####[facility] [address] [place], [place] [address]Dr. Oksana Betancourt Glucose Ql (U) Negative Normal NEGATIVE [facility] [place] Comment on above: Performed By: #### U AMIC ####[facility] [address] [place], [place] [address]Dr. Oksana Betancourt Hemoglobin Ql (U) TRACE-INTACT Abnormal NEGATIVE [facility] Comment on above: Performed By: #### U AMIC ####[facility] [address] [place], [place] [address]Dr. Oksana Betancourt Ketones Ql (U) Negative Normal NEGATIVE [facility] [place] Comment on above: Performed By: #### U AMIC ####[facility] [address] [place], [place] [address]Dr. Oksana Betancourt LEUKOCYTES Negative Normal NEGATIVE [facility] Comment on above: Performed By: #### U AMIC ####[facility] [address] [place], [place] [address]Dr. Oksana Betancourt MUCOUS MODERATE Abnormal NONE SEEN [facility] Comment on above: Performed By: #### U AMIC ####[facility] [address] [place] [address]Dr. Oksana Betancourt Nitrite Ql (U) Negative Normal NEGATIVE [facility] [place] Comment on above: Performed By: #### U AMIC ####[facility] [address] [place] [address]Dr. Oksana Betancourt pH (U) 6.0 [pH] Normal 5-[address] [facility] Comment on above: Performed By: #### U AMIC ####[facility] [address] [place] [address]Dr. Oksana Betancourt RBC 0-2 Normal 0-[address] [facility] Comment on above: Performed By: #### U AMIC ####[facility] [address] [place], [place] [address]Dr. Oksana Betancourt SPEC GRAVITY 1.020 Normal 1.005-<=1.02 5 [facility] Comment on above: Performed By: #### U AMIC ####[facility] [address] [place], [place] [address]Dr. Oksana Betancourt UA PROTEIN Negative Normal NEGATIVE/ TRACE [facility] Comment on above: Performed By: #### U AMIC ####[facility] [address] [place], [place] [address]Dr. Oksana Betancourt Urobilinogen Qn (U) 0.2 {Paul'U}/dL Normal 0.2 - 1.[address] [facility] Comment on above: Performed By: #### U AMIC ####[facility] [address] [place], [place] [address]Dr. Oksana Betancourt WBC NONE SEEN Normal NONE SEEN [facility] Comment on above: Performed By: #### U AMIC ####[facility] [address] [place], [place] [address]Dr. Oksana Betancourt CBC AUTO DIFFon 02-13-2022 BASO # 0.1 103/ul Normal 0.0-0.[address] [facility] Comment on above: Performed By: #### C BC #### [facility] [address] [place] [address] [address] Oksana Betancourt Basophils/100 WBC (Bld) 0.6 % Normal 0.2-2.0 [facility] Comment on above: Performed By: #### C BC #### [facility] [address] [place] [address] [address] Oksana Betancourt EO # 0.2 103/ul Normal 0.0-0.[address] [facility] Comment on above: Performed By: #### C BC #### [facility] [address] [address] [address] Oksana Betancourt Eosinophils/100 WBC (Bld) 2.7 % Normal 0.9-7.0 [facility] Comment on above: Performed By: #### C BC #### [facility] [address] [place] [address] Dr. Oksana Betancourt Erythrocyte distribution width (RBC) [Ratio] 13.8 % Normal 11.0-15.0 [facility] Comment on above: Performed By: #### C BC #### [facility] [address] [place] [address] Dr. Oksana Betancourt Hematocrit (Bld) [Volume fraction] 42.3 % Normal 42.0-54.0 [facility] Comment on above: Performed By: #### C BC #### [facility] [address] [place] [address] Dr. Oksana Betancourt Hemoglobin (Bld) [Mass/Vol] 14.3 g/dL Normal 14.0-18.0 [facility] Comment on above: Performed By: #### C BC #### [facility] [address] [address] [address] Oksana Betancourt IG # 0.06 10e3/ul Critically high 0.00-0.03 [facility] Comment on above: Performed By: #### C BC #### [facility] [address] [address] [address] Oksana Betancourt IG % 0.7 % Critically high 0.0-0.5 [facility] Comment on above: Performed By: #### C BC #### [facility] [address] [address] [address] Oksana Betancourt LYMPH # 2.9 103/ul Normal 1.2-3.[address] [facility] Comment on above: Performed By: #### C BC #### [facility] [address] [place] [address] Dr. Oksana Betancourt Lymphocytes/100 WBC (Bld) 32.3 % Normal 20.5-60.0 [facility] Comment on above: Performed By: #### C BC #### [facility] [address] [place] [address] Dr. Oksana Betancourt MANUAL DIFF REQ NO Normal [facility] Comment on above: Performed By: #### C BC #### [facility] [address] [place] [address] Dr. Oksana Betancourt MCH (RBC) [Entitic mass] 29.3 pg Normal 25.9-34.0 [facility] Comment on above: Performed By: #### C BC #### [facility] [address] [place] [address] Dr. Oksana Betancourt MCHC (RBC) [Mass/Vol] 33.8 g/dL Normal 29.9-35.[address] [facility] Comment on above: Performed By: #### C BC #### [facility] [address] [place] [address] Dr. Oksana Betancourt MCV (RBC) [Entitic vol] 86.7 fL Normal 80.0-94.0 [facility] Comment on above: Performed By: #### C BC #### [facility] [address] [place] [address] Dr. Oksana Betancourt MONO # 0.5 103/ul Normal 0.3-0.[address] [facility] Comment on above: Performed By: #### C BC #### [facility] [address] [place] [address] Dr. Oksana Betancourt Monocytes/100 WBC (Bld) 6.1 % Normal 1.7-12.0 [facility] Comment on above: Performed By: #### C BC #### [facility] [address] [place], [place] [id number] Dr. Oksana Betancourt NEUT # 5.1 103/ul Normal 1.4-6.5 [facility] Comment on above: Performed By: #### C BC #### [facility] [address] [place] [address] Dr. Oksana Betancourt Neutrophils/100 WBC (Bld) 57.6 % Normal 43.0-75.0 [facility] Comment on above: Performed By: #### C BC #### [facility] [address] [place] [address] Dr. Oksana Betancourt Platelet mean volume (Bld) [Entitic vol] 9.1 fL Critically low 9.5-13.[address] [facility] Comment on above: Performed By: #### C BC #### [facility] [address] [place] [address] Dr. Oksana Betancourt PLT 201 103/ul Normal 150-[address] [facility] Comment on above: Performed By: #### C BC #### [facility] [address] [place] [address] Dr. Oksana Betancourt RBC 4.88 106/ul Normal 4.70-6.[address] [facility] Comment on above: Performed By: #### C BC #### [facility] [address] [place] [address] Dr. Oksana Betancourt WBC 8.9 103/ul Normal 4.0-11.0 [facility] Comment on above: Performed By: #### C BC #### [facility] [address] [place] [address] Dr. Oksana Betancourt GLYCOHEMOGLOBIN A1Con 2021 ADA RECOMMENDATION SEE BELOW Normal [facility] Comment on above: Result Comment: ADA RECOMMENDED LIMIT 4.0 - 6.0 ADA THERAPEUTIC TARGET < 7.0 ACTION SUGGESTED > 7.0 Performed By: #### A 1C #### [facility] [address] [place] [address] Dr. Oksana Betancourt Glucose [Mass/Vol] 131 mg/dL Normal [facility] Comment on above: Performed By: #### A 1C #### [facility] [address] [place], [place] [id number] Dr. Oksana Betancourt HbA1c (Bld) [Mass fraction] 6.2 % Normal 4.5-6.2 [facility] Comment on above: Performed By: #### A 1C #### [facility] [address] [place], [place] [address] Dr. Oksana Betancourt LIPID PROFILEon 02-13-2022 CHOL-HDL RATIO NORM SEE BELOW Normal [facility] Comment on above: Result Comment: 3.3 - 4.4 LOW RISK 4.4 - 7.1 AVERAGE RISK 7.1 - 11.0 MODERATE RISK >11.0 HIGH RISK Performed By: #### L IPID, CMP ####[facility] [address] [address]DrBridger Betancourt Cholesterol [Mass/Vol] 131 mg/dL Normal <=200 [facility] Comment on above: Performed By: #### L IPID, CMP ####[facility] [address] [address]DrBridger Betancourt Cholesterol in HDL [Mass/Vol] 40 mg/dL Normal 40-60 [facility] Comment on above: Performed By: #### L IPID, CMP ####[facility] [address] [address]Dr. Oksana Betancourt Cholesterol in LDL [Mass/Vol] 69.2 mg/dL Normal [facility] Comment on above: Performed By: #### L IPID, CMP ####[facility] [address] [id number]. Oksana Betancourt Cholesterol.total/ Cholesterol in HDL [Mass ratio] 3.3 {ratio} Normal [facility] Comment on above: Performed By: #### L IPID, CMP ####[facility] [address] [id number]. Oksana Betancourt HDL NORMAL > or = 60 mg/dl - LO W CARDIOVASCULAR RISK <40 mg/dl - HIGH CARDIOVASCULAR RISK Normal [facility] Comment on above: Performed By: #### L IPID, CMP ####[facility] [address] [address]Dr. Oksana Betancourt LDL CALC NORMAL SEE BELOW Normal [facility] Comment on above: Result Comment: <100 mg/dl OPTIMAL 100 - 129 mg/dl NEAR OR ABOVE OPTIMAL 130 - 159 mg/dl BORDERLINE HIGH 160 - 189 mg/dl HIGH >190 mg/dl VERY HIGH Performed By: #### L IPID, CMP ####[facility] [address] [address]Dr. Oksana Betancourt Triglyceride [Mass/Vol] 109 mg/dL Normal <=150 [facility] Comment on above: Performed By: #### L IPID, CMP ####[facility] [address] [address]Dr. Oksana Betancourt VLDL CALC 21.8 mg/dL Normal [facility] Comment on above: Performed By: #### L IPID, CMP ####[facility] [address] [place], [place] [address]Dr. Oksana Betancourt PROF 14(COMP METB)on 022 Albumin [Mass/Vol] 3.5 g/dL Normal 3.4-5.0 [facility] Comment on above: Performed By: #### L IPID, CMP ####[facility] [address] [place], [place] [address]Dr. Oksana Betancourt Albumin/Globulin [Mass ratio] 0.9 {ratio} Normal [facility] Comment on above: Performed By: #### L IPID, CMP ####[facility] [address] [place], [place] [address]Dr. Oksana Betancourt ALP [Catalytic activity/Vol] 74 U/L Normal 46-[address] [facility] Comment on above: Performed By: #### L IPID, CMP ####[facility] [address] [address]Dr. Oksana Betancourt ALT [Catalytic activity/Vol] 27 U/L Normal 16-63 [facility] Comment on above: Performed By: #### L IPID, CMP ####[facility] [address] [place], [place] [address]Dr. Oksana Betancourt Anion gap [Moles/Vol] 10.0 mmol/L Normal [facility] Comment on above: Performed By: #### L IPID, CMP ####[facility] [address] [place], [place] [address]Dr. Oksana Betancourt AST [Catalytic activity/Vol] 16 U/L Normal 15-37 [facility] Comment on above: Performed By: #### L IPID, CMP ####[facility] [address] [place], [place] [address]Dr. Oksana Betancourt Bilirubin [Mass/Vol] 0.7 mg/dL Normal 0.2-1.0 [facility] Comment on above: Performed By: #### L IPID, CMP ####[facility] [address] [place], [place] [address]Dr. Oksana Betancourt Calcium [Mass/Vol] 9.9 mg/dL Normal 8.5-10.1 [facility] Comment on above: Performed By: #### L IPID, CMP ####[facility] [address] [place], [place] [address]Dr. Oksana Betancourt Chloride [Moles/Vol] 102 mmol/L Normal 98-[address] [facility] Comment on above: Performed By: #### L IPID, CMP ####[facility] [address] [place], [place] [address]Dr. Oksana Betancourt CO2 [Moles/Vol] 29.5 mmol/L Normal 21.0-32.0 [facility] Comment on above: Performed By: #### L IPID, CMP ####[facility] [address] [place], [place] [address]Dr. Oksana Betancourt Creatinine [Mass/Vol] 1.63 mg/dL Critically high 0.70-1.30 [facility] Comment on above: Performed By: #### L IPID, CMP ####[facility] [address] [place], [place] [address]Dr. Oksana Betancourt EGFR-AF BRUNEIAN 52 mL/min/1.73m2 Critically low >=60 [facility] Comment on above: Performed By: #### L IPID, CMP ####[facility] [address] [place], [place] [address]Dr. Oksana Betancourt EGFR-NON AF BRUNEIAN 43 mL/min/1.73m2 Critically low >=[address] [facility] Comment on above: Performed By: #### L IPID, CMP ####[facility] [address] [address]Dr. Oksana Betancourt Globulin (S) [Mass/Vol] 4.0 g/dL Normal [facility] Comment on above: Performed By: #### L IPID, CMP ####[facility] [address] [address]Dr. Oksana Betancourt Glucose [Mass/Vol] 113 mg/dL Critically high 74-106 [facility] Comment on above: Performed By: #### L IPID, CMP ####[facility] [address] [place], [place] [address]Dr. Oksana Betancourt Potassium [Moles/Vol] 3.5 mmol/L Normal 3.5-5.[address] [facility] Comment on above: Performed By: #### L IPID, CMP ####[facility] [address] [place], [place] [address]Dr. Oksana Betancourt Protein [Mass/Vol] 7.5 g/dL Normal 6.4-8.2 [facility] Comment on above: Performed By: #### L IPID, CMP ####[facility] [address] [place], [place] [address]Dr. Oksana Betancourt Sodium [Moles/Vol] 138 mmol/L Normal 136-145 [facility] Comment on above: Performed By: #### L IPID, CMP ####[facility] [address] [place], [place] [address]Dr. Oksana Betancourt Urea nitrogen [Mass/Vol] 25.0 mg/dL Critically high 7.0-18.[address] [facility] Comment on above: Performed By: #### L IPID, CMP ####[facility] [address] [place], [place] [address]Dr. Oksana Betancourt Urea nitrogen/Creatinin e [Mass ratio] 15.3 mg/mg Normal [facility] Comment on above: Performed By: #### L IPID, CMP ####[facility] [address] [place], [place] [address]Va. Oksana Betancourt Vital Signs Date Time Vital Sign Value Performing Clinician Facility 02-08-2024 09:31-0400 Body height 170.18 cm [facility] 02-08-2024 09:31-0400 Body mass index (BMI) [Ratio] 41.4 kg/m2 [facility] 02-08-2024 09:31-0400 Body weight 119.97 kg [facility] 02-08-2024 09:31-0400 Diastolic blood pressure 84 mm[Hg] [facility] 02-08-2024 09:31-0400 Heart rate 69 /min [facility] 02-08-2024 09:31-0400 Respiratory rate 12 /min [facility] 02-08-2024 09:31-0400 Systolic blood pressure 124 mm[Hg] [facility] 11-18-2023 10:54-0500 Body height 172.7 cm Lydia Godinez 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.[employer] Work Phone: [facility] 11-18-2023 10:54-0500 Body temperature 97.9 [degF] Lydia Godinez 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.[employer] Work Phone: [facility] 11-18-2023 10:54-0500 Body weight 120.9 kg Lydia Godinez 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.[employer] Work Phone: [facility] 11-18-2023 10:54-0500 Diastolic blood pressure 76 mm[Hg] Lydia Godinez 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.[employer] Work Phone: [facility] 11-18-2023 10:54-0500 Heart rate 59 /min Lydia Godinez 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.[employer] Work Phone: [facility] 11-18-2023 10:54-0500 Systolic blood pressure 120 mm[Hg] Lydia Godinez 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.[employer] Work Phone: [facility] 10-28-2023 11:30-0500 Body height 170.18 cm Isreal Ball Other [facility] 10-28-2023 11:30-0500 Body mass index (BMI) [Ratio] 42.1 kg/m2 Isreal Ball [facility] 10-28-2023 11:30-0500 Body weight 121.93 kg Isreal Ball Other [facility] 10-28-2023 11:30-0500 Diastolic blood pressure 88 mm[Hg] Isreal Ball Other [facility] 10-28-2023 11:30-0500 Respiratory rate 12 /min Isreal Ball Other [facility] 10-28-2023 11:30-0500 Systolic blood pressure 139 mm[Hg] Isreal Ball Other [facility] 08-21-2023 13:16-0500 Body height 172.7 cm Kenney Bangura MD Work Phone: [facility] 08-21-2023 13:16-0500 Body weight 121.1 kg Kenney Bangura MD Work Phone: [facility] 08-21-2023 13:16-0500 Diastolic blood pressure 85 mm[Hg] Kenney Bangura MD Work Phone: [facility] 08-21-2023 13:16-0500 Heart rate 66 /min Kenney Bangura MD Work Phone: [facility] 08-21-2023 13:16-0500 Systolic blood pressure 152 mm[Hg] Kenney Bangura MD Work Phone: [facility] 06-26-2023 11:30-0400 Body height 170.18 cm Isreal Ball Other [facility] 06-26-2023 11:30-0400 Body mass index (BMI) [Ratio] 40 kg/m2 Isreal Ball Other [facility] 06-26-2023 11:30-0400 Body weight 115.85 kg Isreal Ball Other [facility] 06-26-2023 11:30-0400 Diastolic blood pressure 77 mm[Hg] Isreal Ball Other [facility] 06-26-2023 11:30-0400 Respiratory rate 12 /min Isreal Ball Other [facility] 06-26-2023 11:30-0400 Systolic blood pressure 117 mm[Hg] Isreal Ball Other [facility] 02-25-2023 10:44-0400 Body height 172.7 cm Jeff Duncan MD Work Phone: [facility] 02-25-2023 10:44-0400 Body weight 115.67 kg Jeff Duncan MD Work Phone: [facility] 02-25-2023 10:44-0400 Diastolic blood pressure 82 mm[Hg] Jeff Duncan MD Work Phone: [facility] 02-25-2023 10:44-0400 Heart rate 58 /min Jeff Duncan MD Work Phone: [facility] 02-25-2023 10:44-0400 Systolic blood pressure 141 mm[Hg] Jeff Duncan MD Work Phone: [facility] 12-26-2022 15:49-0400 Body temperature 97.2 [degF] Pete Gupta MD Work Phone: [facility] 12-26-2022 15:49-0400 Body weight 116.71 kg Pete Gupta MD Work Phone: [facility] 12-26-2022 15:49-0400 Diastolic blood pressure 81 mm[Hg] Pete Gupta MD Work Phone: [facility] 12-26-2022 15:49-0400 Heart rate 59 /min Pete Gupta MD Work Phone: [facility] 12-26-2022 15:49-0400 Respiratory rate 18 /min Pete Gupta MD Work Phone: [facility] 12-26-2022 15:49-0400 SaO2% (BldA) [Mass fraction] 99 % Pete Gupta MD Work Phone: [facility] 12-26-2022 15:49-0400 Systolic blood pressure 155 mm[Hg] Pete Gupta MD Work Phone: [facility] 10-24-2022 11:15-0500 Body height 170.18 cm Carline Chun Other [facility] 10-24-2022 11:15-0500 Body mass index (BMI) [Ratio] 39.78 kg/m2 Carline Chun Other [facility] 10-24-2022 11:15-0500 Body weight 115.21 kg Carline Chun Other [facility] 10-24-2022 11:15-0500 Diastolic blood pressure 82 mm[Hg] Carline Chun Other [facility] 10-24-2022 11:15-0500 SaO2% (BldA) [Mass fraction] 97 % Carline Chun [facility] 10-24-2022 11:15-0500 Systolic blood pressure 110 mm[Hg] Carline Chnu [facility] 06-26-2022 10:54-0400 Body height 172.7 cm Audrey Waller APRN.CNP Work Phone: [facility] 06-26-2022 10:54-0400 Body temperature 97.11 [degF] Audrey Wegas 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.[employer] Work Phone: [facility] 06-26-2022 10:54-0400 Body weight 110.22 kg Audrey Wegas 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.[employer] Work Phone: [facility] 06-26-2022 10:54-0400 Diastolic blood pressure 64 mm[Hg] Audrey Wegas 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.[employer] Work Phone: [facility] 06-26-2022 10:54-0400 Heart rate 64 /min Audrey Wegas 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.[employer] Work Phone: [facility] 06-26-2022 10:54-0400 Respiratory rate 18 /min Audrey Wegas 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.[employer] Work Phone: [facility] 06-26-2022 10:54-0400 SaO2% (BldA) [Mass fraction] 98 % Audrey Wegas 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.[employer] Work Phone: [facility] 06-26-2022 10:54-0400 Systolic blood pressure 108 mm[Hg] Audrey Wegas 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.[employer] Work Phone: [facility] 06-20-2022 09:07-0400 Body height 172.7 cm Pete Gupta MD Work Phone: [facility] 06-20-2022 09:07-0400 Body temperature 96.6 [degF] Pete Gupta MD Work Phone: [facility] 06-20-2022 09:07-0400 Body weight 111.13 kg Pete Gupta MD Work Phone: [facility] 06-20-2022 09:07-0400 Diastolic blood pressure 72 mm[Hg] Pete Gupta MD Work Phone: [facility] 06-20-2022 09:07-0400 Heart rate 70 /min Pete Gupta MD Work Phone: [facility] 06-20-2022 09:07-0400 Respiratory rate 14 /min Pete Gupta MD Work Phone: [facility] 06-20-2022 09:07-0400 Systolic blood pressure 144 mm[Hg] Pete Gupta MD Work Phone: [facility] 05-23-2022 09:50-0400 Body height 172.7 cm Pete Gupta MD Work Phone: [facility] 05-23-2022 09:50-0400 Body temperature 97.7 [degF] Pete Gupta MD Work Phone: [facility] 05-23-2022 09:50-0400 Body weight 120.2 kg Pete Gupta MD Work Phone: [facility] 05-23-2022 09:50-0400 Diastolic blood pressure 74 mm[Hg] Pete Gupta MD Work Phone: [facility] 05-23-2022 09:50-0400 Heart rate 64 /min Pete Gupta MD Work Phone: [facility] 05-23-2022 09:50-0400 Respiratory rate 12 /min Pete Gupta MD Work Phone: [facility] 05-23-2022 09:50-0400 Systolic blood pressure 135 mm[Hg] Pete Gupta MD Work Phone: [facility] 05-20-2022 08:27-0400 Body height 172.7 cm Pacc 3 Work Phone: [facility] 05-20-2022 08:27-0400 Body temperature 97.11 [degF] Pacc 3 Work Phone: [facility] 05-20-2022 08:27-0400 Body weight 121.38 kg Pacc 3 Work Phone: [facility] 05-20-2022 08:27-0400 Diastolic blood pressure 82 mm[Hg] Pacc 3 Work Phone: [facility] 05-20-2022 08:27-0400 Heart rate 63 /min Pacc 3 Work Phone: [facility] 05-20-2022 08:27-0400 SaO2% (BldA) [Mass fraction] 98 % Pacc 3 Work Phone: [facility] 05-20-2022 08:27-0400 Systolic blood pressure 143 mm[Hg] Pacc 3 Work Phone: [facility] 05-02-2022 14:52-0400 Diastolic blood pressure 83 mm[Hg] Kenney Bangura MD Work Phone: [facility] 05-02-2022 14:52-0400 Heart rate 62 /min Kenney Bangura MD Work Phone: [facility] 05-02-2022 14:52-0400 Systolic blood pressure 148 mm[Hg] Kenney Bangura MD Work Phone: [facility] Encounters Encounter Date Encounter Type Care Provider Facility Start: 02-08-2024 End: 02-08-2024 ambulatory [facility] Work Phone: Start: 02-08-2024 End: 02-08-2024 Encounter for general adult medical examination without abnormal findings [facility] Start: 02-08-2024 End: 02-08-2024 Patient encounter procedure [facility] Work Phone: Start: 01-12-2024 Non-patient / Non-visit [facility] [employer] Work Phone: Start: 11-18-2023 End: 11-19-2023 ambulatory LYDIA GODINEZ Facility:[facility] Start: 11-18-2023 End: 11-18-2023 Patient encounter procedure Lydia Godinez 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.[employer] Work Phone: [facility] Comment on above: 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) Start: 10-28-2023 End: 10-28-2023 ambulatory Isreal Morrow [facility] Other Start: 10-28-2023 Office outpatient vi sit 25 minutes Isreal Morrow [facility] Start: 09-25-2023 End: 09-25-2023 ambulatory KENNEY BANGURA Facility:[facility] Start: 08-28-2023 End: 08-28-2023 ambulatory PETE GUPTA Facility:[facility] Start: 08-28-2023 End: 08-28-2023 ambulatory Pete Gupta MD Work Phone: General Surgery Comment on above: Mass of pancreas (Pr imary Dx) Start: 08-28-2023 End: 08-28-2023 Telemedicine consultation with patient Pete Gupta MD Work Phone: [facility] Start: 08-25-2023 ambulatory Kenney Bangura MD Work Phone: Urology Comment on above: Your results fro CT abd/pel Start: 08-25-2023 E-mail encounter fro m caregiver Kenney Bangura MD Work Phone: [facility] Start: 08-21-2023 End: 08-22-2023 ambulatory Kenney [...] Start: 08-20-2023 End: 08-20-2023 ambulatory Jason Neri Facility:[facility] Start: 06-26-2023 End: 06-26-2023 ambulatory Isreal Morrow [facility] Other Start: 06-26-2023 Patient encounter procedure Isreal Morrow [facility] Start: 05-19-2023 End: 05-19-2023 ambulatory Isreal Morrow [facility] Other Start: 05-19-2023 Telephone encounter Isreal STEIN [facility] Start: 02-25-2023 End: 02-26-2023 ambulatory JEFF DUNCAN Facility:[facility] Start: 02-25-2023 End: 02-25-2023 Patient encounter procedure Jeff Duncan MD Work Phone: [facility] Comment on above: 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); Malignant neoplasm of right kidney (HCC); Primary hypertension; 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; Obesity, Class III, BMI >= 40; Solitary kidney, acquired; Renal cell carcinoma, unspecified laterality (HCC); H/O primitive neuroectodermal tumor (PNET); H/O radical nephrectomy Start: 02-11-2023 End: 02-11-2023 ambulatory KENNEY BANGURA Facility:[facility] Start: 01-20-2023 End: 01-20-2023 ambulatory Isreal Morrow [facility] Other Start: 01-20-2023 Telephone encounter Isreal Krause [facility] Start: 01-15-2023 End: 01-16-2023 [...] 10-24-2022 End: 10-24-2022 ambulatory Carline Chun [facility] Other Start: 10-24-2022 Office outpatient vi sit 10 minutes Carline Lay [facility] Start: 09-23-2022 Telephone encounter Kanu NEWSOME Work [...] Patient encounter procedure Kanu NEWSOME Work Phone: [facility] Start: 08-08-2022 End: 08-08-2022 ambulatory Audrey Sravaneunicekerry [employer] Work Phone: [facility] Comment on above: Hemothorax (Primary Dx) Start: 08-08-2022 End: 08-08-2022 Telemedicine consultation with patient Audrey Waller [employer] Work Phone: [facility] Start: 07-31-2022 End: 08-01-[address] [...] Start: 05-20-2022 End: 05-20-2022 Patient encounter procedure Rahcel Peterson APRN.[employer] Work Phone: Urology Comment on above: Malignant neoplasm o f right kidney, except renal pelvis (HCC) (Primary Dx) Malignant neoplasm o f right kidney, except renal pelvis (HCC) (Primary Dx); Mass of pancreas Start: 05-20-2022 End: 05-20-2022 Admission to establishment Pacc Main 3 Work Phone: [facility] Start: 05-20-2022 End: 05-20-2022 ambulatory Pacc [...] 05-16-2022 Subsequent hospital visit by physician [facility] Comment on above: Malignant neoplasm o f right kidney, except renal pelvis (HCC) [C64.1] Start: 05-12-2022 Telephone encounter Lainey baker RN Work Phone: General Surgery Comment on above: Cobol Developer - O ther Start: 05-07-2022 End: 05-08-[address] DOCTOR HERRERA Facility:[facility]1 Start: 05-05-2022 ambulatory La Nena Hobbs RN [facility] & Start: 05-02-2022 End: 05-02-2022 Patient encounter procedure Kenney Bangura MD Work Phone: Urology Comment on above: Malignant neoplasm o f right kidney, except renal pelvis (HCC) Start: 05-02-2022 ambulatory Kenney Bangura MD Work Phone: Urology Start: 04-25-2022 End: 04-26-[address] ISREAL MORROW Facility:[facility] Start: 04-17-2022 Adult health examination Wilfredo Morrow Other [employer] Other Start: 04-16-2022 End: 04-17-[address] ISREAL MORROW Facility:[facility] Start: 04-02-2022 End: 04-03-[address] ISREAL MORROW Facility:[facility] Start: 03-18-2022 End: 03-19-[address] ISREAL MORROW Facility:[facility] Start: 02-20-2022 Encounter for genera l adult medical examination without abnormal findings DR ISREAL MORROW [facility] Start: 02-13-2022 End: 02-14-[address] ISREAL [...] Order Provider Start: 02-13-[address] KUMAR IN [place] Comment on above: Performed By: #### P [facility] #### [facility] [address] [place] [address] Dr. Oksana Betancourt Start: 11-25-2016 Screening for malign ant neoplasm of colon Isreal Morrow Other Start: 11-23-2015 General examination of patient Isreal Morrow Other Depression screening Derikernie thompson Odalys Other Plan of Treatment Date Care Activity Detail Author Start: 09-25-2028 Prostate specific antigen measurement Prostate Cancer Screening Discussion [facility] Start: 02-12-2028 Lipid 1996 panel - S vish or Plasma Lipid Screening [facility] Start: 02-12-2028 Lipid panel Lipid Screening [facility] Start: 02-12-2028 LIPID SCREEN LIPID SCREEN [facility] Start: 02-12-2028 PROSTATE CANCER SCREENING DISCUSSION PROSTATE CANCER SCREENING DISCUSSION [facility] Start: 02-13-2027 PROSTATE CANCER SCREENING DISCUSSION PROSTATE CANCER SCREENING DISCUSSION [facility] Start: 09-25-2026 Diabetes Screening Diabetes Screenin g [facility] Start: 02-11-2026 DIABETES SCREEN DIABETES SCREEN [facility] Start: 02-11-2026 Diabetes Screening Diabetes Screenin g [facility] Start: 06-06-2025 DIABETES SCREEN DIABETES SCREEN [facility] Start: 06-05-2025 DIABETES SCREEN DIABETES SCREEN [facility] Start: 05-20-2025 DIABETES SCREEN DIABETES SCREEN [facility] Start: 11-18-2024 BP Controlled (<130/80) BP Controlle d (<130/80) [facility] Start: 09-25-2024 Creatinine measurement Serum Creatin ine [facility] Start: 02-12-2024 Complete blood count Hemoglobin/Yosvany tocrit [facility] Start: 01-25-2024 End: 04-25-2024 Renal function 2000 panel - Serum or Plasma RENAL FUNCTION PANEL Lab Routine Stage 3b chronic kidney disease (HCC) Expected: 01/25/2024 (Approximate), Expires: 04/25/2024 [facility] Work Phone: Comment on above: Expected: 01/25/2024 (Approximate), Expires: 04/25/2024 Start: 09-21-2023 Depression Assessment Depression Ass essment [facility] Start: 08-28-2023 End: 11-27-2023 CREATININE BLD CREATININE BLD Lab Routine Mass of pancreas Expected: 08/28/2023, Expires: 11/27/2023 [facility] Work Phone: Comment on above: Expected: 08/28/2023 , Expires: 11/27/2023 Start: 08-21-2023 End: 11-20-2023 Comprehensive metabolic 2000 panel - Serum or Plasma COMP METABOLIC PANEL Lab Routine Malignant neoplasm of right kidney (HCC) Expected: 08/21/2023, Expires: 11/20/2023 [facility] Work Phone: Comment on above: Expected: 08/21/2023 , Expires: 11/20/2023 Start: 08-21-2023 End: 11-20-2023 Prostate specific Ag [Mass/volume] in Serum or Plasma PSA/PROSTSPECAG DIAG Lab Routine Malignant neoplasm of right kidney (HCC) Expected: 08/21/2023, Expires: 11/20/2023 [facility] Work Phone: Comment on above: Expected: 08/21/2023 , Expires: 11/20/2023 Start: 07-27-2023 End: 01-25-2024 Ct abdomen & pelvis w/contrast material CT ABD/PEL W IVCON Radiology Routine Malignant neoplasm of right kidney (HCC) Mass of pancreas Expected: 07/27/2023, Expires: 01/25/2024 [facility] Work Phone: Comment on above: Expected: 07/27/2023 , Expires: 01/25/2024 Start: 07-27-2023 End: 01-25-2024 Radiologic exam chest 2 views XR CHEST 2V FRONTAL/LAT Radiology Routine Malignant neoplasm of right kidney (HCC) Mass of pancreas Expected: 07/27/2023, Expires: 01/25/2024 [facility] Work Phone: Comment on above: Expected: 07/27/2023 , Expires: 01/25/2024 Start: 06-26-2023 BP CONTROLLED (<130/80) BP CONTROLLE D (<130/80) [facility] Start: 05-22-2023 Covid-19 Vaccine ( season) Covid-19 Vaccine ( season) [facility] Start: 05-22-2023 Influenza vaccination INFLUENZ A (Season Ended) [facility] Start: 12-26-2022 End: 02-25-2023 CREATININE BLD CREATININE BLD Lab Routine Malignant neoplasm of right kidney (HCC) Mass of pancreas Expected: 12/26/2022, Expires: 02/25/2023 [facility] Work Phone: Comment on above: Expected: 12/26/2022 , Expires: 02/25/2023 Start: 12-25-2022 End: 07-26-2023 Ct abdomen & pelvis w/contrast material CT ABD/PEL W IVCON Radiology Routine Malignant neoplasm of right kidney (HCC) Mass of pancreas Expected: 12/25/2022, Expires: 07/26/2023 [facility] Work Phone: Comment on above: Expected: 12/25/2022 , Expires: 07/26/2023 Start: 09-21-2022 DEPRESSION ASSESSMENT DEPRESSION ASS ESSMENT [facility] Start: 09-05-2022 End: 11-05-2022 MISC SEND OUT TST 1 MISC SEND OUT TST 1 Lab Routine Malignant neoplasm of right kidney (HCC) Expected: 09/05/2022, Expires: 11/05/2022 [facility] Work Phone: Comment on above: Expected: 09/05/2022 , Expires: 11/05/2022 Start: 08-01-2022 MENINGOCOCCAL GROUP B VACCINE 2 DOSE MENINGOCOCCAL GROUP B VACCINE 2 DOSE Immunization/Injection Routine Mass of pancreas Expected: 08/01/2022 (Approximate) [facility] Work Phone: Comment on above: Expected: 08/01/2022 (Approximate) Start: 05-22-2022 Influenza vaccination INFLUENZA (#1) [facility] Start: 05-11-2022 COVID-19 VACCINE (4 - Booster for Yu series) COVID-19 VACCINE (4 - Booster for Yu series) [facility] Start: 05-06-2022 End: 07-06-2022 aPTT in Platelet poor plasma by Coagulation assay ACTIVATED PTT Lab Routine Malignant neoplasm of right kidney, except renal pelvis (HCC) Expected: 05/06/2022, Expires: 07/06/2022 [facility] Work Phone: Comment on above: Expected: 05/06/2022 , Expires: 07/06/2022 Start: 05-06-2022 End: 07-06-2022 CBC panel - Blood by Automated count CBC Lab Routine Malignant neoplasm of right kidney, except renal pelvis (HCC) Expected: 05/06/2022, Expires: 07/06/2022 [facility] Work Phone: Comment on above: Expected: 05/06/2022 , Expires: 07/06/2022 Start: 05-06-2022 End: 07-06-2022 Comprehensive metabolic 2000 panel - Serum or Plasma COMP METABOLIC PANEL Lab Routine Malignant neoplasm of right kidney, except renal pelvis (HCC) Expected: 05/06/2022, Expires: 07/06/2022 [facility] Work Phone: Comment on above: Expected: 05/06/2022 , Expires: 07/06/2022 Start: 05-06-2022 End: 07-06-2022 CONFIRM BLOOD TYPE CONFIRM BLOOD TYPE Blood Bank Routine Malignant neoplasm of right kidney, except renal pelvis (HCC) Expected: 05/06/2022, Expires: 07/06/2022 [facility] Work Phone: Comment on above: Expected: 05/06/2022 , Expires: 07/06/2022 Start: 05-06-2022 End: 07-06-2022 PT panel - Platelet poor plasma by Coagulation assay PROTHROMBIN TIME/PT Lab Routine Malignant neoplasm of right kidney, except renal pelvis (HCC) Expected: 05/06/2022, Expires: 07/06/2022 [facility] Work Phone: Comment on above: Expected: 05/06/2022 , Expires: 07/06/2022 Start: 05-06-2022 End: 05-05-2023 SARS-CoV-2 (COVID-19) RNA [Presence] in Respiratory specimen by SAMMI with probe detection PRE-PROCEDURE & PRE-OPERATIVE COVID Microbiology Routine Malignant neoplasm of right kidney, except renal pelvis (HCC) Expected: 05/06/2022, Expires: 05/05/2023 [facility] Work Phone: Comment on above: Expected: 05/06/2022 , Expires: 05/05/2023 Start: 05-06-2022 End: 07-06-2022 TYPE AND SCREEN,30 DAY TYPE AND SCREEN,30 DAY Blood Bank Routine Malignant neoplasm of right kidney, except renal pelvis (HCC) Expected: 05/06/2022, Expires: 07/06/2022 [facility] Work Phone: Comment on above: Expected: 05/06/2022 , Expires: 07/06/2022 Start: 05-02-2022 End: 07-02-2022 CREATININE BLD CREATININE BLD Lab Routine Malignant neoplasm of right kidney, except renal pelvis (HCC) Expected: 05/02/2022, Expires: 07/02/2022 [facility] Work Phone: Comment on above: Expected: 05/02/2022 , Expires: 07/02/2022 Start: 09-21-2021 DEPRESSION ASSESSMENT DEPRESSION ASS ESSMENT [facility] Start: 2019 RSV Vaccine (1 - 1-d ose 60+ series) RSV Vaccine (1 - 1-dose 60+ series) [facility] Start: 2014 PROSTATE CANCER SCREENING DISCUSSION PROSTATE CANCER SCREENING DISCUSSION [facility] Start: 2009 SHINGRIX VACCINE (1 of 2) SHINGRIX VACCINE (1 of 2) [facility] Start: 02-07-2004 COLOGUARD (FIT-DNA) COLOGUARD (FIT-D NA) [facility] Start: 02-07-2004 Colonoscopy COLONOSCOPY [facility] Start: 02-07-2004 COLORECTAL CANCER SCREENING COLORECTAL CANCER SCREENING [facility] Start: 02-07-[address] COLONOGRAPHY [facility] Start: 02-07-2004 DIABETES SCREEN DIABETES SCREEN [facility] Start: 02-07-2004 FECAL OCCULT BLOOD FECAL OCCULT BLOO D [facility] Start: 02-07-2004 Screening for malign ant neoplasm of colon [facility] Start: 02-07-[address] [facility] Start: 1994 LIPID SCREEN LIPID SCREEN [facility] Start: 1978 Urine microalbumin profile [facility] Start: 1977 ANNUAL PCP TEAM DATA SUPPORT ANALYST NATALIE DISEASE VISIT ANNUAL PCP TEAM CHRONIC DISEASE VISIT [facility] Start: 1977 BP CONTROLLED (<130/80) BP CONTROLLE D (<130/80) [facility] Start: 1977 HEPATITIS C SCREENING HEPATITIS C [facility] Start: 1977 Hepatitis C screening Hepatitis C [facility] Start: 1977 HIV SCREENING HIV SCREENING [facility] Start: 1977 HIV screening HIV Screening [facility] Start: 1971 Adult depression screening assessment DEPRESSION SCREENING [facility] End: 06-01-2023 Bone &/joint imaging whole body NM BONE WHOLE BODY Radiology Routine Malignant neoplasm of right kidney, except renal pelvis (HCC) 1 Occurrences starting 05/02/2022 until 06/01/2023 [facility] Work Phone: Comment on above: 1 Occurrences starti ng 05/02/2022 until 06/01/2023 Comprehensive metabo lic 2000 panel - Serum or Plasma [facility] End: 07-20-2023 Ct abdomen w/contrast material CT PANCREAS W IVCON Radiology Routine Malignant neoplasm of right kidney (HCC) Malignant neoplasm of right kidney, except renal pelvis (HCC) Mass of pancreas Malignant neoplasm of body of pancreas (HCC) 1 Occurrences starting 06/20/2022 until 07/20/2023 [facility] Work Phone: Comment on above: 1 Occurrences starti ng 06/20/2022 until 07/20/2023 End: 09-26-2024 Ct abdomen w/contrast material CT PANCREAS W IVCON Radiology Routine Mass of pancreas 1 Occurrences starting 08/28/2023 until 09/26/2024 [facility] Work Phone: Comment on above: 1 Occurrences starti ng 08/28/2023 until 09/26/2024 End: 06-01-2023 CT CHEST W IVCON CT CHEST W IVCON Radiology Routine Malignant neoplasm of right kidney, except renal pelvis (HCC) 1 Occurrences starting 05/02/2022 until 06/01/2023 [facility] Work Phone: Comment on above: 1 Occurrences starti ng 05/02/2022 until 06/01/2023 End: 05-05-2023 ECG COMPLETE ECG COMPLETE ECG Routine Malignant neoplasm of right kidney, except renal pelvis (HCC) 1 Occurrences starting 05/06/2022 until 05/05/2023 [facility] Work Phone: Comment on above: 1 Occurrences starti ng 05/06/2022 until 05/05/2023 Microalbumin [Mass/volume] in Urine [facility] End: 07-26-2023 Radiologic exam chest 2 views XR CHEST 2V FRONTAL/LAT Radiology Routine Hemothorax 1 Occurrences starting 06/26/2022 until 07/26/2023 [facility] Work Phone: Comment on above: 1 Occurrences starti ng 06/26/2022 until 07/26/2023 End: 09-19-2024 Radiologic exam chest 2 views XR CHEST 2V FRONTAL/LAT Radiology Routine Malignant neoplasm of right kidney (HCC) 1 Occurrences starting 08/21/2023 until 09/19/2024 [facility] Work Phone: Comment on above: 1 Occurrences starti ng 08/21/2023 until 09/19/2024 End: 09-19-2024 US KIDNEY/BLADDER US KIDNEY/BLADDER Radiology Routine Malignant neoplasm of right kidney (HCC) 1 Occurrences starting 08/21/2023 until 09/19/2024 [facility] Work Phone: Comment on above: 1 Occurrences starti ng 08/21/2023 until 09/19/2024 [facility] Immunizations Immunization Date Immunization Notes Care Provider [facility] 06-26-2023 influenza, injectabl e, quadrivalent, preservative free Isreal Morrow Other [facility] 01-15-2023 varicella virus vaccine Isreal Morrow Other [facility] 10-17-2022 COVID-19 Moderna (BIvalent) Isreal Morrow Other [facility] 07-25-2022 meningococcal (MenACWY-TT) vaccine, quadrivalent (MENQUADFI) Lupe Aguilar RN Work Phone: [facility] Work Phone: 05-23-2022 haemophilus influenz ae type b vaccine, PRP-T conjugate Kenisha Hahn MD Work Phone: [facility] Work Phone: 05-23-2022 meningococcal (MenACWY-TT) vaccine, quadrivalent (MENQUADFI) Kenisha Hahn MD Work Phone: [facility] Work Phone: 05-23-2022 meningococcal B vaccine, recombinant, OMV, adjuvanted Kenisha Hahn MD Work Phone: [facility] Work Phone: 05-23-2022 pneumococcal (PCV20) vaccine, 20 valent (PREVNAR 20) Kenisha Hahn MD Work Phone: [facility] Work Phone: 03-16-2022 COVID-19 Pfizer Isreal medina Other [facility] 03-16-2022 COVID-19 Vaccine Pfizer - Documentation Purposes Only Isreal Morrow Other [facility] 07-17-2021 COVID-19 Vaccine Moderna - Documentation Purposes Only Isreal Morrow Other [facility] 11-26-2020 COVID-19 Vaccine Yu - Documentation Purposes Only Isreal Morrow Other [facility] 07-04-2020 influenza virus vaccine, split virus (incl. purified surface antigen) Isreal Morrow Other [employer] [facility] [employer] Other 07-04-2020 influenza virus vaccine, unspecified formulation [facility] 07-13-2019 influenza virus vaccine, split virus (incl. purified surface antigen) Isreal Morrow Other [facility] [employer] Other 07-13-2019 influenza virus vaccine, unspecified formulation [facility] Payers Date Payer Category Payer Self-pay 2023 Unknown [id number] [address] [place] [id number] 2021 Unknown [id number] 2019 Unknown [id number] 1959 Unknown [id number] 1959 Unknown [id number] 2.16.84 [id number] 1959 Unknown [id number] 2.16.84 [id number] 1959 Unknown [id number] 2.16.84 [id number] 1959 Unknown [id number] 2.16.84 [id number] 1959 Unknown [id number] 2.16.84 [id number] 1959 Unknown [id number] 2.16.84 [id number] 1959 Unknown [id number] 2.16.84 [id number] 1959 Unknown [id number] 2.16.84 [id number] 1959 Unknown [id number] 2.16.84 [id number] 1959 Unknown [id number] 2.16.84 [id number] Unknown [id number] 2.16.8 [id number] Social History Date Type Detail Facility Start: 05-02-2022 Tobacco smoking status NHIS Never smoked tobacco [facility] Start: 05-02-2022 End: 05-20-2022 Tobacco use and exposure Smokeless tobacco non-user [facility] Start: 1960 Sex Assigned At Not on file C [facility] Start: 04-22-2022 End: 07-25-2022 Exposure to SARS-CoV-2 (event) Not sure [facility] Start: 05-20-2022 Tobacco smoking status NHIS Ex-smoker [facility] Work Phone: End: 09-21-2004 History of tobacco use Current smoker [facility] Work Phone: End: 09-21-2004 History of tobacco use Cigarette Smoker [facility] Work Phone: Start: 05-20-2022 End: 11-18-2023 Alcohol intake Current drinker of alcohol (finding) [facility] Start: 05-20-2022 History SDOH Alcohol Comment ocassionally- 5 per month [facility] Start: 02-25-2023 End: 08-21-2023 Sex Assigned At [facility] [employer] Other Start: 02-25-2023 Alcohol Comment ocassionally- 12-15 per month [facility] Start: 02-25-2023 End: 08-21-2023 History of Social function [facility] National Score (1-100), lower number is lower risk 91 [facility] Start: 1960 Sex Assigned At Male F [facility] Clinical Notes 05-02-2022 to 11-18-2023 Patient InstructionsLydia Godinez, 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.FIELD MERCHANDISER - 11/18/2023 11:06 AM EST Note Date & Type Note Facility 11-18-2023 Note Patient Outreach (ISABEL DMMN) CANDICE MITCHELL ([id number]) 1960 M Date Time Provider Department 11/18/23 LYDIA GODINEZ During your visit today, we recorded the following information about you: Allergies As of Date: 11/18/2023 (No Known Allergies) Date Reviewed: 11/18/2023 Reviewed by: Lydia Godinez APRN.FIELD MERCHANDISER - Fully Assessed Visit Diagnosis:Screening for genitourinary condition [Z13.89] Order(s):URINALYSIS, REFLEX MICROSCOPIC [[id number]] Order #: [id number]. #:[id number] Prescriptions as of 11/23/2023 - acetaminophen (TYLENOL [...] neuroectodermal tumor (PNET) [Z85*02/25/2023 Encounter Status:Closed by [employer], PRODUSER on 11/23/23 [facility] 11-18-2023 Note HNO ID: [id number] Author: LYDIA GODINEZ APRN.FIELD MERCHANDISER Service: ? Author Type: Nurse Practitioner Type: Progress Notes Filed: 11/20/2023 15:02 Note Text: [facility] NEPHROLOGY AND HYPERTENSION [facility] SERVICE DATE: 11/18/2023 SERVICE TIME: 11:07 AM A portion of this note has been copied from [facility] dated 02/25/23 CHIEF COMPLAINT: follow-up CKD HPI: Mr. 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 [facility] 02/25/[address] Duncan for initial consultation [...] 8.9 10.4 (H) (more content not included)... [facility] 11-18-2023 Instructions Lydia Godinez APRN.FIELD MERCHANDISER - 11/18/2023 11:49 AM EST Lab work [...] `~ 6 months. documented in this encounter [facility] 11-18-2023 History of Presen t illness Narrative [facility] NEPHROLOGY & HYPERTENSION [facility] SERVICE DATE: 11/18/2023 SERVICE TIME: 11:07 AM A portion of this note has been copied from [facility] dated 02/25/23 CHIEF COMPLAINT: follow-up CKD HPI: Mr. 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 [facility] 02/25/[address] Duncan for initial consultation [...] in `~ 6 months. SIGNATURE: Lydia Godinez APRN.CNP, Nephrology Staff PATIENT NAME: Candice Mitchell DATE: November 18, 2023 TIME: 11:07 AM OFFICE NUMBER: [phone] CC: REFERRING PROVIDER: No ref. provider found PRIMARY CARE PHYSICIAN: No primary care provider on file. documented in this encounter [facility] 10-28-2023 Evaluation note Encounter Date Diagnosis Assessment [...] D3A.8) No s/s recurrence f/u Surgery at [facility] Oct, Renal cell carcinoma of right kidney (ICD-10 - C64.1) No s/s recurrence. Denies flank pain or hematuria f/u Surgery at [facility] Oct, History of gout (ICD-10 - Z87.39) No acute gout flares. Continue Allopurinol. Oct, Body mass index [BMI] 40.0-44.9, adult (ICD-10 - Z68.41) Oct, Hypercalcemia (ICD-10 - E83.52) [employer] Other [id number] NoteHNO ID: [id number] Author: Pete Gupta MD Service: ? Author [...] visit. Either the patient or their legal inside outside sales representative has been informed of the risks and benefits of -- and alternatives to -- treatment through a remote evaluation and consents to proceed with the evaluation remotely. Medical Decision Making: Problems: Low: Stable chronic illness Data: Unique source(s) for external note(s) reviewed: 3+ Unique test result(s) reviewed: 3+ Unique test(s) ordered: 1 Medical Decision Making Level: 3 - Low Nelson Gupta MD [facility] surgery Pager: [phone] [facility]12-08-2023 History of Present illness Narrative* Pete Gupta [...] visit. Either the patient or their legal inside outside sales representative has been informed of the risks and benefits of -- and alternatives to -- treatment through a remote evaluation andconsents to proceed with the evaluation remotely. Medical Decision Making: Problems: Low: Stable chronic illness Data: Unique source(s) for external note(s) reviewed: 3+ Unique test result(s) reviewed: 3+ Unique test(s) ordered: 1 Medical Decision Making Level: 3 - Low Nelson Gupta MD [facility] surgery Pager: [phone] [facility] NoteHNO ID: [id number] Author: Kenney Bangura MD Service: ? Author Type: Physician Type: Progress Notes Filed: 08/28/2023 10:51 AM Note Text: PATIENT: Candice Mitchell [id number] 08/21/2023 Chief Complaint: Follow up This clinic [...] feeling great. He denies significant issues today. Darrell (more content not included)...[facility]12-01-2023 NoteHNO ID: [id number] Author: Tony Rojas RT(R) Service: Radiology Author [...] and Intact, Site disposition Discontinued SIGNED BY: Tony Rojas RT(R) August 21, 2023 12:[address] [facility]12-01-2023 NoteHNO ID: [id number] Author: Imelda Soriano RN Service: Radiology Author [...] Mitchell DATE: August 21, 2023 TIME: 12:[address] [facility]12-01-2023 History of Present illness Narrative* Kenney Bangura MD - 08/21/2023 2:00 PM EST PATIENT: Candice Mitchell [id number] 08/21/2023 Chief Complaint: Follow up This clinic [...] for Kenney Bangura MD, by Patrick Lagos, biomedical engineering technician, August 21, 2023 I agree with the Chief Complaint, ROS, and Past Histories independently gathered by the clinical sales support specialist and the remaining scribed note accurately describes my personal service to the patient. Kenney Bangura MD [facility] Medical Decision Making: Problems: Moderate: 2+ stable chronic illnesses Data: Unique test(s) ordered: 3+ Risk: Low: Low risk from testing/treatment Medical Decision Making Level: 4 - Moderate [facility]-2023 NotePatient Outreach (UROLMN) CANDICE MITCHELL ([id number]) 1960 M Date Time Provider Department 08/21/23 KENNEY BANGURA During your visit today, we recorded the following information about you: Allergies As of Date: 08/21/2023 (No Known Allergies) Date Reviewed: 08/21/2023 Reviewed by: Zoila Greco MA - Fully Assessed Visit Diagnosis:Screening for genitourinary condition [Z13.89] Order(s):URINALYSIS, REFLEX MICROSCOPIC [[id number]] Order #: [id number]. #:[id number] Prescriptions as of 08/24/2023 - acetaminophen (TYLENOL [...] neuroectodermal tumor (PNET) [Z85*02/25/2023 Encounter Status:Closed by [employer], PRODUSER on 08/24/23[facility] 08-21-2023 NoteHNO ID: [id number] Author: Lainey De La Fuente, RT(R) Service: [...] BY: RT Rhonda(R) August 21, 2023 11:45 [facility]12-01-2023 History of Present illness Narrative* Tony Rojas, RT(R) - 08/21/2023 1:00 PM EST Radiology [...] 2023 TIME: 12:18 PM documented in this encounterUc [facility] Center12-01-2023 History of Present illness Narrative* Lainey De [...] 21, 2023 11:45 AM documented in this encounterUc Medical Center10-06-2023 Evaluation note* Encounter Date Diagnosis Assessment Notes [...] acute attacks Instructed on diet, continue Allopurinol Archetypes Other 08-29-2023 Evaluation note* Encounter Date Diagnosis Assessment Notes Treatment Notes Treatment Clinical Notes Apr, Stage 3a chronic kidney disease (ICD-10 - N18.31) Apr, Hypercalcemia (ICD-1 0 - E83.52) Archetypes Other 06-07-2023 NotePatient Outreach (PAULETTE) CANDICE MITCHELL ([id number]) 1960 M Date Time Provider Department 02/25/23 JEFF DUNCAN During your visit today, we recorded the following information about you: Allergies As of Date: 02/25/2023 (No Known Allergies) Date Reviewed: 02/25/2023 Reviewed by: Cyril Miguel MA - Fully Assessed Visit Diagnoses:Screening for genitourinary condition [Z13.89] Stage 3b chronic kidney disease (HCC) [N18.32] Order(s):URINALYSIS, REFLEX MICROSCOPIC [[id number]] Order #: [id number]. #:[id number] PROTEIN CREATININE RATIO [SQPRATIO] Order #: [id number]. #:[id number] Prescriptions as of 03/02/2023 - acetaminophen (TYLENOL [...] neuroectodermal tumor (PNET) [Z85*02/25/2023 Encounter Status:Closed by [employer], PRODUSER on 03/02/23[facility] 02-25-2023 NoteHNO ID: [id number] Author: Jeff Duncan MD Service: ? Author Type: Physician Type: Progress Notes Filed: 02/26/2023 8:47 AM Note Text: [facility] NE[facility] HYPERTENSION [facility] SERVICE DATE: 02/25/2023 [...] Hx of nephrolithiasis. 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 1. Stage 3b chronic kidney disease (HCC) - ICD9: 585.3, ICD10: N18.32 (primary diagnosis) Stable funct (more content not included)...[facility]06-07-2023 Instructions* Patient Instructions* Jeff Duncan MD - [...] 0.8 g/kg preferably from plant sources. (https://kidney hi.org/dietitian-blog/kfz-yjbv-wgeajic-ym-e-biii-wh-w-hfl-diet) https://www.kidney.org/atoz/content/sodiumckd https://www.kidney.org/atoz/content/plant-based Https://www.kidney.org/atoz/content/Dash_Diet Medications: Would recommend avoiding [...] on CKD please visit the following page: https://www.[employer]/contents/golwrax-mjspsv-lnjjztp-houktl-vbc-ogxhte documented in this encounterUc Medical Center06-07-2023 History of Present illness Narrative* Jeff Duncan MD - 02/25/2023 11:00 AM EDT [facility] NEPHROLOG[facility]YPERTENSION [facility] SERVICE DATE: 02/25/2023 [...] Hx of nephrolithiasis. 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 PAST MEDICAL HISTORY: PAST MEDICAL HISTORY Diagnosis [...] studies, and office notes were reviewed in [facility] ASSESSMENT: 63 year old male who presents [...] E66.01 Stable - Behavioral interventions; agree that Supervisor Customer Services would likely be helpful 6. Solitary kidney, [...] gentleman accompanied by his ; coming from [facility]. History of RCC status post radical nephrectomy [...] Staff; Department of Kidney Medicine Tel #: [phone] Fax #: [phone] February 25, 2023 12:33 PM documented in this encounterUc Medical Center05-02-2023 Evaluation note* Encounter Date Diagnosis Assessment Notes Treatment Notes Treatment Clinical Notes January, Primary hypertension (ICD-10 - I10) January, History of gout (ICD-10 - Z87.39) Archetypes Other 04-07-2023 NoteHNO ID: [id number] Author: Pete Gupta MD Service: ? Author [...] which included preparing to see the patient, wgjh-cx-jolv patient care, completing clinical documentation, obtaining and/or reviewing separately obtained history, performing a medically appropriate examination, counseling and educating the patient/family/caregiver, ordering medications, tests, or procedures, and communicating results to the patient/family/caregiver. Nelson Gupta MD B surgery Pager: [phone] [facility]04-07-2023 NoteHNO ID: [id number] Author: Milind Bustillo Service: ? 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 Author Type: Physician Type: Progress Notes Filed: 12/26/2022 6:13 PM Note Text: PATIENT: Candice Mitchell [id number] REFERRING MD: Fernando 12/26/2022 Chief Complaint Follow [...] and CXR Kenney Bangura MD Urologic Staff [facility] Medical Decision Making: Problems: Low: Stable chronic illness Data: Unique test result(s) reviewed: 1 Unique test(s) ordered: 1 Risk: Low: Low risk from testing/treatment Medical Decision Making Level: 3 - LowOhiohealth04-07-2023 Note HNO ID: [id number] Author: Jeremy Batres RN Service: Nursing Author [...] Mitchell DATE: December 26, 2022 TIME: 12:[address] [facility]04-07-2023 NoteHNO ID: [id number] Author: RT Anjali(R) Service: Radiology Author Type: [...] BY: RT Anjali(R) December 26, 2022 12:[address] [facility]04-07-2023 History of Present illness Narrative* Kenney Bangura MD - 12/26/2022 2:15 PM EDT PATIENT: Candice Mitchell [id number] REFERRING MD: Fernando 12/26/2022 Chief Complaint Follow [...] and CXR Kenney Bangura MD Urologic Staff [facility] Medical Decision Making: Problems: Low: Stable chronic illness Data: Unique test result(s) reviewed: 1 Unique test(s) ordered: 1 Risk: Low: Low risk from testing/treatment Medical Decision Making Level: 3 - Low documented in this encounterUc Medical Center04-07-2023 NotePatient Outreach (UROLMN) CANDICE MITCHELL ([id number]) 1960 M Date Time Provider Department 12/26/22 KENNEY BANGURA During your visit today, we recorded the following information about you: Allergies As of Date: 12/26/2022 (Not on File) Date Reviewed: 12/26/2022 Reviewed by: Pete Gupta MD - Fully Assessed Visit Diagnosis:Screening for genitourinary condition [Z13.89] Order(s):URINALYSIS, REFLEX MICROSCOPIC [[id number]] Order #: [id number]. #:[id number] Prescriptions as of 12/29/2022 - acetaminophen (TYLENOL [...] ventricular contraction) [I49.3] 06/04/2022 Encounter Status:Closed by [employer], PRODUSER on 12/29/22[facility] 12-26-2022 History of Present illness Narrative* Jeremy [...] 26, 2022 12:33 PM documented in this encounterUc Medical Center02-03-2023 Evaluation note* Encounter Date Diagnosis Assessment Notes Treatment Notes Treatment Clinical Notes Oct, Foreign body of right ear, initial encounter (ICD-10 - T16.1XXA) Manually removed a small black plastic piece from his right ear canal. Patient tolerated procedure well. No obvious infection. Patient states it had been in there for less than a day. Archetypes Other 01-03-2023 Miscellaneous Notes* Telephone Encounter - MERCEDEZ Stein - 09/23/2022 2:12 PM EST Patient name and was confirmed at initiation of discussion. Candice Mitchell's Multi-Cancer panel through [employer] was negative for a pathogenic variant. 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 Please see ZEALER message for further discussion. Kanu Busch MS, KEN Licensed, Certified Genetic Counselor documented in this encounterUc Medical Center12-16-2022 Miscellaneous Notes* Telephone Encounter - MERCEDEZ Stein - 09/05/2022 3:21 PM EST Spoke with family regarding insurance coverage for testing and testing facilities' billing policiesand potential out of pocket costs. Family was agreeable to testing and provided consent for [employer] Multi Cancer Panel. Results will be communicated back to the family. Kanu Busch MS, CGC Licensed, Certified Genetic Counselor documented in this encounterUc Medical Center12-14-2022 History of Present illness Narrative* MERCEDEZ Stein - 09/03/2022 12:29 PM EST [facility] Personalized Genetic [...] appropriate standard National Comprehensive Cancer Network and [place] Cancer [employer] guidelines, with consideration of their [...] greater than 50% of which was spent tetp-ib-ajbh counseling. This plan is being carried out under the oversight of Dr. Marley Fiore. This note will also be sent to the referring provider via the electronic medical record. Kanu Busch MS, [facility], Licensed, Certified Genetic Counselor [facility] CC: Dr. Pete Fiore documented in this encounterUc Medical Center11-18-2022 History of Present illness Narrative* Audrey Waller APRN.RASHAAD - 08/08/2022 11:13 AM EST Images from the original note were not included. [facility] [place] Department of Thoracic Surgery TELEPHONE VISIT (audio [...] Time Spent: 11-20 minutes Audrey Waller APRN.RASHAAD [facility] - OUTPATIENT THORACIC SURGERY CLINIC NOTE PT NAME: Candice Mitchell [facility] NO: [id number] THORACIC SURGEON: Dr Carlos Taylor DATE OF [...] PLAN: - return as needed Audrey Waller APRN.FIELD MERCHANDISER documented in this encounterUc Medical Center10-21-2022 Miscellaneous Notes* Telephone Encounter - Lupe Aguilar [...] wants to be scheduled. documented in this encounterUc Medical Center10-06-2022 History of Present illness Narrative* Audrey Waller, 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.FIELD MERCHANDISER - 06/26/2022 10:51 AM EDT Images from the original note were not included. [facility] - OUTPATIENT THORACIC SURGERY CLINIC NOTE PT NAME: Candice Mitchell [facility] NO: [id number] THORACIC SURGEON: Dr Carlos Taylor DATE OF [...] locally Audrey Waller APRN.RASHAAD documented in this encounterUc Medical Center10-06-2022 History of Present illness Narrative* Kenney Bangura MD - 06/26/2022 9:15 AM EDT PATIENT: Candice Mitchell [id number] 06/26/2022 Chief Complaint: Radial nephrectomy for RCC [...] surgeon today. Kenney Bangura MD Urologic Staff [facility] documented in this encounterUc Medical Center09-30-2022 History of Present illness Narrative* Pete Gupta [...] SIGNATURE: Nelson Gupta MD HPB surgery Pager: [phone] * Angie Arias MD - 06/20/2022 9:32 [...] MD 06/20/2022 9:34 AM documented in this encounterUc Medical Center09-30-2022 Nurse Note* Mario Abdul - 06/20/2022 9:07 AM EDT What is the reason for your visit today? Post op Who is your referring physician? Dr. Gupta Are you having poor oral intake? NO Have you had unintentional weight loss of 15 lbs/7 Kg in the last 3-6 months? NO Bowels: regular Wound: clean & dry Temperature: No Drains: No documented in this encounterUc Medical Center09-15-2022 History of Present illness Narrative* Pete Gupta [...] SIGNATURE: Nelson Gupta MD HPB surgery Pager: [phone] * Andre Nugent MD - 05/23/2022 10:36 AM EDT Images [...] Peterson MD General Surgery, PGY-1 Personal Pager: [phone] For after hours issues, please call the on-call pager documented in this encounterUc Medical Center09-02-2022 History of Present illness Narrative* Kenisha Hahn MD - 05/23/2022 2:15 PM EDT Images from the original note were not included. [facility] Multidisciplinary [facility] & Upper GI Case Conference -- Consensus Note -- Conference Date: 05/20/2022 Case reviewed with physicians from GI, Surgery, & Radiology services: -- Surgeons - Alec Chawla Joyce, Sathish Zambrano -- Gastroenterologists - Cecilia -- Radiologist - Nirav Issue(s) Question(s): 62 year old male with R RCC requiring radical nephrectomy (scheduled for 05/27) also found to have a lesion in the pancreatic tial. Imaging Review: - Distal pancreatic lesion most consistent with metastatic RCC Final Consensus Recommendation(s): - Resection, but not at the same time as planned nephrectomy Lindsey Hahn MD B Surgery Fellow [phone] documented in this encounterUc Medical Center09-02-2022 Nurse Note* Mario Abdul - 05/23/2022 9:45 AM EDT What is the reason for your visit today? Follow up Who is your referring physician? Dr. Gupta Are you having poor oral intake? NO Have you had unintentional weight loss of 15 lbs/7 Kg in the last 3-6 months? NO Bowels: regular Wound: clean & dry Temperature: No Drains: No documented in this encounterUc Medical Center09-01-2022 Miscellaneous Notes* Telephone Encounter - Pete Gupta [...] He is on board. Nelson Gupta MD [facility] surgery Pager: [phone] documented in this encounterUc Medical Center08-30-2022 History and physical note * Pete Gupta [...] which included preparing to see the patient, bmgp-nn-otie patient care, completing clinical documentation, obtaining and/or reviewing separately obtained history, performing a medically appropriate examination, counseling and educating the pat ient/family/caregiver, ordering medications, tests, or procedures, and communicating results to thepatient/family/caregiver. SIGNATURE: Nelson Gupta MD B surgery Pager: [phone] * Kenisha Hahn MD - 05/20/2022 11:46 [...] planned nephrectomy on 05/27. Lindsey Hahn MD B Surgery Fellow [phone] documented in this encounterUc Medical Center08-30-2022 History of Present illness Narrative* Rachel Peterson APRN.FIELD MERCHANDISER - 05/20/2022 10:09 AM EDT [facility] PRE-OP NOTE Candice [...] and CONSULTATION WITH MELISSA Powell. Rachel Peterson APRN.RASHAAD documented in this encounterUc Medical Center08-30-2022 Instructions* Patient Instructions* Divina Lopez PA-C - 05/20/2022 9:26 AM EDT PATIENT PREOPERATIVE INSTRUCTIONS Kenney Bangura MD has scheduled you for your procedure at this surgery center: [facility] [place] Scheduling Office: [phone] --[address] [place] [address]. Please read below carefully for your personalized [...] Procedures: - YOU MUST HAVE A RESPONSIBLE DIRECTOR ASSET TAKE YOU HOME. A CHEESE CUTTER OR PUBLIC INFORMATION OFFICER CANNOT BE MADE A RESPONSIBLE DIRECTOR ASSET. - We recommend that a responsible person [...] call the Thursday before. Your surgeon s security researcher will tell you what time to call the office. - If you have not reached the departmental security researcher by 5 P.M., call [phone] after 5 P.M. the day before your surgery. Please be aware that emergency situations arise, which may delay or change your surgical time. If this happens, we will notify you as soon as possible and regret any inconvenience. If you already have an Advance Directive, please fax a copy to [phone] or email to for it to be [...] day. Divina Lopez PA-C documented in this encounterUc Medical Center08-30-2022 History and physical note * Divina Lopez [...] 6 weeks (date) Cardiovascular: Negative for Recent [place], Angina, Arrhythmia, CAD, Chest Pain, CHF, PVD, [...] 2022 TIME: 9:22 AM documented in this encounterUc Medical Center08-26-2022 History of Present illness Narrative* Kenney Bangura MD - 05/16/2022 6:03 PM EDT I called the patient regarding his Bone scan: 05/16/22 Bone scan IMPRESSION: NO SCINTIGRAPHIC EVIDENCE FOR OSSEOUS METASTATIC DISEASE. DEGENERATIVE CHANGES, NOTED. 07/05/22 CT chest No evidence of metastasis to chest. Still pending the evaluation of the pancreatic finding. Right radical nephrectomy scheduled for 05/27/22 Kenney Bangura MD Urologic Staff [facility] documented in this encounterUc Medical Center08-26-2022 History of Present illness Narrative* RT Lino(R) [...] 1225 PATIENT DISCHARGED TO: Ambulatory patient, left [place] department area. A Diagnostic radioactive procedure has taken place, with no further precautions necessary other than routine body substance precautions. More information regarding radiation safety can be found usingthis link: [email or web address]%[email or web address]-% 20Diagnostic%20Nuclear%20Medicine%20Procedures.pdf SIGNATURE: RT Lino(R) PATIENT NAME: Candice Mitchell DATE: May 16, 2022 TIME: 12:28 PM PAGER/CONTACT #: documented in this encounterUc Medical Center08-22-2022 Miscellaneous Notes* Telephone Encounter - Lainey Gilliam [...] Lainey Gilliam RN MSN documented in this encounterUc Medical Center08-12-2022 History of Present illness Narrative* Kenney Bangura MD - 05/02/2022 7:30 PM EDT Images from the original note were not included. PATIENT: Candice Mitchell [id number] REFERRING MD: Isreal Morrow 05/02/2022 Chief Complaint [...] a finding of non specific pancreatic lesion. Cadnice Mitchell is a very pleasant 62 year [...] Chest CT Kenney Bangura MD Urologic Staff [facility] Medical Decision Making: Problems: Moderate: 1+ chronic illnesses with change Data: Unique source(s) for external note(s) reviewed: 1 Unique test result(s) reviewed: 3+ Unique test(s) ordered: 3+ Assessment requiring an independent historian(s) Risk: Moderate: Moderate risk from testing/treatment Medical Decision Making Level: 4 - Moderate documented in this encounterUc Medical CenterEvaluation note* Diagnosis Malignant neoplasm of right kidney, [...] [facility] Stage 3b chronic kidney disease [...] H/O radical nephrectomy [facility] Diagnosis Malignant neoplasm of right kidney (HCC) Mass of pancreas Unspecified disease of pancreas [facility] Diagnosis Malignant neoplasm of right [...] in gastrointestinal tract documented in this encounter [facility] [place] [facility]* Diagnosis Stage 3b chronic kidney disease (HCC)- Primary documented in this encounter [facility] [place] [facility]* Diagnosis Screening for genitourinary condition Screening for other and unspecified genitourinary condition documented in [facility] encounter [facility]* Diagnosis Onset Date Resolution Status Chronic kidney disease, stage 3a acute IFG (impaired fasting glucose) acute Lumbar spondylosis acute Neuroendocrine tumor of pancreas acute Primary hypertension acute Renal cell carcinoma of right kidney acute Wellness examination noneact [facility] Work Phone: Hiszvns general Narrative - Reported* Type Description Date [...] History cholecystectomy Hospitalization History see surgical history Archetypes Other Hisitks general Narrative - Reported* Type Description Date [...] Colonoscopy 2017 Hospitalization History see surgical history Archetypes Other ReClicktivated for referral (narrative)* Diagnostic Procedure Only (Routine) - Closed Specialty Diagnoses / Procedures Referred By Serafin naqvi Referred To Contact MOLECULAR & FUNCTIONAL IMAGING Diagnoses Malignant neoplasm of right kidney, except renal pelvis (HCC) Procedures NM BONE WHOLE BODY BONE &/JOINT IMAGING WHOLE BODY Kenney Bangura MD [address] [place] [address] Molecular & Functional Imaging [address] [place] [address] Referral ID Status Reason Start Date Expiration Date V isits Requested Visits Authorized [id number] Closed Auto-Generate d Referral 05/07/2022 06/21/2022 2 2 [facility] for referral (narrative)* Diagnostic Procedure Only (Routine) - Authorized Specialty Diagnoses / Procedures Referred By Serafin naqvi Referred To Contact US IMAGING Diagnoses Malignant neoplasm of right kidney (HCC) Procedures US KIDNEY/BLADDER US RETROPERITONEAL REAL TIME W/IMAGE COMPLETE Kenney Bangura MD [address] [place], [place] [id number] [facility] [place] [address] Referral ID Status Reason Start Date Expiration Date Visits Requested Visits Authorized [id number] Authorized Auto-Generat ed Referral 08/21/2023 09/19/2024 1 1 [facility] for visit Narrative* Diagnostic Procedure Only (Routine) - Closed Specialty Diagnoses / Procedures Referred By Serafin naqvi Referred To Contact MOLECULAR & FUNCTIONAL IMAGING Diagnoses Malignant neoplasm of right kidney, except renal pelvis (HCC) Procedures NM BONE WHOLE BODY BONE &/JOINT IMAGING WHOLE BODY Kenney Bangura MD [address], [place] [address] Molecular & Functional Imaging [address] [place] [address] Referral ID Status Reason Start Date Expiration Date V isits Requested Visits Authorized [id number] Closed Auto-Generate d Referral 05/07/2022 06/21/2022 2 2 [facility] Reason for Referral Specialty Diagnoses / Procedures Referred By Contac t Referred To Contact CT IMAGING Diagnoses Malignant neoplasm of right kidney, except renal pelvis (HCC) Procedures CT CHEST W IVCON DIAGNOSTIC COMPUTED TOMOGRAPHY THORAX W/CONTRAST Kenney Bangura MD [address] [place] [address] Ct Imaging Referral ID Status Reason Start Date Expiration Date Visits Requested Visits Authorized [id number] Pending Review Auto-Generat ed Referral 05/02/2022 06/01/2023 1 1 Specialty Diagnoses / Procedures Referred By Contac t Referred To Contact MOLECULAR & FUNCTIONAL IMAGING Diagnoses Malignant neoplasm of right kidney, except renal pelvis (HCC) Procedures NM BONE WHOLE BODY BONE &/JOINT IMAGING WHOLE BODY Kenney Bangura MD [address] [place] [address] Molecular & Functional Imaging [address] [place] [address] Referral ID Status Reason Start Date Expiration Date Visits Requested Visits Authorized [id number] Pending Review Auto-Generat ed Referral 05/02/2022 06/01/2023 1 1 Specialty Diagnoses / Procedures Referred By Contac t Referred To Contact Diagnoses Malignant neoplasm of right kidney, except renal pelvis (HCC) Procedures REFER TO PACC - PRE ANESTHESIA CONSULTATION CLINIC OFFICE/OUTPATIENT [facility] MDM 60-74 MINUTES Kenney Bangura MD [address], [place] [id number] Referral ID Status Reason Start Date Expiration Date Visits Requested Visits Authorized [id number] Authorized PCP Requested Referral 05/06/2022 05/05/2023 1 1 Specialty Diagnoses / Procedures Referred By Contac t Referred To [facility] Diagnoses Malignant neoplasm of right kidney, except renal pelvis (HCC) Procedures ECG COMPLETE ECG ROUTINE ECG W/LEAST 12 LDS W/I&R Kenney Bangura MD [address], [address] [address] [facility] [address] [place] [id number] Referral ID Status Reason Start Date Expiration Date Visits Requested Visits Authorized [id number] Pending Review Auto-Generat ed Referral 05/06/2022 05/05/2023 1 1 Specialty Diagnoses / Procedures Referred By Contac t Referred To Contact CT IMAGING Diagnoses Malignant neoplasm of right kidney (HCC) Mass of pancreas Procedures CT ABD/PEL W IVCON CT ABD & PELVIS W/CONTRAST Kenney Bangura MD [address], [address] [address] [address] Imaging Referral ID Status Reason Start Date Expiration Date Visits Requested Visits Authorized [id number] Pending Review Auto-Generat ed Referral 12/25/2022 07/26/2023 1 1 Specialty Diagnoses / Procedures Referred By Contac t Referred To Contact CT IMAGING Diagnoses Malignant neoplasm of right kidney (HCC) Malignant neoplasm of right kidney, except renal pelvis (HCC) Mass of pancreas Malignant neoplasm of body of pancreas (HCC) Procedures CT PANCREAS W IVCON CT ABDOMEN W/CONTRAST Pete Gupta MD [facility] [place] [address] Ct Imaging Referral ID Status Reason Start Date Expiration Date Visits Requested Visits Authorized [id number] Pending Review Auto-Generat ed Referral 06/20/2022 07/20/2023 1 1 Specialty Diagnoses / Procedures Referred By Contac t Referred To Contact Diagnoses Malignant neoplasm of right kidney (HCC) Malignant neoplasm of right kidney, except renal pelvis (HCC) Mass of pancreas Malignant neoplasm of body of pancreas (HCC) Procedures CONSULT TO MEDICAL GENETICS - CANCER MEDICAL GENETICS COUNSELING EACH 30 MINUTES Pete Gupta MD [address] [place] [address] [facility] Medicine [address] [address] Referral ID Status Reason Start Date Expiration Date Visits Requested Visits Authorized [id number] Authorized PCP Requested Referral Auto-Generate d Referral 06/20/2022 06/20/2023 1 1 Specialty Diagnoses / Procedures Referred By Contac t Referred To Contact Nephrology Diagnoses Malignant neoplasm of right kidney (HCC) Procedures CONSULT TO NEPHROLOGY OFFICE/OUTPATIENT NEW HIGH MDM 60-74 MINUTES Kenney Bangura MD [address] [employer] [address] [place] [address] Referral ID Status Reason Start Date Expiration Date Visits Requested Visits Authorized [id number] Authorized PCP Requested Referral 12/26/2022 12/26/2023 1 1 Specialty Diagnoses / Procedures Referred By Contac t Referred To Contact CT IMAGING Diagnoses Malignant neoplasm of right kidney (HCC) Mass of pancreas Procedures CT ABD/PEL W IVCON CT ABD & PELVIS W/CONTRAST Kenney Bangura MD [address] [place], [place] [id number] Ct Imaging Referral ID Status Reason Start Date Expiration Date Visits Requested Visits Authorized [id number] Pending Review Auto-Generat ed Referral 07/27/2023 01/25/2024 1 1 Referral ID Status Reason Start Date Expiration Date V isits Requested Visits Authorized [id number] Closed Auto-Generate d Referral 12/15/2022 09/20/2023 1 1 Specialty Diagnoses / Procedures Referred By Contac t Referred To Contact CT IMAGING Diagnoses Malignant neoplasm of right kidney (HCC) Mass of pancreas Procedures CT ABD/PEL W IVCON CT ABD & PELVIS W/CONTRAST Kenney Bangura [facility] [facility] [place] [address] Ct Imaging [place] [address] Referral ID Status Reason Start Date Expiration Date V isits Requested Visits Authorized [id number] Closed Auto-Generate d Referral 07/27/2023 01/25/2024 1 1 Specialty Diagnoses / Procedures Referred By Contac t Referred To Contact CT IMAGING Diagnoses Mass of pancreas Procedures CT PANCREAS W IVCON CT ABDOMEN W/CONTRAST Pete Gupta MD [id number] [place] [address] Referral ID Status Reason Start Date Expiration Date Visits Requested Visits Authorized [id number] Pending Review Auto-Generat ed Referral 08/28/2023 09/26/2024 1 1 Summary Purpose Family History Relationship Condition Age at Onset Recorded Date/T anna marie brother Diabetes mellitus Unknown Hypertension Unknown father Hypertension Unknown Unknown Diabetes mellitus Unknown Not Specified Diabetes mellitus Unknown sister Diabetes mellitus Unknown Advance Directives Advance Directive Response Recorded Date/ Time Advance Directives No July 9:43am Chief Complaint and Reason for Visit Chief Complaint Amb Documentation Wellness Reason for Visit Chronic kidney disea se, stage 3a IFG (impaired fasting glucose) Lumbar spondylosis Neuroendocrine tumor of pancreas Primary hypertension Renal cell carcinoma of right kidney Wellness examination Additional Source Comments Source Comments (unrecognize d section and content) In the event this informatio n is protected by the Federal Confidentiality of Alcohol and Drug Abuse Patient Records regulations: The Federal rules restrict any use of the information to criminally investigate or prosecute any alcohol or drug abuse patient.[facility] the event this information is protected by the Federal Confidentiality of Alcohol and Drug Abuse Patient Records regulations: The Federal rules restrict any use of the information to criminally investigate or prosecute any alcohol or drug abuse patient.[facility] Center[facility] the event this information is protected by the Federal Confidentiality of Alcohol and Drug Abuse Patient Records regulations: The Federal rules restrict any use of the information to criminally investigate or prosecute any alcohol or drug abuse patient.[facility] the event this information is protected by the Federal Confidentiality of Alcohol and Drug Abuse Patient Records regulations: The Federal rules restrict any use of the information to criminally investigate or prosecute any alcohol or drug abuse patient.[facility] the event this information is protected by the Federal Confidentiality of Alcohol and Drug Abuse Patient Records regulations: The Federal rules restrict any use of the information to criminally investigate or prosecute any alcohol or drug abuse patient.[facility] the event this information is protected by the Federal Confidentiality of Alcohol and Drug Abuse Patient Records regulations: The Federal rules restrict any use of the information to criminally investigate or prosecute any alcohol or drug abuse patient.[facility] Center[facility] the event this information is protected by the Federal Confidentiality of Alcohol and Drug Abuse Patient Records regulations: The Federal rules restrict any use of the information to criminally investigate or prosecute any alcohol or drug abuse patient.[facility] Center[facility] the event this information is protected by the Federal Confidentiality of Alcohol and Drug Abuse Patient Records regulations: The Federal rules restrict any use of the information to criminally investigate or prosecute any alcohol or drug abuse patient.[facility] Center[facility] the event this information is protected by the Federal Confidentiality of Alcohol and Drug Abuse Patient Records regulations: The Federal rules restrict any use of the information to criminally investigate or prosecute any alcohol or drug abuse patient.[facility] the event this information is protected by the Federal Confidentiality of Alcohol and Drug Abuse Patient Records regulations: The Federal rules restrict any use of the information to criminally investigate or prosecute any alcohol or drug abuse patient.[facility] Center[facility] the event this information is protected by the Federal Confidentiality of Alcohol and Drug Abuse Patient Records regulations: The Federal rules restrict any use of the information to criminally investigate or prosecute any alcohol or drug abuse patient.[facility] Center[facility] the event this information is protected by the Federal Confidentiality of Alcohol and Drug Abuse Patient Records regulations: The Federal rules restrict any use of the information to criminally investigate or prosecute any alcohol or drug abuse patient.[facility] Center[facility] the event this information is protected by the Federal Confidentiality of Alcohol and Drug Abuse Patient Records regulations: The Federal rules restrict any use of the information to criminally investigate or prosecute any alcohol or drug abuse patient.[facility] Center[facility] the event this information is protected by the Federal Confidentiality of Alcohol and Drug Abuse Patient Records regulations: The Federal rules restrict any use of the information to criminally investigate or prosecute any alcohol or drug abuse patient.[facility] CenterIn the event this information is protected by the Federal Confidentiality of Alcohol and Drug Abuse Patient Records regulations: The Federal rules restrict any use of the information to criminally investigate or prosecute any alcohol or drug abuse patient.[facility] CenterIn the event this information is protected by the Federal Confidentiality of Alcohol and Drug Abuse Patient Records regulations: The Federal rules restrict any use of the information to criminally investigate or prosecute any alcohol or drug abuse patient.[facility] CenterIn the event this information is protected by the Federal Confidentiality of Alcohol and Drug Abuse Patient Records regulations: The Federal rules restrict any use of the information to criminally investigate or prosecute any alcohol or drug abuse patient.[facility] CenterIn the event this information is protected by the Federal Confidentiality of Alcohol and Drug Abuse Patient Records regulations: The Federal rules restrict any use of the information to criminally investigate or prosecute any alcohol or drug abuse patient.[facility] CenterIn the event this information is protected by the Federal Confidentiality of Alcohol and Drug Abuse Patient Records regulations: The Federal rules restrict any use of the information to criminally investigate or prosecute any alcohol or drug abuse patient.[facility] the event this information is protected by the Federal Confidentiality of Alcohol and Drug Abuse Patient Records regulations: The Federal rules restrict any use of the information to criminally investigate or prosecute any alcohol or drug abuse patient.[facility] CenterIn the event this information is protected by the Federal Confidentiality of Alcohol and Drug Abuse Patient Records regulations: The Federal rules restrict any use of the information to criminally investigate or prosecute any alcohol or drug abuse patient.[facility] CenterIn the event this information is protected by the Federal Confidentiality of Alcohol and Drug Abuse Patient Records regulations: The Federal rules restrict any use of the information to criminally investigate or prosecute any alcohol or drug abuse patient.[facility] the event this information is protected by the Federal Confidentiality of Alcohol and Drug Abuse Patient Records regulations: The Federal rules restrict any use of the information to criminally investigate or prosecute any alcohol or drug abuse patient.[facility] CenterIn the event this information is protected by the Federal Confidentiality of Alcohol and Drug Abuse Patient Records regulations: The Federal rules restrict any use of the information to criminally investigate or prosecute any alcohol or drug abuse patient.[facility] CenterIn the event this information is protected by the Federal Confidentiality of Alcohol and Drug Abuse Patient Records regulations: The Federal rules restrict any use of the information to criminally investigate or prosecute any alcohol or drug abuse patient.[facility] CenterIn the event this information is protected by the Federal Confidentiality of Alcohol and Drug Abuse Patient Records regulations: The Federal rules restrict any use of the information to criminally investigate or prosecute any alcohol or drug abuse patient.[facility] CenterIn the event this information is protected by the Federal Confidentiality of Alcohol and Drug Abuse Patient Records regulations: The Federal rules restrict any use of the information to criminally investigate or prosecute any alcohol or drug abuse patient.[facility] CenterIn the event this information is protected by the Federal Confidentiality of Alcohol and Drug Abuse Patient Records regulations: The Federal rules restrict any use of the information to criminally investigate or prosecute any alcohol or drug abuse patient.[facility]In the event this information is protected by the Federal Confidentiality of Alcohol and Drug Abuse Patient Records regulations: The Federal rules restrict any use of the information to criminally investigate or prosecute any alcohol or drug abuse patient.[facility] CenterIn the event this information is protected by the Federal Confidentiality of Alcohol and Drug Abuse Patient Records regulations: The Federal rules restrict any use of the information to criminally investigate or prosecute any alcohol or drug abuse patient.[facility] CenterIn the event this information is protected by the Federal Confidentiality of Alcohol and Drug Abuse Patient Records regulations: The Federal rules restrict any use of the information to criminally investigate or prosecute any alcohol or drug abuse patient.[facility] CenterIn the event this information is protected by the Federal Confidentiality of Alcohol and Drug Abuse Patient Records regulations: The Federal rules restrict any use of the information to criminally investigate or prosecute any alcohol or drug abuse patient.[facility] CenterIn the event this information is protected by the Federal Confidentiality of Alcohol and Drug Abuse Patient Records regulations: The Federal rules restrict any use of the information to criminally investigate or prosecute any alcohol or drug abuse patient.[facility] CenterIn the event this information is protected by the Federal Confidentiality of Alcohol and Drug Abuse Patient Records regulations: The Federal rules restrict any use of the information to criminally investigate or prosecute any alcohol or drug abuse patient.[facility] CenterIn the event this information is protected by the Federal Confidentiality of Alcohol and Drug Abuse Patient Records regulations: The Federal rules restrict any use of the information to criminally investigate or prosecute any alcohol or drug abuse patient.[facility] CenterIn the event this information is protected by the Federal Confidentiality of Alcohol and Drug Abuse Patient Records regulations: The Federal rules restrict any use of the information to criminally investigate or prosecute any alcohol or drug abuse patient.[facility] CenterIn the event this information is protected by the Federal Confidentiality of Alcohol and Drug Abuse Patient Records regulations: The Federal rules restrict any use of the information to criminally investigate or prosecute any alcohol or drug abuse patient.[facility] CenterIn the event this information is protected by the Federal Confidentiality of Alcohol and Drug Abuse Patient Records regulations: The Federal rules restrict any use of the information to criminally investigate or prosecute any alcohol or drug abuse patient.[facility] Reason for Visit (unrecogniz ed section and content) Reason Comments [employer] - Other Reason Comments Radiology NM Specialty Diagnoses / Procedures Referred By Serafin t Referred To Contact MOLECULAR & FUNCTIONAL IMAGING Diagnoses Malignant neoplasm of right kidney, except renal pelvis (HCC) Procedures NM BONE WHOLE BODY BONE &/JOINT IMAGING WHOLE BODY Kenney Bangura MD [address] [facility] [place] [address] Molecular & Functional Imaging [address] [place] [address] Referral ID Status Reason Start Date Expiration Date V isits Requested Visits Authorized [id number] Closed Auto-Generate d Referral 05/07/2022 06/21/2022 2 2 Reason Comments Pre-Op Visit Reason Comments Pre-Op Exam Reason Comments New Patient Reason Comments Appointment Reason Comments Established Patient Reason Comments Follow Up Reason Comments Post Op Reason Comments Post Op Reason Comments Post-Op Visit Specialty Diagnoses / Procedures [facility] Contact Diagnoses Malignant neoplasm of right kidney (HCC) Malignant neoplasm of right kidney, except renal pelvis (HCC) Mass of pancreas Malignant neoplasm of body of pancreas (HCC) Procedures CONSULT TO MEDICAL GENETICS - CANCER MEDICAL GENETICS COUNSELING EACH 30 MINUTES Pete Gupta MD [address] [place] [address] [facility] [place] [address] Referral ID Status Reason Start Date Expiration Date V isits Requested Visits Authorized [id number] Closed PCP Requested Referral Auto-Generated Referral 06/20/2022 06/20/2023 1 1 Reason Comments Patient Update Reason Comments Results Reason Comments Cancer Established Patient Reason Comments Radiology CT Specialty Diagnoses / Procedures Referred By [facility] t Referred To Contact CT IMAGING Diagnoses Malignant neoplasm of right kidney (HCC) Mass of pancreas Procedures CT ABD/PEL W IVCON CT ABD & PELVIS W/CONTRAST Kenney Bangura MD [address] [place] [address] Ct Imaging Referral ID Status Reason Start Date Expiration Date V isits Requested Visits Authorized [id number] Closed Auto-Generate d Referral 12/15/2022 09/20/2023 1 1 Reason Comments Consult Specialty Diagnoses / Procedures Referred By Contac t Referred To Contact CT IMAGING Diagnoses Malignant neoplasm of right kidney (HCC) Mass of pancreas Procedures CT ABD/PEL W IVCON CT ABD & PELVIS W/CONTRAST Kenney Bangura MD [address] [place] [address] [place] [address] Referral ID Status Reason Start Date Expiration Date V isits Requested Visits Authorized [id number] Closed Auto-Generate d Referral 07/27/2023 01/25/2024 1 1 Reason Comments Radio Gen HB6 Reason Comments Pancreatic Mass Reason Comments Follow Up (unrecognized sect ion and content) No Status Records FoundNo Status Records FoundNo Status Records Found INFORMATION SOURCE (unrecogn ized section and content) DATE CREATED AUTHOR 01/19/2023 [facility] DATE CREATED AUTHOR AUTHOR'S ORGANIZ ATION 08/29/2023 [facility] DATE CREATED AUTHOR AUTHOR'S ORGANIZ ATION 11/23/2023 [facility] Teams (unrecognized sec tion and content) Team Status: Active Member Role Status Dates Isreal Morrow DO Primary Care Provider Active Team Status: Active Member Role Status Dates Isreal Morrow DO Primary Care Provider Active Start: January 12, 2024 SANJAY Dey Attending Provider Active Start : January 12, 2024 Team Status: Inactive Member Role Status Dates Isreal Morrow DO Primary Care Provide r, Attending Provider Active Start: February 08, 2024 End: February 08, 2024 Goals (unrecognized section and content) Goals may be documented in a n alternate section FOR RECORDS PERTAINING TO PATIENTS WHO ARE [...] BE BASED ON THE PRIMARY CLINICAL RECORDS. [facility]. provides no warranty or guarantee of the accuracy or completeness of information in this document.
--- NOTE | 2024-03-07 | XR_ITS ---
The [address] [address] Patient Name: CANDICE CONTRERAS MRN: [id number] date: 1960 Sex: M Assigned Patient Location: Current Patient Location: Accession/Order Number: [id number] Exam Date: 03/07/2024 08:00 Report Date: 03/07/2024 16:46 At the request of: ANGEL MARQUEZ Procedure: XR finger LT min 2V EXAM: XR finger LT min 2V HISTORY: LEFT FINGER PAIN COMPARISON: None. TECHNIQUE: 4 views of the left index finger are performed. FINDINGS: There is no acute fracture. The bony structures are intact. There does appear to be some soft tissue swelling proximally. Joint spaces are maintained. XR/XR finger LT min 2V IMPRESSION: Soft tissue swelling along the proximal aspect of the index finger. No acute bony abnormality. Electronically authenticated by: JUAN CARLOS CASTRO Date: 03/07/2024 16:46
--- OUTSIDE RECORDS SUMMARY | 2024-03-07 08:07 | XMS_ITS | CCD ---
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 Name Role Phone Unavailable Primary Care Provider UnavailCarline Hahn Unavailable Unavailable Primary Care Provider Unavailnicole MORROW, [...] HARRISON Primary Care Unavailable Kevin, Isreal Unavailable Jason Neri, Jason Marc Admitting Isreal Lockwood Primary Care Unavailable Unavailable Primary Care Provider UnavailPETE Jordan Referring Unavailable BANGURA, KENNEY Referring Unavailable BANGURA, KENNEY Referring Unavailable LYDIA GODINEZ Attending Unavailab le BANGURA, KENNEY Referring Unavailable PETE GUPTA Attending Unavailable BANGURA, KENNEY Referring Unavailable BANGURA, KENNEY Attending Unavailable BANGURA, KENNEY Referring Unavailable BANGURA, KENNEY Referring Unavailable BANGURA, KENNEY Referring Unavailable BANGURA, KENNEY Attending Unavailable BANGURA, KENNEY Referring Unavailable Allergies Allergy Classification Reported Allergen(s) Allergy Type Date of Onset Reaction(s) Facility (1 source) patient allergy list reviewed by nurse or physicia Propensity to adverse reactions 9 Comment:Done IPX Other (1 source) Allergies Reconciled Propensity to adverse reactions Unknown IPX Other Medications Current Medications Medication Drug Class(es) Dates Sig (Normalized) Sig (Original) allopurinol 300 mg oral tablet (20 sources) Xanthine Oxidase Inhibitor Start: 03-06-2022 take 1 tablet by mouth once daily allopurinol (ZYLOPRIM) 300 mg tablet Take 300 mg by mouth once daily. 0 03/06/2022 Active Comment on above: Take 300 mg by mouth once daily. amLODIPine 5 mg / benazepril hydrochloride 40 mg oral capsule (20 sources) Dihydropyridine Calcium Channel Lj, Angiotensin Converting Enzyme Inhibitor Start: 03-19-2022 End: 01-12-2024 take 1 capsule by mouth once daily amLODIPine-Benaz epril 5-40 mg per capsule Take 1 capsule by mouth once daily. 0 03/19/2022 Active amLODIPine Besy- Benazepril HCl 5-40 MG as directed Orally Active Comment on above: Take 1 capsule by [facility] once daily. atenolol 50 mg oral tablet [...] capsule Orally Active Comment on above: PRN iv contrast (will be provided with radiology test) (8 sources) Start: 08-28-2023 End: 08-29-2023 iv contrast (will be provide d with radiology test) Indications: Mass of pancreas [...] for pain for up to 15 days. Problems Active Problems Problem Classification Problem Date [...] nutritional; endocrine; and metabolic disorders (2 sources) Morbid (severe) obesity due to excess calories Chronic Other nutritional; endocrine; and metabolic disorders (1 source) Body mass index (BMI) 39.0-39.9, adult Chronic Other nutritional; endocrine; and metabolic disorders (1 source) Body mass index (BMI) 40.0-44.9, adult Chronic Other screening for suspected conditions (not mental disorders or infectious disease) (7 sources) Patient encounter status; Translations: [Encounter for [...] 08-21-2023 Episodic Cancer; other and unspecified primary (15 sources) History of primitive neuroectodermal tumor; Translations: [Personal history of malignant neoplasm of other organs and systems] Onset: 02-25-2023 Episodic Deficiency and other anemia [...] Onset: 06-02-2022 06-02-2022 Episodic Residual codes; unclassified (15 sources) History of radical nephrectomy; Translations: [Acquired absence of kidney] Onset: 02-25-2023 Episodic Residual codes; unclassified (1 source) Tobacco user; Translations: [Tobacco use] Onset: 11-23-2015 Episodic Screening and history of mental health and substance abuse codes (1 source) History of tobacco use; Translations: [Personal history of tobacco use, presenting hazards to health] Onset: 11-23-2015 Episodic Viral infection (1 source) Disease caused by 2019-nCoV; Translations: [COVID-19] Resolved: 06-11-2022 Results Test Name Value Interpretation Reference Range Facility CREATININE, BLOOD (POC)on Creatinine [Mass/Vol] 1.90 mg/dL Abnormal 0.7 - 1.4 mg/dL [facility] GFR/1.73 sq M.predicted among non-blacks MDRD (S/P/Bld) [Vol rate/Area] 39 mL/min/{1.73_m2} mL/min/1.73 m2 [facility] Interpretation and review of laboratory results Abnormal [facility] Location:Radiology [facility], [address] [place] [address], [address] [place] [address] POINT OF CARE [facility] CT PANCREAS W IVCONon 2023 CT PANCREAS W IVCON * * *Final Report* * * DATE OF EXAM: Mar 04 2024 11:56AM [facility] [place] [facility] [place] PANCREAS W IVCON / PROCEDURE REASON: Mass of pancreas * * * * Physician Interpretation * * * * EXAMINATION: CT ABDOMEN WITH IV CONTRAST CLINICAL HISTORY: 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 Radical nephrectomy and adrenalectomy revealing renal cell carcinoma. Surveillance imaging. TECHNIQUE: CT of the abdomen and pelvis was performed using pancreas protocol, scanning from just above the dome of the diaphragm to the iliac crest. MQ: CTAP_3 Contrast: IV: 125 ml of Omnipaque 350 CT Radiation dose: Integrated Dose-length product (DLP) for this visit = 630 mGy*cm. CT Dose Reduction Employed: Automated exposure control (AEC) COMPARISON: CT abdomen/pelvis 08/21/2023, MRI 04/25/2022 RESULT: Liver: No mass. Biliary: No bile duct dilation. Gallbladder is absent. Spleen: Splenectomy. Stable small presumed splenules, for example a 2.4 cm splenule in the splenectomy bed (8:32) and 1.3 cm splenule (8:19) abutting the focus of fat necrosis, as described below. Pancreas: No mass or duct dilation. Distal pancreatectomy. Adrenals: Right adrenalectomy. No left mass. Kidneys: Right nephrectomy. Left kidney: Stable 2.1 cm exophytic upper pole slightly above water attenuation lesion since 2021, likely a cyst. No hydronephrosis or nephrolithiasis. GI tract: No dilation or wall thickening. Normal appendix. Lymph nodes: No abdominal or pelvic lymphadenopathy. Mesentery/Peritoneum: 7.8 x 6.6 x 3.9 cm lobulated lesion in the left upper quadrant splenectomy bed (8:14), previously 8.3 x 6.1 x 4.4 cm, likely postoperative fat necrosis. Retroperitoneum: No mass. Vasculature: - Abdominal aorta and iliac arteries: Atherosclerotic calcifications without aneurysm. - Celiac and SMA: Patent without stenosis. - Portal venous system (SMV, splenic vein, portal vein and branches): Patent. - Hepatic veins: Patent. Bones/Soft Tissues: Degenerative changes. Lower thorax: Curvilinear opacities in the bilateral lower lobes, likely subsegmental atelectasis versus scarring. Localizer images: No additional findings. IMPRESSION: Slight interval decrease in size of presumed splenectomy bed fat necrosis and stable left upper quadrant splenules/splenosis. No new areas of metastatic disease in the abdomen. Policy Adviser: PSCB Transcribe Date/Time: Mar 04 2024 11:58A Dictated by : ETTA ROBLES DO This examination was interpreted and the report reviewed and electronically signed by: EULALIO NAGY MD on Mar 04 2024 1:04PM EST [id number] Normal [facility] CT Pancreas W contrast Ida 03-04-2024 IMPRESSION: Slight interval decrease in size of presumed splenectomy bed fat necrosis and stable left upper quadrant splenules/splenosis. No new areas of metastatic disease in the abdomen. 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 Radical nephrectomy and adrenalectomy revealing renal cell carcinoma. Surveillance imaging. TECHNIQUE: CT of the abdomen and pelvis was performed using pancreas protocol, scanning from just above the dome of the diaphragm to the iliac crest. MQ: CTAP_3 Contrast: IV: 125 ml of Omnipaque 350 CT Radiation dose: Integrated Dose-length product (DLP) for this visit = 630 mGy*cm. CT Dose Reduction Employed: Automated exposure control (AEC) COMPARISON: CT abdomen/pelvis 08/21/2023, MRI 04/25/2022 RESULT: Liver: No mass. Biliary: No bile duct dilation. Gallbladder is absent. Spleen: Splenectomy. Stable small presumed splenules, for example a 2.4 cm splenule in the splenectomy bed (8:32) and 1.3 cm splenule (8:19) abutting the focus of fat necrosis, as described below. Pancreas: No mass or duct dilation. Distal pancreatectomy. Adrenals: Right adrenalectomy. No left mass. Kidneys: Right nephrectomy. Left kidney: Stable 2.1 cm exophytic upper pole slightly above water attenuation lesion since 2021, likely a cyst. No hydronephrosis or nephrolithiasis. GI tract: No dilation or wall thickening. Normal appendix. Lymph nodes: No abdominal or pelvic lymphadenopathy. Mesentery/Peritoneum: 7.8 x 6.6 x 3.9 cm lobulated lesion in the left upper quadrant splenectomy bed (8:14), previously 8.3 x 6.1 x 4.4 cm, likely postoperative fat necrosis. Retroperitoneum: No mass. Vasculature: - Abdominal aorta and iliac arteries: Atherosclerotic calcifications without aneurysm. - Celiac and SMA: Patent without stenosis. - Portal venous system (SMV, splenic vein, portal vein and branches): Patent. - Hepatic veins: Patent. Bones/Soft Tissues: Degenerative changes. Lower thorax: Curvilinear opacities in the bilateral lower lobes, likely subsegmental atelectasis versus scarring. Localizer images: No additional findings. 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 Radical nephrectomy and adrenalectomy revealing renal cell carcinoma. Surveillance imaging. TECHNIQUE: CT of the abdomen and pelvis was performed using pancreas protocol, scanning from just above the dome of the diaphragm to the iliac crest. MQ: CTAP_3 Contrast: IV: 125 ml of Omnipaque 350 CT Radiation dose: Integrated Dose-length product (DLP) for this visit = 630 mGy*cm. CT Dose Reduction Employed: Automated exposure control (AEC) COMPARISON: CT abdomen/pelvis 08/21/2023, MRI 04/25/2022 RESULT: Liver: No mass. Biliary: No bile duct dilation. Gallbladder is absent. Spleen: Splenectomy. Stable small presumed splenules, for example a 2.4 cm splenule in the splenectomy bed (8:32) and 1.3 cm splenule (8:19) abutting the focus of fat necrosis, as described below. Pancreas: No mass or duct dilation. Distal pancreatectomy. Adrenals: Right adrenalectomy. No left mass. Kidneys: Right nephrectomy. Left kidney: Stable 2.1 cm exophytic upper pole slightly above water attenuation lesion since 2021, likely a cyst. No hydronephrosis or nephrolithiasis. GI tract: No dilation or wall thickening. Normal appendix. Lymph nodes: No abdominal or pelvic lymphadenopathy. Mesentery/Peritoneum: 7.8 x 6.6 x 3.9 cm lobulated lesion in the left upper quadrant splenectomy bed (8:14), previously 8.3 x 6.1 x 4.4 cm, likely postoperative fat necrosis. Retroperitoneum: No mass. Vasculature: - Abdominal aorta and iliac arteries: Atherosclerotic calcifications without aneurysm. - Celiac and SMA: Patent without stenosis. - Portal venous system (SMV, splenic vein, portal vein and branches): Patent. - Hepatic veins: Patent. Bones/Soft Tissues: Degenerative changes. Lower thorax: Curvilinear opacities in the bilateral lower lobes, likely subsegmental atelectasis versus scarring. Localizer images: No additional findings. IMPRESSION IMPRESSION: Slight interval decrease in size of presumed splenectomy bed fat necrosis and stable left upper quadrant splenules/splenosis. No new areas of metastatic disease in the abdomen. Policy Adviser: CARLEEN Transcribe Date/Time: Mar 04 2024 11:58A Dictated by : ETTA ROBLES DO This examination was interpreted and the report reviewed and electronically signed by: EULALIO NAGY MD on Mar 04 2024 1:04PM EST [facility] Radiology Study observation (narrative) [facility] CT Pancreas W contrast IVOrd ered By: [facility] Provider on 03-04-2024 [facility] URINALYSIS, REFLEX MICROSCOP ICon 03-04-2024 Bilirubin Ql (U) Negative Negative [facility] Clarity (Unsp spec) Clear Clear [facility] Color (U) Yellow Yellow [facility] Glucose Test strip (U) [Mass/Vol] Negative Negative [facility] Hemoglobin Ql (U) Negative Negative [facility] Interpretation and review of laboratory results Abnormal [facility] Ketones Ql (U) Negative Negative [facility] Leukocyte esterase Test strip Ql (U) Negative Negative [facility] Nitrite Ql (U) Negative Negative [facility] pH (U) 5.5 [pH] NINF - 8.5 [facility] Protein (U) [Mass/Vol] Negative Negative [facility] Specific gravity (U) [Rel density] High 1.005 - 1.030 [facility] Urobilinogen Ql (U) 0.2 EU/dL 0.2-1.0 EU/dL [facility] This test was develo ped and its performance characteristics determined by [facility] [place] ([facility]). It has not been cleared or approved by the FDA. [facility] is regulated under CLIA as qualified to perform high-complexity testing. This test is used for clinical purposes. It should not be regarded as investigational or for research. [facility] Bilirubin Ql (U) Negative Normal Negative [facility] Comment on above: Order Comment: Speci men Type: URINE SPECIMENOrdering Facility: [facility] Address: [address] [place] [address] Performed By: #### L [id number] ####[facility] LABIA [id number] [place] [address] [place] Clarity (Unsp spec) Clear Normal Clear [facility] Comment on above: Order Comment: Speci men Type: URINE SPECIMENOrdering Facility: [facility] Address: [address] [place] [address] Performed By: #### L [id number] ####[facility] LABIA [id number] [place] [address] [place] Color (U) Yellow Normal Yellow [facility] Comment on above: Order Comment: Speci men Type: URINE SPECIMENOrdering Facility: [facility] Address: [address] [place] [address] Performed By: #### L [id number] ####[facility] LABIA [id number] [place] [address] [place] Glucose Test strip (U) [Mass/Vol] Negative Normal Negative [facility] Comment on above: Order Comment: Speci men Type: URINE SPECIMENOrdering Facility: [facility] Address: [address] [place] [address] Performed By: #### L [id number] ####[facility] LABCLIA [id number] [place] [address] [place] Hemoglobin Ql (U) Negative Normal Negative [facility] Comment on above: Order Comment: Speci men Type: URINE SPECIMENOrdering Facility: [facility] Address: [address] [place] [address] Performed By: #### L [id number] ####[facility] LABCLIA [id number] [place] [address] [place] Ketones Ql (U) Negative Normal Negative [facility] Comment on above: Order Comment: Speci men Type: URINE SPECIMENOrdering Facility: [facility] Address: [address] [place] [address] Performed By: #### L [id number] ####[facility] LABCLIA [id number] [place] [address] [place] Leukocyte esterase Test strip Ql (U) Negative Normal Negative [facility] Comment on above: Order Comment: Speci men Type: URINE SPECIMENOrdering Facility: [facility] Address: [address] [place] [address] Performed By: #### L [id number] ####[facility] LABCLIA [id number] [place] [address] [place] Nitrite Ql (U) Negative Normal Negative [facility] Comment on above: Order Comment: Speci men Type: URINE SPECIMENOrdering Facility: [facility] Address: [address] [place] [address] Performed By: #### L [id number] ####[facility] LABCLIA [id number] [place] [address] [place] pH (U) 5.5 [pH] Normal <8.5 [facility] Comment on above: Order Comment: Speci men Type: URINE SPECIMENOrdering Facility: [facility] Address: [address] [place] [address] Performed By: #### L [id number] ####[facility] LABCLIA [id number] [place] [address] [place] Protein (U) [Mass/Vol] Negative Normal Negative [facility] Comment on above: Order Comment: Speci men Type: URINE SPECIMENOrdering Facility: [facility] Address: [address] [place] [address] Performed By: #### L [id number] ####[facility] LABIA [id number] [place] [address] [place] Specific gravity (U) [Rel density] >1.045 High 1.005-1.030 [facility] Comment on above: Order Comment: Speci men Type: URINE SPECIMENOrdering Facility: [facility] Address: [address] [place] [address] Performed By: #### L [id number] ####[facility] LABIA [id number] [place] [address] [place] Urobilinogen Ql (U) 0.2 EU/dL Normal 0.2-1.0 EU/dL [facility] Comment on above: Order Comment: Speci men Type: URINE SPECIMENOrdering Facility: [facility] Address: [address] [place] [address] Performed By: #### L [id number] ####[facility] LABIA [id number] [place] [address] [place] US KIDNEY/BLADDERon 03-04-20 US KIDNEY/BLADDER * * *Final Report* * * DATE OF EXAM: Mar 04 2024 11:00AM [facility] - US KIDNEY/BLADDER / PROCEDURE REASON: Malignant neoplasm of right kidney (HCC) * * * * Physician Interpretation * * * * EXAMINATION: RENAL ULTRASOUND CLINICAL HISTORY: Surveillance imaging following RIGHT nephrectomy for renal cell carcinoma. TECHNIQUE: Sonography of the kidneys and urinary bladder was performed. Images were obtained and stored in a permanent archive. MQ: UR_1 COMPARISON: CT 08/21/2023 RESULT: Right nephrectomy bed: No mass or fluid collection. Left Kidney: -Renal length: 11.2 cm -Parenchyma: Normal parenchymal echogenicity. Normal parenchymal thickness. -Collecting system: No hydronephrosis. -Calculus: No echogenic, shadowing calculus. -Lesion: 2 cm exophytic cyst in the upper pole, stable. Bladder: Normal sonographic appearance. IMPRESSION: No solid or complicated cystic LEFT renal mass. No mass or fluid collection in the RIGHT nephrectomy bed. Policy Adviser: [facility] Transcribe Date/Time: Mar 04 2024 11:07A Dictated by : CECILIA LIN MD This examination was interpreted and the report reviewed and electronically signed by: CECILIA LIN MD on Mar 04 2024 11:09AM EST [id number] Normal [facility] US Kidney - bilateral and Ur inary bladderon 03-04-2024 IMPRESSION: No solid or complicated cystic LEFT renal mass. No mass or fluid collection in the RIGHT nephrectomy bed. Policy Adviser: [facility] Transcribe Date/Time: Mar 04 2024 11:07A Dictated by : CECILIA LIN MD This examination was interpreted and the report reviewed and electronically signed by: CECILIA LIN MD on Mar 04 2024 11:09AM EST DIVISION OF RADIOLOGY * * *Final Report* * * DATE OF EXAM: Mar 04 2024 11:00AM [facility] 1055 - US KIDNEY/BLADDER / PROCEDURE REASON: Malignant neoplasm of right kidney (HCC) * * * * Physician Interpretation * * * * EXAMINATION: RENAL ULTRASOUND CLINICAL HISTORY: Surveillance imaging following RIGHT nephrectomy for renal cell carcinoma. TECHNIQUE: Sonography of the kidneys and urinary bladder was performed. Images were obtained and stored in a permanent archive. MQ: UR_1 COMPARISON: CT 08/21/2023 RESULT: Right nephrectomy bed: No mass or fluid collection. Left Kidney: -Renal length: 11.2 cm -Parenchyma: Normal parenchymal echogenicity. Normal parenchymal thickness. -Collecting system: No hydronephrosis. -Calculus: No echogenic, shadowing calculus. -Lesion: 2 cm exophytic cyst in the upper pole, stable. Bladder: Normal sonographic appearance. DIVISION [facility]OLOGY [facility] - [facility]/04/[facility]24 * * *Final Report* * * DATE OF EXAM: Mar 04 2024 11:00AM [facility] - US KIDNEY/BLADDER / PROCEDURE REASON: Malignant neoplasm of right kidney (HCC) * * * * Physician Interpretation * * * * EXAMINATION: RENAL ULTRASOUND CLINICAL HISTORY: Surveillance imaging following RIGHT nephrectomy for renal cell carcinoma. TECHNIQUE: Sonography of the kidneys and urinary bladder was performed. Images were obtained and stored in a permanent archive. MQ: UR_1 COMPARISON: CT 08/21/2023 RESULT: Right nephrectomy bed: No mass or fluid collection. Left Kidney: -Renal length: 11.2 cm -Parenchyma: Normal parenchymal echogenicity. Normal parenchymal thickness. -Collecting system: No hydronephrosis. -Calculus: No echogenic, shadowing calculus. -Lesion: 2 cm exophytic cyst in the upper pole, stable. Bladder: Normal sonographic appearance. IMPRESSION IMPRESSION: No solid or complicated cystic LEFT renal mass. No mass or fluid collection in the RIGHT nephrectomy bed. Policy Adviser: [facility] Transcribe Date/Time: Mar 04 2024 11:07A Dictated by : CECILIA LIN MD This examination was interpreted and the report reviewed and electronically signed by: CECILIA LIN MD on Mar 04 2024 11:09AM EST [facility] Radiology Study observation (narrative) [facility] US Kidney - bilateral and Ur inary bladderOrdered By: Ccf Provider on 03-04-2024 [facility] XR CHEST 2V FRONTAL/LATon XR CHEST 2V FRONTAL/LAT * * *Final Report* * * DATE OF EXAM: Mar 04 2024 10:47AM [facility] - XR CHEST 2V FRONTAL/LAT / PROCEDURE REASON: Malignant neoplasm of right kidney (HCC) * * * * Physician Interpretation * * * * EXAMINATION: CHEST RADIOGRAPH (2 VIEW FRONTAL and LATERAL) Clinical History: Malignant neoplasm of right kidney (HCC) M: XC2_6 Comparison: prior chest radiograph dated 08/21/2023 RESULT: Lines, tubes, and devices: N/A Lungs and pleura: Scattered linear opacities probably atelectasis. No focal consolidations or effusions. No pneumothorax. Cardiomediastinal silhouette: Cardiac silhouette within normal limits. Other: Degenerative changes of the thoracic spine. IMPRESSION: See Result. Policy Adviser: CARLEEN Transcribe Date/Time: Mar 04 2024 11:03A Dictated by : CHRISTIANNE BRITO MD This examination was interpreted and the report reviewed and electronically signed by: CHRISTIANNE BRITO MD on Mar 04 2024 11:04AM EST [id number] Normal [facility] XR Chest PA and Lateralon IMPRESSION: See Result. Policy Adviser: [facility] Transcribe Date/Time: Mar 04 2024 11:03A Dictated by : CHRISTIANNE BRITO MD This examination was interpreted and the report reviewed and electronically signed by: CHRISTIANNE BRITO MD on Mar 04 2024 11:04AM EST DIVISION OF RADIOLOGY * * *Final Report* * * DATE OF EXAM: Mar 04 2024 10:47AM [facility] - XR CHEST 2V FRONTAL/LAT / PROCEDURE REASON: Malignant neoplasm of right kidney (HCC) * * * * Physician Interpretation * * * * EXAMINATION: CHEST RADIOGRAPH (2 VIEW FRONTAL & LATERAL) Clinical History: Malignant neoplasm of right kidney (HCC) M: XC2_6 Comparison: prior chest radiograph dated 08/21/2023 RESULT: Lines, tubes, and devices: N/A Lungs and pleura: Scattered linear opacities probably atelectasis. No focal consolidations or effusions. No pneumothorax. Cardiomediastinal silhouette: Cardiac silhouette within normal limits. Other: Degenerative changes of the thoracic spine. DIVISION OF RADIOLOGY Provider, [facility] - 03/04/2024 * * *Final Report* * * DATE OF EXAM: Mar 04 2024 10:47AM AOX 5291 - XR CHEST 2V FRONTAL/LAT / PROCEDURE REASON: Malignant neoplasm of right kidney (HCC) * * * * Physician Interpretation * * * * EXAMINATION: CHEST RADIOGRAPH (2 VIEW FRONTAL & LATERAL) Clinical History: Malignant neoplasm of right kidney (HCC) M: XC2_6 Comparison: prior chest radiograph dated 08/21/2023 RESULT: Lines, tubes, and devices: N/A Lungs and pleura: Scattered linear opacities probably atelectasis. No focal consolidations or effusions. No pneumothorax. Cardiomediastinal silhouette: Cardiac silhouette within normal limits. Other: Degenerative changes of the thoracic spine. IMPRESSION IMPRESSION: See Result. Policy Adviser: CARLEEN Transcribe Date/Time: Mar 04 2024 11:03A Dictated by : CHRISTIANNE BRITO MD This examination was interpreted and the report reviewed and electronically signed by: CHRISTIANNE BRITO MD on Mar 04 2024 11:04AM EST [facility] Radiology Study observation (narrative) [facility] XR Chest PA and LateralOrder ed By: [facility]cf Provider on 03-04-2024 [facility] CNOVon 11-18-2023 CNOV Office Visit (PAULETTE ) CANDICE MITCHELL ([id number]) 1960 M Date Time Provider Department 11/18/23 11:20 AM LYDIA GODINEZ During your visit today, we recorded the following information about you: Temperature Pulse Blood pressure Weight 97.9 degrees 59/minute 120/76 120.9 kg Height 1.727 m Lydia Godinez, JOAQUIN[facility] 11/20/2023 3:02 PM Signed [facility] SERVICE DATE: 11/18/2023 SERVICE TIME: 11:07 AM A portion of this note has been copied from [facility] dated 02/25/23 CHIEF COMPLAINT: follow-up CKD HPI: Mr. 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 [facility] 02/25/[address] Francis for initial consultation for evaluation of kidney [...] x 3 (more content not included)... Normal [facility] URINALYSIS, REFLEX MICROSCOP ICon 11-18-2023 Bilirubin Ql (U) Negative Negative [facility] Clarity (Unsp spec) Clear Clear [facility] Color (U) Yellow Yellow [facility] Glucose Test strip (U) [Mass/Vol] Negative Trace, Negative [facility] Hemoglobin Ql (U) Negative Negative, Trace [facility] Ketones Ql (U) Negative Negative, Trace [facility] Leukocyte esterase Test strip Ql (U) Negative Negative, 25 Pia/uL [facility] Nitrite Ql (U) Negative Negative [facility] pH (U) 5.5 [pH] 5.0 - 8.0 [facility] Protein (U) [Mass/Vol] Trace Trace, Negative [facility] Specific gravity (U) [Rel density] 1.026 1.005 - 1.030 [facility] Urobilinogen Ql (U) Normal Normal [facility] Bilirubin Ql (U) Negative Normal Negative [facility] Comment on above: Order Comment: Speci men Type: URINE SPECIMENOrdering Facility: [facility] Address: [address] [place] [address] Performed By: #### L [id number] ####[facility] LABCLIA [id number] [place] [address] [place] Clarity (Unsp spec) Clear Normal Clear [facility] Comment on above: Order Comment: Speci men Type: URINE SPECIMENOrdering Facility: [facility] Address: [address] [place] [address] Performed By: #### L [id number] ####[facility] LABCLIA [id number] [place] [address] [place] Color (U) Yellow Normal Yellow [facility] Comment on above: Order Comment: Speci men Type: URINE SPECIMENOrdering Facility: [facility] Address: [address] [place] [address] Performed By: #### L [id number] ####[facility] LABCLIA [id number] [place] [address] [place] Glucose Test strip (U) [Mass/Vol] Negative Normal Trace, Negative [facility] Comment on above: Order Comment: Speci men Type: URINE SPECIMENOrdering Facility: [facility] Address: [address] [place] [address] Performed By: #### L [id number] ####[facility] LABCLIA [id number] [place] [address] [place] Hemoglobin Ql (U) Negative Normal Negative, Trace [facility] Comment on above: Order Comment: Speci men Type: URINE SPECIMENOrdering Facility: [facility] Address: [address] [place] [address] Performed By: #### L [id number] ####[facility] LABCLIA [id number] [place] [address] [place] Ketones Ql (U) Negative Normal Negative, Trace [facility] Comment on above: Order Comment: Speci men Type: URINE SPECIMENOrdering Facility: [facility] Address: [address] [place] [address] Performed By: #### L [id number] ####[facility] LABCLIA [id number] [place] [address] [place] Leukocyte esterase Test strip Ql (U) Negative Normal Negative, 25 Pia/uL [facility] Comment on above: Order Comment: Speci men Type: URINE SPECIMENOrdering Facility: [facility] Address: [address] [place] [address] Performed By: #### L [id number] ####[facility] LABCLIA [id number] [place] [address] [place] Nitrite Ql (U) Negative Normal Negative [facility] Comment on above: Order Comment: Speci men Type: URINE SPECIMENOrdering Facility: [facility] Address: [address] [place] [address] Performed By: #### L [id number] ####[facility] LABCLIA [id number] [place] [address] [place] pH (U) 5.5 [pH] Normal 5.0-8.0 [facility] Comment on above: Order Comment: Speci men Type: URINE SPECIMENOrdering Facility: [facility] Address: [address] [place] [address] Performed By: #### L [id number] ####[facility] LABCLIA [id number] [place] [address] [place] Protein (U) [Mass/Vol] Trace Normal Trace, Negative [facility] Comment on above: Order Comment: Speci men Type: URINE SPECIMENOrdering Facility: [facility] Address: [address] [place] [address] Performed By: #### L [id number] ####[facility] LABCLIA [id number] [place] [address] [place] Specific gravity (U) [Rel density] 1.026 Normal 1.005-1.030 [facility] Comment on above: Order Comment: Speci men Type: URINE SPECIMENOrdering Facility: [facility] Address: [address] [place] [address] Performed By: #### L [id number] ####[facility] LABCLIA [id number] [place] [address] [place] Urobilinogen Ql (U) Normal Normal Normal [facility] Comment on above: Order Comment: Speci men Type: URINE SPECIMENOrdering Facility: [facility] Address: [address] [place] [address] Performed By: #### L [id number] ####[facility] LABCLIA [id number] [place] [address] [place] Comprehensive metabolic 2000 panelon 09-25-2023 Albumin [Mass/Vol] 4.3 g/dL Normal 3.9-4.9 [facility] Comment on above: Order Comment: Speci men Type: BLOOD SPECIMENOrdering Facility: [facility] Address: [address] [place] [address] Performed By: #### 2 4323-8 ####[facility] LABCLIA [id number] [place] [address] ALP [Catalytic activity/Vol] 94 U/L Normal 38-113 [facility] Comment on above: Order Comment: Speci men Type: BLOOD SPECIMENOrdering Facility: [facility] Address: [address] [place] [address] Performed By: #### 2 4323-8 ####[facility] LABCLIA [id number] [place] [address] ALT [Catalytic activity/Vol] 20 U/L Normal 10-54 [facility] Comment on above: Order Comment: Speci men Type: BLOOD SPECIMENOrdering Facility: [facility] Address: [address] [place] [address] Performed By: #### 2 4323-8 ####[facility] LABCLIA [id number] [place] [address] Anion gap [Moles/Vol] 11 mmol/L Normal 9-18 [facility] Comment on above: Order Comment: Speci men Type: BLOOD SPECIMENOrdering Facility: [facility] Address: [address] [place] [address] Performed By: #### 2 4323-8 ####[facility] LABCLIA [id number] [place] [address] AST [Catalytic activity/Vol] 19 U/L Normal 14-40 [facility] Comment on above: Order Comment: Speci men Type: BLOOD SPECIMENOrdering Facility: [facility] Address: [address] [place] [address] Performed By: #### 2 4323-8 ####[facility] LABCLIA [id number] [place] [address] Bilirubin [Mass/Vol] 0.6 mg/dL Normal 0.2-1.3 [facility] Comment on above: Order Comment: Speci men Type: BLOOD SPECIMENOrdering Facility: [facility] Address: [address] [place] [address] Performed By: #### 2 4323-8 ####[facility] LABCLIA [id number] [place] [address] Calcium [Mass/Vol] 10.6 mg/dL High 8.5-10.2 [facility] Comment on above: Order Comment: Speci men Type: BLOOD SPECIMENOrdering Facility: [facility] Address: [address] [place] [address] Performed By: #### 2 4323-8 ####[facility] LABCLIA [id number] [place] [address] Chloride [Moles/Vol] 108 mmol/L High 97-105 [facility] Comment on above: Order Comment: Speci men Type: BLOOD SPECIMENOrdering Facility: [facility] Address: [address] [place] [address] Performed By: #### 2 4323-8 ####[facility] LABCLIA [id number] [place] [address] CO2 [Moles/Vol] 24 mmol/L Normal 22-30 [facility] Comment on above: Order Comment: Speci men Type: BLOOD SPECIMENOrdering Facility: [facility] Address: [address] [place] [address] Performed By: #### 2 4323-8 ####[facility] LABCLIA [id number] [place] [address] Creatinine [Mass/Vol] 1.85 mg/dL High 0.73-1.22 [facility] Comment on above: Order Comment: Speci men Type: BLOOD SPECIMENOrdering Facility: [facility] Address: [address] [place] [address] Performed By: #### 2 4323-8 ####[facility] LABCLIA [id number] [place] [address] Creatinine and Glomerular filtration rate.predicted panel (S/P/Bld) 40 mL/min/1.73m??? Low >=60 [facility] Comment on above: Order Comment: Speci men Type: BLOOD SPECIMENOrdering Facility: [facility] Address: [address] [place] [address] Result Comment: Kasie mated Glomerular Filtration Rate [...] actual GFR. Performed By: #### 2 4323-8 ####[facility] LABCLIA [id number] [place] [address] Glucose [Mass/Vol] 127 mg/dL High 74-99 [facility] Comment on above: Order Comment: Bianka montiel Type: BLOOD SPECIMENOrdering Facility: [facility] Address: [address] [place], [place] [address] Result Comment: The [place] [employer] (ADA) provides guidance for cutoff [...] Standards of Medical Care in Diabetes 2016, [place] [employer]. Diabetes Care. 2016.39(Suppl 1). Performed By: #### 2 4323-8 ####[facility] LABCLIA [id number] [place] [address] Potassium [Moles/Vol] 4.9 mmol/L Normal 3.7-5.1 [facility] Comment on above: Order Comment: Bianka montiel Type: BLOOD SPECIMENOrdering Facility: [facility] Address: [address] [place] [address] Performed By: #### 2 4323-8 ####[facility] LABCLIA [id number] [place] [address] Protein [Mass/Vol] 7.4 g/dL Normal 6.3-8.0 [facility] Comment on above: Order Comment: Bianka montiel Type: BLOOD SPECIMENOrdering Facility: [facility] Address: [address] [place] [address] Performed By: #### 2 4323-8 ####[facility] LABCLIA [id number] [place] [address] Sodium [Moles/Vol] 143 mmol/L Normal 136-144 [facility] Comment on above: Order Comment: Speci men Type: BLOOD SPECIMENOrdering Facility: [facility] Address: [address] [place] [address] Performed By: #### 2 4323-8 ####[facility] LABCLIA [id number] [place] [address] Urea nitrogen [Mass/Vol] 32 mg/dL High 9-24 [facility] Comment on above: Order Comment: Speci men Type: BLOOD SPECIMENOrdering Facility: [facility] Address: [address] [place] [address] Performed By: #### 2 4323-8 ####[facility] LABCLIA [id number] [place] [address] [facility] Prostate specific Ag [Mass/Vol] 1.44 ng/mL Normal <2.60 [facility] Comment on above: Order Comment: Speci men Type: BLOOD SPECIMENOrdering Facility: [facility] Address: [address] [place] [address] Result Comment: Tota l PSA test methodology used is the Electrochemiluminescence Immunoassay by [employer]. Total PSA values by differing methodologies cannot be interchanged. Performed By: #### 2 857-1 ####[facility] LABCLIA [id number] [place] [id number] [facility] CNOVon 08-21-2023 CNOV Office Visit (UROLMN ) MITCHELL,CANDICE ([id number]) 1960 M Date Time Provider Department 08/21/23 2:00 PM KENNEY BANGURA During your visit today, we recorded the following information about you: Pulse Blood pressure Weight Height 66/minute 152/85 121.1 kg 1.727 m Kenney Bangura MD 08/28/2023 10:51 AM Signed PATIENT: Candice Mitchell [id number] 08/21/2023 Chief Complaint: Follow up This clinic [...] repair ( (more content not included)... Normal [facility] CREATININE, BLOOD (POC)on Creatinine [Mass/Vol] 1.80 mg/dL Abnormal 0.7 - 1.4 mg/dL [facility] eGFR (POCT) 42 mL/min/1.73 m2 [facility] CT ABD/PEL W IVCONon 023 CT ABD/PEL W IVCON * * *Final Report* * * * * * SEE BOTTOM OF REPORT FOR ADDENDED TEXT * * * DATE OF EXAM: Aug 21 2023 12:59PM [facility] [place] ABD/PEL W IVCON / [...] areas of atelectasis/scarring in the lung bases. Rapid Transit Operator (topogram) images: No additional findings. IMPRESSION: Stable [...] of the clinical team. --END OF FINDING-- Policy Adviser: CARLEEN Transcribe Date/Time: Aug 28 2023 9:14A Dictated by : CODY ZENDEJAS MD This examination was interpreted and the report reviewed and electronically signed by: CODY ZENDEJAS MD on Aug 21 2023 2:54PM EST This document has been addended by: CODY ZENDEJAS MD on Aug 28 2023 9:19AM EST [id number] Normal [facility] URINALYSIS, REFLEX MICROSCOP ICon 08-21-2023 Bilirubin Ql (U) Negative Negative [facility] Clarity (Unsp spec) Clear Clear [facility] Color (U) Light Yellow Yellow [facility] Glucose Test strip (U) [Mass/Vol] Negative Trace, Negative [facility] Hemoglobin Ql (U) Negative Negative, Trace [facility] Ketones Ql (U) Negative Negative, Trace [facility] Leukocyte esterase Test strip Ql (U) Negative Negative, 25 Pia/uL [facility] Nitrite Ql (U) Negative Negative [facility] pH (U) 5.5 [pH] 5.0 - 8.0 [facility] Protein (U) [Mass/Vol] Negative Trace, Negative [facility] Specific gravity (U) [Rel density] 1.035 High 1.005 - 1.030 [facility] Urobilinogen Ql (U) Negative Negative [facility] Bilirubin Ql (U) Negative Normal Negative [facility] Comment on above: Order Comment: Speci men Type: URINE SPECIMENOrdering Facility: [facility] Address: [address] [place] [address] Performed By: #### L [id number] ####[facility] LABCLIA [id number] [place] [address] [place] Clarity (Unsp spec) Clear Normal Clear [facility] Comment on above: Order Comment: Speci men Type: URINE SPECIMENOrdering Facility: [facility] Address: [address] [place] [address] Performed By: #### L [id number] ####[facility] LABCLIA [id number] [place] [address] [place] Color (U) Light Yellow Normal Yellow [facility] Comment on above: Order Comment: Speci men Type: URINE SPECIMENOrdering Facility: [facility] Address: [address] [place] [address] Performed By: #### L [id number] ####[facility] LABCLIA [id number] [place] [address] [place] Glucose Test strip (U) [Mass/Vol] Negative Normal Trace, Negative [facility] Comment on above: Order Comment: Speci men Type: URINE SPECIMENOrdering Facility: [facility] Address: [address] [place] [address] Performed By: #### L [id number] ####[facility] LABCLIA [id number] [place] [address] [place] Hemoglobin Ql (U) Negative Normal Negative, Trace [facility] Comment on above: Order Comment: Speci men Type: URINE SPECIMENOrdering Facility: [facility] Address: [address] [place] [address] Performed By: #### L [id number] ####[facility] LABCLIA [id number] [place] [address] [place] Ketones Ql (U) Negative Normal Negative, Trace [facility] Comment on above: Order Comment: Speci men Type: URINE SPECIMENOrdering Facility: [facility] Address: [address] [place] [address] Performed By: #### L [id number] ####[facility] LABCLIA [id number] [place] [address] [place] Leukocyte esterase Test strip Ql (U) Negative Normal Negative, 25 Pia/uL [facility] Comment on above: Order Comment: Speci men Type: URINE SPECIMENOrdering Facility: [facility] Address: [address] [place] [address] Performed By: #### L [id number] ####[facility] LABCLIA [id number] [place] [address] [place] Nitrite Ql (U) Negative Normal Negative [facility] Comment on above: Order Comment: Speci men Type: URINE SPECIMENOrdering Facility: [facility] Address: [address] [place] [address] Performed By: #### L [id number] ####[facility] LABCLIA [id number] [place] [address] [place] pH (U) 5.5 [pH] Normal 5.0-8.0 [facility] Comment on above: Order Comment: Speci men Type: URINE SPECIMENOrdering Facility: [facility] Address: [address] [place] [address] Performed By: #### L [id number] ####[facility] LABIA [id number] [place] [address] [place] Protein (U) [Mass/Vol] Negative Normal Trace, Negative [facility] Comment on above: Order Comment: Speci men Type: URINE SPECIMENOrdering Facility: [facility] Address: [address] [place] [address] Performed By: #### L [id number] ####[facility] LABIA [id number] [place] [address] [place] Specific gravity (U) [Rel density] 1.035 High 1.005-1.030 [facility] Comment on above: Order Comment: Speci men Type: URINE SPECIMENOrdering Facility: [facility] Address: [address] [place] [address] Performed By: #### L [id number] ####[facility] LABIA [id number] [place] [address] [place] Urobilinogen Ql (U) Negative Normal Negative [facility] Comment on above: Order Comment: Speci men Type: URINE SPECIMENOrdering Facility: [facility] Address: [address] [place] [address] Performed By: #### L [id number] ####[facility] LABCLIA [id number] [facility]ENTERBenn[facility] [id number] [id number] [place] XR CHEST 2V FRONTAL/LATon XR CHEST 2V [...] of the thoracic spine. IMPRESSION: See Result. Policy Adviser: CARLEEN Transcribe Date/Time: Aug 21 2023 12:48P Dictated by : CHRISTIANNE BRITO MD This examination was interpreted and the report reviewed and electronically signed by: CHRISTIANNE BRITO MD on Aug 21 2023 12:49PM EST [id number] Normal [facility] Complete Blood Count Auto Di ffon 08-20-2023 Basophils (Bld) [#/Vol] 0.1 10*3/uL Normal 0.0-0.2 [facility] Comment on above: Result Comment: PERF ORMED BY: [address] [place] [address] PATHOLOGIST QUALITY CONTROL ASSOCIATE YENI BARRAGAN M.D. Performed By: #### C BC #### [address] Basophils/100 WBC (Bld) 0.8 % Normal . [facility] Comment on above: Performed By: #### C BC #### [place] [address] [place] Eosinophils (Bld) [#/Vol] 0.3 10*3/uL Normal 0.0-0.45 [facility] Comment on above: Performed By: #### C BC #### [address] Eosinophils/100 WBC (Bld) 2.6 % Normal . [facility] Comment on above: Performed By: #### C BC #### [address] Erythrocyte distribution width (RBC) [Ratio] 15.2 % High 12.0-14.8 [facility] Comment on above: Performed By: #### C BC #### [address] Hematocrit (Bld) [Volume fraction] 44.0 % Normal 38.8-50.0 [facility] Comment on above: Performed By: #### C BC #### [address] Hemoglobin (Bld) [Mass/Vol] 14.4 g/dL Normal 13.0-17.0 [facility] Comment on above: Performed By: #### C BC #### [address] Lymphocytes (Bld) [#/Vol] 3.7 10*3/uL Normal 1.00-4.8 [facility] Comment on above: Performed By: #### C BC #### [address] Lymphocytes/100 WBC (Bld) 33.7 % Normal . [facility] Comment on above: Performed By: #### C BC #### [address] MCH (RBC) [Entitic mass] 30.8 pg Normal 27.5-35.2 [facility] Comment on above: Performed By: #### C BC #### [address] MCV (RBC) [Entitic vol] 94.0 fL Normal 83.5-101 [facility] Comment on above: Performed By: #### C BC #### [facility] [address] Mean Corpuscular HGB Conc 32.8 g/dL Normal 32.5-35.6 [facility] Comment on above: Performed By: #### C BC #### [facility] [address] [place] [address] [place] Monocytes (Bld) [#/Vol] 0.8 10*3/uL Normal 0.0-0.8 [facility] Comment on above: Performed By: #### C BC #### [facility] [address] [place] [address] [place] Monocytes/100 WBC (Bld) 7.3 % Normal . [facility] Comment on above: Performed By: #### C BC #### [facility] [address] Neutrophils (Bld) [#/Vol] 6.1 10*3/uL Normal 1.8-7.7 [facility] Comment on above: Performed By: #### C BC #### [facility] [address] [place] [address] [place] Neutrophils/100 WBC (Bld) 55.6 % Normal . [facility] Comment on above: Performed By: #### C BC #### [address] NRBC% 0.2 /100{WBC} Normal 0-0.5 [facility] Comment on above: Performed By: #### C BC #### [facility] [address] [place] [address] [place] Platelet mean volume (Bld) [Entitic vol] 8.1 fL Normal 6.6-10.1 [facility] Comment on above: Performed By: #### C BC #### [facility] [address] [place] [address] [place] Platelets (Bld) [#/Vol] 338 10*3/uL Normal 150-450 [facility] Comment on above: Performed By: #### C BC #### [facility] [address] [place] [id number] [place] RBC (Bld) [#/Vol] 4.68 10*6/uL Normal 3.90-5.60 [facility] Comment on above: Performed By: #### C BC #### [facility] [address] [id number] [facility] WBC (Bld) [#/Vol] 11.0 10*3/uL High 4.1-10.5 [facility] Comment on above: Performed By: #### C BC #### [facility] [address] PROTEIN CREATININE RATIOon 0 02-26-2023 Protein/Creatinine (U) [Mass ratio] 0.11 mg/mg <0.15 mg/mg [facility] Protein/Creatinine (U) [Mass ratio]on 02-26-2023 Creatinine (U) [Mass/Vol] 211.1 mg/dL 20.0 - 300.0 mg/dL [facility] Protein (U) [Mass/Vol] 23 mg/dL High 0 - 20 mg/dL [facility] CREATININE, BLOOD (POC)on Creatinine [Mass/Vol] 2.10 mg/dL Abnormal 0.7 - 1.4 mg/dL [facility] eGFR (POCT) 35 mL/min/1.73 m2 [facility] CT ABD/PEL W IVCONon 023 [facility] URINALYSIS, REFLEX MICROSCOP ICon 12-26-2022 Bilirubin Ql (U) Negative Negative [facility] Clarity (Unsp spec) Clear Clear [facility] Color (U) Light Yellow Yellow [facility] Glucose Test strip (U) [Mass/Vol] Negative Trace, Negative [facility] Hemoglobin Ql (U) Negative Negative, Trace [facility] Ketones Ql (U) Negative Negative, Trace [facility] Leukocyte esterase Test strip Ql (U) Negative Negative, 25 Pia/uL [facility] Nitrite Ql (U) Negative Negative [facility] pH (U) 5.5 [pH] 5.0 - 8.0 [facility] Protein (U) [Mass/Vol] Negative Trace, Negative [facility] Specific gravity (U) [Rel density] 1.010 1.005 - 1.030 [facility] Urobilinogen Ql (U) Negative Negative [facility] XR CHEST 2 Von 08-01-2022 XR [...] ANGEL XIE Date: 2022-08-01 06:20 Normal [facility] URINALYSIS, REFLEX MICROSCOP ICon 06-26-2022 Bilirubin Ql (U) Negative Negative [facility] Calcium Oxalate Crystals Many Abnormal None Seen /HPF [facility] Clarity (Unsp spec) Cloudy Abnormal Clear [facility] Color (U) Yellow Yellow [facility] Glucose Test strip (U) [Mass/Vol] Negative Negative [facility] Hemoglobin Ql (U) Negative Negative [facility] Hyaline casts (Urine sed) [#/Area] 4-10 /LPF Abnormal 0 /LPF [facility] Ketones Ql (U) Negative Negative [facility] Leukocyte esterase Test strip Ql (U) Negative Negative [facility] Nitrite Ql (U) Negative Negative [facility] pH (U) 5.5 [pH] 5.0 - 8.0 [facility] Protein (U) [Mass/Vol] 1+ Abnormal Negative [facility] RBC LM.HPF (Urine sed) [#/Area] 0-3 /HPF 0-3 /HPF [facility] Specific gravity (U) [Rel density] 1.026 1.005 - 1.030 [facility] Urobilinogen Ql (U) Negative Negative [facility] WBC LM.HPF (Urine sed) [#/Area] 0-5 /HPF 0-5 /HPF [facility] No Panel Informationon 05-16 [facility] CREATININEon 05-07-2022 Creatinine [Mass/Vol] 1.25 mg/dL Normal 0.70-1.30 [facility] Comment on above: Performed By: #### C CLAUDE #### [facility] [address] [address] [address] Oksana Betancourt EGFR-AF LITHUANIAN >60 Normal >=60 [facility] Comment on above: Performed By: #### C CLAUDE #### [facility] [address] [address] [address] Oksana Betancourt EGFR-NON AF LITHUANIAN 58 mL/min/1.73m2 Critically low >=60 [facility] Comment on above: Performed By: #### C CLAUDE #### [facility] [address] CHEST W CONon [...] by: ANGEL XIE Date: 2022-05-07 17:27 Normal [facility] URINALYSIS, REFLEX MICROSCOP ICon 05-02-2022 Bilirubin Ql (U) Negative Negative [facility] Clarity (Unsp spec) Clear Clear [facility] Color (U) Light Yellow Yellow [facility] Glucose Test strip (U) [Mass/Vol] Negative Negative [facility] Hemoglobin Ql (U) Negative Negative [facility] Ketones Ql (U) Negative Negative [facility] Leukocyte esterase Test strip Ql (U) Negative Negative [facility] Nitrite Ql (U) Negative Negative [facility] pH (U) 5.0 [pH] 5.0 - 8.0 [facility] Protein (U) [Mass/Vol] Negative Negative [facility] Specific gravity (U) [Rel density] 1.019 1.005 - 1.030 [facility] Urobilinogen Ql (U) Negative Negative [facility] MRI ABDOMEN WO CONon 022 MRI [...] by: CANDICE CHRISTINE Date: 2022-04-28 08:41 Normal [facility] XR FOREIGN BODY EYEon 2021 XR FOREIGN BODY EYE EXAMINATION: XR FOREIGN BODY EYE HISTORY: Foreign body in eye COMPARISON: No relevant comparison available. FINDINGS: ORBITS: Negative for a metallic foreign body. OTHER: Negative. IMPRESSION: 1. No metallic foreign body within orbits. Electronically authenticated by: ANGEL XIE Date: 2022-04-25 09:57 Normal [facility] CT ABDOMEN WO/W CONon 2021 CT ABDOMEN [...] HAWA KAY Date: 2022-04-16 13:50 Normal [facility] US KIDNEYS BLADDERon 04-03- 022 US KIDNEYS BLADDER Begin Addendum # [...] 2.0 cm on the left Normal [facility] PROF CHEM 8 (BAS METB)on Anion gap [Moles/Vol] 7.9 mmol/L Normal [facility] Comment on above: Performed By: #### B MP #### [facility] [address] [place] [address] Dr. Oksana Betancourt Calcium [Mass/Vol] 9.6 mg/dL Normal 8.5-10.1 [facility] Comment on above: Performed By: #### B MP #### [facility] [address] [place] [address] Dr. Oksana Betancourt Chloride [Moles/Vol] 106 mmol/L Normal 98-107 [facility] Comment on above: Performed By: #### B MP #### [facility] [address] [address] [address] Oksana Betancourt CO2 [Moles/Vol] 28.1 mmol/L Normal 21.0-32.0 [facility] Comment on above: Performed By: #### B MP #### [facility] [address] [address] [address] Oksana Betancourt Creatinine [Mass/Vol] 1.37 mg/dL Critically high 0.70-1.30 [facility] Comment on above: Performed By: #### B MP #### [facility] [address] [address] [address] Oksana Betancourt EGFR-AF LITHUANIAN >60 Normal >=60 [facility] Comment on above: Performed By: #### B MP #### [facility] [address] [address] [address] Oksana Betancourt EGFR-NON AF LITHUANIAN 52 mL/min/1.73m2 Critically low >=60 [facility] Comment on above: Performed By: #### B MP #### [facility] [address] [place] [address] Dr. Oksana Betancourt Glucose [Mass/Vol] 114 mg/dL Critically high 74-106 [facility] Comment on above: Performed By: #### B MP #### [facility] [address] [place] [address] Dr. Oksana Betancourt Potassium [Moles/Vol] 4.0 mmol/L Normal 3.5-5.1 [facility] Comment on above: Performed By: #### B MP #### [facility] [address] [place] [address] Dr. Oksana Betancourt Sodium [Moles/Vol] 138 mmol/L Normal 136-145 [facility] Comment on above: Performed By: #### B MP #### [facility] [address] [address] [address] Oksana Betancourt Urea nitrogen [Mass/Vol] 14.0 mg/dL Normal 7.0-18.0 [facility] Comment on above: Performed By: #### B MP #### [facility] [address] [place] [address] Dr. Oksana Betancourt Urea nitrogen/Creatinin e [Mass ratio] 10.2 mg/mg Normal [facility] Comment on above: Performed By: #### B MP #### [facility] [address] [place] [address] Dr. Oksana Betancourt UA RANDOM W/MICROSCOPICon BACTERIA NONE SEEN Normal NONE SEEN [facility] Comment on above: Performed By: #### U AMIC ####[facility] [address] [place], [place] [address]Dr. Oksana Betancourt Bilirubin Ql (U) Negative Normal NEGATIVE [facility] Comment on above: Performed By: #### U AMIC ####[facility] [address] [address]Dr. Oksana Betancourt CAST NONE SEEN Normal NONE SEEN [facility] Comment on above: Performed By: #### U AMIC ####[facility] [address] [place], [place] [address]Dr. Oksana Betancourt Clarity (U) CLEAR Normal CLEAR [facility] Comment on above: Performed By: #### U AMIC ####[facility] [address] [place] [address]Dr. Oksana Betancourt Color (U) YELLOW Normal YELLOW [facility] Comment on above: Performed By: #### U AMIC ####[facility] [address] [place], [place] [address]Dr. Oksana Betancourt Crystals LM Nom (Urine sed) NONE SEEN Normal NONE SEEN [facility] Comment on above: Performed By: #### U AMIC ####[facility] [address] [place], [place] [address]Dr. Oksana Betancourt Epithelial cells LM Ql (Urine sed) RARE Normal NONE SEEN /RARE [facility] Comment on above: Performed By: #### U AMIC ####[facility] [address] [place], [place] [address]Dr. Oksana Betancourt Glucose Ql (U) Negative Normal NEGATIVE [facility] Comment on above: Performed By: #### U AMIC ####[facility] [address] [place], [place] [address]Dr. Oksana Betancourt Hemoglobin Ql (U) TRACE-INTACT Abnormal NEGATIVE [facility] Comment on above: Performed By: #### U AMIC ####[facility] [address] [place], [place] [address]Dr. Oksana Betancourt Ketones Ql (U) Negative Normal NEGATIVE [facility] Comment on above: Performed By: #### U AMIC ####[facility] [address] [place] [address]Dr. kOsana Betancourt LEUKOCYTES Negative Normal NEGATIVE [facility] Comment on above: Performed By: #### U AMIC ####[facility] [address] [place] [address]Dr. Barbiesukhdeep Betancourt MUCOUS MODERATE Abnormal NONE SEEN [facility] Comment on above: Performed By: #### U AMIC ####[facility] [address] [place], [place] [address]Dr. Oksana Betancourt Nitrite Ql (U) Negative Normal NEGATIVE [facility] Comment on above: Performed By: #### U AMIC ####[facility] [address] [place], [place] [address]Dr. Oksana Betancourt pH (U) 6.0 [pH] Normal 5-9 [facility] Comment on above: Performed By: #### U AMIC ####[facility] [address] [place], [place] [address]Dr. Barbiesukhdeep Betancourt RBC 0-2 Normal 0-2 [facility] Comment on above: Performed By: #### U AMIC ####[facility] [address] [place], [place] [address]Dr. Oksana Betancourt SPEC GRAVITY 1.020 Normal 1.005-<=1.02 5 [facility] Comment on above: Performed By: #### U AMIC ####[facility] [address] [place], [place] [address]Dr. Barbiesukhdeep Betancourt UA PROTEIN Negative Normal NEGATIVE/ TRACE [facility] Comment on above: Performed By: #### U AMIC ####[facility] [address] [place], [place] [address]Dr. Oksana Betancourt Urobilinogen Qn (U) 0.2 {Paul'U}/dL Normal 0.2 - 1.0 [facility] Comment on above: Performed By: #### U AMIC ####[facility] [address] [place], [place] [address]Dr. Oksana Betancourt WBC NONE SEEN Normal NONE SEEN [facility] Comment on above: Performed By: #### U AMIC ####[facility] [address] [place] [id number]. Oksana Betancourt CBC AUTO DIFFon 02-13-2022 BASO # 0.1 103/ul Normal 0.0-0.1 [facility] Comment on above: Performed By: #### C BC #### [facility] [address] [address] [address] Oksana Betancourt Basophils/100 WBC (Bld) 0.6 % Normal 0.2-2.0 [facility] Comment on above: Performed By: #### C BC #### [facility] [address] [place] [address] Dr. Oksana Betancourt EO # 0.2 103/ul Normal 0.0-0.7 [facility] Comment on above: Performed By: #### C BC #### [facility] [address] [place] [address] Dr. Oksana Betancourt Eosinophils/100 WBC (Bld) 2.7 % Normal 0.9-7.0 [facility] Comment on above: Performed By: #### C BC #### [facility] [address] [place] [address] Dr. Oksana Betancourt Erythrocyte distribution width (RBC) [Ratio] 13.8 % Normal 11.0-15.0 [facility] Comment on above: Performed By: #### C BC #### [facility] [address] [place] [address] Dr. Oksana Betancourt Hematocrit (Bld) [Volume fraction] 42.3 % Normal 42.0-54.0 [facility] Comment on above: Performed By: #### C BC #### [facility] [address] [place] [address] Dr. Oksana Betancourt Hemoglobin (Bld) [Mass/Vol] 14.3 g/dL Normal 14.0-18.0 [facility] Comment on above: Performed By: #### C BC #### [facility] [address] [place] [address] Dr. Oksana Betancourt IG # 0.06 10e3/ul Critically high 0.00-0.03 [facility] Comment on above: Performed By: #### C BC #### [facility] [address] [place] [address] Dr. Oksana Betancourt IG % 0.7 % Critically high 0.0-0.5 [facility] Comment on above: Performed By: #### C BC #### [facility] [address] [place] [address] Dr. Oksana Betancourt LYMPH # 2.9 103/ul Normal 1.2-3.8 [facility] Comment on above: Performed By: #### C BC #### [facility] [address] [place] [address] Dr. Oksana Betancourt Lymphocytes/100 WBC (Bld) 32.3 % Normal 20.5-60.0 [facility] Comment on above: Performed By: #### C BC #### [facility] [address] [place] [address] Dr. Oksana Betancourt MANUAL DIFF REQ NO Normal [facility] Comment on above: Performed By: #### C BC #### [facility] [address] [place] [address] Dr. Oksana Betancourt MCH (RBC) [Entitic mass] 29.3 pg Normal 25.9-34.0 [facility] Comment on above: Performed By: #### C BC #### [facility] [address] [place] [address] Dr. Oksana Betancourt MCHC (RBC) [Mass/Vol] 33.8 g/dL Normal 29.9-35.2 [facility] Comment on above: Performed By: #### C BC #### [facility] [address] [place] [address] Dr. Oksana Betancourt MCV (RBC) [Entitic vol] 86.7 fL Normal 80.0-94.0 [facility] Comment on above: Performed By: #### C BC #### [facility] [address] [place] [address] Dr. Oksana Betancourt MONO # 0.5 103/ul Normal 0.3-0.8 [facility] Comment on above: Performed By: #### C BC #### [facility] [address] [address] [address] Oksana Betancourt Monocytes/100 WBC (Bld) 6.1 % Normal 1.7-12.0 [facility] Comment on above: Performed By: #### C BC #### [facility] [address] [address] [address] Oksana Betancourt NEUT # 5.1 103/ul Normal 1.4-6.5 [facility] Comment on above: Performed By: #### C BC #### [facility] [address] [place] [address] Dr. Oksana Betancourt Neutrophils/100 WBC (Bld) 57.6 % Normal 43.0-75.0 [facility] Comment on above: Performed By: #### C BC #### [facility] [address] [place] [address] Dr. Oksana Betancourt Platelet mean volume (Bld) [Entitic vol] 9.1 fL Critically low 9.5-13.5 [facility] Comment on above: Performed By: #### C BC #### [facility] [address] [place] [address] Dr. Oksana Betancourt PLT 201 103/ul Normal 150-450 [facility] Comment on above: Performed By: #### C BC #### [facility] [address] [place] [address] Dr. Oksana Betancourt RBC 4.88 106/ul Normal 4.70-6.10 [facility] Comment on above: Performed By: #### C BC #### [facility] [address] [place] [address] Dr. Oksana Betancourt WBC 8.9 103/ul Normal 4.0-11.0 [facility] Comment on above: Performed By: #### C BC #### [facility] [address] [place] [address] Dr. Oksana Betancourt GLYCOHEMOGLOBIN A1Con 2021 ADA RECOMMENDATION SEE BELOW Normal [facility] Comment on above: Result Comment: ADA RECOMMENDED LIMIT 4.0 - 6.0 ADA THERAPEUTIC TARGET < 7.0 ACTION SUGGESTED > 7.0 Performed By: #### A 1C #### [facility] [address] [address] [address] Oksana Betancourt Glucose [Mass/Vol] 131 mg/dL Normal [facility] Comment on above: Performed By: #### A 1C #### [facility] [address] [address] [address] Oksana Betancourt HbA1c (Bld) [Mass fraction] 6.2 % Normal 4.5-6.2 [facility] Comment on above: Performed By: #### A 1C #### [facility] [address] [address] [address] Oksana Betancourt LIPID PROFILEon 02-13-2022 CHOL-HDL RATIO NORM SEE BELOW Normal [facility] Comment on above: Result Comment: 3.3 - 4.4 LOW RISK 4.4 - 7.1 AVERAGE RISK 7.1 - 11.0 MODERATE RISK >11.0 HIGH RISK Performed By: #### L IPID, CMP ####[facility] [address] [place] [id number]. Oksana Betancourt Cholesterol [Mass/Vol] 131 mg/dL Normal <=200 [facility] Comment on above: Performed By: #### L IPID, CMP ####[facility] [address] [id number]. Oksana Betancourt Cholesterol in HDL [Mass/Vol] 40 mg/dL Normal 40-60 [facility] Comment on above: Performed By: #### L IPID, CMP ####[facility] [address] [place] [id number]. Oksana Betancourt Cholesterol in LDL [Mass/Vol] 69.2 mg/dL Normal [facility] Comment on above: Performed By: #### L IPID, CMP ####[facility] [address] [id number]. Oksana Betancourt Cholesterol.total/ Cholesterol in HDL [Mass ratio] 3.3 {ratio} Normal [facility] Comment on above: Performed By: #### L IPID, CMP ####[facility] [address] [address]Dr. Oksana Betancourt HDL NORMAL > or = 60 mg/dl - LO W CARDIOVASCULAR RISK <40 mg/dl - HIGH CARDIOVASCULAR RISK Normal [facility] Comment on above: Performed By: #### L IPID, CMP ####[facility] [address] [address]Dr. Oksana Betancourt LDL CALC NORMAL SEE BELOW Normal [facility] Comment on above: Result Comment: <100 mg/dl OPTIMAL 100 - 129 mg/dl NEAR OR ABOVE OPTIMAL 130 - 159 mg/dl BORDERLINE HIGH 160 - 189 mg/dl HIGH >190 mg/dl VERY HIGH Performed By: #### L IPID, CMP ####[facility] [address] [place], [place] [address]Dr. Oksana Betancourt Triglyceride [Mass/Vol] 109 mg/dL Normal <=150 [facility] Comment on above: Performed By: #### L IPID, CMP ####[facility] [address] [place], [place] [address]Dr. Oksana Betancourt VLDL CALC 21.8 mg/dL Normal [facility] Comment on above: Performed By: #### L IPID, CMP ####[facility] [address] [place], [place] [address]Dr. Oksana Betancourt PROF 14(COMP METB)on 022 Albumin [Mass/Vol] 3.5 g/dL Normal 3.4-5.0 [facility] Comment on above: Performed By: #### L IPID, CMP ####[facility] [address] [place], [place] [address]Dr. Oksana Betancourt Albumin/Globulin [Mass ratio] 0.9 {ratio} Normal [facility] Comment on above: Performed By: #### L IPID, CMP ####[facility] [address] [place], [place] [address]Dr. Oksana Betancourt ALP [Catalytic activity/Vol] 74 U/L Normal 46-116 [facility] Comment on above: Performed By: #### L IPID, CMP ####[facility] [address] [place], [place] [address]Dr. Oksana Betancourt ALT [Catalytic activity/Vol] 27 U/L Normal 16-63 [facility] Comment on above: Performed By: #### L IPID, CMP ####[facility] [address] [address]Dr. Oksana Betancourt Anion gap [Moles/Vol] 10.0 mmol/L Normal [facility] Comment on above: Performed By: #### L IPID, CMP ####[facility] [address] [address]Dr. Oksana Betancourt AST [Catalytic activity/Vol] 16 U/L Normal 15-37 [facility] Comment on above: Performed By: #### L IPID, CMP ####[facility] [address] [address]Dr. Oksana Betancourt Bilirubin [Mass/Vol] 0.7 mg/dL Normal 0.2-1.0 [facility] Comment on above: Performed By: #### L IPID, CMP ####[facility] [address] [place], [place] [address]Dr. Oksana Betancourt Calcium [Mass/Vol] 9.9 mg/dL Normal 8.5-10.1 [facility] Comment on above: Performed By: #### L IPID, CMP ####[facility] [address] [place], [place] [address]Dr. Oksana Betancourt Chloride [Moles/Vol] 102 mmol/L Normal 98-107 [facility] Comment on above: Performed By: #### L IPID, CMP ####[facility] [address] [address]Dr. Oksana Betancourt CO2 [Moles/Vol] 29.5 mmol/L Normal 21.0-32.0 [facility] Comment on above: Performed By: #### L IPID, CMP ####[facility] [address] [address]Dr. Oksana Betancourt Creatinine [Mass/Vol] 1.63 mg/dL Critically high 0.70-1.30 [facility] Comment on above: Performed By: #### L IPID, CMP ####[facility] [address] [id number]. Oksana Betancourt EGFR-AF LITHUANIAN 52 mL/min/1.73m2 Critically low >=60 [facility] Comment on above: Performed By: #### L IPID, CMP ####[facility] [address] [address]Dr. Oksana Betancourt EGFR-NON AF LITHUANIAN 43 mL/min/1.73m2 Critically low >=60 [facility] Comment on above: Performed By: #### L IPID, CMP ####[facility] [id number] [address]Dr. Oksana Serafin Globulin (S) [Mass/Vol] 4.0 g/dL Normal [facility] Comment on above: Performed By: #### L IPID, CMP ####[facility] [id number] [place], [place] [address]Dr. Barbiesukhdeep Serafin Glucose [Mass/Vol] 113 mg/dL Critically high 74-106 [facility] Comment on above: Performed By: #### L IPID, CMP ####[facility] [id number] [place], [place] [address]Dr. Oksana Serafin Potassium [Moles/Vol] 3.5 mmol/L Normal 3.5-5.1 [facility] Comment on above: Performed By: #### L IPID, CMP ####[facility] [id number] [place], [place] [address]Dr. Oksana Betancourt Protein [Mass/Vol] 7.5 g/dL Normal 6.4-8.2 [facility] Comment on above: Performed By: #### L IPID, CMP ####[facility] [id number] [address]Dr. Oksana Betancourt Sodium [Moles/Vol] 138 mmol/L Normal 136-145 [facility] Comment on above: Performed By: #### L IPID, CMP ####[facility] [id number] [place], [place] [address]Dr. Oksana Serafin Urea nitrogen [Mass/Vol] 25.0 mg/dL Critically high 7.0-18.0 [facility] Comment on above: Performed By: #### L IPID, CMP ####[facility] [id number] [place], [place] [address]Hg. Oksana Betancourt Urea nitrogen/Creatinin e [Mass ratio] 15.3 mg/mg Normal [facility] Comment on above: Performed By: #### L IPID, CMP ####[facility] [id number] [place], [place] [address]Zq. Oksana Betancourt Vital Signs Date Time Vital Sign Value Performing Clinician Facility 02-08-2024 09:31-0400 Body height 170.18 cm [facility] 02-08-2024 09:31-0400 Body mass index (BMI) [Ratio] 41.4 kg/m2 [facility] 02-08-2024 09:31-0400 Body weight 119.97 kg [facility] 02-08-2024 09:31-0400 Diastolic blood pressure 84 mm[Hg] [facility] 02-08-2024 09:31-0400 Heart rate 69 /min [facility] 02-08-2024 09:31-0400 Respiratory rate 12 /min [facility] 02-08-2024 09:31-0400 Systolic blood pressure 124 mm[Hg] [facility] 11-18-2023 10:54-0500 Body height 172.7 cm Lydia Godinez APRN.ASSET PROTECTION SPECIALIST Work Phone: [facility] 11-18-2023 10:54-0500 Body temperature 97.9 [degF] Lydia Godinez HVAC TECHNICIAN.ASSET PROTECTION SPECIALIST Work Phone: [facility] 11-18-2023 10:54-0500 Body weight 120.9 kg Lydia Godinez HVAC TECHNICIAN.ASSET PROTECTION SPECIALIST Work Phone: [facility] 11-18-2023 10:54-0500 Diastolic blood pressure 76 mm[Hg] Lydia Godinez HVAC TECHNICIAN.ASSET PROTECTION SPECIALIST Work Phone: [facility] 11-18-2023 10:54-0500 Heart rate 59 /min Lydia Godinez HVAC TECHNICIAN.ASSET PROTECTION SPECIALIST Work Phone: [facility] 11-18-2023 10:54-0500 Systolic blood pressure 120 mm[Hg] Lydia Godinez APRN.ASSET PROTECTION SPECIALIST Work Phone: [facility] 10-28-2023 11:30-0500 Body height 170.18 cm Isreal Ball Other [facility] Other 10-28-2023 11:30-0500 Body mass index (BMI) [Ratio] 42.1 kg/m2 Isreal Ball Other [facility] Other 10-28-2023 11:30-0500 Body weight 121.93 kg Isreal Ball Other [facility] Other 10-28-2023 11:30-0500 Diastolic blood pressure 88 mm[Hg] Isreal Ball Other [employer] [facility] [employer] Other 10-28-2023 11:30-0500 Respiratory rate 12 /min Isreal Ball Other [facility] Other 10-28-2023 11:30-0500 Systolic blood pressure 139 mm[Hg] Isreal Ball Other [facility] Other 08-21-2023 13:16-0500 Body height 172.7 cm Kenney Bangura MD Work Phone: [facility] 08-21-2023 13:16-0500 Body weight 121.1 kg Kenney Bangura MD Work Phone: [facility] 08-21-2023 13:16-0500 Diastolic blood pressure 85 mm[Hg] Kenney Bangura MD Work Phone: [facility] 08-21-2023 13:16-0500 Heart rate 66 /min Kenney Bangura MD Work Phone: [facility] 08-21-2023 13:16-0500 Systolic blood pressure 152 mm[Hg] Kenney Bangura MD Work Phone: [facility] 06-26-2023 11:30-0400 Body height 170.18 cm Isreal Ball Other [facility] Other 06-26-2023 11:30-0400 Body mass index (BMI) [Ratio] 40 kg/m2 Isreal Ball Other [facility] Other 06-26-2023 11:30-0400 Body weight 115.85 kg Isreal Ball Other [facility] Other 06-26-2023 11:30-0400 Diastolic blood pressure 77 mm[Hg] Isreal Ball Other [facility] Other 06-26-2023 11:30-0400 Respiratory rate 12 /min Isreal Ball Other [facility] Other 06-26-2023 11:30-0400 Systolic blood pressure 117 mm[Hg] Isreal Ball Other [facility] Other 02-25-2023 10:44-0400 Body height 172.7 cm Jeff Francis MD Work Phone: [facility] 02-25-2023 10:44-0400 Body weight 115.67 kg Jeff Francis MD Work Phone: [facility] 02-25-2023 10:44-0400 Diastolic blood pressure 82 mm[Hg] Jeff Francis MD Work Phone: [facility] 02-25-2023 10:44-0400 Heart rate 58 /min Jeff Francis MD Work Phone: [facility] 02-25-2023 10:44-0400 Systolic blood pressure 141 mm[Hg] Jeff Francis MD Work Phone: [facility] 12-26-2022 15:49-0400 Body temperature 97.2 [degF] Pete Gupta MD Work Phone: [facility] 12-26-2022 15:49-0400 Body weight 116.71 kg Pete Gupta MD Work Phone: [facility] 12-26-2022 15:49-0400 Diastolic blood pressure 81 mm[Hg] Pete Gupta MD Work Phone: [facility] 12-26-2022 15:49-0400 Heart rate 59 /min ePte Gupta MD Work Phone: [facility] 12-26-2022 15:49-0400 Respiratory rate 18 /min Pete Gupta MD Work Phone: [facility] 12-26-2022 15:49-0400 SaO2% (BldA) [Mass fraction] 99 % Pete Gupta MD Work Phone: [facility] 12-26-2022 15:49-0400 Systolic blood pressure 155 mm[Hg] Pete Gupta MD Work Phone: [facility] 10-24-2022 11:15-0500 Body height 170.18 cm Carline Chun Other [facility] Other 10-24-2022 11:15-0500 Body mass index (BMI) [Ratio] 39.78 kg/m2 Carline Chun Other [facility] Other 10-24-2022 11:15-0500 Body weight 115.21 kg Carline Chun Other [facility] Other 10-24-2022 11:15-0500 Diastolic blood pressure 82 mm[Hg] Carline Chun Other [facility] Other 10-24-2022 11:15-0500 SaO2% (BldA) [Mass fraction] 97 % Carline Chun Other [facility] Other 10-24-2022 11:15-0500 Systolic blood pressure 110 mm[Hg] Carline Chun Other [facility] [employer] Other 06-26-2022 10:54-0400 Body height 172.7 cm Audrey Hinsongas HVAC TECHNICIAN.ASSET PROTECTION SPECIALIST Work Phone: [facility] 06-26-2022 10:54-0400 Body temperature 97.11 [degF] Audrey Wegas HVAC TECHNICIAN.ASSET PROTECTION SPECIALIST Work Phone: [facility] 06-26-2022 10:54-0400 Body weight 110.22 kg Audrey Wegas HVAC TECHNICIAN.ASSET PROTECTION SPECIALIST Work Phone: [facility] 06-26-2022 10:54-0400 Diastolic blood pressure 64 mm[Hg] Audrey Wegas HVAC TECHNICIAN.ASSET PROTECTION SPECIALIST Work Phone: [facility] 06-26-2022 10:54-0400 Heart rate 64 /min Audrey Wegas HVAC TECHNICIAN.ASSET PROTECTION SPECIALIST Work Phone: [facility] 06-26-2022 10:54-0400 Respiratory rate 18 /min Audrey Wegas HVAC TECHNICIAN.ASSET PROTECTION SPECIALIST Work Phone: [facility] 06-26-2022 10:54-0400 SaO2% (BldA) [Mass fraction] 98 % Audrey Wegas HVAC TECHNICIAN.ASSET PROTECTION SPECIALIST Work Phone: [facility] 06-26-2022 10:54-0400 Systolic blood pressure 108 mm[Hg] Audrey Hinsongas HVAC TECHNICIAN.ASSET PROTECTION SPECIALIST Work Phone: [facility] 06-20-2022 09:07-0400 Body height 172.7 cm Pete Gupta MD Work Phone: [facility] 06-20-2022 09:07-0400 Body temperature 96.6 [degF] Pete Gupta MD Work Phone: [facility] 06-20-2022 09:07-0400 Body weight 111.13 kg Pete Gupta MD Work Phone: [facility] 06-20-2022 09:07-0400 Diastolic blood pressure 72 mm[Hg] Pete Gupta MD Work Phone: [facility] 06-20-2022 09:07-0400 Heart rate 70 /min Pete Gupta MD Work Phone: [facility] 06-20-2022 09:07-0400 Respiratory rate 14 /min Pete Gupta MD Work Phone: [facility] 06-20-2022 09:07-0400 Systolic blood pressure 144 mm[Hg] Pete Gupta MD Work Phone: [facility] 05-23-2022 09:50-0400 Body height 172.7 cm Pete Gupta MD Work Phone: [facility] 05-23-2022 09:50-0400 Body temperature 97.7 [degF] Pete Gupta MD Work Phone: [facility] 05-23-2022 09:50-0400 Body weight 120.2 kg Pete Gupta MD Work Phone: [facility] 05-23-2022 09:50-0400 Diastolic blood pressure 74 mm[Hg] Pete Gupta MD Work Phone: [facility] 05-23-2022 09:50-0400 Heart rate 64 /min Pete Gupta MD Work Phone: [facility] 05-23-2022 09:50-0400 Respiratory rate 12 /min Pete Gupta MD Work Phone: [facility] 05-23-2022 09:50-0400 Systolic blood pressure 135 mm[Hg] Pete Gupta MD Work Phone: [facility] 05-20-2022 08:27-0400 Body height 172.7 cm Pacc 3 Work Phone: [facility] 05-20-2022 08:27-0400 Body temperature 97.11 [degF] Pacc 3 Work Phone: [facility] 05-20-2022 08:27-0400 Body weight 121.38 kg Pacc 3 Work Phone: [facility] 05-20-2022 08:27-0400 Diastolic blood pressure 82 mm[Hg] Pacc 3 Work Phone: [facility] 05-20-2022 08:27-0400 Heart rate 63 /min Pacc 3 Work Phone: [facility] 05-20-2022 08:27-0400 SaO2% (BldA) [Mass fraction] 98 % Pacc 3 Work Phone: [facility] 05-20-2022 08:27-0400 Systolic blood pressure 143 mm[Hg] Pacc 3 Work Phone: [facility] 05-02-2022 14:52-0400 Diastolic blood pressure 83 mm[Hg] Kenney Bangura MD Work Phone: [facility] 05-02-2022 14:52-0400 Heart rate 62 /min Kenney Bangura MD Work Phone: [facility] 05-02-2022 14:52-0400 Systolic blood pressure 148 mm[Hg] Kenney Bangura MD Work Phone: [facility] Encounters Encounter Date Encounter Type Care Provider Facility Start: 03-04-2024 End: 03-04-2024 ambulatory KENNEY BANGURA Facility:[facility] Start: 03-04-2024 ambulatory KENNEY BANGURA Facility :[facility] Start: 03-04-2024 End: 03-04-2024 ambulatory PETE GUPTA Facility:[facility] Start: 03-04-2024 End: 03-04-2024 Subsequent hospital visit by physician Ct 2 Main Qb (I-Stat) Radiology Comment on above: Mass of pancreas [K8 6.89] Start: 03-04-2024 End: 03-04-2024 Subsequent hospital visit by physician Us Main A21 2 Radiology Comment on above: Malignant neoplasm o f right kidney (HCC) [C64.1] Start: 02-08-2024 End: 02-08-2024 ambulatory [facility] Work Phone: Start: 02-08-2024 End: 02-08-2024 Encounter for general adult medical examination without abnormal findings [facility] Start: 02-08-2024 End: 02-08-2024 Patient encounter procedure [facility] Physician [facility] Work Phone: Start: 01-12-2024 Non-patient / Non-visit [facility] Work Phone: Start: 11-18-2023 End: 11-18-2023 ambulatory Lydia Godinez HVAC TECHNICIAN.ASSET PROTECTION SPECIALIST Work Phone: [facility] Start: 11-18-2023 End: 11-18-2023 Patient encounter procedure Lydia Godinez HVAC TECHNICIAN.ASSET PROTECTION SPECIALIST Work Phone: [facility] Comment on above: 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) Start: 10-28-2023 End: 10-28-2023 ambulatory Isreal Morrow Other [facility] Other Start: 10-28-2023 Office outpatient vi sit 25 minutes Isreal Morrow [facility] Start: 09-25-2023 End: 09-25-2023 ambulatory KENNEY BANGURA Facility:[facility] Start: 08-28-2023 End: 08-28-2023 ambulatory Pete Gupta MD Work Phone: General Surgery Comment on above: Mass of pancreas (Pr imary Dx) Start: 08-28-2023 End: 08-28-2023 Telemedicine consultation with patient Pete Gupta MD Work Phone: [facility] Start: 08-25-2023 ambulatory Kenney Bangura MD Work Phone: Urology Comment on above: Your results fro CT abd/pel Start: 08-25-2023 E-mail encounter fro m caregiver Kenney Bangura MD Work Phone: [facility] Start: 08-21-2023 End: 08-21-2023 ambulatory Kenney Bangura MD Work Phone: Urology [...] Start: 08-20-2023 End: 08-20-2023 ambulatory Jason Neri Facility:[facility] Start: 06-26-2023 End: 06-26-2023 ambulatory Isreal Morrow Other [facility] Other Start: 06-26-2023 Patient encounter procedure Isreal BROWN [facility] Start: 05-19-2023 End: 05-19-2023 ambulatory Isreal Morrow Other [facility] Other Start: 05-19-2023 Telephone encounter Isreal STEIN [facility] Start: 02-25-2023 End: 02-25-2023 Patient encounter procedure Jeff Francis MD Work Phone: [facility] Comment on above: 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); Malignant neoplasm of right kidney (HCC); Primary hypertension; 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; Obesity, Class III, BMI >= 40; Solitary kidney, acquired; Renal cell carcinoma, unspecified laterality (HCC); H/O primitive neuroectodermal tumor (PNET); H/O radical nephrectomy Start: 01-20-2023 End: 01-20-2023 ambulatory Isreal Morrow Other [facility] Other Start: 01-20-2023 Telephone encounter Isreal STEIN [facility] Start: 01-15-2023 End: 01-16-[address] ISREAL MORROW Facility: Start: 12-26-2022 End: 12-26-2022 Patient encounter procedure Pete Gupta MD Work Phone: General Surgery Comment on above: Mass of pancreas (Pr imary Dx) Malignant neoplasm o f right kidney (HCC) (Primary Dx); Mass of pancreas Start: 12-26-2022 ambulatory Kenney Bangura MD Work Phone: Urology Start: 12-26-2022 End: 12-26-2022 Subsequent hospital visit by physician Ct 2 Main Qb (I-Stat) Radiology Comment on above: Malignant neoplasm o f right kidney (HCC) [C64.1] Start: 12-11-2022 End: 12-12-[address] ISREAL MORROW Facility:[facility] Start: 11-13-2022 End: 11-13-[address] ISREAL MORROW Facility:[facility] Start: 10-24-2022 End: 10-24-2022 ambulatory Carline Chun Other [facility] Other Start: 10-24-2022 Office outpatient vi sit 10 minutes Carline BROWN [facility] Start: 09-23-2022 Telephone encounter Eulalio NEWSOME Work Phone: [facility] Comment on above: Results Start: 09-05-2022 Telephone encounter Eulalio NEWSOME Work Phone: [facility] Comment on above: Patient Update Start: 09-03-2022 End: 09-03-2022 ambulatory Eulalio NEWSOME Work Phone: [facility] Comment on above: Malignant neoplasm o f right kidney (HCC); Mass of pancreas Start: 09-03-2022 End: 09-03-2022 Patient encounter procedure Eulalio NEWSOME Work Phone: [facility] Start: 08-08-2022 End: 08-08-2022 ambulatory Audrey Waller APRN.ASSET PROTECTION SPECIALIST Work Phone: [facility] Comment on above: Hemothorax (Primary Dx) Start: 08-08-2022 End: 08-08-2022 Telemedicine consultation with patient Audrey Sridhar BUSTAMANTEASSET PROTECTION SPECIALIST Work Phone: [facility] Start: 07-31-2022 End: 08-01-[address] DOCTOR HERRERA Facility:[facility] Start: 07-25-2022 End: 07-25-2022 Nursing evaluation of [...] 05-20-2022 End: 05-20-2022 Patient encounter procedure Rachel Pteerson APRN.CNP Work Phone: Urology Comment on above: Malignant neoplasm o f right kidney, except renal pelvis (HCC) (Primary Dx) Malignant neoplasm o f right kidney, except renal pelvis (HCC) (Primary Dx); Mass of pancreas Start: 05-20-2022 End: 05-20-2022 Admission to [facility] Main 3 Work Phone: [facility] Start: 05-20-2022 End: 05-20-2022 ambulatory Pac Main 3 Work Phone: Pre Anesthesia Comment on above: Pre-op evaluation (P rimary Dx); Malignant neoplasm of right kidney, except renal pelvis (HCC); Morbid obesity (HCC); Hypertension, unspecified type; Gout, unspecified cause, unspecified chronicity, unspecified site Start: 05-20-2022 End: 05-20-2022 Preprocedural examination done Pac Main 3 Work Phone: Pre Anesthesia Start: 05-16-2022 End: 05-16-2022 Subsequent hospital visit by physician [facility] Comment on above: Malignant neoplasm o f right kidney, except renal pelvis (HCC) [C64.1] Start: 05-16-2022 ambulatory Kenney Bangura MD Work Phone: Urology Start: 05-16-2022 End: 05-16-2022 Subsequent hospital visit by physician [facility] Comment on above: Malignant neoplasm o f right kidney, except renal pelvis (HCC) [C64.1] Start: 05-12-2022 Telephone encounter Lainey baker RN Work Phone: General Surgery Comment on above: [employer] - O ther Start: 05-07-2022 End: 05-08-[address] DOCTOR EHRRERA Facility:[facility] Start: 05-05-2022 ambulatory La Nena Hobbs RN [facility] & Start: 05-02-2022 End: 05-02-2022 Patient encounter procedure Kenney Bangura MD Work Phone: Urology Comment on above: Malignant neoplasm o f right kidney, except renal pelvis (HCC) Start: 05-02-2022 ambulatory Kenney Bangura MD Work Phone: Urology Start: 04-25-2022 End: 04-26-[address] ISREAL MORROW Facility:[facility] Start: 04-17-2022 Adult health examination Wilfredo Morrow Other [facility] Other Start: 04-16-2022 End: 04-17-[address] ISREAL MORROW Facility:[facility] Start: 04-02-2022 End: 04-03-[address] ISREAL MORROW Facility:[facility] Start: 03-18-2022 End: 03-19-[address] ISREAL MORROW Facility:[facility] Start: 02-20-2022 Encounter for genera l adult medical examination without abnormal findings DR ISREAL MORROW [facility] Start: 02-13-2022 End: 02-14-[address] ISREAL MORROW Facility:[facility] Start: 02-13-2022 End: 02-14-2022 Encounter for general adult medical examination without abnormal findings DR ISREAL MORROW Facility:[facility] Procedures Date Procedure Procedure Detail Performing Clinician Start: 03-04-2024 Urnls dip stick/tabl et rgnt auto w/o microscopy Bulk Order Provider Start: 03-04-2024 Ct abdomen w/contras t material Pete Gupta MD Work Phone: Start: 03-04-2024 Creatinine [Mass/vol ume] in Serum or Plasma [facility] Provider Start: 03-04-2024 Us retroperitoneal r eal time w/image complete Kenney Bangura MD Work Phone: Start: 03-04-2024 Radiologic exam ches t 2 views Kenney Bangura MD Work Phone: Start: 11-18-2023 Urnls dip stick/tabl et rgnt [...] Provider Start: 02-13-[address] JOSÉ MONTILLA COCOA Comment on above: Performed By: #### P [facility] #### [facility] [address] [place] [address] Dr. Oksana Betancourt Start: 11-25-2016 Screening for malign ant neoplasm of colon Isreal Morrow Other Start: 11-23-2015 General examination of patient Isreal Morrow Other Depression screening Bita Morrow Other Plan of Treatment Date Care Activity Detail Author Start: 09-25-2028 Prostate specific antigen measurement Prostate Cancer Screening Discussion [facility] Start: 02-12-2028 Lipid 1996 panel - S vish or Plasma Lipid Screening [facility] Start: 02-12-2028 Lipid panel Lipid Screening [facility] Start: 02-12-2028 LIPID SCREEN LIPID SCREEN [facility] Start: 02-12-2028 PROSTATE CANCER SCREENING DISCUSSION PROSTATE CANCER SCREENING DISCUSSION [facility] Start: 02-13-2027 PROSTATE CANCER SCREENING DISCUSSION PROSTATE CANCER SCREENING DISCUSSION [facility] Start: 09-25-2026 Diabetes Screening Diabetes Screenin [facility] Start: 02-11-2026 DIABETES SCREEN DIABETES SCREEN [facility] Start: 02-11-2026 Diabetes Screening Diabetes Screenin [facility] Start: 06-06-2025 DIABETES SCREEN DIABETES SCREEN [facility] Start: 06-05-2025 DIABETES SCREEN DIABETES SCREEN [facility] Start: 05-20-2025 DIABETES SCREEN DIABETES SCREEN [facility] Start: 11-18-2024 BP Controlled (<130/80) BP Controlle d (<130/80) [facility] Start: 09-25-2024 Creatinine measurement Serum Creatin ine [facility] Start: 09-05-2024 End: 09-05-2024 Patient encounter procedure Radiology Comment on above: kidney/ Bladder Chest Start: 05-18-2024 End: 05-18-2024 Patient encounter procedure 05/18/2024 11:30 AM EDT Office Visit [facility] [address] [address] Lydia Godinez, HVAC TECHNICIAN.ASSET PROTECTION SPECIALIST [address] [place], [place] [id number] Return in about 6 months per Herbert [facility] Comment on above: Return in about 6 mo nths per Herbert Start: 03-11-2024 End: 03-11-2024 Admission to same day surgery center 03/11/2024 8:15 AM EDT [facility] General Surgery [address] [address] Pete Gupta MD [address] [place], [place] [id number] Virtual/Zoom for Pancreas General Surgery Comment on above: Virtual/Zoom for Garner creas Start: 02-12-2024 Complete blood count Hemoglobin/Yosvany tocrit [facility] Start: 02-07-2024 Advance Directive Discussion Advance Directive Discussion [facility] Start: 01-25-2024 End: 04-25-2024 Renal function 2000 panel - Serum or Plasma RENAL FUNCTION PANEL Lab Routine Stage 3b chronic kidney disease (HCC) Expected: 01/25/2024 (Approximate), Expires: 04/25/2024 [facility] Work Phone: Comment on above: Expected: 01/25/2024 (Approximate), Expires: 04/25/2024 Start: 09-21-2023 Behavioral Health Screening Behavioral Health Screening [facility] Start: 09-21-2023 Depression Assessment Depression Ass essment [facility] Start: 08-28-2023 End: 11-27-2023 CREATININE BLD CREATININE BLD Lab Routine Mass of pancreas Expected: 08/28/2023, Expires: 11/27/2023 [facility] Work Phone: Comment on above: Expected: 08/28/2023 , Expires: 11/27/2023 Start: 08-21-2023 End: 11-20-2023 Comprehensive metabolic 2000 panel - Serum or Plasma COMP METABOLIC PANEL Lab Routine Malignant neoplasm of right kidney (HCC) Expected: 08/21/2023, Expires: 11/20/2023 [facility] Work Phone: Comment on above: Expected: 08/21/2023 , Expires: 11/20/2023 Start: 08-21-2023 End: 11-20-2023 Prostate specific Ag [Mass/volume] in Serum or Plasma PSA/PROSTSPECAG DIAG Lab Routine Malignant neoplasm of right kidney (HCC) Expected: 08/21/2023, Expires: 11/20/2023 [facility] Work Phone: Comment on above: Expected: 08/21/2023 , Expires: 11/20/2023 Start: 07-27-2023 End: 01-25-2024 Ct abdomen & pelvis w/contrast material CT ABD/PEL W IVCON Radiology Routine Malignant neoplasm of right kidney (HCC) Mass of pancreas Expected: 07/27/2023, Expires: 01/25/2024 [facility] Work Phone: Comment on above: Expected: 07/27/2023 , Expires: 01/25/2024 Start: 07-27-2023 End: 01-25-2024 Radiologic exam chest 2 views XR CHEST 2V FRONTAL/LAT Radiology Routine Malignant neoplasm of right kidney (HCC) Mass of pancreas Expected: 07/27/2023, Expires: 01/25/2024 [facility] Work Phone: Comment on above: Expected: 07/27/2023 , Expires: 01/25/2024 Start: 06-26-2023 BP CONTROLLED (<130/80) BP CONTROLLE D (<130/80) [facility] Start: 05-22-2023 Covid-19 Vaccine ( season) Covid-19 Vaccine ( season) [facility] Start: 05-22-2023 Influenza vaccination INFLUENZ A (Season Ended) [facility] Start: 12-26-2022 End: 02-25-2023 CREATININE BLD CREATININE BLD Lab Routine Malignant neoplasm of right kidney (HCC) Mass of pancreas Expected: 12/26/2022, Expires: 02/25/2023 [facility] Work Phone: Comment on above: Expected: 12/26/2022 , Expires: 02/25/2023 Start: 12-25-2022 End: 07-26-2023 Ct abdomen & pelvis w/contrast material CT ABD/PEL W IVCON Radiology Routine Malignant neoplasm of right kidney (HCC) Mass of pancreas Expected: 12/25/2022, Expires: 07/26/2023 [facility] Work Phone: Comment on above: Expected: 12/25/2022 , Expires: 07/26/2023 Start: 09-21-2022 DEPRESSION ASSESSMENT DEPRESSION ASS ESSMENT [facility] Start: 09-05-2022 End: 11-05-2022 MISC SEND OUT TST 1 MISC SEND OUT TST 1 Lab Routine Malignant neoplasm of right kidney (HCC) Expected: 09/05/2022, Expires: 11/05/2022 [facility] Work Phone: Comment on above: Expected: 09/05/2022 , Expires: 11/05/2022 Start: 08-01-2022 MENINGOCOCCAL GROUP B VACCINE 2 DOSE MENINGOCOCCAL GROUP B VACCINE 2 DOSE Immunization/Injection Routine Mass of pancreas Expected: 08/01/2022 (Approximate) [facility] Work Phone: Comment on above: Expected: 08/01/2022 (Approximate) Start: 05-22-2022 Influenza vaccination INFLUENZA (#1) [facility] Start: 05-11-2022 COVID-19 VACCINE (4 - Booster for Yu series) COVID-19 VACCINE (4 - Booster for Yu series) [facility] Start: 05-06-2022 End: 07-06-2022 aPTT in Platelet poor plasma by Coagulation assay ACTIVATED PTT Lab Routine Malignant neoplasm of right kidney, except renal pelvis (HCC) Expected: 05/06/2022, Expires: 07/06/2022 [facility] Work Phone: Comment on above: Expected: 05/06/2022 , Expires: 07/06/2022 Start: 05-06-2022 End: 07-06-2022 CBC panel - Blood by Automated count CBC Lab Routine Malignant neoplasm of right kidney, except renal pelvis (HCC) Expected: 05/06/2022, Expires: 07/06/2022 [facility] Work Phone: Comment on above: Expected: 05/06/2022 , Expires: 07/06/2022 Start: 05-06-2022 End: 07-06-2022 Comprehensive metabolic 2000 panel - Serum or Plasma COMP METABOLIC PANEL Lab Routine Malignant neoplasm of right kidney, except renal pelvis (HCC) Expected: 05/06/2022, Expires: 07/06/2022 [facility] Work Phone: Comment on above: Expected: 05/06/2022 , Expires: 07/06/2022 Start: 05-06-2022 End: 07-06-2022 CONFIRM BLOOD TYPE CONFIRM BLOOD TYPE Blood Bank Routine Malignant neoplasm of right kidney, except renal pelvis (HCC) Expected: 05/06/2022, Expires: 07/06/2022 [facility] Work Phone: Comment on above: Expected: 05/06/2022 , Expires: 07/06/2022 Start: 05-06-2022 End: 07-06-2022 PT panel - Platelet poor plasma by Coagulation assay PROTHROMBIN TIME/PT Lab Routine Malignant neoplasm of right kidney, except renal pelvis (HCC) Expected: 05/06/2022, Expires: 07/06/2022 [facility] Work Phone: Comment on above: Expected: 05/06/2022 , Expires: 07/06/2022 Start: 05-06-2022 End: 05-05-2023 SARS-CoV-2 (COVID-19) RNA [Presence] in Respiratory specimen by SAMMI with probe detection PRE-PROCEDURE & PRE-OPERATIVE COVID Microbiology Routine Malignant neoplasm of right kidney, except renal pelvis (HCC) Expected: 05/06/2022, Expires: 05/05/2023 [facility] Work Phone: Comment on above: Expected: 05/06/2022 , Expires: 05/05/2023 Start: 05-06-2022 End: 07-06-2022 TYPE AND SCREEN,30 DAY TYPE AND SCREEN,30 DAY Blood Bank Routine Malignant neoplasm of right kidney, except renal pelvis (HCC) Expected: 05/06/2022, Expires: 07/06/2022 [facility] Work Phone: Comment on above: Expected: 05/06/2022 , Expires: 07/06/2022 Start: 05-02-2022 End: 07-02-2022 CREATININE BLD CREATININE BLD Lab Routine Malignant neoplasm of right kidney, except renal pelvis (HCC) Expected: 05/02/2022, Expires: 07/02/2022 [facility] Work Phone: Comment on above: Expected: 05/02/2022 , Expires: 07/02/2022 Start: 09-21-2021 DEPRESSION ASSESSMENT DEPRESSION ASS ESSMENT [facility] Start: 2019 RSV Vaccine (1 - 1-d ose 60+ series) RSV Vaccine (1 - 1-dose 60+ series) [facility] Start: 2014 PROSTATE CANCER SCREENING DISCUSSION PROSTATE CANCER SCREENING DISCUSSION [facility] Start: 2009 SHINGRIX VACCINE (1 of 2) SHINGRIX VACCINE (1 of 2) [facility] Start: 02-07-2004 COLOGUARD (FIT-DNA) COLOGUARD (FIT-D NA) [facility] Start: 02-07-2004 Colonoscopy COLONOSCOPY [facility] Start: 02-07-2004 COLORECTAL CANCER SCREENING COLORECTAL CANCER SCREENING [facility] Start: 02-07-[address] COLONOGRAPHY [facility] Start: 02-07-2004 DIABETES SCREEN DIABETES SCREEN [facility] Start: 02-07-2004 FECAL OCCULT BLOOD FECAL OCCULT BLOO D [facility] Start: 02-07-2004 Screening for malign ant neoplasm of colon [facility] Start: 02-07-2004 SIGMOIDOSCOPY SIGMOIDOSCOPY [facility] Start: 1994 LIPID SCREEN LIPID SCREEN [facility] Start: 1978 Urine microalbumin profile [facility] Start: 1977 ANNUAL PCP TEAM PACKAGING SALES CONSULTANT NATALIE DISEASE VISIT ANNUAL PCP TEAM CHRONIC DISEASE VISIT [facility] Start: 1977 BP CONTROLLED (<130/80) BP CONTROLLE D (<130/80) [facility] Start: 1977 HEPATITIS C SCREENING HEPATITIS C [facility] Start: 1977 Hepatitis C screening Hepatitis C [facility] Start: 1977 HIV SCREENING HIV SCREENING [facility] Start: 1977 HIV screening HIV Screening [facility] Start: 1971 Adult depression screening assessment DEPRESSION SCREENING [facility] Start: 1959 Abdominal aortic aneurysm screening Abdominal Aortic Aneurysm Screening [facility] End: 06-01-2023 Bone &/joint imaging whole body NM BONE WHOLE BODY Radiology Routine Malignant neoplasm of right kidney, except renal pelvis (HCC) 1 Occurrences starting 05/02/2022 until 06/01/2023 [facility] Work Phone: Comment on above: 1 Occurrences starti ng 05/02/2022 until 06/01/2023 Comprehensive metabo lic 2000 panel - Serum or Plasma [facility] End: 07-20-2023 Ct abdomen w/contrast material CT PANCREAS W IVCON Radiology Routine Malignant neoplasm of right kidney (HCC) Malignant neoplasm of right kidney, except renal pelvis (HCC) Mass of pancreas Malignant neoplasm of body of pancreas (HCC) 1 Occurrences starting 06/20/2022 until 07/20/2023 [facility] Work Phone: Comment on above: 1 Occurrences starti ng 06/20/2022 until 07/20/2023 End: 09-26-2024 Ct abdomen w/contrast material CT PANCREAS W IVCON Radiology Routine Mass of pancreas 1 Occurrences starting 08/28/2023 until 09/26/2024 [facility] Work Phone: Comment on above: 1 Occurrences starti ng 08/28/2023 until 09/26/2024 End: 06-01-2023 CT CHEST W IVCON CT CHEST W IVCON Radiology Routine Malignant neoplasm of right kidney, except renal pelvis (HCC) 1 Occurrences starting 05/02/2022 until 06/01/2023 [facility] Work Phone: Comment on above: 1 Occurrences starti ng 05/02/2022 until 06/01/2023 End: 05-05-2023 ECG COMPLETE ECG COMPLETE ECG Routine Malignant neoplasm of right kidney, except renal pelvis (HCC) 1 Occurrences starting 05/06/2022 until 05/05/2023 [facility] Work Phone: Comment on above: 1 Occurrences starti ng 05/06/2022 until 05/05/2023 Microalbumin [Mass/volume] in Urine [facility] End: 07-26-2023 Radiologic exam chest 2 views XR CHEST 2V FRONTAL/LAT Radiology Routine Hemothorax 1 Occurrences starting 06/26/2022 until 07/26/2023 [facility] Work Phone: Comment on above: 1 Occurrences starti ng 06/26/2022 until 07/26/2023 End: 09-19-2024 Radiologic exam chest 2 views XR CHEST 2V FRONTAL/LAT Radiology Routine Malignant neoplasm of right kidney (HCC) 1 Occurrences starting 08/21/2023 until 09/19/2024 [facility] Work Phone: Comment on above: 1 Occurrences starti ng 08/21/2023 until 09/19/2024 End: 09-19-2024 US KIDNEY/BLADDER US KIDNEY/BLADDER Radiology Routine Malignant neoplasm of right kidney (HCC) 1 Occurrences starting 08/21/2023 until 09/19/2024 [facility] Work Phone: Comment on above: 1 Occurrences starti ng 08/21/2023 until 09/19/[facility] Immunizations Immunization Date Immunization Notes Care Provider Fa hitesh 06-26-2023 influenza, injectabl e, quadrivalent, preservative free Isreal Morrow Other [facility] 01-15-2023 varicella virus vaccine Isreal Morrow Other [facility] 10-17-2022 COVID-19 Moderna (BIvalent) Isreal Morrow Other [facility] 07-25-2022 meningococcal (MenACWY-TT) vaccine, quadrivalent (MENQUADFI) Lupe Aguilar RN Work Phone: [facility] Work Phone: 05-23-2022 haemophilus influenz ae type b vaccine, PRP-T conjugate Kenisha Hahn MD Work Phone: [facility] Work Phone: 05-23-2022 meningococcal (MenACWY-TT) vaccine, quadrivalent (MENQUADFI) Kenisha Hahn MD Work Phone: [facility] Work Phone: 05-23-2022 meningococcal B vaccine, recombinant, OMV, adjuvanted Kenisha Hahn MD Work Phone: [facility] Work Phone: 05-23-2022 pneumococcal (PCV20) vaccine, 20 valent (PREVNAR 20) Kenisha Hahn MD Work Phone: [facility] Work Phone: 03-16-2022 COVID-19 Pfizer Isreal medina Other [facility] 03-16-2022 COVID-19 Vaccine Pfizer - Documentation Purposes Only Isreal Kevin Other [facility] 07-17-2021 COVID-19 Vaccine Moderna - Documentation Purposes Only Isreal Kevin Other [facility] 11-26-2020 COVID-19 Vaccine Yu - Documentation Purposes Only Isreal Morrow Other [facility] 07-04-2020 influenza virus vaccine, split virus (incl. purified surface antigen) Isreal Morrow Other [facility] Other 07-04-2020 influenza virus vaccine, unspecified formulation [facility] 07-13-2019 influenza virus vaccine, split virus (incl. purified surface antigen) Isreal Morrow Other [facility] Other 07-13-2019 influenza virus vaccine, unspecified formulation [facility] Payers Date Payer Category Payer Self-pay 2023 Unknown [id number] 2022 [facility] [id number] 2021 Unknown [id number] 2019 Unknown [id number] 1959 Unknown [id number] 1959 Unknown [id number] 2.16.84 [id number] 1959 Unknown [id number] 2.16.84 [id number] 1959 Unknown [id number] 2.16.84 [id number] 1959 Unknown [id number] 2.16.84 [id number] 1959 Unknown [id number] 2.16.84 [id number] 1959 Unknown [id number] 2.16.84 [id number] 1959 Unknown [id number] 2.16.84 [id number] 1959 Unknown [id number] 2.16.84 [id number] 1959 Unknown [id number] 2.16.84 [id number] 1959 Unknown [id number] 2.16.84 [id number] Unknown [id number] 2.16.8 [id number] Social History Date Type Detail Facility Start: 05-02-2022 Tobacco smoking status NCIS Never smoked tobacco [facility] Start: 05-02-2022 End: 05-20-2022 Tobacco use and exposure Smokeless tobacco non-user [facility] Start: 1960 Sex Assigned At Not on file C [facility] Start: 04-22-2022 End: 07-25-2022 Exposure to SARS-CoV-2 (event) Not sure [facility] Start: 05-20-2022 Tobacco smoking status NCIS Ex-smoker [facility] Work Phone: End: 09-21-2004 History of tobacco use Current smoker [facility] Work Phone: End: 09-21-2004 History of tobacco use Cigarette Smoker [facility] Work Phone: Start: 05-20-2022 End: 03-04-2024 Alcohol intake Current drinker of alcohol (finding) [facility] Start: 05-20-2022 History SDOH Alcohol Comment ocassionally- 5 per month [facility] Start: 02-25-2023 End: 08-21-2023 Sex Assigned At [facility] Other Start: 02-25-2023 Alcohol Comment ocassionally- 12-15 per month [facility] Start: 02-25-2023 End: 08-21-2023 History of Social function [facility] National Score (1-100), lower number is lower risk 91 [facility] Start: 1960 Sex Assigned At Male [facility] Clinical Notes 05-02-2022 to 03-04-2024 Erna Moreno, RN - 03/04/2024 11:30 AM Shirley Berrios, RT(R) - 03/04/2024 11:30 AM Denia Clement, RT(R) - 03/04/2024 10:10 AM EDTPatient Instructions Note Date & Type Note Facility 03-04-2024 History of Presen t illness Narrative Radiology Service Progress Note DATE OF SERVICE: March 04, 2024 TIME: 11:24 AM PATIENT WEIGHT: 260 LBS PATIENT IDENTITY VERIFICATION [...] CREATININE: Creatinine Date Value Ref Range Status 09/25/2023 1.85 (H) 0.73 - 1.22 mg/dL Final Creatinine (POCT) Date Value Ref Range Status 03/04/2024 1.90 (A) 0.7 - 1.4 mg/dL Final 08/21/2023 1.80 (A) 0.7 - 1.4 mg/dL Final eGFR (POCT) Date Value Ref Range Status 03/04/2024 39 mL/min/1.73 m2 Final P.O.C.T. RESULTS: POC done: Yes, See Lab Tab March 04, 2024 TREATMENT: No Hydration needed. IV SITE: Ambulatory: A peripheral IV was started in the Right forearm with a Angio cath: 20 gauge. IV SITE APPEARANCE: Clean,Dry and Intact SIGNATURE: Erna Moreno RN PATIENT NAME: Candice Mitchell DATE: March 04, 2024 TIME: 11:24 AM Radiology Service Progress Note PATIENT NAME: Candice Mitchell DATE OF SERVICE: March 04, 2024 TIME: 11:41 AM PATIENT IDENTITY VERIFICATION COMPLETED USING TWO (2) IDENTIFIERS: Name and Date of confirmed by patient verbally. FALL SCREENING: Has the patient had 2 falls in the last year or 1 fall with injury or currently using an Ambulatory Assistive Device (Walker, Cane, Wheelchair, Crutches, etc.)? No PATIENT GENDER DATA: Male PATIENT RELEVANT IMPLANT DATA REVIEWED: Yes PATIENT PRESENTS WITH AN IMPLANTABLE OR ATTACHED DECKHAND SPONGE BOAT: No RADIOLOGY DEPARTMENT: CT; Exam(s) Completed: Pancreas PERIPHERAL IV DATA: Site assessment: Clean,Dry and Intact, Site disposition Discontinued SIGNED BY: RT Yeimi(R) March 04, 2024 11:41 AM documented in this encounter [facility] 03-04-2024 Note HNO ID: [id number] Author: ERNA MORENO RN Service: Radiology Author Type: Registered Nurse Type: Progress Notes Filed: 03/04/2024 11:36 Note Text: Radiology Service Progress Note DATE OF SERVICE: March 04, 2024 TIME: 11:24 AM PATIENT WEIGHT: 260 LBS PATIENT IDENTITY VERIFICATION [...] CREATININE: Creatinine Date Value Ref Range Status 09/25/2023 1.85 (H) 0.73 - 1.22 mg/dL Final Creatinine (POCT) Date Value Ref Range Status 03/04/2024 1.90 (A) 0.7 - 1.4 mg/dL Final 08/21/2023 1.80 (A) 0.7 - 1.4 mg/dL Final eGFR (POCT) Date Value Ref Range Status 03/04/2024 39 mL/min/1.73 m2 Final P.O.C.T. RESULTS: POC done: Yes, See Lab Tab March 04, 2024 TREATMENT: No Hydration needed. IV SITE: Ambulatory: A peripheral IV was started in the Right forearm with a Angio cath: 20 gauge. IV SITE APPEARANCE: Clean,Dry and Intact SIGNATURE: Erna Moreno RN PATIENT NAME: Candice Mitchell DATE: March 04, 2024 TIME: 11:24 AM [facility] 03-04-2024 Note HNO ID: [id number] Author: SHIRLEY HARDING RT(Jose) Service: Radiology Author Type: Digital Photographer Type: Progress Notes Filed: 03/04/2024 11:52 Note Text: Radiology Service Progress Note PATIENT NAME: Candice Mitchell DATE OF SERVICE: March 04, 2024 TIME: 11:41 AM PATIENT IDENTITY VERIFICATION COMPLETED USING TWO (2) IDENTIFIERS: Name and Date of confirmed by patient verbally. FALL SCREENING: Has the patient had 2 falls in the last year or 1 fall with injury or currently using an Ambulatory Assistive Device (Walker, Cane, Wheelchair, Crutches, etc.)? No PATIENT GENDER DATA: Male PATIENT RELEVANT IMPLANT DATA REVIEWED: Yes PATIENT PRESENTS WITH AN IMPLANTABLE OR ATTACHED DECKHAND SPONGE BOAT: No RADIOLOGY DEPARTMENT: CT; Exam(s) Completed: Pancreas PERIPHERAL IV DATA: Site assessment: Clean,Dry and Intact, Site disposition Discontinued SIGNED BY: RT Yeimi(Jose) March 04, 2024 11:41 AM [facility] 03-04-2024 History of Presen t illness Narrative Radiology Service Progress Note PATIENT NAME: Candice Mitchell DATE OF SERVICE: March 04, 2024 TIME: 10:47 AM PATIENT IDENTITY VERIFICATION COMPLETED USING TWO (2) IDENTIFIERS: Name and Date of confirmed by patient verbally. FALL SCREENING: Has the patient had 2 falls in the last year or 1 fall with injury or currently using an Ambulatory Assistive Device (Walker, Cane, Wheelchair, Crutches, etc.)? No PATIENT GENDER DATA: Male PATIENT RELEVANT IMPLANT DATA REVIEWED: Not Applicable PATIENT PRESENTS WITH AN IMPLANTABLE OR ATTACHED DECKHAND SPONGE BOAT: No RADIOLOGY DEPARTMENT: General X-ray: Exam(s) Completed: Chest X-Ray PERIPHERAL IV DATA: Not applicable SIGNED BY: RT Austin(Jose) March 04, 2024 10:47 AM documented in this encounter [facility] 03-04-2024 Note HNO ID: [id number] Author: DENIA MURRAY RT(Jose) Service: Radiology Author Type: Technologist Type: Progress Notes Filed: 03/04/2024 10:47 Note Text: Radiology Service Progress Note PATIENT NAME: Candice Mitchell DATE OF SERVICE: March 04, 2024 TIME: 10:47 AM PATIENT IDENTITY VERIFICATION COMPLETED USING TWO (2) IDENTIFIERS: Name and Date of confirmed by patient verbally. FALL SCREENING: Has the patient had 2 falls in the last year or 1 fall with injury or currently using an Ambulatory Assistive Device (Walker, Cane, Wheelchair, Crutches, etc.)? No PATIENT GENDER DATA: Male PATIENT RELEVANT IMPLANT DATA REVIEWED: Not Applicable PATIENT PRESENTS WITH AN IMPLANTABLE OR ATTACHED DECKHAND SPONGE BOAT: No RADIOLOGY DEPARTMENT: General X-ray: Exam(s) Completed: Chest X-Ray PERIPHERAL IV DATA: Not applicable SIGNED BY: ISRAEL Avila) March 04, 2024 10:47 AM [facility] 03-04-2024 Note Patient Outreach (UR OLMN) MITCHELLCANDICE CALVERT ([id number]) 1960 M Date Time Provider Department 03/04/24 KENNEY BANGURA During your visit today, we recorded the following information about you: Allergies As of Date: 03/04/2024 (No Known Allergies) Date Reviewed: 03/04/2024 Reviewed by: Radha Cohn OCCA - Fully Assessed Visit Diagnosis:Screening for genitourinary condition [Z13.89] Order(s):URINALYSIS, REFLEX MICROSCOPIC [[id number]] Order #: [id number]. #:[id number] Prescriptions as of 03/07/2024 - acetaminophen (TYLENOL ORAL) Take by mouth as needed. - allopurinol (ZYLOPRIM) 300 mg tablet Take 300 mg by mouth once daily. - amLODIPine-Benazepril 5-40 mg per capsule Take 1 capsule by mouth once daily. - atenolol (TENORMIN) 50 mg tablet Take 50 mg by mouth once daily. - colchicine 0.6 mg tablet PRN Problem List As Of Date 03/04/2024 Noted Resolved Malignant neoplasm of right kidney, [...] neuroectodermal tumor (PNET) [Z85*02/25/2023 Encounter Status:Closed by [employer], PRODUSER on 03/07/24 [facility] 11-18-2023 Instructions Lydia Godinez, HVAC TECHNICIAN.ASSET PROTECTION SPECIALIST - 11/18/2023 11:49 AM EST Lab work [...] `~ 6 months. documented in this encounter [facility] 11-18-2023 Note HNO ID: [id number] Author: LYDIA GODINEZ APRN.ASSET PROTECTION SPECIALIST Service: ? Author Type: Nurse Practitioner Type: Progress Notes Filed: 11/20/2023 15:02 Note Text: [facility] SERVICE DATE: 11/18/2023 SERVICE TIME: 11:07 AM A portion of this note has been copied from [facility] dated 02/25/23 CHIEF COMPLAINT: follow-up CKD HPI: Mr. 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 [facility] 02/25/[address] Francis for initial consultation for evaluation of kidney [...] 8.9 10.4 (H) (more content not included)... [facility] 11-18-2023 History of Presen t illness Narrative [facility] SERVICE DATE: 11/18/2023 SERVICE TIME: 11:07 AM A portion of this note has been copied from [facility] dated 02/25/23 CHIEF COMPLAINT: follow-up CKD HPI: Mr. 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 [facility] 02/25/[address] Francis for initial consultation for evaluation of kidney dysfunction. Creatinine prior to surgery around 1.3. Peaked. At 2.3 and matty after at around 1.4. Most recent metabolic panel from February 11 with creatinine at 1.88 and an estimated GFR of around 39 mils per minute. Slight hypercalcemia appreciated Mild leukocytosis; hemoglobin 14 Most recent urinalysis from [facility] completely bland. BP in the office elevated. [...] 18, 2023 TIME: 11:07 AM OFFICE NUMBER: [phone] CC: REFERRING PROVIDER: No ref. provider found PRIMARY CARE PHYSICIAN: No primary care provider on file. documented in this encounter [facility] 11-18-2023 Note Patient Outreach (ISABEL DMMN) CANDICE MITCHELL ([id number]) 1960 M Date Time Provider Department 11/18/23 LYDIA GODINEZ During your visit today, we recorded the following information about you: Allergies As of Date: 11/18/2023 (No Known Allergies) Date Reviewed: 11/18/2023 Reviewed by: Lydia Godinez APRN.CNP - Fully Assessed Visit Diagnosis:Screening for genitourinary condition [Z13.89] Order(s):URINALYSIS, REFLEX MICROSCOPIC [[id number]] Order #: [id number]. #:[id number] Prescriptions as of 11/23/2023 - acetaminophen (TYLENOL [...] neuroectodermal tumor (PNET) [Z85*02/25/2023 Encounter Status:Closed by [employer], NeoPath NetworksUSER on 11/23/23 [facility] 10-28-2023 Evaluation note Encounter Date Diagnosis [...] D3A.8) No s/s recurrence f/u Surgery at [facility] Oct, Renal cell carcinoma of right kidney (ICD-10 - C64.1) No s/s recurrence. Denies flank pain or hematuria f/u Surgery at [facility] Oct, History of gout (ICD-10 - Z87.39) No acute gout flares. Continue Allopurinol. Oct, Body mass index [BMI] 40.0-44.9, adult (ICD-10 - Z68.41) Oct, Hypercalcemia (ICD-10 - E83.52) [facility] Other 12-08-2023 NoteHNO ID: [id number] Author: Pete Gupta MD Service: ? Author [...] Either the patient or their legal field sales representative has been informed of the [...] Level: 3 - Low Nelson Gupta MD [facility] surgery Pager: [phone] [facility]12-08-2023 History of Present illness Narrative* Pete Gupta MD - 08/28/2023 7:52 AM EST [facility] PROGRESS NOTE: Patient Name: Candice Mitchell [...] Either the patient or their legal field sales representative has been informed of the risks and benefits of -- and alternatives to -- treatment through a remote evaluation andconsents to proceed with the evaluation remotely. Medical Decision Making: Problems: Low: Stable chronic illness Data: Unique source(s) for external note(s) reviewed: 3+ Unique test result(s) reviewed: 3+ Unique test(s) ordered: 1 Medical Decision Making Level: 3 - Robin Gupta MD [facility] surgery Pager: [phone] [facility] History of Present illness Narrative* Kenney Bangura MD - 08/21/2023 2:00 PM EST PATIENT: Candice Mitchell [id number] 08/21/2023 Chief Complaint: Follow up This clinic [...] Scribed for Kenney Bangura MD, by Patrick Lagos medical doctor, August 21, 2023 I agree with the Chief Complaint, ROS, and Past Histories independently gathered by the clinical support analyst and the remaining scribed note accurately describes my personal service to the patient. Kenney Bangura MD [facility] [place] [facility] Medical Decision Making: Problems: Moderate: 2+ stable chronic illnesses Data: Unique test(s) ordered: 3+ Risk: Low: Low risk from testing/treatment Medical Decision Making Level: 4 - Moderate [facility]23 NoteHNO ID: [id number] Author: Kenney Bangura MD Service: ? Author Type: Physician Type: Progress Notes Filed: 08/28/2023 10:51 AM Note Text: PATIENT: Candice Mitchell [id number] 08/21/2023 Chief Complaint: Follow up This clinic [...] significant issues today. Creati (more content not included)...[facility]12-01-2023 History of Present illness Narrative* Tony [...] 2023 TIME: 12:18 PM documented in this encounterAdams County Hospital12-01-2023 NoteHNO ID: [id number] Author: Tony Rojas RT(R) Service: Radiology Author [...] BY: RT Clare(R) August 21, 2023 12:56 [facility]12-01-2023 NoteHNO ID: [id number] Author: Imelda Soriano RN Service: Radiology Author [...] Mitchell DATE: August 21, 2023 TIME: 12:18 [facility]12-01-2023 History of Present illness Narrative* Lainey De La Fuente, RT(R) - 08/21/2023 11:55 AM EST Radiology [...] 21, 2023 11:45 AM documented in this encounterAdams County Hospital12-01-2023 NoteHNO ID: [id number] Author: Lainey De La Fuente RT(R) Service: Radiology Author Type: Technologist Type: [...] BY: RT Rhonda(R) August 21, 2023 11:45 [facility]12-01-2023 NotePatient Outreach (URODIMITRYN) CANDICE MITCHELL ([id number]) 1960 M Date Time Provider Department 08/21/23 KENNEY BANGURA During your visit today, we recorded the following information about you: Allergies As of Date: 08/21/2023 (No Known Allergies) Date Reviewed: 08/21/2023 Reviewed by: Zoila Greco MA - Fully Assessed Visit Diagnosis:Screening for genitourinary condition [Z13.89] Order(s):URINALYSIS, REFLEX MICROSCOPIC [AQL3963] Order #: [id number]. #:[id number] Prescriptions as of 08/24/2023 - acetaminophen (TYLENOL [...] neuroectodermal tumor (PNET) [Z85*02/25/2023 Encounter Status:Closed by [employer], [employer]USER on 08/24/23[facility] Evaluation note* Encounter Date Diagnosis Assessment Notes [...] acute attacks Instructed on diet, continue Allopurinol IPX Other 08-29-2023 Evaluation note* Encounter Date Diagnosis Assessment Notes Treatment Notes Treatment Clinical Notes Apr, Stage 3a chronic kidney disease (ICD-10 - N18.31) Apr, Hypercalcemia (ICD-1 0 - E83.52) IPX Other 06-07-2023 Instructions* Patient Instructions* Jeff Francis MD - 02/25/2023 11:33 AM EDT General [...] 0.8 g/kg preferably from plant sources. (https://kidney hi.org/dietitian-blog/ecg-vdcz-lafkppo-wj-f-lmpq-vw-m-uxc-diet) https://www.kidney.org/atoz/content/sodiumckd https://www.kidney.org/atoz/content/plant-based Https://www.kidney.org/atoz/content/Dash_Diet Medications: Would recommend avoiding [...] on CKD please visit the following page: https://www.Mainstream Data.DataRank/contents/blfshhx-rslbkq-kbzaeed-fsjdlf-kyb-mckzds documented in this encounterAdams County Hospital06-07-2023 History of Present illness Narrative* Jeff Francis MD - 02/25/2023 11:00 AM EDT [facility] NEPHROLOGY & [facility]YP[facility]ION [facility] SERVICE DATE: [...] Hx of nephrolithiasis. 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 PAST MEDICAL HISTORY: PAST MEDICAL HISTORY Diagnosis [...] studies, and office notes were reviewed in [facility] ASSESSMENT: 63 year old male who [...] E66.01 Stable - Behavioral interventions; agree that Adult Services Librarian would likely be helpful 6. Solitary kidney, [...] gentleman accompanied by his ; coming from [facility]. History of RCC status post radical nephrectomy [...] spelling, grammar, syntax or punctuation present. Jeff Francis MD, MEd, FACP, FASN Staff; Department of Kidney Medicine Tel #: [phone] Fax #: [phone] February 25, 2023 12:33 PM documented in this encounterAdams County Hospital05-02-2023 Evaluation note* Encounter Date Diagnosis Assessment Notes Treatment Notes Treatment Clinical Notes January, Primary hypertension (ICD-10 - I10) January, History of gout (ICD-10 - Z87.39) IPX Other 04-07-2023 History of Present illness Narrative* Pete Gupta [...] which included preparing to see the patient, ypsw-qp-wjsf patient care, completing clinical documentation, obtaining and/or reviewing separately obtained history, performing a medically appropriate examination, counseling and educating the pat ient/family/caregiver, ordering medications, tests, or procedures, and communicating results to thepatient/family/caregiver. 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, [...] MS4 December 26, 2022 documented in this encounterAdams County Hospital04-07-2023 History of Present illness Narrative* Kenney Bangura MD - 12/26/2022 2:15 PM EDT PATIENT: Candice Mitchell [id number] REFERRING MD: Fernando 12/26/2022 Chief Complaint Follow [...] and CXR Kenney Bangura MD Urologic Staff [facility] [place] [facility] Medical Decision Making: Problems: Low: Stable chronic illness Data: Unique test result(s) reviewed: 1 Unique test(s) ordered: 1 Risk: Low: Low risk from testing/treatment Medical Decision Making Level: 3 - Low documented in this encounterAdams County Hospital04-07-2023 History of Present illness Narrative* Jeremy Batres [...] 26, 2022 12:33 PM documented in this encounterAdams County Hospital02-03-2023 Evaluation note* Encounter Date Diagnosis Assessment Notes Treatment Notes Treatment Clinical Notes Oct, Foreign body of right ear, initial encounter (ICD-10 - T16.1XXA) Manually removed a small black plastic piece from his right ear canal. Patient tolerated procedure well. No obvious infection. Patient states it had been in there for less than a day. IPX Other 01-03-2023 Miscellaneous Notes* Telephone Encounter - MERCEDEZ Stein - 09/23/2022 2:12 PM EST Patient name and was confirmed at initiation of discussion. Candice Mitchell's Multi-Cancer panel through [employer] was negative for a pathogenic variant. 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 Please see [email or web address] message for further discussion. Eulalio Busch MS, CGC Licensed, Certified Genetic Counselor documented in this encounterAdams County Hospital12-16-2022 Miscellaneous Notes* Telephone Encounter - MERCEDEZ Stein - 09/05/2022 3:21 PM EST Spoke with family regarding insurance coverage for testing and testing facilities' billing policiesand potential out of pocket costs. Family was agreeable to testing and provided consent for [employer] Multi Cancer Panel. Results will be communicated back to the family. Eulalio Busch MS, CGC Licensed, Certified Genetic Counselor documented in this encounterAdams County Hospital12-14-2022 History of Present illness Narrative* MERCEDEZ Stein - 09/03/2022 12:29 PM EST [facility] Consultation Note Genetic Counselor: Eulalio Busch MS, CGC Patient: Candice Mitchell Patient [...] appropriate standard National Comprehensive Cancer Network and [place] Cancer [employer] guidelines, with consideration of their [...] greater than 50% of which was spent zjzx-jc-tony counseling. This plan is being carried out under the oversight of Dr. Marley Fiore. This note will also be sent to the referring provider via the electronic medical record. Eulalio Busch MS, [facility], Licensed, Certified Genetic Counselor [facility] CC: Dr. Pete Fiore documented in this encounterAdams County Hospital11-18-2022 History of Present illness Narrative* Audrey Waller APRN.RASHAAD - 08/08/2022 11:13 AM EST Images from the original note were not included. [facility] [place] Department of Thoracic Surgery TELEPHONE VISIT (audio only) PROGRESS NOTE This is a telephone encounter initiated for an established patient. The patient, parent or guardianis not originating from a related Evaluation & Management service provided within the previous 7 days nor leading to an Evaluation & Management service or procedure within the next 24 hours or soonest available appointment. Candice Stephen has consented to this telephone encounter. Persons Present: patient Total Time Spent: 11-20 minutes Audrey Waller APRN.CNP [facility] - OUTPATIENT THORACIC SURGERY CLINIC NOTE PT NAME: Candice Mitchell [facility] NO: [id number] THORACIC SURGEON: Dr Carlos Taylor DATE OF [...] PLAN: - return as needed Audrey Waller APRN.CNP documented in this encounterAdams County Hospital10-21-2022 Miscellaneous Notes* Telephone Encounter - Lupe [...] wants to be scheduled. documented in this encounterAdams County Hospital10-06-2022 History of Present illness Narrative* Audrey Waller, HVAC TECHNICIAN.ASSET PROTECTION SPECIALIST - 06/26/2022 10:51 AM EDT Images from the original note were not included. [facility] - OUTPATIENT THORACIC SURGERY CLINIC NOTE PT NAME: Candice Mitchell [facility] NO: [id number] THORACIC SURGEON: Dr Carlos Taylor DATE OF [...] locally Audrey Waller APRN.RASHAAD documented in this encounterAdams County Hospital10-06-2022 History of Present illness Narrative* Kenney Bangura MD - 06/26/2022 9:15 AM EDT PATIENT: Candice Mitchell [id number] 06/26/2022 Chief Complaint: Radial nephrectomy for RCC [...] surgeon today. Kenney Bangura MD Urologic Staff [facility] [place] [facility] documented in this encounterAdams County Hospital09-30-2022 History of Present illness Narrative* Pete [...] SIGNATURE: Nelson Gupta MD HPB surgery Pager: [phone] * Angie Arias MD - 06/20/2022 9:32 [...] MD 06/20/2022 9:34 AM documented in this encounterAdams County Hospital09-30-2022 Nurse Note* Mario Abdul - 06/20/2022 9:07 AM EDT What is the reason for your visit today? Post op Who is your referring physician? Dr. Gupta Are you having poor oral intake? NO Have you had unintentional weight loss of 15 lbs/7 Kg in the last 3-6 months? NO Bowels: regular Wound: clean & dry Temperature: No Drains: No documented in this encounterAdams County Hospital09-15-2022 History of Present illness Narrative* Pete [...] SIGNATURE: Nelson Gupta MD HPB surgery Pager: [phone] * Andre Nugent MD - 05/23/2022 10:36 [...] Peterson MD General Surgery, PGY-1 Personal Pager: [phone] For after hours issues, please call the on-call pager documented in this encounterAdams County Hospital09-02-2022 History of Present illness Narrative* Kenisha Hahn MD - 05/23/2022 2:15 PM EDT Images from the original note were not included. [facility] Multidisciplinary Xmkcja-Oxrngifko-Uozlwlz & Upper GI Case Conference -- Consensus [...] time as planned nephrectomy Lindsey Hahn MD [facility] Surgery Fellow [phone] documented in this encounterAdams County Hospital09-02-2022 Nurse Note* Mario Abdul - 05/23/2022 9:45 AM EDT What is the reason for your visit today? Follow up Who is your referring physician? Dr. Gupta Are you having poor oral intake? NO Have you had unintentional weight loss of 15 lbs/7 Kg in the last 3-6 months? NO Bowels: regular Wound: clean & dry Temperature: No Drains: No documented in this encounterAdams County Hospital09-01-2022 Miscellaneous Notes* Telephone Encounter - Pete Gupta MD - 05/22/2022 8:26 AM EDT [facility] PROGRESS NOTE: Patient Name: Candice Mitchell After [...] He is on board. Nelson Gupta MD [facility] surgery Pager: [phone] documented in this encounterAdams County Hospital08-30-2022 History and physical note * Pete [...] which included preparing to see the patient, owto-yv-nrfl patient care, completing clinical documentation, obtaining and/or reviewing separately obtained history, performing a medically appropriate examination, counseling and educating the pat ient/family/caregiver, ordering medications, tests, or procedures, and communicating results to thepatient/family/caregiver. SIGNATURE: Nelson Gupta MD B surgery Pager: [phone] * Kenisha Hahn MD - 05/20/2022 11:46 AM EDT [facility] SURGERY H&P SERVICE DATE: 05/20/2022 SERVICE TIME: [...] 05/27. Lindsey Hahn MD B Surgery Fellow [phone] documented in this encounterAdams County Hospital08-30-2022 History of Present illness Narrative* Rachel Peterson APRN.ASSET PROTECTION SPECIALIST - 05/20/2022 10:09 AM EDT [facility] PRE-OP NOTE [...] scheduled: Yes Consent Signed: Consent not in [employer]. Surgeon notified via [employer]. DOS Orders Placed and Signed: Yes. Pre-op [...] and CONSULTATION WITH MELISSA Powell. Rachel Peterson APRN.ASSET PROTECTION SPECIALIST documented in this encounterAdams County Hospital08-30-2022 Instructions* Patient Instructions* Divina Lopez PA-C - 05/20/2022 9:26 AM EDT PATIENT PREOPERATIVE INSTRUCTIONS Kenney Bangura MD has scheduled you for your procedure at this surgery center: [facility] Scheduling Office: [phone] --[address] [place] [address]. Please read below carefully for your personalized [...] Procedures: - YOU MUST HAVE A RESPONSIBLE LIGHT RAIL TRANSIT OPERATOR TAKE YOU HOME. A MEDICAL DOCTOR OR PHOTOGRAPHY COORDINATOR CANNOT BE MADE A RESPONSIBLE LIGHT RAIL TRANSIT OPERATOR. - We recommend that a responsible person [...] call the Thursday before. Your surgeon s business process associate will tell you what time to call the office. - If you have not reached the departmental business process associate by 5 P.M., call [phone] after 5 P.M. the day before your surgery. Please be aware that emergency situations arise, which may delay or change your surgical time. If this happens, we will notify you as soon as possible and regret any inconvenience. If you already have an Advance Directive, please fax a copy to [phone] or email to for it to be [...] day. Divina Lopez PA-C documented in this encounterAdams County Hospital08-30-2022 History and physical note * Divina [...] instructions and voices comprehension and compliance. SIGNATURE: Diivna Lopez PA-C PATIENT NAME: Candice Mitchell DATE: May 20, 2022 TIME: 9:22 AM documented in this encounterAdams County Hospital08-26-2022 History of Present illness Narrative* Kneney Bangura MD - 05/16/2022 6:03 PM EDT I called the patient regarding his Bone scan: 05/16/22 Bone scan IMPRESSION: NO SCINTIGRAPHIC EVIDENCE FOR OSSEOUS METASTATIC DISEASE. DEGENERATIVE CHANGES, NOTED. 07/05/22 CT chest No evidence of metastasis to chest. Still pending the evaluation of the pancreatic finding. Right radical nephrectomy scheduled for 05/27/22 Kenney Bangura MD Urologic Staff [facility] [place] [facility] documented in this encounterAdams County Hospital08-26-2022 History of Present illness Narrative* RT [...] radiation safety can be found usingthis link: [email or web address] 20Diagnostic%20Nuclear%20Medicine%20Procedures.pdf SIGNATURE: RT Lino(R) PATIENT NAME: Candice Mitchell DATE: May 16, 2022 TIME: 12:28 PM PAGER/CONTACT #: documented in this encounterAdams County Hospital08-22-2022 Miscellaneous Notes* Telephone Encounter - Lainey [...] Lainey Gilliam RN MSN documented in this encounterAdams County Hospital08-12-2022 History of Present illness Narrative* Kenney Bangura MD - 05/02/2022 7:30 PM EDT Images from the original note were not included. PATIENT: Candice Mitchell [id number] REFERRING MD: Isreal Morrow 05/02/2022 Chief Complaint [...] Chest CT Kenney Bangura MD Urologic Staff [facility] [place] [facility] Medical Decision Making: Problems: Moderate: 1+ chronic illnesses with change Data: Unique source(s) for external note(s) reviewed: 1 Unique test result(s) reviewed: 3+ Unique test(s) ordered: 3+ Assessment requiring an independent historian(s) Risk: Moderate: Moderate risk from testing/treatment Medical Decision Making Level: 4 - Moderate documented in this encounterAdams County HospitalEvalutrinity health note* Diagnosis Malignant neoplasm of right kidney, except renal pelvis (HCC) Malignant neoplasm of kidney, except pelvis documented in this encounter [facility]* Diagnosis Screening for genitourinary condition Screening for other and unspecified genitourinary condition documented in this encounter [facility]* Diagnosis Malignant neoplasm of right kidney, except renal pelvis (HCC)- Primary Malignant neoplasm of kidney, except pelvis Malignant neoplasm of right kidney, except renal pelvis (HCC) Malignant neoplasm of kidney, except pelvis documented in this encounter [facility]* Diagnosis Malignant neoplasm of right kidney, except renal pelvis (HCC) Malignant neoplasm of kidney, except pelvis Malignant neoplasm of right kidney, except renal pelvis (HCC) Malignant neoplasm of kidney, except pelvis documented in this encounter [facility]* Diagnosis Pre-op evaluation- Primary Preoperative examination, unspecified Malignant neoplasm of right kidney, except renal pelvis (HCC) Malignant neoplasm of kidney, except pelvis Morbid obesity (HCC) Morbid obesity Hypertension, unspecified type Gout, unspecified cause, unspecified chronicity, unspecified site Malignant neoplasm of right kidney, except renal pelvis (HCC) Malignant neoplasm of kidney, except pelvis documented in this encounter [facility]* Diagnosis Malignant neoplasm of right kidney, [...] H/O radical nephrectomy documented in this encounter [facility]* Diagnosis Malignant neoplasm of right kidney (HCC) Mass of pancreas Unspecified disease of pancreas documented [facility] this [facility] Diagnosis Malignant neoplasm of right kidney (HCC) Mass of pancreas Unspecified disease of pancreas documented in this encounter [facility]* Diagnosis Screening for genitourinary condition Screening for other and unspecified genitourinary condition documented in this encounter [facility]* Diagnosis Malignant neoplasm of right kidney (HCC)- Primary documented in this encounter [facility]* Diagnosis Mass of pancreas- Primary Unspecified disease of pancreas documented in this encounter [facility]* Diagnosis Malignant neoplasm of right kidney (HCC)- Primary History of pancreatic cancer Personal history of malignant neoplasm of other site in gastrointestinal tract documented in this encounter [facility]* Diagnosis Stage 3b chronic kidney disease (HCC)- Primary documented in this encounter [facility]* Diagnosis Screening for genitourinary condition Screening for other and unspecified genitourinary condition documented in this encounter [facility]* Diagnosis Onset Date Resolution Status Chronic kidney disease, stage 3a acute IFG (impaired fasting glucose) acute Lumbar spondylosis acute Neuroendocrine tumor of pancreas acute Primary hypertension acute Renal cell carcinoma of right kidney acute [facility]: Evaluation note* Diagnosis Malignant neoplasm of right kidney (HCC) documented in this encounter [facility]* Diagnosis Mass of pancreas Unspecified disease of pancreas documented in this encounter [facility]* Diagnosis Malignant neoplasm of right kidney (HCC) documented in this encounter [facility]* Diagnosis Screening for genitourinary condition Screening for other and unspecified genitourinary condition documented in this encounter [facility] general Narrative - Reported* Type Description Date [...] History cholecystectomy Hospitalization History see surgical history IPX Other History general Narrative - Reported* Type [...] Colonoscopy 2017 Hospitalization History see surgical history IPX Other Reason for referral (narrative)* Diagnostic Procedure Only (Routine) - Closed Specialty Diagnoses / Procedures Referred By Contac t Referred To Contact MOLECULAR & FUNCTIONAL IMAGING Diagnoses Malignant neoplasm of right kidney, except renal pelvis (HCC) Procedures NM BONE WHOLE BODY BONE &/JOINT IMAGING WHOLE BODY Kenney Bangura MD [address] [facility] [address], [address] [place] [address] Molecular & Functional Imaging [address] [place] [address] Referral ID Status Reason Start Date Expiration Date V isits Requested Visits Authorized [id number] Closed Auto-Generate d Referral 05/07/2022 06/21/2022 2 2 [facility] for referral (narrative)* Diagnostic Procedure Only (Routine) - Authorized Specialty Diagnoses / Procedures Referred By Contac t Referred To Contact US IMAGING Diagnoses Malignant neoplasm of right kidney (HCC) Procedures US KIDNEY/BLADDER US RETROPERITONEAL REAL TIME W/IMAGE COMPLETE Kenney Bangura MD [address] [place] [address] Us Imaging [facility] Referral ID Status Reason Start Date Expiration Date Visits Requested Visits Authorized [id number] Authorized Auto-Generat ed Referral 08/21/2023 09/19/2024 1 1 [facility] for referral (narrative)* Diagnostic Procedure Only (Routine) - Closed Specialty Diagnoses / Procedures Referred By Contac t Referred To Contact US IMAGING Diagnoses Malignant neoplasm of right kidney (HCC) Procedures US KIDNEY/BLADDER US RETROPERITONEAL REAL TIME W/IMAGE COMPLETE Kenney Bangura MD [address] [place] [address] Us Imaging [facility] Referral ID Status Reason Start Date Expiration Date V isits Requested Visits Authorized [id number] Closed Auto-Generate d Referral 08/21/2023 09/19/2024 1 1 T [facility] for visit Narrative* Diagnostic Procedure Only (Routine) - Closed Specialty Diagnoses / Procedures Referred By Contac t Referred To Contact MOLECULAR & FUNCTIONAL IMAGING Diagnoses Malignant neoplasm of right kidney, except renal pelvis (HCC) Procedures NM BONE WHOLE BODY BONE &/JOINT IMAGING WHOLE BODY Kenney Bangura MD [address], [address] [place] [address] Molecular & Functional Imaging [address] [place] [address] Referral ID Status Reason Start Date Expiration Date V isits Requested Visits Authorized [id number] Closed Auto-Generate d Referral 05/07/2022 06/21/2022 2 2 [facility]* Diagnostic Procedure Only (Routine) - Closed Specialty Diagnoses / Procedures Referred By Contac t Referred To Contact US IMAGING Diagnoses Malignant neoplasm of right kidney (HCC) Procedures US KIDNEY/BLADDER US RETROPERITONEAL REAL TIME W/IMAGE COMPLETE Kenney Bangura MD [address] [place] [id number] Us Imaging [place] [address] Referral ID Status Reason Start Date Expiration Date V isits Requested Visits Authorized [id number] Closed Auto-Generate d Referral 08/21/2023 09/19/2024 1 1 [facility] Reason for Referral Specialty Diagnoses / Procedures Referred By Contac t Referred To Contact CT IMAGING Diagnoses Malignant neoplasm of right kidney, except renal pelvis (HCC) Procedures CT CHEST W IVCON DIAGNOSTIC COMPUTED TOMOGRAPHY THORAX W/CONTRAST Kenney Bangura MD [address], [place] [id number] Ct Imaging Referral ID Status Reason Start Date Expiration Date Visits Requested Visits Authorized [id number] Pending Review Auto-Generat ed Referral 05/02/2022 06/01/2023 1 1 Specialty Diagnoses / Procedures Referred By Contac t Referred To Contact MOLECULAR & FUNCTIONAL IMAGING Diagnoses Malignant neoplasm of right kidney, except renal pelvis (HCC) Procedures NM BONE WHOLE BODY BONE &/JOINT IMAGING WHOLE BODY Kenney Bangura MD [address] [employer] [address], [place] [phone] Molecular & Functional Imaging [address] [place] [address] Referral ID Status Reason Start Date Expiration Date Visits Requested Visits Authorized [id number] Pending Review Auto-Generat ed Referral 05/02/2022 06/01/2023 1 1 Specialty Diagnoses / Procedures Referred By Contac t Referred To Contact Diagnoses Malignant neoplasm of right kidney, except renal pelvis (HCC) Procedures REFER TO PACC - PRE ANESTHESIA CONSULTATION CLINIC OFFICE/OUTPATIENT [facility] 60-74 MINUTES Kenney Bangura MD [address], [address] [address] Referral ID Status Reason Start Date Expiration Date Visits Requested Visits Authorized [id number] Authorized PCP Requested Referral 05/06/2022 05/05/2023 1 1 Specialty Diagnoses / Procedures Referred By Contac t Referred To [facility] Diagnoses Malignant neoplasm of right kidney, except renal pelvis (HCC) Procedures ECG COMPLETE ECG ROUTINE ECG W/LEAST 12 LDS W/I&R Kenney Bangura MD [address], [address] [address] [facility] [place] [address] [place] [address] Referral ID Status Reason Start Date Expiration Date Visits Requested Visits Authorized [id number] Pending Review Auto-Generat ed Referral 05/06/2022 05/05/2023 1 1 Specialty Diagnoses / Procedures Referred By Contac t Referred To Contact CT IMAGING Diagnoses Malignant neoplasm of right kidney (HCC) Mass of pancreas Procedures CT ABD/PEL W IVCON CT ABD & PELVIS W/CONTRAST Kenney Bangura MD [address], [address] [address] [address] Imaging Referral ID Status Reason Start Date Expiration Date Visits Requested Visits Authorized [id number] Pending Review Auto-Generat ed Referral 12/25/2022 07/26/2023 1 1 Specialty Diagnoses / Procedures Referred By Contac t Referred To Contact CT IMAGING Diagnoses Malignant neoplasm of right kidney (HCC) Malignant neoplasm of right kidney, except renal pelvis (HCC) Mass of pancreas Malignant neoplasm of body of pancreas (HCC) Procedures CT PANCREAS W IVCON CT ABDOMEN W/CONTRAST Pete Gupta MD [address] [place] [address] Ct Imaging Referral ID Status Reason Start Date Expiration Date Visits Requested Visits Authorized [id number] Pending Review Auto-Generat ed Referral 06/20/2022 07/20/2023 1 1 Specialty Diagnoses / Procedures Referred By Contac t Referred To Contact Diagnoses Malignant neoplasm of right kidney (HCC) Malignant neoplasm of right kidney, except renal pelvis (HCC) Mass of pancreas Malignant neoplasm of body of pancreas (HCC) Procedures CONSULT TO MEDICAL GENETICS - CANCER MEDICAL GENETICS COUNSELING EACH 30 MINUTES Pete Gupta MD [address] [place] [address] [place] [address] Referral ID Status Reason Start Date Expiration Date Visits Requested Visits Authorized [id number] Authorized PCP Requested Referral Auto-Generate d Referral 06/20/2022 06/20/2023 1 1 Specialty Diagnoses / Procedures Referred By Contac t Referred To Contact Nephrology Diagnoses Malignant neoplasm of right kidney (HCC) Procedures CONSULT TO NEPHROLOGY OFFICE/OUTPATIENT [facility] 60-74 MINUTES Kenney Bangura MD [address] [place] [address] Referral ID Status Reason Start Date Expiration Date Visits Requested Visits Authorized [id number] Authorized PCP Requested Referral 12/26/2022 12/26/2023 1 1 Specialty Diagnoses / Procedures Referred By Contac t Referred To Contact CT IMAGING Diagnoses Malignant neoplasm of right kidney (HCC) Mass of pancreas Procedures CT ABD/PEL W IVCON CT ABD & PELVIS W/CONTRAST Kenney Bangura MD [address] [place] [address] Ct Imaging Referral ID Status Reason Start Date Expiration Date Visits Requested Visits Authorized [id number] Pending Review Auto-Generat ed Referral 07/27/2023 01/25/2024 1 1 Referral ID Status Reason Start Date Expiration Date V isits Requested Visits Authorized [id number] Closed Auto-Generate d Referral 12/15/2022 09/20/2023 1 1 Specialty Diagnoses / Procedures Referred By Contac t Referred To Contact CT IMAGING Diagnoses Malignant neoplasm of right kidney (HCC) Mass of pancreas Procedures CT ABD/PEL W IVCON CT ABD & PELVIS W/CONTRAST Kenney Bangura MD [address] [place] [address] [place] [address] Referral ID Status Reason Start Date Expiration Date V isits Requested Visits Authorized [id number] Closed Auto-Generate d Referral 07/27/2023 01/25/2024 1 1 Specialty Diagnoses / Procedures Referred By Contac t Referred To Contact CT IMAGING Diagnoses Mass of pancreas Procedures CT PANCREAS W IVCON CT ABDOMEN W/CONTRAST Pete Gupta MD [address] [place] [address] Ct Imaging [place] [address] Referral ID Status Reason Start Date Expiration Date Visits Requested Visits Authorized [id number] Pending Review Auto-Generat ed Referral 08/28/2023 09/26/2024 1 1 Specialty Diagnoses / Procedures Referred By Contac t Referred To Contact CT IMAGING Diagnoses Mass of pancreas Procedures CT PANCREAS W IVCON CT ABDOMEN W/CONTRAST Pete Gupta MD [address] [place] [id number] Imaging [place] [address] Referral ID Status Reason Start Date Expiration Date V isits Requested Visits Authorized [id number] Closed Auto-Generate d Referral 08/28/2023 09/26/2024 1 1 Summary Purpose [...] or prosecute any alcohol or drug abuse patient.[facility] the event this information is protected by the Federal Confidentiality of Alcohol and Drug Abuse Patient Records regulations: The Federal rules restrict any use of the information to criminally investigate or prosecute any alcohol or drug abuse patient.[facility] the event this information is protected by the Federal Confidentiality of Alcohol and Drug Abuse Patient Records regulations: The Federal rules restrict any use of the information to criminally investigate or prosecute any alcohol or drug abuse patient.[facility] the event this information is protected by the Federal Confidentiality of Alcohol and Drug Abuse Patient Records regulations: The Federal rules restrict any use of the information to criminally investigate or prosecute any alcohol or drug abuse patient.[facility]In the event this information is protected by the Federal Confidentiality of Alcohol and Drug Abuse Patient Records regulations: The Federal rules restrict any use of the information to criminally investigate or prosecute any alcohol or drug abuse patient.[facility]In the event this information is protected by the Federal Confidentiality of Alcohol and Drug Abuse Patient Records regulations: The Federal rules restrict any use of the information to criminally investigate or prosecute any alcohol or drug abuse patient.[facility]In the event this information is protected by the Federal Confidentiality of Alcohol and Drug Abuse Patient Records regulations: The Federal rules restrict any use of the information to criminally investigate or prosecute any alcohol or drug abuse patient.[facility]In the event this information is protected by the Federal Confidentiality of Alcohol and Drug Abuse Patient Records regulations: The Federal rules restrict any use of the information to criminally investigate or prosecute any alcohol or drug abuse patient.[facility]In the event this information is protected by the Federal Confidentiality of Alcohol and Drug Abuse Patient Records regulations: The Federal rules restrict any use of the information to criminally investigate or prosecute any alcohol or drug abuse patient.[facility]In the event this information is protected by the Federal Confidentiality of Alcohol and Drug Abuse Patient Records regulations: The Federal rules restrict any use of the information to criminally investigate or prosecute any alcohol or drug abuse patient.[facility] HospitalIn the event this information is protected by the Federal Confidentiality of Alcohol and Drug Abuse Patient Records regulations: The Federal rules restrict any use of the information to criminally investigate or prosecute any alcohol or drug abuse patient.[facility]In the event this information is protected by the Federal Confidentiality of Alcohol and Drug Abuse Patient Records regulations: The Federal rules restrict any use of the information to criminally investigate or prosecute any alcohol or drug abuse patient.[facility] HospitalIn the event this information is protected by the Federal Confidentiality of Alcohol and Drug Abuse Patient Records regulations: The Federal rules restrict any use of the information to criminally investigate or prosecute any alcohol or drug abuse patient.[facility]In the event this information is protected by the Federal Confidentiality of Alcohol and Drug Abuse Patient Records regulations: The Federal rules restrict any use of the information to criminally investigate or prosecute any alcohol or drug abuse patient.[facility]In the event this information is protected by the Federal Confidentiality of Alcohol and Drug Abuse Patient Records regulations: The Federal rules restrict any use of the information to criminally investigate or prosecute any alcohol or drug abuse patient.[facility] HospitalIn the event this information is protected by the Federal Confidentiality of Alcohol and Drug Abuse Patient Records regulations: The Federal rules restrict any use of the information to criminally investigate or prosecute any alcohol or drug abuse patient.[facility] HospitalIn the event this information is protected by the Federal Confidentiality of Alcohol and Drug Abuse Patient Records regulations: The Federal rules restrict any use of the information to criminally investigate or prosecute any alcohol or drug abuse patient.[facility] HospitalIn the event this information is protected by the Federal Confidentiality of Alcohol and Drug Abuse Patient Records regulations: The Federal rules restrict any use of the information to criminally investigate or prosecute any alcohol or drug abuse patient.[facility] HospitalIn the event this information is protected by the Federal Confidentiality of Alcohol and Drug Abuse Patient Records regulations: The Federal rules restrict any use of the information to criminally investigate or prosecute any alcohol or drug abuse patient.[facility] HospitalIn the event this information is protected by the Federal Confidentiality of Alcohol and Drug Abuse Patient Records regulations: The Federal rules restrict any use of the information to criminally investigate or prosecute any alcohol or drug abuse patient.[facility] HospitalIn the event this information is protected by the Federal Confidentiality of Alcohol and Drug Abuse Patient Records regulations: The Federal rules restrict any use of the information to criminally investigate or prosecute any alcohol or drug abuse patient.[facility] HospitalIn the event this information is protected by the Federal Confidentiality of Alcohol and Drug Abuse Patient Records regulations: The Federal rules restrict any use of the information to criminally investigate or prosecute any alcohol or drug abuse patient.[facility] HospitalIn the event this information is protected by the Federal Confidentiality of Alcohol and Drug Abuse Patient Records regulations: The Federal rules restrict any use of the information to criminally investigate or prosecute any alcohol or drug abuse patient.[facility] HospitalIn the event this information is protected by the Federal Confidentiality of Alcohol and Drug Abuse Patient Records regulations: The Federal rules restrict any use of the information to criminally investigate or prosecute any alcohol or drug abuse patient.[facility] HospitalIn the event this information is protected by the Federal Confidentiality of Alcohol and Drug Abuse Patient Records regulations: The Federal rules restrict any use of the information to criminally investigate or prosecute any alcohol or drug abuse patient.[facility] HospitalIn the event this information is protected by the Federal Confidentiality of Alcohol and Drug Abuse Patient Records regulations: The Federal rules restrict any use of the information to criminally investigate or prosecute any alcohol or drug abuse patient.[facility]In the event this information is protected by the Federal Confidentiality of Alcohol and Drug Abuse Patient Records regulations: The Federal rules restrict any use of the information to criminally investigate or prosecute any alcohol or drug abuse patient.[facility] HospitalIn the event this information is protected by the Federal Confidentiality of Alcohol and Drug Abuse Patient Records regulations: The Federal rules restrict any use of the information to criminally investigate or prosecute any alcohol or drug abuse patient.[facility] HospitalIn the event this information is protected by the Federal Confidentiality of Alcohol and Drug Abuse Patient Records regulations: The Federal rules restrict any use of the information to criminally investigate or prosecute any alcohol or drug abuse patient.[facility] HospitalIn the event this information is protected by the Federal Confidentiality of Alcohol and Drug Abuse Patient Records regulations: The Federal rules restrict any use of the information to criminally investigate or prosecute any alcohol or drug abuse patient.[facility] HospitalIn the event this information is protected by the Federal Confidentiality of Alcohol and Drug Abuse Patient Records regulations: The Federal rules restrict any use of the information to criminally investigate or prosecute any alcohol or drug abuse patient.[facility] HospitalIn the event this information is protected by the Federal Confidentiality of Alcohol and Drug Abuse Patient Records regulations: The Federal rules restrict any use of the information to criminally investigate or prosecute any alcohol or drug abuse patient.[facility] HospitalIn the event this information is protected by the Federal Confidentiality of Alcohol and Drug Abuse Patient Records regulations: The Federal rules restrict any use of the information to criminally investigate or prosecute any alcohol or drug abuse patient.[facility] HospitalIn the event this information is protected by the Federal Confidentiality of Alcohol and Drug Abuse Patient Records regulations: The Federal rules restrict any use of the information to criminally investigate or prosecute any alcohol or drug abuse patient.[facility] HospitalIn the event this information is protected by the Federal Confidentiality of Alcohol and Drug Abuse Patient Records regulations: The Federal rules restrict any use of the information to criminally investigate or prosecute any alcohol or drug abuse patient.[facility] HospitalIn the event this information is protected by the Federal Confidentiality of Alcohol and Drug Abuse Patient Records regulations: The Federal rules restrict any use of the information to criminally investigate or prosecute any alcohol or drug abuse patient.[facility] HospitalIn the event this information is protected by the Federal Confidentiality of Alcohol and Drug Abuse Patient Records regulations: The Federal rules restrict any use of the information to criminally investigate or prosecute any alcohol or drug abuse patient.[facility] HospitalIn the event this information is protected by the Federal Confidentiality of Alcohol and Drug Abuse Patient Records regulations: The Federal rules restrict any use of the information to criminally investigate or prosecute any alcohol or drug abuse patient.[facility] HospitalIn the event this information is protected by the Federal Confidentiality of Alcohol and Drug Abuse Patient Records regulations: The Federal rules restrict any use of the information to criminally investigate or prosecute any alcohol or drug abuse patient.[facility] HospitalIn the event this information is protected by the Federal Confidentiality of Alcohol and Drug Abuse Patient Records regulations: The Federal rules restrict any use of the information to criminally investigate or prosecute any alcohol or drug abuse patient.[facility] HospitalIn the event this information is protected by the Federal Confidentiality of Alcohol and Drug Abuse Patient Records regulations: The Federal rules restrict any use of the information to criminally investigate or prosecute any alcohol or drug abuse patient.[facility] HospitalIn the event this information is protected by the Federal Confidentiality of Alcohol and Drug Abuse Patient Records regulations: The Federal rules restrict any use of the information to criminally investigate or prosecute any alcohol or drug abuse patient.[facility] Reason for Visit (unrecogniz ed section and content) Reason Comments Leather Grader - Other Reason Comments Radiology NM Specialty Diagnoses / Procedures Referred By Contac t Referred To Contact MOLECULAR & FUNCTIONAL IMAGING Diagnoses Malignant neoplasm of right kidney, except renal pelvis (HCC) Procedures NM BONE WHOLE BODY BONE &/JOINT IMAGING WHOLE BODY Kenney Bangura MD [address] [facility], [address] [place] [address] Molecular & Functional Imaging [address] [place] [address] Referral ID Status Reason Start Date Expiration Date V isits Requested Visits Authorized [id number] Closed Auto-Generate d Referral 05/07/2022 06/21/2022 2 2 Reason Comments Pre-Op Visit Reason Comments Pre-Op Exam Reason Comments New Patient Reason Comments Appointment Reason Comments Established Patient Reason Comments Follow Up Reason Comments Post Op Reason Comments Post Op Reason Comments Post-Op Visit Specialty Diagnoses / Procedures [facility] To Contact Diagnoses Malignant neoplasm of right kidney (HCC) Malignant neoplasm of right kidney, except renal pelvis (HCC) Mass of pancreas Malignant neoplasm of body of pancreas (HCC) Procedures CONSULT TO MEDICAL GENETICS - CANCER MEDICAL GENETICS COUNSELING EACH 30 MINUTES Pete Gupta MD [address] [place] [address] [place] [address] Referral ID Status Reason Start Date Expiration Date V isits Requested Visits Authorized [id number] Closed PCP Requested Referral Auto-Generated Referral 06/20/2022 06/20/2023 1 1 Reason Comments Patient Update Reason Comments Results Reason Comments Cancer Established Patient Reason Comments Radiology CT Specialty Diagnoses / Procedures [facility] To Contact CT IM[facility] Diagnoses Malignant neoplasm of right kidney (HCC) Mass of pancreas Procedures CT ABD/PEL W IVCON CT ABD & PELVIS W/CONTRAST Kenney Bangura MD [address] [place] [address] Ct Imaging Referral ID Status Reason Start Date Expiration Date V isits Requested Visits Authorized [id number] Closed Auto-Generate d Referral 12/15/2022 09/20/2023 1 1 Reason Comments Consult Specialty Diagnoses / Procedures [facility] Ref[facility] To Contact CT IM[facility] Diagnoses Malignant neoplasm of right kidney (HCC) Mass of pancreas Procedures CT ABD/PEL W IVCON CT ABD & PELVIS W/CONTRAST Kenney Bangura MD [address] [place] [address] [place] [address] Referral ID Status Reason Start Date Expiration Date V isits Requested Visits Authorized [id number] Closed Auto-Generate d Referral 07/27/2023 01/25/2024 1 1 Reason Comments Radio Gen HB6 Reason Comments Pancreatic Mass Reason Comments Follow Up Specialty Diagnoses / Procedures Referred By Contac t Referred To Contact CT IMAGING Diagnoses Mass of pancreas Procedures CT PANCREAS W IVCON CT ABDOMEN W/CONTRAST Pete Gupta MD [address] [place] [id number] [place] [address] Referral ID Status Reason Start Date Expiration Date V isits Requested Visits Authorized [id number] Closed Auto-Generate d Referral 08/28/2023 09/26/2024 1 1 Reason Comments Radio Gen A21 (unrecognized sect ion and content) No Status Records FoundNo Status Records FoundNo Status Records Found INFORMATION SOURCE (unrecogn ized section and content) DATE CREATED AUTHOR 01/19/2023 [facility] DATE CREATED AUTHOR AUTHOR'S ORGANIZ ATION 08/29/2023 [facility] DATE CREATED AUTHOR AUTHOR'S ORGANIZ ATION 03/07/2024 [facility] Care Teams (unrecognized sec tion and content) [...] BE BASED ON THE PRIMARY CLINICAL RECORDS. [employer] provides no warranty or guarantee of the accuracy or completeness of information in this document.
== END 2024-03-07 08:00 | disposition home or self-care (01) ==
LOC: EC 07:59
PROVIDERS: PCP Internal Medicine; Visit Provider Orthopaedic Surgery
DX: M79.645 Pain in left finger(s) (principal)
CPT/HCPCS: 73140

== ENCOUNTER 2025-03-15 08:57 | Outpatient (OUT) | payer MEDICARE, SELFPAY ==
--- OUTSIDE RECORDS SUMMARY | 2024-05-05 05:30 | XMS_ITS | Encounter Summary ---
Author Name [facility] Organization [facility] Address [address] [place] [id number] Care Team Providers Care Breakfast Host Name Role Phone RENÉE WEINER Primary Care Provider Unavail able Insurance Providers: All historical and current Section Date Range: From patient's date of to the date document was created. This section includes the names of all active insurance providers for the patient. Insurance Provider Type of Coverage Plan Name Start of Policy Coverage End of Policy Coverage Group Number Member ID Insurance Provider's Telephone Number Policy Chaidez's Name Patient's Relationship to Policy Chaidez AARP MED SUPP MEDIGAP PLAN G PLAN G Apr 21, 2024 PLAN G [id number] [phone] CANDICE CONTRERAS PATIENT MEDICARE (WNR) MEDICARE (M) PART A Apr 21, 2024 PART A [id number] [facility] CANDICE CONTRERAS PATIENT MEDICARE (WNR) MEDICARE (M) PART B Apr 21, 2024 PART B [id number] [facility] [phone] CANDICE CONTRERAS PATIENT Selected Encounter This section includes the information on record at [place] for the Encounter. Date/Time Encounter Type Encounter Description Reason Provider Source May 05, 2024 09:30 AM OFFICE O/P EST MOD 30 MIN PRIMARY CARE/MEDICINE ICD-10-CM R73.03 Prediabetes HILARIA NINA Encounter Template Text not used by [place] Assessments - Encounter Diagnoses This section includes the primary and secondary diagnoses documented for the Encounter. Date/Time Primary/Secondary Diagnosis Diagnosis Name Provider Source Jun 04, 2024 01:11 AM PRIMARY Prediabetes [facility] Jun 04, 2024 01:11 AM SECONDARY Encounter for immunization [facility] Jun 04, 2024 01:11 AM SECONDARY Essential (primary) hypertension [facility] Jun 04, 2024 01:11 AM SECONDARY Gout, unspecified [facility] Jun 04, 2024 01:11 AM SECONDARY Malignant neoplasm of right kidney, except renal pelvis [facility] Jun 04, 2024 01:11 AM SECONDARY Malignant neoplasm of tail of pancreas AGUILAR RUANO [facility] Plan of Treatment: Future Appointments (+ 6 months) and Future Tests (+/- 45 days) The Plan of Treatment section includes future care activities for the patient from all [place] treatmentfacilities. This section includes future appointments and future orders which are active, pending or scheduled. Future Appointments This section includes appointments that were scheduled to occur 6 months from the date of the Encounter, up to a maximum of 20 appointments. The data comes from all [place] treatment facilities. Appointment Date/Time Appointment Type Appointme nt Facility Name Jun 01, 2024 08:00 AM AMBULATORY - NONE [facility] Oct 25, 2024 09:15 AM AMBULATORY - NONE [facility] Lab Results: +/- 30 days of the encounter This section includes the Chemistry and Hematology Lab Results on record with [place] for the patient. Radiology Reports and Pathology Reports are provided separately, in subsequent sections. Lab Results This section contains the Chemistry/Hematology Results that were resulted 30 days before or 30 daysafter the date of the Encounter. Date/Time Source Result Type Result - Unit Interpretation Reference Range Specimen Type Comment Jun 01, 2024 07:48 AM [facility] POTASSIUM PLASMA Specimen Type: PLASMA No comment entered. Ordering Provider: HILARIA NINA Report Released Date/Time: May 31, 2024 11:09 AM Reporting Lab: [facility] [id number] [facility] [address] Performing Lab: [address] [address] POTASSIUM 4.8 mmol/L 3.5-5.1 Apr 25, 2024 09:16 AM [facility] MICROALBUMIN/CREATININE RATIO PANEL URINE Specimen Type: URINE No comment entered. Ordering Provider: HILARIA INNA Report Released Date/Time: Nov 03, 2023 09:41 AM Reporting Lab: [address] [address] Performing Lab: [address] [address] MICROALBUMIN, URINE RANDOM 1 mg/L 0-10 CREATININE, URINE RANDOM 197.05 mg/dL MICROALB/CREAT RATIO 0.51 mg/g 0.0-19.9 Apr 25, 2024 09:16 AM [facility] HEPATITIS C ANTIBODY SERUM Specimen T ype: SERUM No comment entered. Ordering Provider: HILARIA NINA Report Released Date/Time: Apr 15, 2024 11:26 AM Reporting Lab: [address] [address] Performing Lab: [address] [address] HEPATITIS C ANTIBODY Nonreactive Nonreac tive Apr 25, 2024 09:16 AM [facility] PROSTATE SPECIFIC ANTIGEN SERUM Speci men Type: SERUM No comment entered. Ordering Provider: HILARIA NINA Report Released Date/Time: Nov 03, 2023 09:41 AM Reporting Lab: [address] [address] Performing Lab: [place] [id number] PROSTATE SPECIFIC ANTIGEN 1.48 ng/mL 0-4 .00 Apr 25, 2024 09:16 AM [facility] COMPREHENSIVE METABOLIC PANEL PLASMA S pecimen Type: PLASMA No comment entered. Ordering Provider: HILARIA NINA Report Released Date/Time: Nov 03, 2023 09:41 AM Reporting Lab: [address] [address] Performing Lab: [address] [address] ALBUMIN 3.9 g/dL 3.2-4.6 ALKALINE PHOSPHATASE 86 U/L 46-116 ALT/SGPT 21 U/L 0-55 AST/SGOT 27 U/L 5-34 BUN 27 mg/dL H 9-23 CALCIUM 9.7 mg/dL 8.5-10.1 CREATININE 1.6 mg/dL H 0.7-1.3 CO2 20 mmol/L L 22-29 GLUCOSE 126 mg/dL H 74-100 PROTEIN, TOTAL 7.2 g/dL 6.4-8.3 SODIUM 138 mmol/L 136-145 CHLORIDE 112 mmol/L H 98-107 BILIRUBIN, TOTAL 0.6 mg/dL 0.2-1.2 POTASSIUM 4.6 mmol/L 3.5-5.1 ANION GAP 13.0 10-20 EGFR (CALCULATED) 48.0 mL/min Apr 25, 2024 09:16 AM [facility] HEMOGLOBIN A1C BLOOD Specimen Type: B LOOD Comment: Values obtained from A1C measurements can vary. For typical A1C assays, a reported value of 7.0 could actually be between 6.72 and 7.28 if measured by a reference method. A reported value of 9.0 could actually be between 8.73 and 9.27. Ref: http://www.ngsp.org/CAPdata.asp Ordering Provider: HILARIA NINA Report Released Date/Time: Nov 03, 2023 09:41 AM Reporting Lab: [address] [address] Performing Lab: [address] [address] HEMOGLOBIN A1C 6.4 H 3.6-5.7 Immunizations: All administered on the encounter date This section contains immunizations associated to the Encounter. 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 Current Smoking Status This section includes the most current smoking, or tobacco-related health factor, from the [place] facility where the Encounter took place. Date/Time Current Smoking Status Comment Wyatt ovalles May 05, 2024 09:30 AM [place]-TOB[place] FORMER USER [facility] Tobacco Use History This section includes a history of the smoking, or tobacco-related health factors, that were collected on or before the date of the Encounter. The data comes from the [place] facility where the Encounter took place. Date/Time Smoking Status/Tobacco Use Comment F acility May 05, 2024 09:30 AM [facility]-TOBACCO QUIT 15 YRS OR MORE [facility] May 06, 2023 10:00 AM VA-TOBACCO FORMER USER [facility] May 06, 2023 10:00 AM VA-TOBACCO QUIT 15 YRS OR MORE [facility] Encounter Notes: All associated encounter notes This section contains the clinical notes associated to the Encounter. Date/Time Encounter Note(s) Provider Source May 31, 2024 10:47 AM ADDENDUM: LOCAL TITLE: Addendum STANDARD TITLE: ADDENDUM DATE OF NOTE: MAY 31, 2024@10:47:37 ENTRY DATE: MAY 31, 2024@10:47:38 AUTHOR: SWATI BLAKE EXP COSIGNER: URGENCY: STATUS: COMPLETED Pt & pt's spouse call reporting that pt recently had (on/around 05/18/24) f/u w/[facility] nephro and that his potassium was high (5.9). Pt states he was instruted to have it checked again and is [facility] (pt states he is having issues w/Medicare coverage as he was supposed to be covered by now but does not yet appear to have coverage). Pt/spouse pt has not had any med changes since last [facility] nor has there been any significant dietary changes. Reports he has been trying to limit potassium intake since being aware of [facility] lab result. K+ lab pended for PCP. Advised pt to call back to [facility] the following day to review results. /kenneth/ SWATI BLAKE REGISTERED NURSE Signed: 05/31/2024 10:51 Receipt Acknowledged By: 05/31/2024 16:26 /kenneth/ HILARIA NINA PHYSICIAN --- Original Document --- 05/05/24 PRIMARY CARE OUTPATIENT NOTE (T): In-person Note Emergency contact number obtained/confirmed. 64yo [place] Reason for Visit: cc: f/u visit. cont with current meds. trying to watch diet. started walking for exercise. states received cortisone shots both knees per dr. tamayo approx 1 wk ago. does not use any tobacco products. aver 3-4 beers/wk. hpi: 64y m with hx of prediabetes, htn, gout, right nephrectomy 2/2 ca and ca of tail of pancreas. lmd - dr. castillo. uro - dr. limon. neph- dr. mathews. surg - dr. trujillo. ortho - dr. 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 Exposure to potentially hazardous substance 01/05/2024 NATALIO SINGH Essential hypertension 05/06/2023 MAICO,HILARIA Garcia Gout 05/06/2023 MAICO,HILARIA Garcia Prediabetes 05/06/2023 HILARIA NINA History of primary malignant neoplasm of right 05/06/2023 MAICO,HILARIA Garcia kidney Malignant tumor of tail of pancreas 05/06/2023 HILARIA NINA REVIEW OF SYSTEMS: const: (-) fever (-)chills (-)fatigue (-) changes in weight (-)night sweats heent: (-)headache (-)vision changes (-)hearing changes (-)tinnitis (-) earache (-)sore throat (-)nasal congestion (-)dysphagia (-odynophagia (-)hoarseness neck: (-)pain (-)stiffness (-)swelling lymph: (-)swollen (-)tender (-) cervical (-)axillary (-)inguinal endo: (-)polyuria (-)polydipsia (-)polyphagia (-)fatigue (-)weight gain/loss (-)heat or cold intolerance cor: (-)cp (-)sob (-)dizziness (-)palpitations (-)suarez (-)edema (-)pnd (-)suarez ()orthopnea pulm: (-)cough (-)congestion (-)sob (-)wheezing (-)pain with breathing (-)hemoptysis gi: (-)abd pain (-)nausea (-)vomitting (-)dysphagia (-)constipation (-) diarrhea (-)blood in stool (-)change in stool (-)dark stools (-)mucus in stool gu: (-)dysuria (-)frequency (-)urgency (-)malodorous (-)dribbling (-) hematuria (-)nocturia msk: (-)muscle pain (-)weakness (-)spasms (-)muscle tone (-)back pain (-)joint pain neuro: (-)headache (-)change in vision (-)weakness (-)change in memory (-)seizures (-)abnormal movements (-) tremors (-)radiculopathy integ: (-)rash (-)lesions (-)itching (-)xerosis psyche: (-)anxiety (-)depression (-)ptsd PATIENT ALLERGIES DETAILED ALLERGIES/ADVERSE REACTIONS No Known Allergies AMRS - MEDS (REC SUCCINCT) Active and Recently Inpatient, Outpatient and Clinic Medications (including Supplies): Active Outpatient Medications Status ========= 1) ALLOPURINOL 300MG TAB TAKE ONE TABLET BY MOUTH EVERY ACTIVE DAY (WITH FOOD AND FLUIDS) 2) AMLODIPINE BESYLATE 5MG TAB TAKE ONE TABLET BY MOUTH ACTIVE EVERY DAY 3) ATENOLOL 50MG TAB TAKE ONE TABLET BY MOUTH EVERY DAY ACTIVE 4) BENAZEPRIL HCL 40MG TAB TAKE ONE TABLET BY MOUTH ACTIVE EVERY DAY Active Non-VA Medications Status ========= 1) Non-VA ACETAMINOPHEN TAB 500MG NEEDED ACTIVE 5 Total Medications PHYSICAL EXAM: Vital Signs: T: 98.2 F [36.8 C] (05/05/2024 09:32) P: 58 (05/05/2024 09:32) R: 16 (05/05/2024 09:32) BP: 126/82 (05/05/2024 09:32) Pain: 0 (05/05/2024 09:32) Height: 67 in [170.2 cm] (05/06/2023 09:59) Weight: 261.1 lb [118.43 kg] (05/05/2024 09:32) Pulse Ox: 96% (05/05/2024 09:32) PE gen: 64 y w/m alert ox4, well-groomed and dressed, ambulatory without assistive devices. with pt heent: normocephalic anicteric perrla eomi. (+)corrective lenses. nares patent. eacs/tms without nelida, bulging or retractions. oral mucosa and hypopharynx moist and pink. uvula midline. no oral lesions noted. (+)bilat hearing aides neck: supple. trachea midline. no bruits noted lymph: no ant or posterior adenopathy noted endo: no thyromegaly appreciated cor: hrrr without m, c or g chest: ctab. chest symm abd: soft, nt, nd, bs x 4 ausc. no organomegaly or bruits noted msk: (+)5/5 ue and lower extrem prox and distally integ: no rashes or lesions noted neuro: pt alert ox4, perrla, eomi, cn 2-12 intact. no tremors or abnormal movts noted psyche: mood and affect appropriate. recent and remote memory intact ASSESSMENT/PLAN: 1) prediabetes - a1c = 6.4. discussed poss adding med such as glimepiride. will discuss with his nephro. reviewed a heart healthy/diab diet. daily exercise. wt loss 2) hypertension - well-controlled on current medications 3) hx of ca of tail of pancreas 4) s/p right nephrectomy 2/2 ca- followed per nephro 5) ckd stage 3B- followed per nephro. avoid nsaids and dark nina 5) hx of gout- fluids. fluids. cont with allopurinol. low purine diet 6) meds and labs reviewed with pt. copies provided to pt 7) reviewed a heart healthy/diab diet of no added salt, diet low in fat, chol and processed foods. increase fluids, fruits, veg, fiber and bran in diet. daily exercise for 30 min, increase as tolerated HEALTH MAINTENANCE/CLINICAL REMINDERS: Clinical Reminders Activity Sexual Orientation: The patient thinks of their sexual orientation as: Straight or Heterosexual MEDICATION RECONCILIATION Medication Reconciliation report reviewed and discussed with patient/caregiver. [facility] prescription medications, non-VA prescription medications, OTC and herbal medications reviewed: Patient/caregiver verifies that the list is complete and accurate and voices understanding. FOLLOW-UP: 6mos with labs 1- 2 wks prior including cbc, cmp, mg, vit d, lipids, a1c, microalb, po4 and uric acid I am the Attending Physician. TOTAL TIME SPENT: Spent 25 minutes in care of this patient today including review of records, exam, and placing orders. /kenneth/ HILARIA NINA PHYSICIAN Signed: 05/05/2024 09:58 SWATI BLAKE [facility] May 06, 2024 06:27 AM DISCHARGE NOTE: LOCAL TITLE: AFTER VISIT SUMMARY NOTE STANDARD TITLE: DISCHARGE NOTE DICT DATE: MAY 06, 2024@06:27:23 ENTRY DATE: MAY 06, 2024@06:27:24 DICTATED BY: HILARIA NINA EXP COSIGNER: URGENCY: STATUS: COMPLETED If the patient did not receive a copy of the after-visit summary or had a virtual visit, a copy of the after-visit summary will be mailed. The after-visit summary includes information pertaining to the patient's encounter, including diagnoses, vital signs, medications, and new orders, as well as a list of any any upcoming appointments and information regarding the patient's ongoing care. The patient's medications were reviewed with the patient by the provider and were provided to the patient as an updated list of medications. The patient was instructed to inform the provider of any medication changes or discrepancies that were noted. Otherwise, the patient was instructed to continue the medications as prescribed. A copy of the after-visit summary provided to the patient is available in [facility]. 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: [employer] Lot: [id number] Exp Date: May 07, 2026 ND: [id number] Admin Route/Site: INTRAMUSCULAR/RIGHT DELTOID Dosage: 0.5mL Vaccine Information Statement(s): TDAP (TETANUS, DIPHTHERIA, PERTUSSIS) VACCINE VIS Apr 26, 2021 (SERBIAN) Order By: Policy Administered By: Aguilar Ruano /kenneth/ AGUILAR RUANO LICENSED PRACTICAL NURSE Signed: 05/05/2024 10:01 [facility]AR RUANO [facility] May 05, 2024 09:33 AM INTERNAL MEDICINE OUTPATIENT NOTE: LOCAL TITLE: PRIMARY CARE OUTPATIENT NOTE (T) STANDARD TITLE: INTERNAL MEDICINE OUTPATIENT NOTE DATE OF NOTE: MAY 05, 2024@09:33 ENTRY DATE: MAY 05, 2024@09:33:49 AUTHOR: HILARIA NINA EXP COSIGNER: URGENCY: STATUS: COMPLETED PRIMARY CARE OUTPATIENT NOTE (T) Has ADDENDA In-person Note Emergency contact number obtained/confirmed. 64yo [place] Reason for Visit: cc: f/u visit. cont with current meds. trying to watch diet. started walking for exercise. states received cortisone shots both knees per dr. tamayo approx 1 wk ago. does not use any tobacco products. aver 3-4 beers/wk. hpi: 64y m with hx of prediabetes, htn, gout, right nephrectomy 2/2 ca and ca of tail of pancreas. lmd - dr. castillo. uro - dr. limon. neph- dr. mathews. surg - dr. trujillo. ortho - dr. 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 Exposure to potentially hazardous substance 01/05/2024 NATALIO SINGH Essential hypertension 05/06/2023 HILARIA NINA Gout 05/06/2023 HILARIA NINA Prediabetes 05/06/2023 HILARIA NINA History of primary malignant neoplasm of right 05/06/2023 HILARIA NINA kidney Malignant tumor of tail of pancreas 05/06/2023 HILARIA NINA REVIEW OF SYSTEMS: const: (-) fever (-)chills (-)fatigue (-) changes in weight (-)night sweats heent: (-)headache (-)vision changes (-)hearing changes (-)tinnitis (-) earache (-)sore throat (-)nasal congestion (-)dysphagia (-odynophagia (-)hoarseness neck: (-)pain (-)stiffness (-)swelling lymph: (-)swollen (-)tender (-) cervical (-)axillary (-)inguinal endo: (-)polyuria (-)polydipsia (-)polyphagia (-)fatigue (-)weight gain/loss (-)heat or cold intolerance cor: (-)cp (-)sob (-)dizziness (-)palpitations (-)suarez (-)edema (-)pnd (-)suarez ()orthopnea pulm: (-)cough (-)congestion (-)sob (-)wheezing (-)pain with breathing (-)hemoptysis gi: (-)abd pain (-)nausea (-)vomitting (-)dysphagia (-)constipation (-) diarrhea (-)blood in stool (-)change in stool (-)dark stools (-)mucus in stool gu: (-)dysuria (-)frequency (-)urgency (-)malodorous (-)dribbling (-) hematuria (-)nocturia msk: (-)muscle pain (-)weakness (-)spasms (-)muscle tone (-)back pain (-)joint pain neuro: (-)headache (-)change in vision (-)weakness (-)change in memory (-)seizures (-)abnormal movements (-) tremors (-)radiculopathy integ: (-)rash (-)lesions (-)itching (-)xerosis psyche: (-)anxiety (-)depression (-)ptsd PATIENT ALLERGIES DETAILED ALLERGIES/ADVERSE REACTIONS No Known Allergies AMRS - MEDS (REC SUCCINCT) Active and Recently Inpatient, Outpatient and Clinic Medications (including Supplies): Active Outpatient Medications Status ========= 1) ALLOPURINOL 300MG TAB TAKE ONE TABLET BY MOUTH EVERY ACTIVE DAY (WITH FOOD AND FLUIDS) 2) AMLODIPINE BESYLATE 5MG TAB TAKE ONE TABLET BY MOUTH ACTIVE EVERY DAY 3) ATENOLOL 50MG TAB TAKE ONE TABLET BY MOUTH EVERY DAY ACTIVE 4) BENAZEPRIL HCL 40MG TAB TAKE ONE TABLET BY MOUTH ACTIVE EVERY DAY Active Non-VA Medications Status ========= 1) Non-VA ACETAMINOPHEN TAB 500MG NEEDED ACTIVE 5 Total Medications PHYSICAL EXAM: Vital Signs: T: 98.2 F [36.8 C] (05/05/2024 09:32) P: 58 (05/05/2024 09:32) R: 16 (05/05/2024 09:32) BP: 126/82 (05/05/2024 09:32) Pain: 0 (05/05/2024 09:32) Height: 67 in [170.2 cm] (05/06/2023 09:59) Weight: 261.1 lb [118.43 kg] (05/05/2024 09:32) Pulse Ox: 96% (05/05/2024 09:32) PE gen: 64 y w/m alert ox4, well-groomed and dressed, ambulatory without assistive devices. with pt heent: normocephalic anicteric perrla eomi. (+)corrective lenses. nares patent. eacs/tms without nelida, bulging or retractions. oral mucosa and hypopharynx moist and pink. uvula midline. no oral lesions noted. (+)bilat hearing aides neck: supple. trachea midline. no bruits noted lymph: no ant or posterior adenopathy noted endo: no thyromegaly appreciated cor: hrrr without m, c or g chest: ctab. chest symm abd: soft, nt, nd, bs x 4 ausc. no organomegaly or bruits noted msk: (+)5/5 ue and lower extrem prox and distally integ: no rashes or lesions noted neuro: pt alert ox4, perrla, eomi, cn 2-12 intact. no tremors or abnormal movts noted psyche: mood and affect appropriate. recent and remote memory intact ASSESSMENT/PLAN: 1) prediabetes - a1c = 6.4. discussed poss adding med such as glimepiride. will discuss with his nephro. reviewed a heart healthy/diab diet. daily exercise. wt loss 2) hypertension - well-controlled on current medications 3) hx of ca of tail of pancreas 4) s/p right nephrectomy 2/2 ca- followed per nephro 5) ckd stage 3B- followed per nephro. avoid nsaids and dark nina 5) hx of gout- fluids. fluids. cont with allopurinol. low purine diet 6) meds and labs reviewed with pt. copies provided to pt 7) reviewed a heart healthy/diab diet of no added salt, diet low in fat, chol and processed foods. increase fluids, fruits, veg, fiber and bran in diet. daily exercise for 30 min, increase as tolerated HEALTH MAINTENANCE/CLINICAL REMINDERS: Clinical Reminders Activity Sexual Orientation: The patient thinks of their sexual orientation as: Straight or Heterosexual MEDICATION RECONCILIATION Medication Reconciliation report reviewed and discussed with patient/caregiver. [facility] prescription medications, non-VA prescription medications, OTC and herbal medications reviewed: Patient/caregiver verifies that the list is complete and accurate and voices understanding. FOLLOW-UP: 6mos with labs 1- 2 wks prior including cbc, cmp, mg, vit d, lipids, a1c, microalb, po4 and uric acid I am the Attending Physician. TOTAL TIME SPENT: Spent 25 minutes in care of this patient today including review of records, exam, and placing orders. /kenneth/ HILARIA NINA PHYSICIAN Signed: 05/05/2024 09:58 05/31/2024 ADDENDUM STATUS: COMPLETED Pt & pt's spouse call reporting that pt recently had (on/around 05/18/24) f/u w/[facility] nephro and that his potassium was high (5.9). Pt states he was instruted to have it checked again and is [facility] (pt states he is having issues w/Medicare coverage as he was supposed to be covered by now but does not yet appear to have coverage). Pt/spouse pt has not had any med changes since last [facility] nor has there been any significant dietary changes. Reports he has been trying to limit potassium intake since being aware of [facility] lab result. K+ lab pended for PCP. Advised pt to call back to [facility] the following day to review results. /kenneth/ SWATI BLAKE REGISTERED NURSE Signed: 05/31/2024 10:51 Receipt Acknowledged By: 05/31/2024 16:26 /kenneth/ HILARIA NINA PHYSICIAN 06/02/2024 ADDENDUM STATUS: COMPLETED Pt & pt's spouse call requesting result of pt's K+ lab. Result reviewed w/pt & pt's spouse. Pt & spouse verbalized understanding stating they would relay this result to [facility] provider and call back to speak w/[facility] if actual records are needed. /kesha BLAKE REGISTERED NURSE Signed: 06/02/2024 11:02 [facility] May 05, 2024 09:22 AM PRIMARY CARE NURSI NG NOTE: LOCAL TITLE: OUTPATIENT NURSING INTAKE NOTE (T) STANDARD TITLE: PRIMARY CARE NURSING NOTE DATE OF NOTE: MAY 05, 2024@09:22 ENTRY DATE: MAY 05, 2024@09:22:53 AUTHOR: CHICO RODRIGEZ COSIGNER: URGENCY: STATUS: COMPLETED Hemoglobin A1C Results: Collection DT Specimen Test Name Result Units Ref Range 04/25/2024 09:10 BLOOD HEMOGLOBIN A1C 6.4 H % 3.6 - 5.7 Comment: Values obtained from A1C measurements can vary. For typical A1C Comment: assays, a reported value of 7.0 could actually be between 6.72 and Comment: 7.28 if measured by a reference method. A reported value of 9.0 Comment: could actually be between 8.73 and 9.27. Ref: Comment: http://www.ngsp.org/CAPdata.asp 10/27/2023 08:59 BLOOD HEMOGLOBIN A1C 6.2 H % 3.6 - 5.7 Comment: Values obtained from A1C measurements can vary. For typical A1C Comment: assays, a reported value of 7.0 could actually be between 6.72 and Comment: 7.28 if measured by a reference method. A reported value of 9.0 Comment: could actually be between 8.73 and 9.27. Ref: Comment: http://www.ngsp.org/CAPdata.asp 05/06/2023 10:57 BLOOD HEMOGLOBIN A1C 6.1 H % 3.6 - 5.7 Comment: Values obtained from A1C measurements can vary. For typical A1C Comment: assays, a reported value of 7.0 could actually be between 6.72 and Comment: 7.28 if measured by a reference method. A reported value of 9.0 Comment: could actually be between 8.73 and 9.27. Ref: Comment: http://www.ngsp.org/CAPdata.asp Review Allergies Allergies reviewed and updated per protocol. ALLERGIES/ADVERSE REACTIONS No Known Allergies MEDICATION LIST REVIEW REPORT Patient states no change in documented OTC/Herbals at this visit. 1. Has the patient been feeling sad or distressed? No 2. Has the patient been having personal or family problems? No 3. Has the patient been experiencing worry and/or stress? No 4. Has the patient been having problems with drugs and/or alcohol? No 5. Crisis Line pocket card was provided to patient. No/patient declined [facility] not documented this visit. Clinical Reminders Activity Alcohol Use Screen (AUDIT-C): Alcohol Screen: SCREEN FOR ALCOHOL (AUDIT-C) An alcohol screening test (AUDIT-C) was negative (score=3). 1. How often did you have a drink containing alcohol in the past year? Consider a drink to be a 12 ounce can or bottle of regular beer, 8 ounces of malt liquor, a 5 ounce glass of table wine, or a 1.5 ounce shot of liquor (like scotch, gin, or vodka). Two to three times per week 2. How many drinks containing alcohol did you have on a typical day when you were drinking in the past year? One or two drinks 3. How often did you have six or more drinks on one occasion in the past year? Never BMI Screening: At this visit, the health risks of obesity were reviewed and discussed with the patient, and the benefits of a weight management treatment program, such as [facility] was discussed and offered to the patient. Patient declines referral. After discussing the health risks of obesity and offering a referral to [facility] or another weight [facility] program outside [facility], the patient DECLINES REFERRAL to [facility] or other weight loss program at this time. COVID-19 Immunization: Depression Screening: Perform PHQ-2 A PHQ-2 screen was performed. The score was 0 which is a negative screen for depression. Over the past two weeks, how often have you been bothered by the following problems? 1. Little interest or pleasure in doing things Not at all 2. Feeling down, depressed, or hopeless Not at all Foot Exam: PAVE: Herpes Zoster (Shingles) Vaccine: Prior Herpes Zoster vaccination The patient has been vaccinated in the past but written documentation of vaccination is not available today. Patient instructed to obtain a written record of the prior vaccine and bring it to the next appointment. Patient Education Documentation: LEARNING NEEDS ASSESSMENT: The patient/family/significant other reports no changes in learning needs. Suicide Screen: C-SSRS Screening Love Suicide Severity Rating Scale (C-SSRS) screener 1. Over the past month, have you wished you were or wished you could go to sleep and not wake up? No 2. Over the past month, have you had any actual thoughts of killing yourself? No 3. Over the past month, have you been thinking about how you might do this? Response not required due to responses to other questions. 4. Over the past month, have you had these thoughts and had some intention of acting on them? Response not required due to responses to other questions. 5. Over the past month, have you started to work out or worked out the details of how to kill yourself? Response not required due to responses to other questions. 6. If yes, at any time in the past month did you intend to carry out this plan? Response not required due to responses to other questions. 7. In your lifetime, have you ever done anything, started to do anything, or prepared to do anything to end your life (for example, collected pills, obtained a gun, gave away valuables, went to the roof but didn't jump)? No 8. If YES, was this within the past 3 months? Response not required due to responses to other questions. Tobacco Use Screening: The patient is a former tobacco user. The patient quit fifteen or more years ago. /kenneth/ CHICO RODRIGEZ LICENSED PRACTICAL NURSE Signed: 05/05/2024 09:37 CHICO RODRIGEZ [facility]
--- OUTSIDE RECORDS SUMMARY | 2024-11-30 09:30 | XMS_ITS | Encounter Summary ---
Author Name [facility] Organization 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 Date/Time Encounter Type Encounter Description Reason Provider Source Nov 30, 2024 01:30 PM TELEHEALTH FACILITY FEE PRIMARY CARE/MEDICINE ICD-10-CM M25.569 Pain in unspecified knee WENDIE GERONIMO Encounter Template Text not used by [facility] Assessments - Encounter Diagnoses This section includes the primary and secondary diagnoses documented for the Encounter. Date/Time Primary/Secondary Diagnosis Diagnosis Name Provider Source Dec 20, 2024 02:42 PM PRIMARY Pain in unspecified knee GERONIMOWENDIE [facility] Plan of Treatment: Future Appointments (+ 6 months) and Future Tests (+/- 45 days) The Plan of Treatment section includes future care activities for the patient from all [place] [facility] This section includes future appointments and future orders which are active, pending or scheduled. Future Appointments This section includes appointments that were scheduled to occur 6 months from the date of the Encounter, up to a maximum of 20 appointments. The data comes from all [place] treatment facilities. Appointment Date/Time Appointment Type Appointme nt Facility Name Dec 27, 2024 09:30 AM AMBULATORY - SURGERY MARTIN RAPHAEL [facility] Jun 01, 2025 09:15 AM AMBULATORY - NONE [facility] Active, Pending, and Scheduled Orders This section includes a listing of several types of active, pending, and scheduled orders, including clinic medications orders, diagnostic test orders, procedure orders and consult orders; where the start date of the order is 45 days before the date of the Encounter or 45 days after the date of theEncounter. The data comes from all [place] treatment facilities. Test Date/Time Test Type Test Details Facility Name Nov 05, 2024 12:00 AM Laboratory - Chemi stry Order MICROALBUMIN/CREATININ E RATIO PANEL URINE, RANDOM SP ONCE [facility] Dec 02, 2024 04:12 PM Laboratory - Chemi stry Order OCCULT BLOOD FIT X1 SCREEN VIAL (FOBT) FECES WC ONCE [facility] Social History: Smoking Status (Most current) and Tobacco Use (All prior to encounter date) This section includes the most current, and the historical, smoking and tobacco- related health factors from the [place] facility where the Encounter took place. Current Smoking Status This section includes the most current smoking, or tobacco-related health factor, from the [place] facility where the Encounter took place. Date/Time Current Smoking Status Comment Facil ity May 05, 2024 09:30 AM [place] Tobacco Use History This section includes a history of the smoking, or tobacco-related health factors, that were collected on or before the date of the Encounter. The data comes from the [place] facility where the Encounter took place. Date/Time Smoking Status/Tobacco Use Comment F acility May 05, 2024 09:30 AM AR-TOBACCO QUIT 15 YRS OR MORE [facility] May 06, 2023 10:00 AM VA-TOBACCO FORMER USER [facility] May 06, 2023 10:00 AM VA-TOBACCO QUIT 15 YRS OR MORE [facility] Encounter Notes: All associated encounter notes This section contains the clinical notes associated to the Encounter. Date/Time Encounter Note(s) Provider Source Nov 30, 2024 01:25 PM PRIMARY CARE NURSI NG NOTE: LOCAL TITLE: OUTPATIENT NURSING INTAKE NOTE (T) STANDARD TITLE: PRIMARY CARE NURSING NOTE DATE OF NOTE: NOV 30, 2024@13:25 ENTRY DATE: NOV 30, 2024@13:25:14 AUTHOR: WENDIE GERONIMO EXP COSIGNER: URGENCY: STATUS: COMPLETED Hemoglobin A1C Results: Collection DT Specimen Test Name Result Units Ref Range 10/25/2024 08:51 BLOOD HEMOGLOBIN A1C 6.0 H % 3.6 - 5.7 Comment: Values obtained from A1C measurements can vary. For typical A1C Comment: assays, a reported value of 7.0 could actually be between 6.72 and Comment: 7.28 if measured by a reference method. A reported value of 9.0 Comment: could actually be between 8.73 and 9.27. Ref: Comment: http://www.ngsp.org/CAPdata.asp 04/25/2024 09:10 BLOOD HEMOGLOBIN A1C 6.4 H [...] per protocol. ALLERGIES/ADVERSE REACTIONS No Known Allergies New blood pressure reading was documented at this visit. 134/75 Have you fallen in the last 30 days? NO MEDICATION LIST REVIEW REPORT Patient states no change in documented OTC/Herbals at this visit. 1. Has the patient been feeling sad or distressed? No 2. Has the patient been having personal or family problems? No 3. Has the patient been experiencing worry and/or stress? No 4. Has the patient been having problems with drugs and/or alcohol? No 5. [facility] Crisis Line pocket card was provided to patient. No/patient declined [facility] ([facility] [place] [employer]) What matters most to you? Comment: Family Clinical Reminders Activity Advance Directive Education Screen: Patient received information regarding Advance Directives: No - Patient declined information at this time. Patient states AD's are in place. COVID-19 Immunization: Refused Pfizer Monovalent COVID-19 vaccine Immunization: COVID-19 (Mixamo), MRNA, LNP-S, PF, SINDHU-SUCROSE, 30 MCG/0.3 ML (AGES 12+ YEARS) Refusal Reason: PATIENT DECISION Patient refuses all immunization(s) in the COVID-19 group Date Documented: 11/30/24 13:31 Foot Exam: PAVE: A complete foot check was completed at this encounter. Visual exam results: Normal Pedal Pulses exam results: Normal/Present Sensation exam results: Normal/Intact to monofilament The following risk level was identified for this patient: +POD RISK SCORE+ --LEVEL 0 - (NORMAL RISK) Normal sensation and circulation No deformity No ulceration or history of amputation -POD RISK SCORE- 1. Explained the importance of daily foot checks. Explained that loss of sensation leads to callouses. Callouses break down, which result in ulcers that may lead to gangrene and amputation. 2. Stressed the importance of daily foot hygiene. Warm (not hot) bathing of the feet, complete drying and thorough inspection for changes in the condition of the skin constitute daily foot care. Demonstrated how to do a thorough foot check. 3. Emphasized the use of clean, non-restrictive socks/stockings and well fitting shoes. 4. Stressed the importance of immediate follow-up of any foot injuries or ulcers. Explained that he/she should be non-weight bearing whenever there are lesions on the foot, to prevent cellular damage. Level of Understanding: Good Herpes Zoster (Shingles) Vaccine: The patient declines to receive the recommended dose of zoster (shingles) vaccine. Immunization: ZOSTER RECOMBINANT Refusal Reason: PATIENT DECISION Patient refuses all immunization(s) in the ZOSTER group Date Documented: 11/30/24 13:41 Homelessness/Food Insecurity Screen: In the past 2 months, have you been living in stable housing that you own, rent, or stay in as part of a household? Yes - Living in stable housing. Are you worried or concerned that in the next 2 months you may NOT have stable housing that you own, rent, or stay in as part of a household? No - Not worried about housing near future The [facility] reports the following: Within the past 12 months, you worried whether your food would run out before you got money to buy more. Never true Within the past 12 months, the food you bought just didn't last and you didn't have money to get more. Never true Patient Education Documentation: LEARNING NEEDS ASSESSMENT: Learning Preference: Hands-on Barriers to Learning: No Barriers to Learning Social Influences Related to Educational Needs: No social barriers to learning RSV Immunization: Respiratory Syncytial Virus (RSV) Vaccine: Refused [employer] (Abrysvo, RSVpreF vaccine). Immunization: RSV, BIVALENT, PROTEIN SUBUNIT RSVPREF, DILUENT RECONSTITUTED, 0.5 ML, PF Refusal Reason: PATIENT DECISION Patient refuses all immunization(s) in the RSV group Date Documented: 11/30/24 13:42 /kenneth/ WENDIE GERONIMO LICENSED PRACTICAL NURSE Signed: 11/30/2024 13:42 WENDIE GERONIMO [facility]
--- OUTSIDE RECORDS SUMMARY | 2024-12-27 05:30 | XMS_ITS | Encounter Summary ---
Author Name [facility] [place] Organization [facility] of [facility] [place]) Address [address] [place] [id number] Care Team Providers Care Irrigator Name Role Phone RENÉE WEINER Primary Care [...] PLAN G Apr 21, 2024 PLAN G [id number] [phone] CANDICE CONTRERAS PATIENT MEDICARE (WNR) MEDICARE (M) PART A Apr 21, 2024 PART A [id number] [facility] CANDICE CONTRERAS PATIENT MEDICARE (WNR) MEDICARE (M) PART B Apr 21, 2024 PART B [id number] [facility] CANDICE CONTRERAS PATIENT Selected Encounter This section includes the information on record at [place] for the Encounter. Date/Time Encounter Type Encounter Description Reason Provider Source Dec 27, 2024 09:30 AM OFFICE O/P EST MOD 30 MIN OPTOMETRY ICD-10-CM R73.03 Prediabetes WENDIE CARTER Encounter Template Text not used by [place] Assessments - Encounter Diagnoses This section includes the primary and secondary diagnoses documented for the Encounter. Date/Time Primary/Secondary Diagnosis Diagnosis Name Provider Source Jan 07, 2025 10:41 PM PRIMARY Prediabetes WENDIE CARTER ROBERTO Jan 07, 2025 10:41 PM SECONDARY Age-related nuclear cataract, bilateral WENDIE CARTER NELLY Jan 07, 2025 10:41 PM SECONDARY Hypermetropia, bilateral WENDIE CARTER NELLY Jan 07, 2025 10:41 PM SECONDARY Open angle with borderline findings, low risk, bilateral WENDIE CARTER ROBERTO Jan 07, 2025 10:41 PM SECONDARY Presbyopia WENDIE CARTERDEBRA MEJIA Plan of Treatment: Future Appointments (+ 6 months) and Future Tests (+/- 45 days) The Plan of Treatment section includes future care activities for the patient from all [place] [facility] This section includes future appointments and future orders which are active, pending or scheduled. Future Appointments This section includes appointments that were scheduled to occur 6 months from the date of the Encounter, up to a maximum of 20 appointments. The data comes from all [place] treatment facilities. Appointment Date/Time Appointment Type Appointme nt Facility Name Jun 01, 2025 09:15 AM AMBULATORY - NONE [facility] Jun 08, 2025 10:30 AM AMBULATORY - NONE GRISELDA Avery [facility] Active, Pending, and Scheduled Orders This section includes a listing of several types of active, pending, and scheduled orders, including clinic medications orders, diagnostic test orders, procedure orders and consult orders; where the start date of the order is 45 days before the date of the Encounter or 45 days after the date of theEncounter. The data comes from all [place] treatment facilities. Test Date/Time Test Type Test Details Facility Name Dec 02, 2024 04:12 PM Laboratory - Chemi stry Order OCCULT BLOOD FIT X1 SCREEN VIAL (FOBT) FECES WC ONCE [facility] Social History: Smoking Status (Most current) and Tobacco Use (All prior to encounter date) This section includes the most current, and the historical, smoking and tobacco- related health factors from the [facility] facility where the Encounter took place. Current Smoking Status This section includes the most current smoking, or tobacco-related health factor, from the [place] facility where the Encounter took place. Date/Time Current Smoking Status Comment Facil ity May 05, 2024 09:30 AM VA-TOBACCO FORMER USER [facility] Tobacco Use History This section includes a history of the smoking, or tobacco-related health factors, that were collected on or before the date of the Encounter. The data comes from the [place] facility where the Encounter took place. Date/Time Smoking Status/Tobacco Use Comment F acility May 05, 2024 09:30 AM VA-TOBACCO QUIT 15 YRS OR MORE [facility] May 06, 2023 10:00 AM VA-TOBACCO FORMER USER [facility] May 06, 2023 10:00 AM VA-TOBACCO QUIT 15 YRS OR MORE [facility] Encounter Notes: All associated encounter notes This section contains the clinical notes associated to the Encounter. Date/Time Encounter Note(s) Provider Source Dec 27, 2024 09:21 AM OPTOMETRY OUTPATIE NT NOTE: LOCAL TITLE: OPTOMETRY OUTPATIENT CLINIC NOTE (T) STANDARD TITLE: OPTOMETRY OUTPATIENT NOTE DATE OF NOTE: DEC 27, 2024@09:21 ENTRY DATE: DEC 27, 2024@09:21:33 AUTHOR: WENDIE CARTER EXP COSIGNER: URGENCY: STATUS: COMPLETED 64 yowm here today for CANDE Last [place] exam: Dec [place], 2023 at the [place] Chief Complaint: Glasses may need some Rx change Ocular History: (+) Cat OU (+) Prediabetes (+) Moderate CDs OU LIOP: OD:18 OS:19 LCD: OD:0.70 OS:0.70 Ocular Medications: None Family Ocular History: Blindness/glaucoma/ARMD(-) Medical History: Exposure to Potentially Hazardous 01/05/2024 Substance ([facility] [id number]) Essential hypertension 05/06/2023 Gout 05/06/2023 Prediabetes 05/06/2023 History of primary malignant neoplasm 05/06/2023 of right kidney Malignant tumor of tail of pancreas 05/06/2023 Active Outpatient Medications (including Supplies): Active Non-VA Medications Status ===== 1) Non-VA ACETAMINOPHEN TAB 500MG NEEDED ACTIVE 2) Non-VA ALLOPURINOL TAB 150MG MOUTH EVERY DAY ACTIVE 3) Non-VA AMLODIPINE BESYLATE 5MG TAB 5MG MOUTH EVERY ACTIVE DAY 4) Non-VA ATENOLOL 50MG TAB 50MG MOUTH EVERY DAY ACTIVE 5) Non-VA BENAZEPRIL HCL 40MG TAB 40MG MOUTH EVERY DAY ACTIVE Allergies: Patient has answered NKA Current Rx: OD: +2.50 -0.25 X017 OS: +2.75 -0.50 X174 ADD: +2.50 VA: cRx OD: 20/20 OS: 20/20 EOMs: FULL OU PUPILS: ERRL -APD OU CF: FULL OU Refraction: OD: +2.75 -0.25 x022 VA: 20/20 OS: +3.00 DS VA: 20/20 ADD: +2.50 Slit Lamp Exam: Lids and lashes: clear OU Conjunctiva: clear OU Cornea: clear OU Anterior chamber: d/q OU Angles: 4 n/t OU Iris: clear, (-) ignacio OU Lens: OD: 2 NS OS: 2 NS Obtained informed consent from patient for use of DPA's, educated patient about side effects. 1 gt. Fluress OU, 1 gt. 1.0% [place]. OU, 1 gt. 2.5 % Phenyl. OU @ 9:34 AM Tonometry (A): @ 9:34 AM OD/OS: (12/27/24) DFE: C/D: OD: 0.70/0.70 c temp sloping OS: 0.70/0.70 c temp sloping Posterior pole: clear OU, no CSME OU Vessels: normal course/caliber OU Vitreous: clear OU Periphery: (-) holes/tears 360 OU Assessment/Plan: 1. Hyperopia c presb OU. Rx released to [facility]. 2. Nuclear Cat OU - stable. Monitor. 3. Prediabetes s DR OU, no CSME OU; p/e on need to control BS/BP/lipids. Monitor 1 year c CANDE; RTC STAT c any changes in vision. 4. 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 Monitor 1 year c CANDE, HVF, Pach, Photos and OCT for baseline purposes. RTC: 1 year CANDE, HVF, Pach, Photos and OCT /kenneth/ WENDIE CARTER ELECTRICITY TRADER Signed: 12/27/2024 09:53 WENDIE CARTER OC
--- OUTSIDE RECORDS SUMMARY | 2025-03-15 04:05 | XMS_ITS | Continuity of Care Document ---
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 It does not include entries that were removed or entered in error. Problem Status Onset Date Problem Type Date of Resolution Comments Source Essential hypertension Active Condition [facility] Exposure to Potentially Hazardous Substance (SCT [id number]) Active Condition [facility] Gout Active Condition [facility] History of primary malignant neoplasm of right kidney Active Condition [facility] Malignant tumor of tail of pancreas Active Condition [facility] Prediabetes Active Condition [facility] Diagnosis: ICD-10-CM R73.03 Prediabetes Active Diagnosis [facility] Diagnosis: ICD-10-CM M25.569 Pain in unspecified knee Active Diagnosis [facility] Diagnosis: ICD-10-CM Z77.29 Contact with and exposure to other hazardous substances Active Diagnosis [facility] Diagnosis: ICD-10-CM Z03.89 Encntr for obs for oth suspected diseases and cond ruled out Active Diagnosis [facility] Diagnosis: ICD-10-CM Z46.1 Encounter for fitting and adjustment of hearing aid Active Diagnosis [facility] Medications Combined list of outpatient medications from Department of Defense and [facility] facilities.Medications provided include 1) outpatient medications from the last 15 months, and 2) patient-reported medications. Medication Details Route Status Patient Instructions Prescription Expires Prescription Number Last Dispense Date Ordering Provider Order Date Order Qty Source ACETAMINOPH EN TAB TAKE 500MG PRN ACTIVE HILARIA NINA 2023 [facility] ALLOPURINOL TAB TAKE 150MG BY MOUTH EVERY DAY ORAL ACTIVE [place] 2024 [facility] AMLODIPINE BESYLATE 5MG TAB TAKE ONE TABLET BY MOUTH EVERY DAY ORAL ACTIVE [place] 2024 [facility] ATENOLOL 50MG TAB TAKE ONE TABLET BY MOUTH EVERY DAY ORAL ACTIVE [place] CRISTOPHER 2024 [facility] BENAZEPRIL HCL 40MG TAB TAKE ONE TABLET BY MOUTH EVERY DAY ORAL ACTIVE [place] CRISTOPHER 2024 [facility] Immunizations Combined list of available immunizations from the Department of Defense and Veterans Affairs facilities. Immunization Series Date Given Administered By Site Reaction Lot Number CVX Code Drug Sound Technician Status Comments Source INFLUENZA, HIGH-DOSE, TRIVALENT, PF 1 2023 135 complet ed HISTORICA L INFORMATI ON - FROM OTHER REGISTRY, [facility] TDAP 2023 RADHA RUANO RIGHT DELTO ID [id number] 115 complet ed Completed Series, [place], [place] INFLUENZA, UNSPECIFIED FORMULATION 2022 88 complet ed HISTORICA L INFORMATI ON - FROM PATIENT'S RECALL, [facility] VARICELLA 1 2022 21 complet ed HISTORICA L INFORMATI ON - FROM OTHER REGISTRY, [facility] COVID-19 (MODERNA), MRNA, LNP-S, BIVALENT, PF, 50 MCG/0.5 ML OR 25MCG/0.25 ML DOSE 2022 229 complet ed Booster for Series, HISTORICA L INFORMATI ON - FROM PATIENT'S WRITTEN RECORD, Per COVID-19 Vaccinati on Record Card Lot#: [id number] Mfr: MOD[employer] [facility] MENINGOCOCCAL CONJUGATE QUADRIVALENT, MENACWY-TT (MCV4) 2021 203 complet ed HISTORICA L INFORMATI ON - FROM OTHER REGISTRY, [facility] INFLUENZA, UNSPECIFIED FORMULATION 2021 88 complet ed HISTORICA L INFORMATI ON - FROM PATIENT'S RECALL, [facility] HIB (PRP-T) 2021 48 complet ed HISTORICA L INFORMATI ON - FROM OTHER REGISTRY, [facility] MENINGOCOCCAL B, OMV 2021 163 complet ed HISTORICA L INFORMATI ON - FROM OTHER REGISTRY, [facility] MENINGOCOCCAL CONJUGATE QUADRIVALENT, MENACWY-TT (MCV4) 2021 203 complet ed HISTORICA L INFORMATI ON - FROM OTHER REGISTRY, [facility] PNEUMOCOCCAL CONJUGATE PCV20, POLYSACCHARID E [id number] CONJUGATE, ADJUVANT, PF 1 2021 216 complet ed HISTORICA L INFORMATI ON - FROM OTHER REGISTRY, [facility] COVID-19 (PFIZER), MRNA, LNP-S, PF, 30 MCG/0.3 ML DOSE 2021 208 complet ed Booster for Series, HISTORICA L INFORMATI ON - FROM PATIENT'S WRITTEN RECORD, Per COVID-19 Vaccinati on Record Card Lot#: [id number] Mfr: [employer] [facility] COVID-19 (PFIZER), MRNA, LNP-S, PF, 30 MCG/0.3 ML DOSE, SINDHU-SUCROSE (AGES 12+ YEARS) 3 2021 217 complet ed HISTORICA L INFORMATI ON - FROM OTHER REGISTRY, [facility] COVID-19 (MODERNA), MRNA, LNP-S, PF, 100 MCG/0.5ML DOSE OR 50 MCG/0.25ML DOSE 2 2020 207 complet ed HISTORICA L INFORMATI ON - FROM OTHER REGISTRY, [facility] COVID-19 (MODERNA), MRNA, LNP-S, PF, 100 MCG/0.5ML DOSE OR 50 MCG/0.25ML DOSE 2020 207 complet ed Booster for Series, HISTORICA L INFORMATI ON - FROM PATIENT'S WRITTEN RECORD, Per COVID-19 Vaccinati on Record Card Lot#: [id number] Mfr: [employer] [facility] COVID-19 (Prestigos), VECTOR-NR, [id number], PF, 0.5 ML 1 2020 212 complet ed HISTORICA L INFORMATI ON - FROM PATIENT'S WRITTEN RECORD, Per COVID-19 Vaccinati on Record Card Lot#: [id number] Mfr: RADHA AND RADHA [facility] Results Combined list of recent chemistry, hematology and other laboratory results from Department of Defense and Veterans Affairs, ranging from 15 months to all on record, depending upon the facility. Order Name Results Value Reference Range Date Interpretation Specimen Comments Source PHOSPHORU S PHOSPHATE [MASS/VOLUM E] IN SERUM OR PLASMA 2.9 mg/dL 2.5 - 4.5 10/25 Specimen Type: PLASMA Comment: GLUCOSE The ADA recommends a fasting glucose of 99 mg/dL as the GLUCOSE upper limit of normal. TP Per package insert reference range for recumbent is 6.0 to 7.8 TP g/dL and for >60 y/o is lower by 0.2 g/dL. Plasma samples will TP generally have higher values (about 0.2 to 0.4 g/dL higher) due TP to presence of fibrinogen. TRIG REF RANGE: BORDERLINE HIGH: 150-199 mg/dL HIGH: 200-499 mg/dL TRIG VERY HIGH: >=500 mg/dL CHOL REF RANGE: BORDERLINE HIGH: 200-239 mg/dL HIGH: >=240 mg/dL HDLC Values >60 are a negative risk factor for heart disease. DLDLREF RANGE: NEAR OR ABOVE OPTIMAL: 100-129 mg/dL BORDERLINE DLDLHIGH: 130-159 mg/dL HIGH: 160-189 mg/dL VERY HIGH: >=190 Ordering Provider: ALAN NINA Report Released Date/Time: May 05, 2024 09:51 AM Reporting Lab: [address] [address] Performing Lab: [address] [address] [facility] COMPREH SIVE METABOLIC PANEL ALBUMIN [MASS/VOLUM E] IN SERUM OR PLASMA 3.8 g/dL 3.5 - 4.8 10/25 Specimen Type: PLASMA Comment: GLUCOSE The ADA recommends a fasting glucose of 99 mg/dL as the GLUCOSE upper limit of normal. TP Per package insert reference range for recumbent is 6.0 to 7.8 TP g/dL and for >60 y/o is lower by 0.2 g/dL. Plasma samples will TP generally have higher values (about 0.2 to 0.4 g/dL higher) due TP to presence of fibrinogen. TRIG REF RANGE: BORDERLINE HIGH: 150-199 mg/dL HIGH: 200-499 mg/dL TRIG VERY HIGH: >=500 mg/dL CHOL REF RANGE: BORDERLINE HIGH: 200-239 mg/dL HIGH: >=240 mg/dL HDLC Values >60 are a negative risk factor for heart disease. DLDLREF RANGE: NEAR OR ABOVE OPTIMAL: 100-129 mg/dL BORDERLINE DLDLHIGH: 130-159 mg/dL HIGH: 160-189 mg/dL VERY HIGH: >=190 Ordering Provider: ALAN NINA R Report Released Date/Time: May 05, 2024 09:51 AM Reporting Lab: [place] [phone] Performing Lab: [place] [phone] [facility] COMPREHEN SIVE METABOLIC PANEL ALKALINE PHOSPHATASE [ENZYMATIC ACTIVITY/VO LUME] IN SERUM OR PLASMA 80 U/L 40 - 150 10/25 Specimen Type: PLASMA Comment: GLUCOSE The ADA recommends a fasting glucose of 99 mg/dL as the GLUCOSE upper limit of normal. TP Per package insert reference range for recumbent is 6.0 to 7.8 TP g/dL and for >60 y/o is lower by 0.2 g/dL. Plasma samples will TP generally have higher values (about 0.2 to 0.4 g/dL higher) due TP to presence of fibrinogen. TRIG REF RANGE: BORDERLINE HIGH: 150-199 mg/dL HIGH: 200-499 mg/dL TRIG VERY HIGH: >=500 mg/dL CHOL REF RANGE: BORDERLINE HIGH: 200-239 mg/dL HIGH: >=240 mg/dL HDLC Values >60 are a negative risk factor for heart disease. DLDLREF RANGE: NEAR OR ABOVE OPTIMAL: 100-129 mg/dL BORDERLINE DLDLHIGH: 130-159 mg/dL HIGH: 160-189 mg/dL VERY HIGH: >=190 Ordering Provider: ALAN NINA R Report Released Date/Time: May 05, 2024 09:51 AM Reporting Lab: [place] [phone] Performing Lab: [place] [phone] [facility] COMPREHEN SIVE METABOLIC PANEL ALANINE AMINOTRANSF ERASE [ENZYMATIC ACTIVITY/VO LUME] IN SERUM OR PLASMA 21 U/L <55 - 55 10/25 Specimen Type: PLASMA Comment: GLUCOSE The ADA recommends a fasting glucose of 99 mg/dL as the GLUCOSE upper limit of normal. TP Per package insert reference range for recumbent is 6.0 to 7.8 TP g/dL and for >60 y/o is lower by 0.2 g/dL. Plasma samples will TP generally have higher values (about 0.2 to 0.4 g/dL higher) due TP to presence of fibrinogen. TRIG REF RANGE: BORDERLINE HIGH: 150-199 mg/dL HIGH: 200-499 mg/dL TRIG VERY HIGH: >=500 mg/dL CHOL REF RANGE: BORDERLINE HIGH: 200-239 mg/dL HIGH: >=240 mg/dL HDLC Values >60 are a negative risk factor for heart disease. DLDLREF RANGE: NEAR OR ABOVE OPTIMAL: 100-129 mg/dL BORDERLINE DLDLHIGH: 130-159 mg/dL HIGH: 160-189 mg/dL VERY HIGH: >=190 Ordering Provider: ALAN NINA Report Released Date/Time: May 05, 2024 09:51 AM Reporting Lab: [place] [phone] Performing Lab: [place] [phone] [place] [address] COMPREHEN SIVE METABOLIC PANEL ASPARTATE AMINOTRANSF ERASE [ENZYMATIC ACTIVITY/VO LUME] IN SERUM OR PLASMA 27 U/L 10 - 40 10/25 Specimen Type: PLASMA Comment: GLUCOSE The ADA recommends a fasting glucose of 99 mg/dL as the GLUCOSE upper limit of normal. TP Per package insert reference range for recumbent is 6.0 to 7.8 TP g/dL and for >60 y/o is lower by 0.2 g/dL. Plasma samples will TP generally have higher values (about 0.2 to 0.4 g/dL higher) due TP to presence of fibrinogen. TRIG REF RANGE: BORDERLINE HIGH: 150-199 mg/dL HIGH: 200-499 mg/dL TRIG VERY HIGH: >=500 mg/dL CHOL REF RANGE: BORDERLINE HIGH: 200-239 mg/dL HIGH: >=240 mg/dL HDLC Values >60 are a negative risk factor for heart disease. DLDLREF RANGE: NEAR OR ABOVE OPTIMAL: 100-129 mg/dL BORDERLINE DLDLHIGH: 130-159 mg/dL HIGH: 160-189 mg/dL VERY HIGH: >=190 Ordering Provider: ALAN NINA Report Released Date/Time: May 05, 2024 09:51 AM Reporting Lab: [place] [phone] Performing Lab: [place] [phone] [facility] COMPREHEN SIVE METABOLIC PANEL UREA NITROGEN [MASS/VOLUM E] IN SERUM OR PLASMA 25.0 mg/dL 8.4 - 25.7 10/25 Specimen Type: PLASMA Comment: GLUCOSE The ADA recommends a fasting glucose of 99 mg/dL as the GLUCOSE upper limit of normal. TP Per package insert reference range for recumbent is 6.0 to 7.8 TP g/dL and for >60 y/o is lower by 0.2 g/dL. Plasma samples will TP generally have higher values (about 0.2 to 0.4 g/dL higher) due TP to presence of fibrinogen. TRIG REF RANGE: BORDERLINE HIGH: 150-199 mg/dL HIGH: 200-499 mg/dL TRIG VERY HIGH: >=500 mg/dL CHOL REF RANGE: BORDERLINE HIGH: 200-239 mg/dL HIGH: >=240 mg/dL HDLC Values >60 are a negative risk factor for heart disease. DLDLREF RANGE: NEAR OR ABOVE OPTIMAL: 100-129 mg/dL BORDERLINE DLDLHIGH: 130-159 mg/dL HIGH: 160-189 mg/dL VERY HIGH: >=190 Ordering Provider: ALAN NINA Report Released Date/Time: May 05, 2024 09:51 AM Reporting Lab: [address] [phone] Performing Lab: [address] [phone] [facility] LANDY GAINESE METABOLIC PANEL CALCIUM [MASS/VOLUM E] IN SERUM OR PLASMA 9.9 mg/dL 8.6 - 10.3 10/25 Specimen Type: PLASMA Comment: GLUCOSE The ADA recommends a fasting glucose of 99 mg/dL as the GLUCOSE upper limit of normal. TP Per package insert reference range for recumbent is 6.0 to 7.8 TP g/dL and for >60 y/o is lower by 0.2 g/dL. Plasma samples will TP generally have higher values (about 0.2 to 0.4 g/dL higher) due TP to presence of fibrinogen. TRIG REF RANGE: BORDERLINE HIGH: 150-199 mg/dL HIGH: 200-499 mg/dL TRIG VERY HIGH: >=500 mg/dL CHOL REF RANGE: BORDERLINE HIGH: 200-239 mg/dL HIGH: >=240 mg/dL HDLC Values >60 are a negative risk factor for heart disease. DLDLREF RANGE: NEAR OR ABOVE OPTIMAL: 100-129 mg/dL BORDERLINE DLDLHIGH: 130-159 mg/dL HIGH: 160-189 mg/dL VERY HIGH: >=190 Ordering Provider: ALAN NINA Report Released Date/Time: May 05, 2024 09:51 AM Reporting Lab: [address] [phone] Performing Lab: [place] [phone] [facility] COMPREHEN SIVE METABOLIC PANEL CREATININE [MASS/VOLUM E] IN SERUM OR PLASMA 1.6 mg/dL 0.7 - 1.3 10/25 H Specimen Type: PLASMA Comment: GLUCOSE The ADA recommends a fasting glucose of 99 mg/dL as the GLUCOSE upper limit of normal. TP Per package insert reference range for recumbent is 6.0 to 7.8 TP g/dL and for >60 y/o is lower by 0.2 g/dL. Plasma samples will TP generally have higher values (about 0.2 to 0.4 g/dL higher) due TP to presence of fibrinogen. TRIG REF RANGE: BORDERLINE HIGH: 150-199 mg/dL HIGH: 200-499 mg/dL TRIG VERY HIGH: >=500 mg/dL CHOL REF RANGE: BORDERLINE HIGH: 200-239 mg/dL HIGH: >=240 mg/dL HDLC Values >60 are a negative risk factor for heart disease. DLDLREF RANGE: NEAR OR ABOVE OPTIMAL: 100-129 mg/dL BORDERLINE DLDLHIGH: 130-159 mg/dL HIGH: 160-189 mg/dL VERY HIGH: >=190 Ordering Provider: ALAN NINA Report Released Date/Time: May 05, 2024 09:51 AM Reporting Lab: [address] [phone] Performing Lab: [address] [phone] [facility] COMPREHEN SIVE METABOLIC PANEL CARBON DIOXIDE, TOTAL [MOLES/VOLU ME] IN SERUM OR PLASMA 21 mmol/L 22 - 30 10/25 L Specimen Type: PLASMA Comment: GLUCOSE The ADA recommends a fasting glucose of 99 mg/dL as the GLUCOSE upper limit of normal. TP Per package insert reference range for recumbent is 6.0 to 7.8 TP g/dL and for >60 y/o is lower by 0.2 g/dL. Plasma samples will TP generally have higher values (about 0.2 to 0.4 g/dL higher) due TP to presence of fibrinogen. TRIG REF RANGE: BORDERLINE HIGH: 150-199 mg/dL HIGH: 200-499 mg/dL TRIG VERY HIGH: >=500 mg/dL CHOL REF RANGE: BORDERLINE HIGH: 200-239 mg/dL HIGH: >=240 mg/dL HDLC Values >60 are a negative risk factor for heart disease. DLDLREF RANGE: NEAR OR ABOVE OPTIMAL: 100-129 mg/dL BORDERLINE DLDLHIGH: 130-159 mg/dL HIGH: 160-189 mg/dL VERY HIGH: >=190 Ordering Provider: ALAN NINA R Report Released Date/Time: May 05, 2024 09:51 AM Reporting Lab: [address] [phone] Performing Lab: [address] [phone] [facility] METABOLIC PANEL GLUCOSE [MASS/VOLUM E] IN SERUM OR PLASMA 107 mg/dL 74 - 99 10/25 H Specimen Type: PLASMA Comment: GLUCOSE The ADA recommends a fasting glucose of 99 mg/dL as the GLUCOSE upper limit of normal. TP Per package insert reference range for recumbent is 6.0 to 7.8 TP g/dL and for >60 y/o is lower by 0.2 g/dL. Plasma samples will TP generally have higher values (about 0.2 to 0.4 g/dL higher) due TP to presence of fibrinogen. TRIG REF RANGE: BORDERLINE HIGH: 150-199 mg/dL HIGH: 200-499 mg/dL TRIG VERY HIGH: >=500 mg/dL CHOL REF RANGE: BORDERLINE HIGH: 200-239 mg/dL HIGH: >=240 mg/dL HDLC Values >60 are a negative risk factor for heart disease. DLDLREF RANGE: NEAR OR ABOVE OPTIMAL: 100-129 mg/dL BORDERLINE DLDLHIGH: 130-159 mg/dL HIGH: 160-189 mg/dL VERY HIGH: >=190 Ordering Provider: ALAN NINA Report Released Date/Time: May 05, 2024 09:51 AM Reporting Lab: [address] [phone] Performing Lab: [address] [phone] [facility] COMPREHEN SIVE METABOLIC PANEL PROTEIN [MASS/VOLUM E] IN SERUM OR PLASMA 7.0 g/dL 6.4 - 8.3 10/25 Specimen Type: PLASMA Comment: GLUCOSE The ADA recommends a fasting glucose of 99 mg/dL as the GLUCOSE upper limit of normal. TP Per package insert reference range for recumbent is 6.0 to 7.8 TP g/dL and for >60 y/o is lower by 0.2 g/dL. Plasma samples will TP generally have higher values (about 0.2 to 0.4 g/dL higher) due TP to presence of fibrinogen. TRIG REF RANGE: BORDERLINE HIGH: 150-199 mg/dL HIGH: 200-499 mg/dL TRIG VERY HIGH: >=500 mg/dL CHOL REF RANGE: BORDERLINE HIGH: 200-239 mg/dL HIGH: >=240 mg/dL HDLC Values >60 are a negative risk factor for heart disease. DLDLREF RANGE: NEAR OR ABOVE OPTIMAL: 100-129 mg/dL BORDERLINE DLDLHIGH: 130-159 mg/dL HIGH: 160-189 mg/dL VERY HIGH: >=190 Ordering Provider: ALAN NINA Report Released Date/Time: May 05, 2024 09:51 AM Reporting Lab: [address] [phone] Performing Lab: [place] [phone] [facility] COMPREHEN SIVE METABOLIC PANEL SODIUM [MOLES/VOLU ME] IN SERUM OR PLASMA 136 mmol/L 134 - 144 10/25 Specimen Type: PLASMA Comment: GLUCOSE The ADA recommends a fasting glucose of 99 mg/dL as the GLUCOSE upper limit of normal. TP Per package insert reference range for recumbent is 6.0 to 7.8 TP g/dL and for >60 y/o is lower by 0.2 g/dL. Plasma samples will TP generally have higher values (about 0.2 to 0.4 g/dL higher) due TP to presence of fibrinogen. TRIG REF RANGE: BORDERLINE HIGH: 150-199 mg/dL HIGH: 200-499 mg/dL TRIG VERY HIGH: >=500 mg/dL CHOL REF RANGE: BORDERLINE HIGH: 200-239 mg/dL HIGH: >=240 mg/dL HDLC Values >60 are a negative risk factor for heart disease. DLDLREF RANGE: NEAR OR ABOVE OPTIMAL: 100-129 mg/dL BORDERLINE DLDLHIGH: 130-159 mg/dL HIGH: 160-189 mg/dL VERY HIGH: >=190 Ordering Provider: ALAN NINA Report Released Date/Time: May 05, 2024 09:51 AM Reporting Lab: [place] [phone] Performing Lab: [place] [phone] [facility] COMPREHEN SIVE METABOLIC PANEL CHLORIDE [MOLES/VOLU ME] IN SERUM OR PLASMA 108 mmol/L 99 - 112 10/25 Specimen Type: PLASMA Comment: GLUCOSE The ADA recommends a fasting glucose of 99 mg/dL as the GLUCOSE upper limit of normal. TP Per package insert reference range for recumbent is 6.0 to 7.8 TP g/dL and for >60 y/o is lower by 0.2 g/dL. Plasma samples will TP generally have higher values (about 0.2 to 0.4 g/dL higher) due TP to presence of fibrinogen. TRIG REF RANGE: BORDERLINE HIGH: 150-199 mg/dL HIGH: 200-499 mg/dL TRIG VERY HIGH: >=500 mg/dL CHOL REF RANGE: BORDERLINE HIGH: 200-239 mg/dL HIGH: >=240 mg/dL HDLC Values >60 are a negative risk factor for heart disease. DLDLREF RANGE: NEAR OR ABOVE OPTIMAL: 100-129 mg/dL BORDERLINE DLDLHIGH: 130-159 mg/dL HIGH: 160-189 mg/dL VERY HIGH: >=190 Ordering Provider: ALAN NINA Report Released Date/Time: May 05, 2024 09:51 AM Reporting Lab: [address] [phone] Performing Lab: [place] [phone] [facility] COMPREHEN SIVE METABOLIC PANEL BILIRUBIN.T OTAL [MASS/VOLUM E] IN SERUM OR PLASMA 0.7 mg/dL 0.2 - 1.2 10/25 Specimen Type: PLASMA Comment: GLUCOSE The ADA recommends a fasting glucose of 99 mg/dL as the GLUCOSE upper limit of normal. TP Per package insert reference range for recumbent is 6.0 to 7.8 TP g/dL and for >60 y/o is lower by 0.2 g/dL. Plasma samples will TP generally have higher values (about 0.2 to 0.4 g/dL higher) due TP to presence of fibrinogen. TRIG REF RANGE: BORDERLINE HIGH: 150-199 mg/dL HIGH: 200-499 mg/dL TRIG VERY HIGH: >=500 mg/dL CHOL REF RANGE: BORDERLINE HIGH: 200-239 mg/dL HIGH: >=240 mg/dL HDLC Values >60 are a negative risk factor for heart disease. DLDLREF RANGE: NEAR OR ABOVE OPTIMAL: 100-129 mg/dL BORDERLINE DLDLHIGH: 130-159 mg/dL HIGH: 160-189 mg/dL VERY HIGH: >=190 Ordering Provider: ALAN NINA Report Released Date/Time: May 05, 2024 09:51 AM Reporting Lab: [address] [phone] Performing Lab: [address] [phone] [facility] POTASSIUM [MOLES/VOLU ME] IN SERUM OR PLASMA 4.5 mmol/L 3.5 - 5.1 10/25 Specimen Type: PLASMA Comment: GLUCOSE The ADA recommends a fasting glucose of 99 mg/dL as the GLUCOSE upper limit of normal. TP Per package insert reference range for recumbent is 6.0 to 7.8 TP g/dL and for >60 y/o is lower by 0.2 g/dL. Plasma samples will TP generally have higher values (about 0.2 to 0.4 g/dL higher) due TP to presence of fibrinogen. TRIG REF RANGE: BORDERLINE HIGH: 150-199 mg/dL HIGH: 200-499 mg/dL TRIG VERY HIGH: >=500 mg/dL CHOL REF RANGE: BORDERLINE HIGH: 200-239 mg/dL HIGH: >=240 mg/dL HDLC Values >60 are a negative risk factor for heart disease. DLDLREF RANGE: NEAR OR ABOVE OPTIMAL: 100-129 mg/dL BORDERLINE DLDLHIGH: 130-159 mg/dL HIGH: 160-189 mg/dL VERY HIGH: >=190 Ordering Provider: ALAN NINA Report Released Date/Time: May 05, 2024 09:51 AM Reporting Lab: [address] [phone] Performing Lab: [address] [phone] [facility] COMPREHEN SIVE METABOLIC PANEL ANION GAP IN SERUM OR PLASMA 12 mmol/L 10 - 20 10/25 Specimen Type: PLASMA Comment: GLUCOSE The ADA recommends a fasting glucose of 99 mg/dL as the GLUCOSE upper limit of normal. TP Per package insert reference range for recumbent is 6.0 to 7.8 TP g/dL and for >60 y/o is lower by 0.2 g/dL. Plasma samples will TP generally have higher values (about 0.2 to 0.4 g/dL higher) due TP to presence of fibrinogen. TRIG REF RANGE: BORDERLINE HIGH: 150-199 mg/dL HIGH: 200-499 mg/dL TRIG VERY HIGH: >=500 mg/dL CHOL REF RANGE: BORDERLINE HIGH: 200-239 mg/dL HIGH: >=240 mg/dL HDLC Values >60 are a negative risk factor for heart disease. DLDLREF RANGE: NEAR OR ABOVE OPTIMAL: 100-129 mg/dL BORDERLINE DLDLHIGH: 130-159 mg/dL HIGH: 160-189 mg/dL VERY HIGH: >=190 Ordering Provider: ALAN NINA Report Released Date/Time: May 05, 2024 09:51 AM Reporting Lab: [address] [phone] Performing Lab: [address] [address] [facility] GLOMERULAR FILTRATION RATE/1.73 SQ M.PREDICTED [VOLUME RATE/AREA] IN SERUM, PLASMA OR BLOOD BY CREATININE- BASED FORMULA (CKD-EPI 2020) 48.0 mL/min 10/25 Specimen Type: PLASMA Comment: GLUCOSE The ADA recommends a fasting glucose of 99 mg/dL as the GLUCOSE upper limit of normal. TP Per package insert reference range for recumbent is 6.0 to 7.8 TP g/dL and for >60 y/o is lower by 0.2 g/dL. Plasma samples will TP generally have higher values (about 0.2 to 0.4 g/dL higher) due TP to presence of fibrinogen. TRIG REF RANGE: BORDERLINE HIGH: 150-199 mg/dL HIGH: 200-499 mg/dL TRIG VERY HIGH: >=500 mg/dL CHOL REF RANGE: BORDERLINE HIGH: 200-239 mg/dL HIGH: >=240 mg/dL HDLC Values >60 are a negative risk factor for heart disease. DLDLREF RANGE: NEAR OR ABOVE OPTIMAL: 100-129 mg/dL BORDERLINE DLDLHIGH: 130-159 mg/dL HIGH: 160-189 mg/dL VERY HIGH: >=190 Ordering Provider: ALAN NINA Report Released Date/Time: May 05, 2024 09:51 AM Reporting Lab: [address] [address] Performing Lab: [address] [address] [facility] LIPID PROFILE CHOLESTEROL [MASS/VOLUM E] IN SERUM OR PLASMA 151 mg/dL <199 - 199 10/25 Specimen Type: PLASMA Comment: GLUCOSE The ADA recommends a fasting glucose of 99 mg/dL as the GLUCOSE upper limit of normal. TP Per package insert reference range for recumbent is 6.0 to 7.8 TP g/dL and for >60 y/o is lower by 0.2 g/dL. Plasma samples will TP generally have higher values (about 0.2 to 0.4 g/dL higher) due TP to presence of fibrinogen. TRIG REF RANGE: BORDERLINE HIGH: 150-199 mg/dL HIGH: 200-499 mg/dL TRIG VERY HIGH: >=500 mg/dL CHOL REF RANGE: BORDERLINE HIGH: 200-239 mg/dL HIGH: >=240 mg/dL HDLC Values >60 are a negative risk factor for heart disease. DLDLREF RANGE: NEAR OR ABOVE OPTIMAL: 100-129 mg/dL BORDERLINE DLDLHIGH: 130-159 mg/dL HIGH: 160-189 mg/dL VERY HIGH: >=190 Ordering Provider: ALAN NINA Report Released Date/Time: May 05, 2024 09:51 AM Reporting Lab: [address] [address] Performing Lab: [address] [address] [facility] LIPID PROFILE CHOLESTEROL IN LDL [MASS/VOLUM E] IN SERUM OR PLASMA BY DIRECT ASSAY 103 mg/dL 0 - 99 10/25 H Specimen Type: PLASMA Comment: GLUCOSE The ADA recommends a fasting glucose of 99 mg/dL as the GLUCOSE upper limit of normal. TP Per package insert reference range for recumbent is 6.0 to 7.8 TP g/dL and for >60 y/o is lower by 0.2 g/dL. Plasma samples will TP generally have higher values (about 0.2 to 0.4 g/dL higher) due TP to presence of fibrinogen. TRIG REF RANGE: BORDERLINE HIGH: 150-199 mg/dL HIGH: 200-499 mg/dL TRIG VERY HIGH: >=500 mg/dL CHOL REF RANGE: BORDERLINE HIGH: 200-239 mg/dL HIGH: >=240 mg/dL HDLC Values >60 are a negative risk factor for heart disease. DLDLREF RANGE: NEAR OR ABOVE OPTIMAL: 100-129 mg/dL BORDERLINE DLDLHIGH: 130-159 mg/dL HIGH: 160-189 mg/dL VERY HIGH: >=190 Ordering Provider: ALAN NINA Report Released Date/Time: May 05, 2024 09:51 AM Reporting Lab: [address] [phone] Performing Lab: [address] [address] [facility] LIPID PROFILE CHOLESTEROL IN HDL [MASS/VOLUM E] IN SERUM OR PLASMA 34 mg/dL 40 10/25 L Specimen Type: PLASMA Comment: GLUCOSE The ADA recommends a fasting glucose of 99 mg/dL as the GLUCOSE upper limit of normal. TP Per package insert reference range for recumbent is 6.0 to 7.8 TP g/dL and for >60 y/o is lower by 0.2 g/dL. Plasma samples will TP generally have higher values (about 0.2 to 0.4 g/dL higher) due TP to presence of fibrinogen. TRIG REF RANGE: BORDERLINE HIGH: 150-199 mg/dL HIGH: 200-499 mg/dL TRIG VERY HIGH: >=500 mg/dL CHOL REF RANGE: BORDERLINE HIGH: 200-239 mg/dL HIGH: >=240 mg/dL HDLC Values >60 are a negative risk factor for heart disease. DLDLREF RANGE: NEAR OR ABOVE OPTIMAL: 100-129 mg/dL BORDERLINE DLDLHIGH: 130-159 mg/dL HIGH: 160-189 mg/dL VERY HIGH: >=190 Ordering Provider: MAICO,AL EX R Report Released Date/Time: May 05, 2024 09:51 AM Reporting Lab: [place] [phone] Performing Lab: [place] [phone] [facility] LIPID PROFILE TRIGLYCERID E [MASS/VOLUM E] IN SERUM OR PLASMA 140 mg/dL <149 - 149 10/25 Specimen Type: PLASMA Comment: GLUCOSE The ADA recommends a fasting glucose of 99 mg/dL as the GLUCOSE upper limit of normal. TP Per package insert reference range for recumbent is 6.0 to 7.8 TP g/dL and for >60 y/o is lower by 0.2 g/dL. Plasma samples will TP generally have higher values (about 0.2 to 0.4 g/dL higher) due TP to presence of fibrinogen. TRIG REF RANGE: BORDERLINE HIGH: 150-199 mg/dL HIGH: 200-499 mg/dL TRIG VERY HIGH: >=500 mg/dL CHOL REF RANGE: BORDERLINE HIGH: 200-239 mg/dL HIGH: >=240 mg/dL HDLC Values >60 are a negative risk factor for heart disease. DLDLREF RANGE: NEAR OR ABOVE OPTIMAL: 100-129 mg/dL BORDERLINE DLDLHIGH: 130-159 mg/dL HIGH: 160-189 mg/dL VERY HIGH: >=190 Ordering Provider: ALAN NINA Report Released Date/Time: May 05, 2024 09:51 AM Reporting Lab: [place] [phone] Performing Lab: [place] [phone] [facility] CBC LEUKOCYTES [#/VOLUME] IN BLOOD BY AUTOMATED COUNT 10.7 10*3/u L 3.6 - 11.0 10/25 Specimen Type: BLOOD No comment entered. Ordering Provider: ALAN NINA Report Released Date/Time: May 05, 2024 09:51 AM Reporting Lab: [address] [address] Performing Lab: [place] [phone] [facility] CBC ERYTHROCYTE S [#/VOLUME] IN BLOOD BY AUTOMATED COUNT 4.42 10*6/u L 4.47 - 5.83 10/25 L Specimen Type: BLOOD No comment entered. Ordering Provider: ALAN NINA R Report Released Date/Time: May 05, 2024 09:51 AM Reporting Lab: [place] [phone] Performing Lab: [place] [phone] [place] [address] CBC HEMOGLOBIN [MASS/VOLUM E] IN BLOOD 14.0 g/dL 13.6 - 17.4 10/25 Specimen Type: BLOOD No comment entered. Ordering Provider: ALAN NINA R Report Released Date/Time: May 05, 2024 09:51 AM Reporting Lab: [place] [phone] Performing Lab: [place] [phone] CBC HEMATOCRIT [VOLUME FRACTION] OF BLOOD BY AUTOMATED COUNT 42.7 40.0 - 51.0 10/25 Specimen Type: BLOOD No comment entered. Ordering Provider: ALAN NINA R Report Released Date/Time: May 05, 2024 09:51 AM Reporting Lab: [place] [phone] Performing Lab: [place] [phone] [place] [address] CBC MCV [ENTITIC VOLUME] BY AUTOMATED COUNT 96.8 fL 80.0 - 96.0 10/25 H Specimen Type: BLOOD No comment entered. Ordering Provider: ALAN NINA R Report Released Date/Time: May 05, 2024 09:51 AM Reporting Lab: [place] [phone] Performing Lab: [place] [phone] [facility] CBC MCH [ENTITIC MASS] BY AUTOMATED COUNT 31.8 pg 27.0 - 31.0 10/25 H Specimen Type: BLOOD No comment entered. Ordering Provider: ALAN NINA R Report Released Date/Time: May 05, 2024 09:51 AM Reporting Lab: [address] [phone] Performing Lab: [place] [phone] [facility] CBC MCHC [MASS/VOLUM E] BY AUTOMATED COUNT 32.9 g/dL 31.5 - 36.5 10/25 Specimen Type: BLOOD No comment entered. Ordering Provider: ALAN NINA R Report Released Date/Time: May 05, 2024 09:51 AM Reporting Lab: [place] [phone] Performing Lab: [place] [phone] CBC PLATELETS [#/VOLUME] IN BLOOD BY AUTOMATED COUNT 297 10*3/u L 150 - 400 10/25 Specimen Type: BLOOD No comment entered. Ordering Provider: ALAN NINA R Report Released Date/Time: May 05, 2024 09:51 AM Reporting Lab: [place] [phone] Performing Lab: [place] [phone] CBC LYMPHOCYTES /100 LEUKOCYTES IN BLOOD BY AUTOMATED COUNT 37.2 21.0 - 51.0 10/25 Specimen Type: BLOOD No comment entered. Ordering Provider: ALAN NINA Report Released Date/Time: May 05, 2024 09:51 AM Reporting Lab: [place] [phone] Performing Lab: [place] [phone] CBC MONOCYTES/1 00 LEUKOCYTES IN BLOOD BY AUTOMATED COUNT 8.1 4.0 - 8.0 10/25 H Specimen Type: BLOOD No comment entered. Ordering Provider: ALAN NINA Report Released Date/Time: May 05, 2024 09:51 AM Reporting Lab: [place] [phone] Performing Lab: [place] [phone] CBC NUCLEATED ERYTHROCYTE S/100 LEUKOCYTES [RATIO] IN BLOOD BY MANUAL COUNT 0.1 /100{W BCs} 10/25 Specimen Type: BLOOD No comment entered. Ordering Provider: ALAN NINA R Report Released Date/Time: May 05, 2024 09:51 AM Reporting Lab: [place] [phone] Performing Lab: [place] [phone] [facility] CBC ERYTHROCYTE DISTRIBUTIO N WIDTH [RATIO] BY AUTOMATED COUNT 15.8 11.2 - 15.8 10/25 Specimen Type: BLOOD No comment entered. Ordering Provider: ALAN NINA Report Released Date/Time: May 05, 2024 09:51 AM Reporting Lab: [place] [phone] Performing Lab: [place] [phone] CBC NEUTROPHILS /100 LEUKOCYTES IN BLOOD BY AUTOMATED COUNT 51.9 54.0 - 78.0 10/25 L Specimen Type: BLOOD No comment entered. Ordering Provider: ALAN NINA Report Released Date/Time: May 05, 2024 09:51 AM Reporting Lab: [place] [phone] Performing Lab: [place] [phone] CBC EOSINOPHILS /100 LEUKOCYTES IN BLOOD BY AUTOMATED COUNT 2.2 0.0 - 3.0 10/25 Specimen Type: BLOOD No comment entered. Ordering Provider: ALAN NINA Report Released Date/Time: May 05, 2024 09:51 AM Reporting Lab: [place] [phone] Performing Lab: [place] [phone] CBC BASOPHILS/1 00 LEUKOCYTES IN BLOOD BY AUTOMATED COUNT 0.6 0.0 - 3.0 10/25 Specimen Type: BLOOD No comment entered. Ordering Provider: ALAN NINA Report Released Date/Time: May 05, 2024 09:51 AM Reporting Lab: [place] [phone] Performing Lab: [address] CBC LYMPHOCYTES [#/VOLUME] IN BLOOD BY AUTOMATED COUNT 4.0 10*3/u L 0.8 - 5.0 10/25 Specimen Type: BLOOD No comment entered. Ordering Provider: MAICO,AL EX R Report Released Date/Time: May 05, 2024 09:51 AM Reporting Lab: [place] [phone] Performing Lab: [place] [phone] [place] [address] CBC NEUTROPHILS [#/VOLUME] IN BLOOD 5.6 10*3/u L 1.9 - 8.6 10/25 Specimen Type: BLOOD No comment entered. Ordering Provider: ALAN NINA R Report Released Date/Time: May 05, 2024 09:51 AM Reporting Lab: [place] [phone] Performing Lab: [place] [phone] [place] [address] CBC BASOPHILS [#/VOLUME] IN BLOOD BY AUTOMATED COUNT 0.1 10*3/u L 0.0 - 0.3 10/25 Specimen Type: BLOOD No comment entered. Ordering Provider: ALAN NINA Report Released Date/Time: May 05, 2024 09:51 AM Reporting Lab: [place] [phone] Performing Lab: [place] [phone] CBC MONOCYTES [#/VOLUME] IN BLOOD BY AUTOMATED COUNT 0.9 10*3/u L 0.1 - 0.9 10/25 Specimen Type: BLOOD No comment entered. Ordering Provider: ALAN NINA R Report Released Date/Time: May 05, 2024 09:51 AM Reporting Lab: [place] [phone] Performing Lab: [place] [phone] [facility] CBC EOSINOPHILS [#/VOLUME] IN BLOOD BY AUTOMATED COUNT 0.2 10*3/u L 0.0 - 0.3 10/25 Specimen Type: BLOOD No comment entered. Ordering Provider: ALAN NINA Report Released Date/Time: May 05, 2024 09:51 AM Reporting Lab: [address] [phone] Performing Lab: [place] [phone] [facility] CBC PLATELET MEAN VOLUME [ENTITIC VOLUME] IN BLOOD BY AUTOMATED COUNT 8.4 fL 7.4 - 11.4 10/25 Specimen Type: BLOOD No comment entered. Ordering Provider: ALAN NINA R Report Released Date/Time: May 05, 2024 09:51 AM Reporting Lab: [address] [address] Performing Lab: [place] [phone] [facility] HEMOGLOBI N A1C HEMOGLOBIN A1C/HEMOGLO BIN.TOTAL IN BLOOD 6.0 3.6 - 5.7 10/25 H Specimen Type: BLOOD Comment: Values obtained from A1C measurement s can vary. For typical A1C assays, a reported value of 7.0 could actually be between 6.72 and 7.28 if measured by a reference method. A reported value of 9.0 could actually be between 8.73 and 9.27. Ref: http://www. ngsp.org/[place] Pdata.asp Ordering Provider: ALAN NINA R Report Released Date/Time: May 05, 2024 09:51 AM Reporting Lab: [address] [address] Performing Lab: [place] [phone] [facility] MAGNESIUM MAGNESIUM [MASS/VOLUM E] IN SERUM OR PLASMA 2.0 mg/dL 1.6 - 2.6 10/25 Specimen Type: PLASMA Comment: GLUCOSE The ADA recommends a fasting glucose of 99 mg/dL as the GLUCOSE upper limit of normal. TP Per package insert reference range for recumbent is 6.0 to 7.8 TP g/dL and for >60 y/o is lower by 0.2 g/dL. Plasma samples will TP generally have higher values (about 0.2 to 0.4 g/dL higher) due TP to presence of fibrinogen. TRIG REF RANGE: BORDERLINE HIGH: 150-199 mg/dL HIGH: 200-499 mg/dL TRIG VERY HIGH: >=500 mg/dL CHOL REF RANGE: BORDERLINE HIGH: 200-239 mg/dL HIGH: >=240 mg/dL HDLC Values >60 are a negative risk factor for heart disease. DLDLREF RANGE: NEAR OR ABOVE OPTIMAL: 100-129 mg/dL BORDERLINE DLDLHIGH: 130-159 mg/dL HIGH: 160-189 mg/dL VERY HIGH: >=190 Ordering Provider: ALAN NINA Report Released Date/Time: May 05, 2024 09:51 AM Reporting Lab: [place] [phone] Performing Lab: [place] [phone] [facility] URIC ACID URATE [MASS/VOLUM E] IN SERUM OR PLASMA 4.4 mg/dL 3.7 - 7.7 10/25 Specimen Type: PLASMA Comment: GLUCOSE The ADA recommends a fasting glucose of 99 mg/dL as the GLUCOSE upper limit of normal. TP Per package insert reference range for recumbent is 6.0 to 7.8 TP g/dL and for >60 y/o is lower by 0.2 g/dL. Plasma samples will TP generally have higher values (about 0.2 to 0.4 g/dL higher) due TP to presence of fibrinogen. TRIG REF RANGE: BORDERLINE HIGH: 150-199 mg/dL HIGH: 200-499 mg/dL TRIG VERY HIGH: >=500 mg/dL CHOL REF RANGE: BORDERLINE HIGH: 200-239 mg/dL HIGH: >=240 mg/dL HDLC Values >60 are a negative risk factor for heart disease. DLDLREF RANGE: NEAR OR ABOVE OPTIMAL: 100-129 mg/dL BORDERLINE DLDLHIGH: 130-159 mg/dL HIGH: 160-189 mg/dL VERY HIGH: >=190 Ordering Provider: ALAN NINA Report Released Date/Time: May 05, 2024 09:51 AM Reporting Lab: [place] [phone] Performing Lab: [address] [phone] [facility] VITAMIN D (TOTAL) 25-HYDROXYV ITAMIN D3+25-HYDRO XYVITAMIN D2 [MASS/VOLUM E] IN SERUM OR PLASMA 20 ng/mL 30 - 60 10/25 L Specimen Type: SERUM No comment entered. Ordering Provider: ALAN NINA Report Released Date/Time: May 05, 2024 09:57 AM Reporting Lab: [place] [phone] Performing Lab: [place] [phone] [facility] POTASSIUM POTASSIUM [MOLES/VOLU ME] IN SERUM OR PLASMA 4.8 mmol/L 3.5 - 5.1 06/01 Specimen Type: PLASMA No comment entered. Ordering Provider: ALAN NINA Report Released Date/Time: May 31, 2024 11:09 AM Reporting Lab: [place] [phone] Performing Lab: [place] [phone] [place] [address] MICROALBU MIN/CREAT ININE RATIO PANEL MICROALBUMI N [MASS/VOLUM E] IN URINE 1 mg/L 0 - 10 04/25 Specimen Type: URINE No comment entered. Ordering Provider: ALAN NINA Report Released Date/Time: Nov 03, 2023 09:41 AM Reporting Lab: [place] [phone] Performing Lab: [place] [phone] MICROALBU MIN/CREAT ININE RATIO PANEL CREATININE [MASS/VOLUM E] IN URINE 197.05 mg/dL 04/25 Specimen Type: URINE No comment entered. Ordering Provider: ALAN NINA Report Released Date/Time: Nov 03, 2023 09:41 AM Reporting Lab: [place] [phone] Performing Lab: [place] [phone] [place] [address] MICROALBU MIN/CREAT ININE RATIO PANEL MICROALBUMI N/CREATININ E [MASS RATIO] IN URINE 0.51 mg/g 0.0 - 19.9 04/25 Specimen Type: URINE No comment entered. Ordering Provider: ALAN NINA Report Released Date/Time: Nov 03, 2023 09:41 AM Reporting Lab: [place] [phone] Performing Lab: [place] [phone] [facility] Vital Signs Combined list of inpatient and outpatient Vital Signs from Department of Defense and Veterans Affairs, ranging from 12 months to all on record, depending upon the facility. Vital Sign Value Date Comments Source SYSTOLIC BLOOD PRESSURE 149 11/30/2024 13:23:29 [facility] DIASTOLIC BLOOD PRESSURE 88 11/30/2024 13:23:29 [facility] PULSE OXIMETRY 95 11/30/2024 13:23:29 [facility] WEIGHT 263.1 11/30/2024 13:23:29 [facility] BMI 41 kg/m2 11/30/2024 13:23:29 [facility] PAIN 0 11/30/2024 13:23:29 [facility] TEMPERATURE 97.5 11/30/2024 13:23:29 [facility] PULSE 65 11/30/2024 13:23:29 [facility] RESPIRATION 16 11/30/2024 13:23:29 [facility] SYSTOLIC BLOOD PRESSURE 126 05/05/2024 09:32:14 [facility] DIASTOLIC BLOOD PRESSURE 82 05/05/2024 09:32:14 [facility] PULSE OXIMETRY 96 05/05/2024 09:32:14 [facility] WEIGHT 261.1 05/05/2024 09:32:14 [facility] BMI 41 kg/m2 05/05/2024 09:32:14 [facility] PAIN 0 05/05/2024 09:32:14 [facility] TEMPERATURE 98.2 05/05/2024 09:32:14 [facility] PULSE 58 05/05/2024 09:32:14 [facility] RESPIRATION 16 05/05/2024 09:32:14 [facility] Encounters Combined list of: 1) Encounters from Department of Veterans Affairs facilities going backup to the last 18 months, not all [place] inpatient encounters are included; 2) Encounters from the Department of Defense facilities going backup to 280 months. Location Location Details Encounter Type Encounter Number Reason For Visit Attending Provider ADM Date DC Date Status Disposition Source [facility] HEARING AID FITTING/CH ECKING [id number] Diagnos is: ICD-10- CM Z46.1 Encount er for fitting and adjustm ent of hearing aid ROBINSON DUARTE HELL 09/17 [facility] Outpatient Encounter [id number] Diagnos is: ICD-10- CM Z03.89 Encntr for obs for oth suspect ed disease s and cond ruled out PILAR W[place] HAM S 09/17 [facility] [place] En[place] [id number] 09/18 [facility] Outpatient Encounter [id number] 10/06 [facility] Outpatient Encounter [id number] Diagnos is: ICD-10- CM Z03.89 Encntr for obs for oth suspect ed disease s and cond ruled out PILAR [place] H[facility] S 10/21 [facility] OFFICE O/P EST MOD 30 MIN [id number] Diagnos is: ICD-10- CM R73.03 Prediab etes Whit NINA ZAY R 11/03 [facility] Outpatient Encounter [id number] Diagnos is: ICD-10- CM Z03.89 Encntr for obs for oth suspect ed disease s and cond ruled out PILAR [facility] [facility] S [facility] HC PRO PHONE CALL 5-10 MIN [id number] Diagnos is: ICD-10- CM Z03.89 Encntr for obs for oth suspect ed disease s and cond ruled out PILAR [facility] H[facility] S [facility] Outpatient Encounter [id number] 11/19 [facility] Outpatient Encounter [id number] 11/19 [facility] OFFICE O/P NEW MOD 45 MIN [id number] Diagnos is: ICD-10- CM R73.03 Prediab etes EMMADA CORINA 12/28 [facility] OFFICE O/P EST MOD 30 MIN [id number] Diagnos is: ICD-10- CM R73.03 Prediab esau PERDOMOGOWhit ZAY R 05/05 [facility] Outpatient Encounter [id number] 07/13 [facility] Outpatient Encounter [id number] Diagnos is: ICD-10- CM Z77.29 Contact with and exposur e to other hazardo us substan ALLIE Jane MARILUZUE 10/13 [facility] Outpatient Encounter [id number] Diagnos is: ICD-10- CM Z77.29 Contact with and exposur e to other hazardo us substan ALLIE Jane IQUE 10/14 [facility] FEE [id number] Diagnos is: ICD-10- CM M25.569 Pain in unspeci fied knee COLLINS GERONIMO 11/30 [facility] OFFICE O/P EST MOD 30 MIN [id number] Diagnos is: ICD-10- CM M25.569 Pain in unspeci fied knee LAWANDA OBREGON 11/30 [facility] Outpatient Encounter [id number] 12/02 [facility] Outpatient Encounter [id number] 12/02 [facility] EST MOD 30 MIN [id number] Diagnos is: ICD-10- CM R73.03 Prediab esau CARTERDA CORINA 12/27 [facility] Outpatient Encounter [id number] 12/27 [facility] Social History Combined list of available smoking, tobacco, and other social history from Department of Defense and Veterans Affairs facilities. Social History Type Response Date Comment Sourc e Tobacco smoking status NHIS [facility] FORMER USER 05/05/2024 [facility] History of tobacco use VA-TOBACCO QUIT 1 5 YRS OR MORE 05/05/2024 [facility] History of tobacco use VA-TOBACCO FORMER USER 05/06/2023 [facility] Plan of Care List of future care activities from Department of Veterans Affairs facilities. Additional future care activities may be listed in the Assessment and Plan section. Date/Time Care Activity Care Activity Detail Facili ty 06/01/2025 AMBULATORY - NONE AMBULATORY - NONE [facility]
--- OUTSIDE RECORDS SUMMARY | 2025-03-15 09:06 | XMS_ITS | Encounter Summary ---
Author Name [facility] ([place] Organization [facility] ([place]) Address [address] [place] [address] Care Team Providers Care Budget Specialist Name Role Phone RENÉE WEINER Primary Care [...] PLAN G Apr 21, 2024 PLAN G [id number] [phone] CANDICE CONTRERAS PATIENT MEDICARE (WNR) MEDICARE (M) PART A Apr 21, 2024 PART A [id number] [facility] [phone] CANDICE CONTRERAS PATIENT MEDICARE (WNR) MEDICARE (M) PART B Apr 21, 2024 PART B [id number] [facility] [phone] CANDICE CONTRERAS PATIENT Selected Encounter This section includes the information on record at [place] for the Encounter. Date/Time Encounter Type Encounter Description Reason Pro vider Source IHE Encounter Template Text not used by [place]
--- OUTSIDE RECORDS SUMMARY | 2025-03-15 09:07 | XMS_ITS | Patient Health Record ---
Author Organization [facility] Address [address] [place] [address] Care Team Providers Care Signal Person Name Role Phone HUNTER MORROW DO Primary Care Provider Aguilar Whittaker Unavailable [phone] Reason For Referral No Information Social History Tobacco Use: Social History Observation Description Date Details (start date - stop date) Never Smoker NA - NA AUDIT-C (Standard) Question Answer Notes Did you have a drink contain ing alcohol in the past year? Yes How often did you have six o r more drinks on one occasion in the past year? Never (0 point) How many drinks did you have on a typical day when you were drinking in the past year? 1 or 2 drinks (0 point) How often did you have a dri nk containing alcohol in the past year? Monthly or less (1 point) Points 1 Interpretation Negative Tobacco Control (Standard) Question Answer Notes Tobacco use: Nonsmoker Plan Of Treatment Pending Test Test Name Order Date SCC- FINGER 3 VIEW LEFT [id number] 03/07/2024 Insurance Providers Payer Name Payer Address Payer Phone Subscriber Number Group Number Insured Name Patient Relationship to Insured Coverage Start Date Coverage End Date Yolie [address] [place] [phone] [id number] CANDICE CONTRERAS Self - patient is the insured
--- OUTSIDE RECORDS SUMMARY | 2025-03-15 09:07 | XMS_ITS | Clinical Summary ---
Author Organization [facility] Address [address] [place] [address] Care Team Providers Care Counter Pocket Sewer Name Role Phone Isreal Brown DO Primary Care Provider [phone] Allergies No known active allergies Medications allopurinol (Zyloprim) 300 MG tablet Take 300 mg by mouth 05/06/2023 Active atenolol (Tenormin) 50 MG tablet Take 50 mg by mouth 05/06/2023 Active cholecalciferol (Vitamin D-3) 50 MCG (2000 UT) tablet Take 2,000 Units by mouth in the morning. 05/19/2024 Active amLODIPine (Norvasc) 5 MG tablet Take 5 mg by mouth Daily 08/19/2024 Active Active Problems No known active problems Encounters Date Type Department Care Team Description 01/09/2025 1:00 PM EDT Office Visit [facility] [address] [place] [id number] Antoni Ybarra DO Primary osteoarthritis of both knees (Primary Dx); Chronic pain of both knees; Morbid obesity (CMS-HCC) 01/09/2025 11:30 AM EDT Ancillary Procedure [facility] [address] [place] [id number] 01/09/2025 11:25 AM EDT Ancillary Procedure [facility] [address] [place] [address] 01/09/2025 Travel 01/08/2025 Travel from Last 3 Months Family History Medical History Relation Name Comments Cancer Father Moe Mitchell Diabetes Father Moe Mitchell Diabetes Mother Relation Name Status Comments Father Moe Mitchell Mother Alive Social History Tobacco Use Types Packs/Day Years Used Date Smoking Tobacco: Former Cigarettes 1 10 Smokeless Tobacco: Never Tobacco Cessation:Counseling Given: Not Answered Alcohol Use Standard Drinks/Week Comments Yes 2 (1 standard drink = 0.6 oz pur e alcohol) Sex and Gender Information Value Date Recorded Sex Assigned at Not on file Legal Sex Male 7:20 PM EDT Gender Identity Not on file Sexual Orientation Not on file Last Filed Vital Signs Vital Sign Reading Time Taken Comments Blood Pressure 133/84 06/27/2019 12:00 PM EDT Pulse - - Temperature 36.3 C (97.4 F) 07/06/2024 9:46 AM EDT Respiratory Rate - - Oxygen Saturation - - Inhaled Oxygen Concentration - - Weight 117 kg (258 lb) 01/09/2025 12:54 PM EDT Height 170.2 cm (5' 7 ) 01/09/2025 12:54 PM EDT Body Mass Index 40.41 01/09/2025 12:54 PM EDT Plan of Treatment Health Maintenance Due Date Last Done Comments CT Colonography 1959 Colonoscopy 1959 Colorectal Cancer Screening 1959 FIT-DNA 1959 FIT 1959 FOBT 1959 Sigmoidoscopy 1959 Pneumococcal Vaccine: 65+ Years Completed Influenza Vaccine Completed 07/13/2024, , 06/26/2023, Additional history exists Procedures Procedure Name Priority Date/Time Associated Diagnosis Comments ME ARTHROCENTESIS ASPIR&/INJ MAJOR JT/BURSA W/O US Routine 01/09/2025 1:32 PM EDT Primary osteoarthritis of both knees XR KNEE 3 VIEWS LEFT Routine 01/09/2025 11:22 AM EDT Primary osteoarthritis of both knees XR KNEE 3 VIEWS RIGHT Routine 01/09/2025 11:22 AM EDT Primary osteoarthritis of both knees from Last 3 Months Results * ME ARTHROCENTESIS ASPIR&/INJ MAJOR JT/BURSA W/O US (01/09/2025 1:32 PM EDT) Narrative RosangelaJoie MA - 01/09/2025 1:32 PM EDT Joie Adames MA 01/11/2025 12:18 PM L Inj/Asp: bilateral knee on 01/09/2025 1:32 PM Indications: pain Details: 22 G needle Medications (Right): 32 mg triamcinolone acetonide 32 MG Medications (Left): 32 mg triamcinolone acetonide 32 MG Result [facility] Antoni Ybarra DO IN CLINIC/BEDSIDE ORDERABLES Fi nal Result * XR knee 3 views right (01/09/2025 11:22 AM EDT) Anatomical Region Laterality Modality Lower Extremities, Knee Right Radiogra phic Imaging Narrative 01/11/2025 12:33 PM EDT Imaging Result: X-rays AP bilateral weight bearing, bilateral weight bearing, bilateral sunrise and bilateral laterals here today total of six views with permanent images are saved to the record does show evidence of the advanced osteoarthritis with essential bone on bone change medially and varus deformity bilaterally. This is of equal severity bilaterally. Result [facility] Antoni Ybarra DO IMG XR PROCEDURES Final Result * XR knee 3 views left (01/09/2025 11:22 AM EDT) Anatomical Region Laterality Modality Lower Extremities, Knee Left Radiogra phic Imaging Narrative 01/11/2025 12:33 PM EDT Imaging Result: X-rays AP bilateral weight bearing, bilateral weight bearing, bilateral sunrise and bilateral laterals here today total of six views with permanent images are saved to the record does show evidence of the advanced osteoarthritis with essential bone on bone change medially and varus deformity bilaterally. This is of equal severity bilaterally. Result [facility] Antoni Ybarra DO IMG XR PROCEDURES Final Result from Last 3 Months Insurance [employer] MEDICARE Care Teams Counter Pocket Sewer Relationship Specialty Start Date End Date Isreal Brown DO [address] [place] [id number] PCP - General Internal Medicine 01/09/25
--- OUTSIDE RECORDS SUMMARY | 2025-03-15 09:07 | XMS_ITS | Encounter Summary ---
Author Name [facility] ([place] [facility] ([place]) Address [address] [place] [address] Care Team Providers Care Cleaning Crew Member Name Role Phone RENÉE WEINER Primary Care [...] PLAN G Apr 21, 2024 PLAN G [id number] [phone] CANDICE CONTRERAS PATIENT MEDICARE (WNR) MEDICARE (M) PART A Apr 21, 2024 PART A [id number] [facility] [phone] CANDICE CONTRERAS PATIENT MEDICARE (WNR) MEDICARE (M) PART B Apr 21, 2024 PART B [id number] [facility] CANDICE CONTRERAS PATIENT Selected Encounter This section includes the information on record at [place] for the Encounter. Date/Time Encounter Type Encounter Description Reason Pro vider Source IHE Encounter Template Text not used by [place]
[2025-03-15 09:27] LABS: Basophils Absolute Auto 0.1 10^3/uL (0.0-0.1); Basophils Percent Auto 0.6 % (0.2-2.0); Eosinophils Absolute Auto 0.2 10^3/uL (0.0-0.7); Eosinophils Percent Auto 2.1 % (0.9-7.0); Hematocrit 42.2 % (42.0-54.0); Hemoglobin 14.6 g/dL (14.0-18.0); Immature Granulocytes Abs Auto 0.04 10^3/uL (0.00-0.03); Immature Granulocytes Pct Auto 0.5 % (0.0-0.5); Lymphocytes Absolute Auto 2.5 10^3/uL (1.2-3.8); Lymphocytes Percent Auto 30.1 % (20.5-60.0); Mean Corpuscular HGB Conc 34.6 g/dL (29.9-35.2); Mean Corpuscular Volume 92.5 fL (80.0-94.0); Mean Platelet Volume 9.1 fL (9.5-13.5); Monocytes Absolute Auto 0.6 10^3/uL (0.3-0.8); Monocytes Percent Auto 7.2 % (1.7-12.0); Neutrophils Percent Auto 59.5 % (43.0-75.0); Platelet Count 259 10^3/uL (150-450); Red Blood Count 4.56 10^6/uL (4.70-6.10); Red Cell Distribution Width 14.3 % (11.0-15.0); White Blood Count 8.4 10^3/uL (4.0-11.0)
[2025-03-15 09:50] LABS: Chol HDL Ratio 2.8; Cholesterol 141 mg/dL (<=200); HDL Cholesterol 50 mg/dL (40-60); Triglycerides 75 mg/dL (<=150)
[2025-03-15 13:12] LABS: Estimated Average Glucose 123 mg/dL; Glycohemoglobin A1C 5.9 % (4.5-6.2)
== END 2025-03-15 08:58 | disposition home or self-care (01) ==
LOC: LAB 09:04
PROVIDERS: PCP Internal Medicine; Visit Provider Internal Medicine
DX: E78.5 Hyperlipidemia, unspecified (principal); R73.01 Impaired fasting glucose; N18.31 Chronic kidney disease, stage 3a; I12.9 Hypertensive chronic kidney disease with stage 1 through stage 4 chronic kidney disease, or unspecified chronic kidney disease
CPT/HCPCS: 36415; 80061; 83036; 85025